=== PATIENT | male | born 1945 | race Caucasian/White ===

== ENCOUNTER → 2020-01-08 08:09 | Outpatient (BNVA) | payer MEDICARE, MEDICAID, SELFPAY | PROVIDERS: PCP Student in an Organized Health Care Education/Training Program; Referring Provider Student in an Organized Health Care Education/Training Program; Visit Provider Student in an Organized Health Care Education/Training Program | DX: M1A.40X0 Other secondary chronic gout, unspecified site, without tophus (tophi) (principal); M17.0 Bilateral primary osteoarthritis of knee; K70.30 Alcoholic cirrhosis of liver without ascites; Z79.899 Other long term (current) drug therapy | CPT/HCPCS: 99213 ==

== ENCOUNTER → 2020-01-24 13:21 | Outpatient (BNVA) | payer MEDICARE, MEDICAID, SELFPAY | PROVIDERS: PCP Student in an Organized Health Care Education/Training Program; Referring Provider Student in an Organized Health Care Education/Training Program; Visit Provider Internal Medicine Gastroenterology | DX: K72.90 Hepatic failure, unspecified without coma (principal); K70.30 Alcoholic cirrhosis of liver without ascites | CPT/HCPCS: 99212; Q3014 ==

== ENCOUNTER → 2020-02-07 10:22 | Outpatient (BNVA) | payer MEDICARE, MEDICAID, SELFPAY | PROVIDERS: PCP Student in an Organized Health Care Education/Training Program; Referring Provider Student in an Organized Health Care Education/Training Program; Visit Provider Internal Medicine Gastroenterology | DX: K70.30 Alcoholic cirrhosis of liver without ascites (principal); K72.90 Hepatic failure, unspecified without coma; I85.00 Esophageal varices without bleeding; Z87.19 Personal history of other diseases of the digestive system; Z79.899 Other long term (current) drug therapy | CPT/HCPCS: 99212; Q3014 ==

== ENCOUNTER 2020-05-06 08:51 | Outpatient (REF) | payer MEDICARE, SELFPAY ==
[2020-05-06 09:25] LABS: Ammonia 85 umol/L (13-55)
== END 2020-05-06 08:52 | disposition home or self-care (01) ==
LOC: HO.LAB 08:51
PROVIDERS: PCP Student in an Organized Health Care Education/Training Program; Visit Provider Student in an Organized Health Care Education/Training Program
DX: K74.60 Unspecified cirrhosis of liver (principal)
CPT/HCPCS: 36415; 82140

== ENCOUNTER 2020-05-15 15:00 | Outpatient (REF) | payer MEDICARE, SELFPAY ==
[2020-05-15 15:29] LABS: Eosinophils Percent Auto 0.3 % (0-4); Hematocrit 31.5 % (42-52); Hemoglobin 10.1 g/dl (14.0-18.0); Lymphocytes Absolute Auto 1.1 X10*3/uL (1.2-4.9); Lymphocytes Percent Auto 34.3 % (20-40); MANUAL DIFF FLAG SCAN; Mean Corpuscular HGB Conc 32.1 g/dl (31.0-36.0); Mean Corpuscular Hemoglobin 27.4 pg (27.0-33.0); Mean Corpuscular Volume 85.6 fL (80-98); Mean Platelet Volume 11.8 fL (9.4-12.4); Monocytes Absolute Auto 0.7 X10*3/uL (0.1-1.2); Monocytes Percent Auto 20.4 % (2-11); Neutrophils Absolute Auto 1.4 X10*3/uL (2.0-8.3); Red Blood Count 3.68 X10*6/uL (4.60-5.80); Red Cell Distribution Width 20.3 % (11.0-16.0); SCAN SMEAR FLAG 1; White Blood Count 3.2 X10*3/uL (4.8-10.8)
[2020-05-15 15:35] LABS: INTERNATIONAL NORM RATIO 1.4 (0.9-1.1); Prothrombin Time 17.1 SEC (10.8-13.0)
[2020-05-15 15:49] LABS: Platelet Count 55 X10*3/uL (160-400)
[2020-05-15 15:50] LABS: SLIDE REVIEW VERIFIED
[2020-05-15 15:52] LABS: Ammonia 96 umol/L (13-55)
[2020-05-15 15:57] LABS: Alanine Aminotransferase 42 U/L (0-40); Albumin Level 3.3 g/dL (3.5-5.0); Alkaline Phosphatase 292 U/L (39-117); Aspartate Amino Transferase 88 U/L (5-37); Bilirubin Direct 0.4 mg/dL (0.0-0.5); Bilirubin Total 0.8 mg/dL (0.0-1.0); Total Protein 6.9 g/dL (6.5-8.0)
[2020-05-15 16:00] LABS: Anion Gap 8 (12-20); Blood Urea Nitrogen 17 mg/dL (9-16); Carbon Dioxide 27 mmol/L (22-29); Chloride 105 mmol/L (96-108); Estimated Glomerular Filt Rate 50; Glucose Random 115 mg/dL (60-115); Potassium 4.7 mmol/L (3.3-5.1); Sodium 135 mmol/L (135-145)
== END 2020-05-15 15:01 | disposition home or self-care (01) ==
LOC: HO.LAB 15:00
PROVIDERS: PCP Student in an Organized Health Care Education/Training Program; Referring Provider Internal Medicine Gastroenterology; Visit Provider Internal Medicine
DX: K70.30 Alcoholic cirrhosis of liver without ascites (principal); K72.90 Hepatic failure, unspecified without coma; N18.9 Chronic kidney disease, unspecified
CPT/HCPCS: 36415; 80048; 80076; 82140; 85025; 85610

== ENCOUNTER → 2020-05-27 13:49 | Outpatient (BNVA) | payer MEDICARE, SELFPAY | PROVIDERS: PCP Student in an Organized Health Care Education/Training Program; Visit Provider Internal Medicine Gastroenterology | DX: Z13.89 Encounter for screening for other disorder (principal) | CPT/HCPCS: Q3014 ==

== ENCOUNTER 2020-05-30 09:42 | Outpatient (REF) | payer MEDICARE, SELFPAY ==
[2020-05-30 10:09] LABS: MANUAL DIFF FLAG SCAN; SCAN SMEAR FLAG 1
[2020-05-30 10:11] LABS: Eosinophils Percent Auto 0.7 % (0-4); Imm Gran Abs Auto 0.01 X10*3/uL (0.00-0.03); Imm Gran Pct Auto 0.2 % (0.0-0.4); Lymphocytes Absolute Auto 1.5 X10*3/uL (1.2-4.9); Lymphocytes Percent Auto 33.5 % (20-40); Mean Corpuscular HGB Conc 32.4 g/dl (31.0-36.0); Mean Corpuscular Hemoglobin 27.8 pg (27.0-33.0); Mean Corpuscular Volume 86.1 fL (80-98); Mean Platelet Volume 11.5 fL (9.4-12.4); Monocytes Absolute Auto 1.2 X10*3/uL (0.1-1.2); Monocytes Percent Auto 26.7 % (2-11); Neutrophils Absolute Auto 1.7 X10*3/uL (2.0-8.3); Neutrophils Percent Auto 38.9 % (45-73); Red Blood Count 3.95 X10*6/uL (4.60-5.80); Red Cell Distribution Width 20.1 % (11.0-16.0); White Blood Count 4.4 X10*3/uL (4.8-10.8)
[2020-05-30 10:12] LABS: Platelet Count 75 X10*3/uL (160-400)
[2020-05-30 10:17] LABS: INTERNATIONAL NORM RATIO 1.5 (0.9-1.1); Prothrombin Time 18.2 SEC (10.8-13.0)
[2020-05-30 10:35] LABS: SLIDE REVIEW VERIFIED
[2020-05-30 10:37] LABS: Ammonia 141 umol/L (13-55)
[2020-05-30 11:10] LABS: Alanine Aminotransferase 32 U/L (0-40); Albumin Level 3.5 g/dL (3.5-5.0); Alkaline Phosphatase 257 U/L (39-117); Anion Gap 10 (12-20); Aspartate Amino Transferase 105 U/L (5-37); Bilirubin Direct 0.4 mg/dL (0.0-0.5); Bilirubin Total 0.7 mg/dL (0.0-1.0); Blood Urea Nitrogen 13 mg/dL (9-16); Carbon Dioxide 25 mmol/L (22-29); Chloride 105 mmol/L (96-108); Estimated Glomerular Filt Rate 44; Potassium 4.4 mmol/L (3.3-5.1); Sodium 136 mmol/L (135-145); Total Protein 7.3 g/dL (6.5-8.0)
[2020-06-04 12:56] LABS: Alpha Fetoprotein 26.1 ng/mL (<6.1)
== END 2020-05-30 09:43 | disposition home or self-care (01) ==
LOC: HO.LAB 09:42
PROVIDERS: PCP Student in an Organized Health Care Education/Training Program; Visit Provider Internal Medicine Gastroenterology
DX: K72.90 Hepatic failure, unspecified without coma (principal); K70.30 Alcoholic cirrhosis of liver without ascites
CPT/HCPCS: 36415; 80051; 80076; 82105; 82140; 82565; 84520; 85025; 85610

== ENCOUNTER 2020-06-11 08:37 | Outpatient (REF) | payer MEDICARE, SELFPAY ==
--- NOTE | ~2020-06-11 | US_ITS ---
EXAMINATION: US ABDOMEN COMPLETE CLINICAL INFORMATION: K70.30 - Alcoholic cirrhosis of liver without ascites. COMPARISON: Ultrasound abdomen 08/28/2019, 07/27/2017 TECHNIQUE: Real-time imaging of the abdominal viscera. FINDINGS: PANCREAS: Obscured by bowel gas and not imaged. ABDOMINAL AORTA: The proximal, mid, and distal segments are normal in caliber. INFERIOR VENA CAVA: Visualized portions are normal. LIVER: The liver measures approximately 15 cm in length. The liver surface is nodular and there is uniform coarsening of the hepatic parenchymal echotexture consistent with the clinical history. There is no focal hepatic parenchymal lesion demonstrated by ultrasound. No intrahepatic ductal dilatation. Color Doppler shows portal flow towards the liver. GALLBLADDER: There are dependent gravel-like calculi in the gallbladder. There is no gallbladder wall thickening. Negative sonographic Mosqueda's sign. No pericholecystic fluid. COMMON BILE DUCT: Normal in caliber measuring 0.6 cm in diameter. RIGHT KIDNEY: Normal. No hydronephrosis. No renal calculi or focal parenchymal lesions. The kidney measures 10.3 cm in maximum dimension. LEFT KIDNEY: Normal. No hydronephrosis. No renal calculi or focal parenchymal lesions. The kidney measures 10.5 cm in maximum dimension. SPLEEN: Normal. The spleen measures 13.1 cm in maximum dimension. FREE FLUID: None. US/US abdomen complete IMPRESSION: 1. Uniform coarsening hepatic parenchymal echotexture and nodular liver surface consistent with the history of cirrhosis. No focal hepatic parenchymal lesion. 2. Fine gravel-like calculi dependent gallbladder. No gallbladder wall thickening or ductal dilatation. 3. Pancreas obscured by bowel gas.
[2020-06-11 09:08] LABS: Basophils Percent Auto 0.2 % (0-2); Eosinophils Percent Auto 0.6 % (0-4); Hematocrit 33.4 % (42-52); Imm Gran Abs Auto 0.01 X10*3/uL (0.00-0.03); Imm Gran Pct Auto 0.2 % (0.0-0.4); Lymphocytes Absolute Auto 1.7 X10*3/uL (1.2-4.9); Lymphocytes Percent Auto 35.8 % (20-40); MANUAL DIFF FLAG SCAN; Mean Corpuscular HGB Conc 32.9 g/dl (31.0-36.0); Mean Platelet Volume 10.7 fL (9.4-12.4); Monocytes Absolute Auto 1.2 X10*3/uL (0.1-1.2); Monocytes Percent Auto 25.3 % (2-11); Neutrophils Absolute Auto 1.8 X10*3/uL (2.0-8.3); Neutrophils Percent Auto 37.9 % (45-73); Red Blood Count 3.93 X10*6/uL (4.60-5.80); Red Cell Distribution Width 19.4 % (11.0-16.0); SCAN SMEAR FLAG 1; White Blood Count 4.9 X10*3/uL (4.8-10.8)
[2020-06-11 09:09] LABS: Platelet Count 75 X10*3/uL (160-400)
[2020-06-11 09:21] LABS: Ammonia 94 umol/L (13-55)
[2020-06-11 09:35] LABS: Estimated Glomerular Filt Rate 55; SLIDE REVIEW VERIFIED
== END 2020-06-11 08:38 | disposition home or self-care (01) ==
LOC: HO.US 08:37
PROVIDERS: PCP Student in an Organized Health Care Education/Training Program; Visit Provider Internal Medicine Gastroenterology
DX: K70.30 Alcoholic cirrhosis of liver without ascites (principal); K72.90 Hepatic failure, unspecified without coma
CPT/HCPCS: 36415; 76700; 82140; 82565; 85025

== ENCOUNTER → 2020-06-17 09:13 | Outpatient (BNVA) | payer MEDICARE, MEDICAID, SELFPAY | PROVIDERS: PCP Student in an Organized Health Care Education/Training Program; Visit Provider Internal Medicine Endocrinology, Diabetes & Metabolism | DX: Z13.89 Encounter for screening for other disorder (principal) | CPT/HCPCS: 99212; Q3014 ==

== ENCOUNTER 2020-06-18 09:01 | Outpatient (REF) | payer MEDICARE, MEDICAID, SELFPAY ==
[2020-06-18 09:48] LABS: Estimated Average Glucose 123 mg/dL; Hemoglobin A1c % 5.9 %
[2020-06-18 11:13] LABS: Vitamin B12 680 pg/mL (200-900)
== END 2020-06-18 09:02 | disposition home or self-care (01) ==
LOC: HO.LAB 09:01
PROVIDERS: Absent Provider Internal Medicine Gastroenterology; PCP Student in an Organized Health Care Education/Training Program; Visit Provider Internal Medicine Endocrinology, Diabetes & Metabolism
DX: E11.22 Type 2 diabetes mellitus with diabetic chronic kidney disease (principal); N18.31 Chronic kidney disease, stage 3a; Z79.4 Long term (current) use of insulin
CPT/HCPCS: 36415; 82607; 83036

== ENCOUNTER 2020-06-19 10:16 | Outpatient (REF) | payer MEDICARE, MEDICAID, SELFPAY ==
[2020-06-19 11:12] LABS: Glucose Urine UA NEG (NEG); Leukocyte Esterase Urine NEG (NEG); Nitrite Urine NEG (NEG); PH 7.5 (5.0-8.0); Specific Gravity - Urine 1.015 (1.005-1.025); Urine Blood NEG (NEG); Urine Ketones NEG (NEG); Urine Protein NEG (NEG-TRACE)
[2020-06-19 11:14] LABS: Appearance Urine CLEAR; Color Urine YELLOW
[2020-06-19 11:36] LABS: Creatinine Urine 74.44 mg/dL; Microalbumin Urine < 5.0 mg/L
== END 2020-06-19 10:17 | disposition home or self-care (01) ==
LOC: HO.LNP 10:16
PROVIDERS: Internal Medicine Gastroenterology; Visit Provider Internal Medicine Endocrinology, Diabetes & Metabolism
DX: E11.22 Type 2 diabetes mellitus with diabetic chronic kidney disease (principal); N18.31 Chronic kidney disease, stage 3a; Z79.4 Long term (current) use of insulin; Z87.440 Personal history of urinary (tract) infections
CPT/HCPCS: 81003; 82043

== ENCOUNTER 2020-06-24 10:00 | Outpatient (REF) | payer MEDICARE, MEDICAID, SELFPAY | END 2020-06-24 10:01 | disposition home or self-care (01) | LOC: HO.LNP 10:00 | PROVIDERS: Visit Provider Internal Medicine Gastroenterology | DX: E11.22 Type 2 diabetes mellitus with diabetic chronic kidney disease (principal); N18.9 Chronic kidney disease, unspecified | CPT/HCPCS: 87086 ==

== ENCOUNTER 2020-07-07 08:36 | Outpatient (REF) | payer MEDICARE, SELFPAY ==
[2020-07-07 09:56] LABS: Eosinophils Percent Auto 0.7 % (0-4); Hematocrit 34.1 % (42-52); Hemoglobin 10.7 g/dl (14.0-18.0); Imm Gran Abs Auto 0.02 X10*3/uL (0.00-0.03); Imm Gran Pct Auto 0.4 % (0.0-0.4); Lymphocytes Absolute Auto 1.6 X10*3/uL (1.2-4.9); Lymphocytes Percent Auto 34.9 % (20-40); MANUAL DIFF FLAG SCAN; Mean Corpuscular HGB Conc 31.4 g/dl (31.0-36.0); Mean Corpuscular Hemoglobin 27.8 pg (27.0-33.0); Mean Corpuscular Volume 88.6 fL (80-98); Mean Platelet Volume 12.1 fL (9.4-12.4); Monocytes Percent Auto 21.5 % (2-11); Neutrophils Absolute Auto 1.9 X10*3/uL (2.0-8.3); Neutrophils Percent Auto 42.5 % (45-73); Red Blood Count 3.85 X10*6/uL (4.60-5.80); Red Cell Distribution Width 19.8 % (11.0-16.0); SCAN SMEAR FLAG 1; White Blood Count 4.6 X10*3/uL (4.8-10.8)
[2020-07-07 09:57] LABS: Platelet Count 74 X10*3/uL (160-400)
[2020-07-07 10:18] LABS: SLIDE REVIEW VERIFIED
[2020-07-07 10:28] LABS: Anion Gap 12 (12-20); Blood Urea Nitrogen 12 mg/dL (9-16); Calcium 9.2 mg/dL (8.4-10.2); Carbon Dioxide 25 mmol/L (22-29); Chloride 105 mmol/L (96-108); Estimated Glomerular Filt Rate 48; Glucose Random 59 mg/dL (60-115); Potassium 4.3 mmol/L (3.3-5.1); Sodium 138 mmol/L (135-145); Uric Acid 5.8 mg/dL (3.4-7.0)
== END 2020-07-07 08:37 | disposition home or self-care (01) ==
LOC: HO.LAB 08:36
PROVIDERS: Internal Medicine Gastroenterology; PCP Student in an Organized Health Care Education/Training Program; Visit Provider Student in an Organized Health Care Education/Training Program
DX: M1A.40X0 Other secondary chronic gout, unspecified site, without tophus (tophi) (principal); K70.30 Alcoholic cirrhosis of liver without ascites
CPT/HCPCS: 36415; 80048; 84550; 85025

== ENCOUNTER → 2020-07-08 09:10 | Outpatient (BNVA) | payer MEDICARE, SELFPAY | PROVIDERS: PCP Student in an Organized Health Care Education/Training Program; Referring Provider Student in an Organized Health Care Education/Training Program; Visit Provider Student in an Organized Health Care Education/Training Program | DX: M1A.40X0 Other secondary chronic gout, unspecified site, without tophus (tophi) (principal); M25.561 Pain in right knee; M25.562 Pain in left knee; G89.29 Other chronic pain | CPT/HCPCS: 99212 ==

== ENCOUNTER 2020-07-17 20:15 | Emergency (ER) | payer MEDICARE, SELFPAY ==
--- NOTE | ~2020-07-17 | XR_ITS ---
EXAMINATION: XR RIBS, RIGHT CLINICAL INFORMATION: Fall onto table. Pain. COMPARISON: 11/19/2018 TECHNIQUE: 3 views of the right ribs were obtained. PA view of the chest. FINDINGS: Left chest wall pacer. The lungs are well expanded. Central vascular prominence without overt edema. There may be small pleural effusions. No pneumothorax. The cardiomediastinal silhouette remains prominent. . Degenerative changes of the right glenohumeral joint with prominent osteophyte formation. A marker overlies the lower right ribs. There is a defect of the posterior right 11th rib.. There is a nondisplaced fracture involving the right lateral eighth rib underlying the marker. XR/XR ribs RT min 3V w CXR1V IMPRESSION: Nondisplaced right lateral eighth rib fracture or underlying the marker. There is also a defect of the right posterior 11th rib which could be chronic. There may be small pleural effusions.
[2020-07-17 20:37] VITALS: BP 136/80; BP 151/72; PULSE 71; PULSE 86; RESP 17; TEMP 36.4; O2SAT 97; BMI 40.1
--- NOTE | 2020-07-17 20:44 | PC.NURSE ---
patient a&ox3, c/o rt sided pain 01/04, vitals stable, pt awaiting on provider, will continue to monitor.
[2020-07-17 22:00] VITALS: BP 149/70; PULSE 73; RESP 18; TEMP 36.7; O2SAT 98
--- NOTE | 2020-07-17 22:05 | PC.NURSE ---
patient to xray
--- NOTE | 2020-07-17 22:13 | ED_ITS ---
HPI - Fall General Chief Complaint: Fall Stated Complaint: FALL RIB PAIN Time Seen by Provider: 07/17/20 22:07 Source: patient Mode of arrival: ambulatory Limitations: no limitations History of Present Illness HPI Narrative: Patient is a 74-year-old male with a past medical history of alcoholic hepatitis, hypertension, hyperlipidemia, type 2 diabetes, renal insufficiency, COPD, pacemaker and gout presents with right-sided rib pain. Patient states at 01:00 o'clock in the morning, this morning, he was going to answer the door and he tripped and fell into the table with his right upper abdomen/ribs. He states he did not fall and hit his head or lose consciousness. He has not tried to take any medications to make his pain better. Patient has an extensive med list including [employer]. Related Data Home Medications Medication Instructions Recorded Confirmed aspirin 81 mg tablet,delayed 81 mg PO DAILY 01/08/20 06/17/20 release carvedilol 6.25 mg tablet 6.25 mg PO BID 01/08/20 06/17/20 cholecalciferol (vitamin D3) 25 25 mcg PO DAILY 01/08/20 06/17/20 mcg (1,000 unit) capsule levothyroxine 100 mcg tablet 100 mcg PO DAILY 01/08/20 06/17/20 loratadine 10 mg tablet 10 mg PO DAILY 01/08/20 06/17/20 omeprazole 20 mg capsule,delayed 20 mg PO DAILY 01/08/20 06/17/20 release sacubitril 24 mg-valsartan 26 mg 1 tab PO BID 01/08/20 06/17/20 tablet simvastatin 20 mg tablet 20 mg PO DAILY 01/08/20 06/17/20 torsemide 20 mg tablet 20 mg PO DAILY 01/08/20 06/17/20 apixaban 5 mg tablet 5 mg PO BID 06/17/20 06/17/20 mexiletine 200 mg capsule 200 mg PO .twice a day cap 06/17/20 06/17/20 quetiapine 100 mg tablet 100 mg PO BID tab 06/17/20 06/17/20 spironolactone 25 mg tablet 25 mg PO DAILY 06/17/20 06/17/20 Previous Rx's Medication Instructions Recorded allopurinol 100 mg tablet 100 mg PO QAM #30 tab 04/10/20 lactulose 20 gram/30 mL oral 20 g PO TID 30 Days #2700 ml 05/26/20 solution diphenhydramine HCl 25 mg capsule 25 mg PO BEDTIME PRN 30 Days #30 06/17/20 cap insulin glargine 100 unit/mL (3 35 unit SUBCUT QPM 90 Days #45 ml 06/17/20 mL) subcutaneous pen insulin lispro 100 unit/mL See Rx Instructions SUBCUT TID 90 06/17/20 subcutaneous pen Days #45 ml pen needle, diabetic 32 gauge x #400 ea 06/17/20 blood sugar diagnostic #360 ea 07/10/20 lancets 33 gauge #360 ea 07/10/20 Allergies Allergy/AdvReac Type Severity Reaction Status Date / Time morphine Allergy Intermediate rash Verified 07/08/20 09:17 Review of Systems Review of Systems: Yes all other systems are reviewed and are negative [facility] Past Medical History Medical History Chronic renal insufficiency COPD (chronic obstructive pulmonary disease) Coronary artery disease History of adenomatous polyp of colon History of pancreatitis Hyperlipidemia 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 Type 2 diabetes mellitus Surgical History H/O colonoscopy (~08/2017) History of esophagogastroduodenoscopy (EGD) History of implantable cardioverter-defibrillator (ICD) placement (08/28/13) Status cardiac pacemaker (~1989) Family History Family History Father Heart problem Blind Mother Diabetes Asthma Paternal Aunt Blind Social History Social History Household Members: None Housing: Apartment Alcohol intake: former Smoking Status: Former smoker Tobacco Type: Cigarette Use of substances other than those prescribed or required for medical reasons: No Advance Directives: No Advance Directives Information Provided: Yes Physical Exam Vital Signs: Vital Signs: Last Vital Signs Temp 98.0 F 07/17/20 22:00 Pulse 73 07/17/20 22:00 Resp 18 07/17/20 22:00 BP 149/70 H 07/17/20 22:00 Pulse Ox 98 07/17/20 22:00 Body Mass Index 40.1 Const: General: cooperative, healthy appearing, comfortable and no acute distress Nutritional Appearance: obese Orientation/consciousness: patient oriented x3 Limitations: 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) HENMT: Head: Yes normal to inspection, Yes No palpable skull fracture present, Yes normocephalic and Yes atraumatic Eyes: General: appearance normal, both eyes and all related structures Neck: Neck: Yes normal visual inspection, Yes full ROM, Yes trachea midline and Yes supple Chest: Chest palpation & inspection: normal inspection of the chest and tenderness rib (Right lower ribs) Resp: Effort & Inspection: normal respiratory effort and able to speak in complete sentences Auscultation: clear to auscultation bilaterally Cardio: Rate: regular rate Rhythm: regular rhythm Skin: General skin exam: no rashes or lesions noted and no ecchymosis (Right chest or abdomen) Neuro: General: patient oriented x3 Course Course Course Narrative: 74-year-old male with extensive medical history and medications. Patient is on Eliquis and has history of liver and kidney issues is also on carbidopa levodopa. Explained to patient and there are no medications I can offer him for his pain due to the medications he is taking. We will get a x-ray of the ribs and reassess. MDM - Fall Imaging Data xray right ribs: Attestation: I personally reviewed and interpreted this imaging study as follows: Radiologist's impression: [address] [id number] ReportSigned Patient: Rito Brock#: [id number]: 7Acct:[id number]/Sex: 74 / MADM Date: 07/17/20Loc: HO.EDAttending Dr: Ordering Physician: Liane Middleton PA-C Date of Service: 07/17/20 Procedure(s): XR ribs RT min 3V w CXR1V Accession Number(s): [id number] cc: Liane Middleton PA-C~ EXAMINATION: XR RIBS, RIGHT CLINICAL INFORMATION: Fall onto table. Pain. COMPARISON: 11/19/2018 TECHNIQUE: 3 views of the right ribs were obtained. PA view of the chest. FINDINGS: Left chest wall pacer. The lungs are well expanded. Central vascular prominence without overt edema. There may be small pleural effusions. No pneumothorax. The cardiomediastinal silhouette remains prominent. . Degenerative changes of the right glenohumeral joint with prominent osteophyte formation. A marker overlies the lower right ribs. There is a defect of the posterior right 11th rib.. There is a nondisplaced fracture involving the right lateral eighth rib underlying the marker. XR/XR ribs RT min 3V w CXR1V IMPRESSION: Nondisplaced right lateral eighth rib fracture or underlying the marker. There is also a defect of the right posterior 11th rib which could be chronic. There may be small pleural effusions. Dictated By:Angel Bran MDSigned By:<Electronically signed by Angel Bran MD in [place]>07/17/202300 DD/ 11TD/TT: Senior Product Designer: DOMENIC Discharge Plan Discharge Clinical Impression: Right rib fracture Patient Disposition: Home, Self-Care Instructions: Rib Fracture (ED) Additional Instructions: As discussed, he did fracture your wound 8th rib on the right side, however because you are on blood thinner, you cannot take any NSAIDs. You can purchase an OTC lidocaine patch to help with the pain. Please be sure to use the incentive spirometer several times daily. Prescriptions: No Action allopurinol 100 mg tablet 100 mg PO QAM Qty: 30 RF: 5 lactulose 20 gram/30 mL solution 20 g PO TID 30 Days Qty: 2700 RF: 3 (DME) lancets [OneTouch Delica Lancets] 33 gauge misc See Rx Instructions miscellaneous .MEDSUPPLY Qty: 360 RF: 1 (DME) OneTouch Ultra Blue Test Strip Strip See Rx Instructions .ROUTE .MEDSUPPLY Qty: 360 RF: 2 Entresto 24-26 mg tablet 1 tab PO BID RF: 0 carvedilol 6.25 mg tablet 6.25 mg PO BID RF: 0 torsemide 20 mg tablet 20 mg PO DAILY RF: 0 cholecalciferol (vitamin D3) [Vitamin D3] 25 mcg (1,000 unit) capsule 25 mcg PO DAILY RF: 0 levothyroxine 100 mcg tablet 100 mcg PO DAILY RF: 0 aspirin 81 mg tablet,delayed release (DR/EC) 81 mg PO DAILY RF: 0 loratadine [Allergy Relief (loratadine)] 10 mg tablet 10 mg PO DAILY RF: 0 omeprazole 20 mg capsule,delayed release(DR/EC) 20 mg PO DAILY RF: 0 simvastatin 20 mg tablet 20 mg PO DAILY RF: 0 quetiapine 100 mg tablet 100 mg PO BID RF: 0 mexiletine 200 mg capsule 200 mg PO .twice a day RF: 0 Eliquis 5 mg tablet 5 mg PO BID RF: 0 spironolactone 25 mg tablet 25 mg PO DAILY RF: 0 Lantus Solostar U-100 Insulin 100 unit/mL (3 mL) insulin pen 35 unit subcut QPM 90 Days Qty: 45 RF: 1 insulin lispro [Humalog KwikPen Insulin] 100 unit/mL insulin pen See Rx Instructions subcut TID 90 Days Qty: 45 RF: 1 (DME) pen needle, diabetic [BD Lavinia 2nd Gen Pen Needle] 32 gauge x 5/32 needle See Rx Instructions .MEDSUPPLY Qty: 400 RF: 4 diphenhydramine HCl [Benadryl] 25 mg capsule 25 mg PO BEDTIME PRN (Reason: sleep) 30 Days Qty: 30 RF: 1
--- NOTE | 2020-07-17 22:40 | PC.NURSE ---
patient a&ox3, pt awaiting results of xray, vitals stable, will continue to monitor.
== END 2020-07-18 00:45 | disposition home or self-care (01) ==
PROVIDERS: Emergency Provider Internal Medicine; PCP Student in an Organized Health Care Education/Training Program
DX: S22.31XA Fracture of one rib, right side, initial encounter for closed fracture (principal); R07.81 Pleurodynia; G44.309 Post-traumatic headache, unspecified, not intractable; I10 Essential (primary) hypertension; E11.9 Type 2 diabetes mellitus without complications; W01.0XXA Fall on same level from slipping, tripping and stumbling without subsequent striking against object, initial encounter; Y93.9 Activity, unspecified; Y92.009 Unspecified place in unspecified non-institutional (private) residence as the place of occurrence of the external cause; Y99.9 Unspecified external cause status; Z79.82 Long term (current) use of aspirin; Z79.4 Long term (current) use of insulin; Z79.899 Other long term (current) drug therapy; Z87.891 Personal history of nicotine dependence
CPT/HCPCS: 71101; 99284

== ENCOUNTER → 2020-07-28 10:05 | Outpatient (BNVA) | payer MEDICARE, SELFPAY | PROVIDERS: PCP Student in an Organized Health Care Education/Training Program; Visit Provider Internal Medicine Gastroenterology | DX: K72.90 Hepatic failure, unspecified without coma (principal); K70.30 Alcoholic cirrhosis of liver without ascites; R39.11 Hesitancy of micturition; Z87.19 Personal history of other diseases of the digestive system | CPT/HCPCS: 99212 ==

== ENCOUNTER 2020-07-30 09:28 | Emergency (ER) | payer MEDICARE, SELFPAY ==
[2020-07-30 09:56] VITALS: BP 126/72; PULSE 84; RESP 19; TEMP 36.6; O2SAT 96; BMI 38.6
--- NOTE | 2020-07-30 10:07 | ED.AMS ---
HPI - Altered Mental Status General Chief Complaint: Altered Mental Status Stated Complaint: Disoriented Time Seen by Provider: 07/30/20 10:07 Source: family Mode of arrival: ambulatory Limitations: language barrier and altered mental status History of Present Illness HPI narrative: patient with a history of cirrhosis with hepatic encephalopathy. According to the patient's son he has had confusion secondary to high ammonia. Son states he is not good with his diet when he goes out with his friends. In addition, the patient has been stating that he has dysuria MD complaint: altered mental status Onset (ago): day(s) Timing confirmed by: family member Severity: mild Consistency of symptoms: waxing and waning Context: history of similar presentation Associated symptoms: weakness Related Data Home Medications Medication Instructions Recorded Confirmed aspirin 81 mg tablet,delayed 81 mg PO DAILY 01/08/20 07/28/20 release carvedilol 6.25 mg tablet 6.25 mg PO BID 01/08/20 07/28/20 cholecalciferol (vitamin D3) 25 25 mcg PO DAILY 01/08/20 07/28/20 mcg (1,000 unit) capsule levothyroxine 100 mcg tablet 100 mcg PO DAILY 01/08/20 07/28/20 loratadine 10 mg tablet 10 mg PO DAILY 01/08/20 07/28/20 omeprazole 20 mg capsule,delayed 20 mg PO DAILY 01/08/20 07/28/20 release sacubitril 24 mg-valsartan 26 mg 1 tab PO BID 01/08/20 07/28/20 tablet simvastatin 20 mg tablet 20 mg PO DAILY 01/08/20 07/28/20 torsemide 20 mg tablet 20 mg PO DAILY 01/08/20 07/28/20 apixaban 5 mg tablet 5 mg PO BID 06/17/20 07/28/20 mexiletine 200 mg capsule 200 mg PO .twice a day cap 06/17/20 07/28/20 quetiapine 100 mg tablet 100 mg PO BID tab 06/17/20 07/28/20 spironolactone 25 mg tablet 25 mg PO DAILY 06/17/20 07/28/20 Previous Rx's Medication Instructions Recorded allopurinol 100 mg tablet 100 mg PO QAM #30 tab 04/10/20 lactulose 20 gram/30 mL oral 20 g PO TID 30 Days #2700 ml 05/26/20 solution diphenhydramine HCl 25 mg capsule 25 mg PO BEDTIME PRN 30 Days #30 06/17/20 cap insulin glargine 100 unit/mL (3 35 unit SUBCUT QPM 90 Days #45 ml 06/17/20 mL) subcutaneous pen insulin lispro 100 unit/mL See Rx Instructions SUBCUT TID 90 06/17/20 subcutaneous pen Days #45 ml pen needle, diabetic 32 gauge x #400 ea 06/17/20 blood sugar diagnostic #360 ea 07/10/20 lancets 33 gauge #360 ea 07/10/20 lidocaine 1 patch TOPICAL DAILY #15 ea 07/17/20 Allergies Allergy/AdvReac Type Severity Reaction Status Date / Time morphine Allergy Intermediate rash Verified 07/28/20 10:09 Review of Systems Constitutional: Constitutional: Reports no additional constitutional complaints Eyes: Eyes: Reports no additional eye complaints ENT: Denies dizziness Cardiovascular: Cardiovascular: Reports no additional cardiovascular complaints Respiratory: Respiratory: Reports as per HPI Gastrointestinal: Gastrointestinal: Reports no additional gastrointestinal complaints Musculoskeletal: Musculoskeletal: Reports no additional musculoskeletal complaints Integumentary/Breasts: Skin/Breast: Denies rash Neurologic: Reports system reviewed and no additional complaints, except as documented, Denies dizziness and Denies Sensory deficit (Neuro) Psychiatric: Psychiatric: Denies anxiety [facility] Past Medical History Medical History Chronic renal insufficiency COPD (chronic obstructive pulmonary disease) Coronary artery disease History of adenomatous polyp of colon History of pancreatitis Hyperlipidemia 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 Type 2 diabetes mellitus Surgical History H/O colonoscopy (~08/2017) History of esophagogastroduodenoscopy (EGD) History of implantable cardioverter-defibrillator (ICD) placement (08/28/13) Status cardiac pacemaker (~1989) Family History Family History Father Heart problem Blind Mother Diabetes Asthma Paternal Aunt Blind Social History Social History Household Members: None Housing: Apartment Alcohol intake: former Smoking Status: Former smoker Tobacco Type: Cigarette Smoked in Last 30 Days: No Use of substances other than those prescribed or required for medical reasons: No Advance Directives: No Advance Directives Information Provided: No Physical Exam Vital Signs: Vital Signs: Last Vital Signs Temp 97.9 F 07/30/20 09:56 Pulse 84 07/30/20 09:56 Resp 19 07/30/20 09:56 BP 126/72 07/30/20 09:56 Pulse Ox 96 07/30/20 09:56 Body Mass Index 38.6 Const: Other: male looking older than stated age, chronically ill Nutritional Appearance: obese Orientation/consciousness: oriented to person Limitations: no limitations HENMT: Head: Yes normal to inspection Ears: external ears normal General nose exam: Normal external nose present Mouth: Normal oral and palatal mucosa present and oropharynx normal Throat: Yes posterior oropharynx normal Eyes: General: appearance normal, both eyes and all related structures Neck: Other: supple Neck: Yes normal visual inspection Chest: Chest palpation & inspection: normal inspection of the chest Resp: Auscultation: clear to auscultation bilaterally Cardio: Jugular venous distension: no JVD Rate: regular rate Rhythm: regular rhythm Heart sounds: S1 normal heart sound present and S2 normal heart sound present GI: Inspection: Yes normal to inspection Palpation (GI): Soft to palpation, nontender and No hepatosplenomegaly present Auscultation: normal bowel sounds : General: Yes no CVA tenderness Back/Spine/Pelvis: Back: no CVA tenderness Skin: General skin exam: no rashes or lesions noted Neuro: General: oriented to person Cranial nerves: Yes CN's II-XII intact bilaterally Motor exam (neuro): 5/5 motor strength present throughout Sensory Exam: No Sensory deficit (Neuro) Extrem: General: Yes normal to inspection Psych: Appearance: grossly normal MDM - Altered Mental Status MDM Narrative Medical decision making narrative: confusion likely secondary to hepatic encephalopathy. Will make sure patient is taking his lactulose. Will dc home Lab Data Result diagrams: 07/30/20 10:32 07/30/20 10:32 Labs: Lab Results 07/30/20 07/30/20 07/30/20 Range/Units 10:32 10:32 10:32 WBC 5.1 (4.8-10.8) X10*3/uL RBC 3.87 L (4.60-5.80) X10*6/uL Hgb 11.0 L (14.0-18.0) g/dl Hct 33.7 L (42-52) % MCV 87.1 (80-98) fL MCH 28.4 (27.0-33.0) pg MCHC 32.6 (31.0-36.0) g/dl RDW 19.1 H (11.0-16.0) % Plt Count 72 L (160-400) X10*3/uL MPV 12.1 (9.4-12.4) fL Immature Gran % (Auto) 0.8 H (0.0-0.4) % Neut % (Auto) 48.4 (45-73) % Lymph % (Auto) 28.9 (20-40) % [place] % (Auto) 21.5 H (2-11) % Eos % (Auto) 0.4 (0-4) % Baso % (Auto) 0.0 (0-2) % Lymph # (Auto) 1.5 (1.2-4.9) X10*3/uL [place] # (Auto) 1.1 (0.1-1.2) X10*3/uL Eos # (Auto) 0.0 (0.0-0.4) X10*3/uL Baso # (Auto) 0.0 (0.0-0.2) X10*3/uL Abs Immat Gran (auto) 0.04 H (0.00-0.03) X10*3/uL Absolute Neuts (auto) 2.5 (2.0-8.3) X10*3/uL Absolute Nucleated RBC 0.000 (0.0-0.012) X10*3/uL Nucleated RBC % (auto) 0.0 (0.0-0.2) /100WBC Smear Tech's Comments VERIFIED Sodium 136 (135-145) mmol/L Potassium 3.6 (3.3-5.1) mmol/L Chloride 106 (96-108) mmol/L Carbon Dioxide 22 (22-29) mmol/L Anion Gap 12 (12-20) BUN 21 H D (9-16) mg/dL Creatinine 1.78 H (0.5-1.4) mg/dL Estim Creat Clear Calc 38.5 Estimated GFR 38 Random Glucose 96 D (60-115) mg/dL Calcium 9.6 (8.4-10.2) mg/dL Total Bilirubin 1.3 H (0.0-1.0) mg/dL Direct Bilirubin 0.6 H (0.0-0.5) mg/dL AST 106 H (5-37) U/L ALT 14 (0-40) U/L Alkaline Phosphatase 272 H (39-117) U/L Ammonia 74 H (13-55) umol/L Total Protein 7.4 (6.5-8.0) g/dL Albumin 3.5 (3.5-5.0) g/dL Urine Color Urine Appearance Urine pH (5.0-8.0) Ur Specific [place] (1.005-1.025) Urine Protein (NEG-TRACE) MG/DL Urine Glucose (UA) (NEG) MG/DL Urine Ketones (NEG) MG/DL Urine Blood (NEG) Urine Nitrite (NEG) Ur Leukocyte Esterase (NEG) 07/30/20 Range/Units 11:25 WBC (4.8-10.8) X10*3/uL RBC (4.60-5.80) X10*6/uL Hgb (14.0-18.0) g/dl Hct (42-52) % MCV (80-98) fL MCH (27.0-33.0) pg MCHC (31.0-36.0) g/dl RDW (11.0-16.0) % Plt Count (160-400) X10*3/uL MPV (9.4-12.4) fL Immature Gran % (Auto) (0.0-0.4) % Neut % (Auto) (45-73) % Lymph % (Auto) (20-40) % [place] % (Auto) (2-11) % Eos % (Auto) (0-4) % Baso % (Auto) (0-2) % Lymph # (Auto) (1.2-4.9) X10*3/uL [place] # (Auto) (0.1-1.2) X10*3/uL Eos # (Auto) (0.0-0.4) X10*3/uL Baso # (Auto) (0.0-0.2) X10*3/uL Abs Immat Gran (auto) (0.00-0.03) X10*3/uL Absolute Neuts (auto) (2.0-8.3) X10*3/uL Absolute Nucleated RBC (0.0-0.012) X10*3/uL Nucleated RBC % (auto) (0.0-0.2) /100WBC Smear Tech's Comments Sodium (135-145) mmol/L Potassium (3.3-5.1) mmol/L Chloride (96-108) mmol/L Carbon Dioxide (22-29) mmol/L Anion Gap (12-20) BUN (9-16) mg/dL Creatinine (0.5-1.4) mg/dL Estim Creat Clear Calc Estimated GFR Random Glucose (60-115) mg/dL Calcium (8.4-10.2) mg/dL Total Bilirubin (0.0-1.0) mg/dL Direct Bilirubin (0.0-0.5) mg/dL AST (5-37) U/L ALT (0-40) U/L Alkaline Phosphatase (39-117) U/L Ammonia (13-55) umol/L Total Protein (6.5-8.0) g/dL Albumin (3.5-5.0) g/dL Urine Color YELLOW Urine Appearance CLEAR Urine pH 6.0 (5.0-8.0) Ur Specific [place] 1.020 (1.005-1.025) Urine Protein NEG (NEG-TRACE) MG/DL Urine Glucose (UA) NEG (NEG) MG/DL Urine Ketones NEG (NEG) MG/DL Urine Blood NEG (NEG) Urine Nitrite NEG (NEG) Ur Leukocyte Esterase NEG (NEG) Discharge Plan Discharge Clinical Impression: Hepatic encephalopathy Patient Disposition: Home, Self-Care Instructions: Encephalopathy (DC) Prescriptions: No Action allopurinol 100 mg tablet 100 mg PO QAM Qty: 30 RF: 5 lactulose 20 gram/30 mL solution 20 g PO TID 30 Days Qty: 2700 RF: 3 (DME) lancets [OneTouch Delica Lancets] 33 gauge misc See Rx Instructions miscellaneous .MEDSUPPLY Qty: 360 RF: 1 (DME) OneTouch Ultra Blue Test Strip Strip See Rx Instructions .ROUTE .MEDSUPPLY Qty: 360 RF: 2 lidocaine 5 % adhesive patch,medicated 1 patch topical DAILY Qty: 15 RF: 0 Entresto 24-26 mg tablet 1 tab PO BID RF: 0 carvedilol 6.25 mg tablet 6.25 mg PO BID RF: 0 torsemide 20 mg tablet 20 mg PO DAILY RF: 0 cholecalciferol (vitamin D3) [Vitamin D3] 25 mcg (1,000 unit) capsule 25 mcg PO DAILY RF: 0 levothyroxine 100 mcg tablet 100 mcg PO DAILY RF: 0 aspirin 81 mg tablet,delayed release (DR/EC) 81 mg PO DAILY RF: 0 loratadine [Allergy Relief (loratadine)] 10 mg tablet 10 mg PO DAILY RF: 0 omeprazole 20 mg capsule,delayed release(DR/EC) 20 mg PO DAILY RF: 0 simvastatin 20 mg tablet 20 mg PO DAILY RF: 0 quetiapine 100 mg tablet 100 mg PO BID RF: 0 mexiletine 200 mg capsule 200 mg PO .twice a day RF: 0 Eliquis 5 mg tablet 5 mg PO BID RF: 0 spironolactone 25 mg tablet 25 mg PO DAILY RF: 0 Lantus Solostar U-100 Insulin 100 unit/mL (3 mL) insulin pen 35 unit subcut QPM 90 Days Qty: 45 RF: 1 insulin lispro [Humalog KwikPen Insulin] 100 unit/mL insulin pen See Rx Instructions subcut TID 90 Days Qty: 45 RF: 1 (DME) pen needle, diabetic [BD Lavinia 2nd Gen Pen Needle] 32 gauge x 5/32 needle See Rx Instructions .MEDSUPPLY Qty: 400 RF: 4 diphenhydramine HCl [Benadryl] 25 mg capsule 25 mg PO BEDTIME PRN (Reason: sleep) 30 Days Qty: 30 RF: 1 Referrals: Marleen Morales MD [Primary Care Provider] - 2 days
[2020-07-30] MEDS: Lactulose 20 GM/30 ML SOLUTION PO (10:28)
[2020-07-30 10:40] LABS: Eosinophils Percent Auto 0.4 % (0-4); MANUAL DIFF FLAG SCAN; PLT CLUMP 1; SCAN SMEAR FLAG 1
[2020-07-30 10:41] LABS: Hematocrit 33.7 % (42-52); Imm Gran Abs Auto 0.04 X10*3/uL (0.00-0.03); Imm Gran Pct Auto 0.8 % (0.0-0.4); Lymphocytes Absolute Auto 1.5 X10*3/uL (1.2-4.9); Lymphocytes Percent Auto 28.9 % (20-40); Mean Corpuscular HGB Conc 32.6 g/dl (31.0-36.0); Mean Corpuscular Hemoglobin 28.4 pg (27.0-33.0); Mean Corpuscular Volume 87.1 fL (80-98); Mean Platelet Volume 12.1 fL (9.4-12.4); Monocytes Absolute Auto 1.1 X10*3/uL (0.1-1.2); Monocytes Percent Auto 21.5 % (2-11); Neutrophils Absolute Auto 2.5 X10*3/uL (2.0-8.3); Neutrophils Percent Auto 48.4 % (45-73); Red Blood Count 3.87 X10*6/uL (4.60-5.80); Red Cell Distribution Width 19.1 % (11.0-16.0); White Blood Count 5.1 X10*3/uL (4.8-10.8)
[2020-07-30 10:44] LABS: Platelet Count 72 X10*3/uL (160-400)
[2020-07-30 10:54] LABS: Ammonia 74 umol/L (13-55)
[2020-07-30 11:16] LABS: SLIDE REVIEW VERIFIED
[2020-07-30 11:17] LABS: Alanine Aminotransferase 14 U/L (0-40); Albumin Level 3.5 g/dL (3.5-5.0); Alkaline Phosphatase 272 U/L (39-117); Anion Gap 12 (12-20); Aspartate Amino Transferase 106 U/L (5-37); Bilirubin Direct 0.6 mg/dL (0.0-0.5); Bilirubin Total 1.3 mg/dL (0.0-1.0); Blood Urea Nitrogen 21 mg/dL (9-16); Calcium 9.6 mg/dL (8.4-10.2); Carbon Dioxide 22 mmol/L (22-29); Chloride 106 mmol/L (96-108); Creatinine Clr Calc Pharmacy 38.5; Estimated Glomerular Filt Rate 38; Glucose Random 96 mg/dL (60-115); Potassium 3.6 mmol/L (3.3-5.1); Sodium 136 mmol/L (135-145); Total Protein 7.4 g/dL (6.5-8.0)
[2020-07-30 11:31] LABS: Glucose Urine UA NEG (NEG); Leukocyte Esterase Urine NEG (NEG); Nitrite Urine NEG (NEG); Urine Blood NEG (NEG); Urine Ketones NEG (NEG); Urine Protein NEG (NEG-TRACE)
[2020-07-30 11:32] LABS: Appearance Urine CLEAR; Color Urine YELLOW
[2020-07-30 12:40] VITALS: BP 121/61
== END 2020-07-30 12:59 | disposition home or self-care (01) ==
PROVIDERS: Emergency Provider Emergency Medicine; PCP Student in an Organized Health Care Education/Training Program
DX: K72.90 Hepatic failure, unspecified without coma (principal); R41.0 Disorientation, unspecified; Z79.899 Other long term (current) drug therapy; Z87.891 Personal history of nicotine dependence
CPT/HCPCS: 36415; 80048; 80076; 81003; 82140; 85025; 99283; 99284

== ENCOUNTER 2020-07-31 08:24 | Outpatient (REF) | payer MEDICARE, SELFPAY ==
--- NOTE | ~2020-07-31 | US_ITS ---
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 COMPARISON: 06/11/2020 and 08/28/2019 TECHNIQUE: Real-time imaging of the abdominal viscera. Noninvasive ultrasound liver fibrosis assessment is performed using Betsey ElastPQ point quantification shear wave elastography (pSWE) with a C5-2 MHz transducer. Multiple elastography samples are obtained. FINDINGS: PANCREAS: The pancreas is obscured by overlying bowel gas. LIVER: The liver is of increased heterogeneous echogenicity with nodular borders consistent with hepatocellular disease with cirrhosis. No focal lesions identified. No intrahepatic bile duct dilatation. The right lobe measures 14.2 cm in length. The left lobe measures 7.8 cm in length. Portal flow is hepatopedal. There appears to be recanalization of the umbilical vein. Shear wave liver elastography median stiffness is 2.75 m/s (reference: normal median stiffness is 1.3 m/s or less). IQR/median stiffness to assess sampling precision is 0.4 suboptimal sampling. (reference: good quality data set is IQR/median stiffness of 0.15 or less). GALLBLADDER: Cholelithiasis is present. No evidence of acute cholecystitis. COMMON BILE DUCT: Normal in caliber measuring 0.6 cm in diameter. RIGHT KIDNEY: Normal. No hydronephrosis. No renal calculi or focal parenchymal lesions. The kidney measures 9.8 cm in maximum dimension. FREE FLUID: None appreciated. US/US abdomen carroll w elastography IMPRESSION: 1. Hepatic cirrhosis with hepatopedal flow within the portal vein. Recanalization of the umbilical vein. 2. Liver elastography: Although measurements appear consistent with compensated advanced chronic liver disease, there is statistical variability of the sampling which decreases accuracy. 3. Cholelithiasis without evidence of acute cholecystitis. REFERENCE: Society of Radiologists in Ultrasound Liver Stiffness Thresholds (2020): LIVER STIFFNESS THRESHOLDS: *Liver Stiffness equal or less than 1.3 m/s: High probability of being normal. *Liver Stiffness less than 1.7 m/s: In the absence of other known clinical signs, rules out compensated advanced chronic liver disease. *Liver Stiffness 1.7-2.1 m/s: Suggestive of compensated advanced chronic liver disease but need further test for confirmation. *Liver Stiffness over 2.1 m/s: Rules in compensated advanced chronic liver disease. *Liver Stiffness over 2.4 m/s: Suggestive of clinically significant portal hypertension. QUALITY OF DATA SET: *IQR/Median value equal or less than 0.15 implies a quality data set. *IQR/Median value over 0.15 implies a poor quality data set. SIGNIFICANT CHANGE FROM PRIOR EXAM: Significant change if liver stiffness measurement is 10% or greater from prior exam. OTHER CONSIDERATIONS: The stage of liver fibrosis may be overestimated in the setting of acute hepatitis, liver inflammation, elevated liver function tests, hepatic vascular congestion, obstructive cholestasis, non-fasting state, and infiltrative diseases such as amyloidosis and lymphoma. In some patients with NAFLD, the liver stiffness thresholds for compensated advanced chronic liver disease may be lower. In causes other than viral hepatitis and NAFLD, liver stiffness thresholds are not well established.
== END 2020-07-31 08:25 | disposition home or self-care (01) ==
LOC: HO.US 08:24
PROVIDERS: PCP Student in an Organized Health Care Education/Training Program; Visit Provider Internal Medicine Gastroenterology
DX: K70.30 Alcoholic cirrhosis of liver without ascites (principal)
CPT/HCPCS: 76705; 76981

== ENCOUNTER → 2020-08-20 10:25 | Outpatient (BNVA) | payer MEDICARE, SELFPAY | PROVIDERS: PCP Student in an Organized Health Care Education/Training Program; Visit Provider Urology | DX: R39.11 Hesitancy of micturition (principal) | CPT/HCPCS: 51798; 99202 ==

== ENCOUNTER → 2020-09-17 09:41 | Outpatient (BNVA) | payer MEDICARE, SELFPAY | PROVIDERS: PCP Student in an Organized Health Care Education/Training Program; Visit Provider Internal Medicine Endocrinology, Diabetes & Metabolism | DX: E11.22 Type 2 diabetes mellitus with diabetic chronic kidney disease (principal); I12.9 Hypertensive chronic kidney disease with stage 1 through stage 4 chronic kidney disease, or unspecified chronic kidney disease; N18.31 Chronic kidney disease, stage 3a; E78.5 Hyperlipidemia, unspecified; M10.9 Gout, unspecified; J44.9 Chronic obstructive pulmonary disease, unspecified; I25.10 Atherosclerotic heart disease of native coronary artery without angina pectoris; E66.9 Obesity, unspecified; Z68.38 Body mass index [BMI] 38.0-38.9, adult; Z87.891 Personal history of nicotine dependence; Z88.5 Allergy status to narcotic agent; Z79.82 Long term (current) use of aspirin; Z79.4 Long term (current) use of insulin; Z79.899 Other long term (current) drug therapy; Z95.810 Presence of automatic (implantable) cardiac defibrillator | CPT/HCPCS: 82947; 99212 ==

== ENCOUNTER → 2021-01-02 09:01 | Outpatient (BNVA) | payer MEDICARE, SELFPAY | PROVIDERS: PCP Student in an Organized Health Care Education/Training Program; Visit Provider Nurse Practitioner Gerontology | DX: E11.22 Type 2 diabetes mellitus with diabetic chronic kidney disease (principal); I12.9 Hypertensive chronic kidney disease with stage 1 through stage 4 chronic kidney disease, or unspecified chronic kidney disease; N18.32 Chronic kidney disease, stage 3b; E78.00 Pure hypercholesterolemia, unspecified; E66.01 Morbid (severe) obesity due to excess calories; Z79.4 Long term (current) use of insulin; Z68.38 Body mass index [BMI] 38.0-38.9, adult | CPT/HCPCS: 82947; 83036; 99212 ==

== ENCOUNTER 2021-01-08 11:23 | Inpatient (IN) | payer MEDICARE, SELFPAY ==
[2021-01-08] VITALS (9 sets, daily range): BP systolic 111–133; BP diastolic 62–76; PULSE 89–109; RESP 20–24; TEMP 36.7–36.9; O2SAT 86–94; BMI 37.5
--- NOTE | 2021-01-08 | ECG_ITS ---
Test Reason : FALL Blood Pressure : / mmHG Vent. Rate : 100 BPM Atrial Rate : 100 BPM P-R Int : 204 ms QRS Dur : 110 ms QT Int : 360 ms P-R-T Axes : 037 005 005 degrees QTc Int : 464 ms Sinus rhythm with occasional Premature ventricular complexes Intra-ventricular conduction delay Left axis deviation Abnormal ECG No previous ECGs available Referred By: Ivonne Aquino Electronically Signed By:MERNA BUTTS MD
--- NOTE | ~2021-01-08 | CT_ITS ---
EXAMINATION: CT CHEST WITHOUT CONTRAST CLINICAL INFORMATION: Trauma COMPARISON: Previous chest and right rib x-rays June 2020 TECHNIQUE: Multidetector volumetric CT imaging of the chest was done. Axial MIP volume rendering provided. Sagittal and coronal reformatted images were obtained. This CT examination was performed using dose optimization techniques as appropriate, variously including the following: *Automated exposure control *Adjustment of mA and/or kV according to patient size (this includes techniques or standardized protocols for targeted exams where dose is matched to indication/reason for exam; i.e. extremities or head) *Use of iterative reconstruction technique DLP: 628 mGy-cm FINDINGS: LUNGS: There are increased peripheral interstitial markings suggestive of interstitial lung disease. The lungs are otherwise clear. There is a small soft tissue nodule seen adjacent left side of the trachea axial image 7 series 5. MEDIASTINUM: The heart is enlarged. There is coronary artery and aortic valve calcification. There is a left subclavian AICD device. There are small mediastinal lymph nodes. There is no pericardial effusion. PLEURA: There is no pleural effusion. No pleural mass or thickening. There is no pneumothorax. AXILLA: No lymphadenopathy. OSSEOUS STRUCTURES: There are right lateral seventh and eighth anterior rib fractures. There is a right posterior 11th rib fracture seen on abdominal pelvic CT. Compared with previous chest and right rib x-rays from June 2020 these may not be acute. There is evidence of an old right posterior sixth rib fracture. There are degenerative changes of the spine and right shoulder. CT/CT chest wo con IMPRESSION: Interstitial lung disease. Enlarged heart. Coronary artery and aortic valve calcification. The right anterior seventh and eighth rib fractures and right posterior 11th rib fracture. When compared with previous chest and right rib films from June 2020 these may not be acute.
--- NOTE | ~2021-01-08 | NM_ITS ---
EXAMINATION: NM LUNG IMAGE PERFUSION CLINICAL INFORMATION: HPI. Chest pain. Acute respiratory failure with hypoxia. COMPARISON: Chest x-ray 01/08/2021 TECHNIQUE: Following intravenous administration of 4 mCi of 90 9M technetium MAA, imaging of both lungs were obtained multiple projections. Ventilation study was not performed. FINDINGS: There is normal perfusion seen to all segments of both lungs without any segmental or subsegmental defects. Chest x-ray revealed 01/08/2021 reveal no acute process NM/NM pul perfusion IMPRESSION: Normal perfusion scan. Ventilation study was not performed.
--- NOTE | ~2021-01-08 | XR_ITS ---
EXAMINATION: BILATERAL KNEES AND AP CHEST CLINICAL INFORMATION: Bilateral knee and chest pain after fall COMPARISON: November 19, 2018 and September 24, 2013. Chest x-ray of November 19, 2018 TECHNIQUE: 4 views of each knee and AP chest FINDINGS: AP portable film of the chest does not demonstrate any evidence of pneumothorax. There is bibasilar disease present consistent with atelectatic change. There are some scattered regions of density bilaterally which may be related to atelectasis, scarring, or pneumonitis. AICD in place. Cardiopericardial silhouette mildly enlarged. No evidence of pulmonary edema. Appearance is similar to previous study of November 19, 2018. There is degenerative change of the right glenohumeral joint. There is no evidence of acute fracture or dislocation of the left knee. There is a left knee effusion. There is mild spurring undersurface of the patella. There is moderate narrowing of the medial joint space compartment with marginal spurring. Appearance is unchanged compared to study of November 19, 2018. There is no evidence of acute fracture or dislocation of the right knee. There is a small right knee effusion. There are some small spurs undersurface of the patella. Joint spaces are maintained. There is stable bony spurring about the medial condyle likely related to previous trauma and medial collateral ligament injury. XR/XR knee LT 3V IMPRESSION: Bilateral knee effusions without evidence of acute fracture moderate narrowing of the medial joint space compartment of the left knee. Spurring/osseous deformity about the right medial condyle likely related to previous trauma. Bibasilar disease which may be chronic.
--- NOTE | ~2021-01-08 | CT_ITS ---
EXAMINATION: CT CHEST WITHOUT CONTRAST CLINICAL INFORMATION: Hypoxia. COMPARISON: CT of the chest done on 01/08/2021. TECHNIQUE: Multidetector volumetric CT imaging of the chest was done. Axial MIP volume rendering provided. Sagittal and coronal reformatted images were obtained. This CT examination was performed using dose optimization techniques as appropriate, variously including the following: *Automated exposure control *Adjustment of mA and/or kV according to patient size (this includes techniques or standardized protocols for targeted exams where dose is matched to indication/reason for exam; i.e. extremities or head) *Use of iterative reconstruction technique DLP: 374.2 mGy-cm FINDINGS: OIL LEASE BROKER: Abnormal showing diffuse groundglass airspace disease. LUNGS: Interval development of diffuse groundglass airspace disease is noted throughout the right lung field and left lower lobe and lingular segment of the left upper lobe with relative sparing of the left lung apex. Previously documented unilocular large cyst/bullous disease involving the anterior medial superior to mid part of the left hemithorax abutting the mediastinum appear unchanged. Previously documented interlobular septal thickening are obscured. Evaluation is slightly limited due to motion related artifacts. Given the rapid change since 01/08/2021, the findings may represent evolving COVID pneumonia. The tracheobronchial tree is patent. MEDIASTINUM: No evidence of any pathologically enlarged mediastinal and/or hilar lymphadenopathy. Atherosclerotic disease including significant coronary artery calcifications are present. PLEURA: There is no pleural effusion. No pleural mass or thickening. AXILLA: No lymphadenopathy. Bilateral gynecomastia is present, unchanged. UPPER ABDOMEN: The liver shows slight surface nodularity, likely represent changes secondary to cirrhosis. No evidence of any adrenal mass. OSSEOUS STRUCTURES: Subtle sub-5 mm osteolysis is present involving the posterior superior part of T8 vertebral body, of indeterminate etiology. CT/CT chest wo con IMPRESSION: 1. Compared to prior study dated 01/08/2021, development of extensive groundglass airspace disease is noted bilaterally. Given the rapidity of onset, the findings may represent interstitial pneumonia especially COVID pneumonia. 2. Solitary subtle sub-5 mm lytic lesion involving T12 vertebral body, of indeterminate etiology.
--- NOTE | ~2021-01-08 | XR_ITS ---
EXAMINATION: XR CHEST CLINICAL INFORMATION: Hypoxia COMPARISON: Chest x-ray January 08, 2021 TECHNIQUE: Frontal view of the chest was obtained. FINDINGS: Cardiac silhouette is stable in size. Unchanged orientation of single lead AICD. The lungs are mildly hypoinflated with mild asymmetric elevation of the right hemidiaphragm. Diffuse patchy bilateral airspace disease demonstrates interval worsening. No large pleural effusion or pneumothorax. XR/XR chest 1V IMPRESSION: Worsening bilateral airspace disease suggesting acute on chronic process, possibly viral infiltrate versus fluid overload. Clinical correlation recommended.
--- NOTE | ~2021-01-08 | CT_ITS ---
EXAMINATION: CT ABDOMEN AND PELVIS WITHOUT CONTRAST CLINICAL INFORMATION: Fall. Trauma. Patient on blood thinning medicine. COMPARISON: Previous CT of the abdomen and pelvis August 2014 and abdominal ultrasound July 2020 TECHNIQUE: Multidetector volumetric imaging was performed from the superior aspect of the liver through the pubic symphysis. Sagittal and coronal reformatted images were obtained on the technologist's workstation. This CT examination was performed using dose optimization techniques as appropriate, variously including the following: *Automated exposure control *Adjustment of mA and/or kV according to patient size (this includes techniques or standardized protocols for targeted exams where dose is matched to indication/reason for exam; i.e. extremities or head) *Use of iterative reconstruction technique DLP: 1443 mGy-cm FINDINGS: LIVER, GALLBLADDER, AND BILIARY TREE: The liver is cirrhotic. There is a small calcification seen in the central liver. No other focal liver lesion is seen. The gallbladder is slightly dilated. There is a small gallstone in the gallbladder. There is no intra or extrahepatic biliary duct dilatation. PANCREAS: There is fat stranding seen surrounding the body and tail of the pancreas, inferior spleen and in the bilateral anterior pararenal fascia and small bowel mesentery. Distribution is questionable for evidence of pancreatitis. There may be small calcifications in the pancreas. SPLEEN: There is stranding of the fat inferior to the spleen. The spleen is otherwise unremarkable. ADRENAL GLANDS: Unremarkable. KIDNEYS AND URETERS: The kidneys are normal in size, shape, and attenuation. No hydronephrosis, hydroureter, or calculi seen. No perinephric stranding. BLADDER: The bladder is very full. Bladder is otherwise unremarkable. GASTROINTESTINAL TRACT: There is diverticulosis of the colon. No evidence of diverticulitis is seen. Small and large bowel is otherwise unremarkable. The appendix is unremarkable. The stomach is not prominent. There is no caliber change to suggest obstruction. There is question of a wall thickening of the proximal stomach versus changes due to underdistention. No free air. No ascites. ABDOMINAL WALL: There is a small hernia upper midline ventral hernia containing varices. LYMPH NODES: Normal. VASCULAR: There are upper abdominal varices. The abdominal aorta is normal in caliber. PELVIC VISCERA: Unremarkable. OSSEOUS STRUCTURES: There are right seventh and eighth anterior rib fractures and posterior 11th rib fracture. There are degenerative changes of the spine. CT/CT abdomen pelvis wo con IMPRESSION: Cirrhosis and varices. Distended gallbladder and gallstones. Very distended bladder. Fat stranding seen surrounding the body and tail of the pancreas, inferior spleen and in the bilateral anterior pararenal fascia and small bowel mesentery. Distribution is questionable for evidence of pancreatitis. There are small calcifications in the pancreas suggestive of chronic pancreatitis. Very distended bladder. Right sided rib fractures.
--- NOTE | ~2021-01-08 | XR_ITS ---
EXAMINATION: BILATERAL KNEES AND AP CHEST CLINICAL INFORMATION: Bilateral knee and chest pain after fall COMPARISON: November 19, 2018 and September 24, 2013. Chest x-ray of November 19, 2018 TECHNIQUE: 4 views of each knee and AP chest FINDINGS: AP portable film of the chest does not demonstrate any evidence of pneumothorax. There is bibasilar disease present consistent with atelectatic change. There are some scattered regions of density bilaterally which may be related to atelectasis, scarring, or pneumonitis. AICD in place. Cardiopericardial silhouette mildly enlarged. No evidence of pulmonary edema. Appearance is similar to previous study of November 19, 2018. There is degenerative change of the right glenohumeral joint. There is no evidence of acute fracture or dislocation of the left knee. There is a left knee effusion. There is mild spurring undersurface of the patella. There is moderate narrowing of the medial joint space compartment with marginal spurring. Appearance is unchanged compared to study of November 19, 2018. There is no evidence of acute fracture or dislocation of the right knee. There is a small right knee effusion. There are some small spurs undersurface of the patella. Joint spaces are maintained. There is stable bony spurring about the medial condyle likely related to previous trauma and medial collateral ligament injury. XR/XR chest 1V IMPRESSION: Bilateral knee effusions without evidence of acute fracture moderate narrowing of the medial joint space compartment of the left knee. Spurring/osseous deformity about the right medial condyle likely related to previous trauma. Bibasilar disease which may be chronic.
--- NOTE | ~2021-01-08 | XR_ITS ---
EXAMINATION: BILATERAL KNEES AND AP CHEST CLINICAL INFORMATION: Bilateral knee and chest pain after fall COMPARISON: November 19, 2018 and September 24, 2013. Chest x-ray of November 19, 2018 TECHNIQUE: 4 views of each knee and AP chest FINDINGS: AP portable film of the chest does not demonstrate any evidence of pneumothorax. There is bibasilar disease present consistent with atelectatic change. There are some scattered regions of density bilaterally which may be related to atelectasis, scarring, or pneumonitis. AICD in place. Cardiopericardial silhouette mildly enlarged. No evidence of pulmonary edema. Appearance is similar to previous study of November 19, 2018. There is degenerative change of the right glenohumeral joint. There is no evidence of acute fracture or dislocation of the left knee. There is a left knee effusion. There is mild spurring undersurface of the patella. There is moderate narrowing of the medial joint space compartment with marginal spurring. Appearance is unchanged compared to study of November 19, 2018. There is no evidence of acute fracture or dislocation of the right knee. There is a small right knee effusion. There are some small spurs undersurface of the patella. Joint spaces are maintained. There is stable bony spurring about the medial condyle likely related to previous trauma and medial collateral ligament injury. XR/XR knee RT 3V IMPRESSION: Bilateral knee effusions without evidence of acute fracture moderate narrowing of the medial joint space compartment of the left knee. Spurring/osseous deformity about the right medial condyle likely related to previous trauma. Bibasilar disease which may be chronic.
--- NOTE | ~2021-01-08 | CT_ITS ---
EXAMINATION: CT CERVICAL SPINE WITHOUT CONTRAST CLINICAL INFORMATION: Trauma COMPARISON: Cervical spine x-ray March 2008. TECHNIQUE: Axial images through the cervical spine without contrast. Sagittal and coronal reconstructions on the technologist's workstation were performed. This CT examination was performed using dose optimization techniques as appropriate, variously including the following: *Automated exposure control *Adjustment of mA and/or kV according to patient size (this includes techniques or standardized protocols for targeted exams where dose is matched to indication/reason for exam; i.e. extremities or head) *Use of iterative reconstruction technique DLP: 703 mGy-cm FINDINGS: Bone alignment is normal. No fracture or dislocation is seen. There is degenerative spondylosis and degenerative disc disease from C3-C4 to C6-C7. There is mild left-sided facet arthritis at C2-C3 and C4-C5. There is heterogeneous attenuation of the bones and multiple lucencies or cystic areas. The largest is in the left C2 facet measuring 1 cm. It is uncertain whether this is related to facet arthritis and severe osteopenia. Lytic bone disease cannot be excluded. Prevertebral soft tissues are normal. Visualized lung apices are clear. CT/CT cervical spine wo con IMPRESSION: Degenerative changes. No fracture or dislocation seen. Multiple lucencies in the bone, largest in the left C2 facet. This may be related to facet arthritis and osteopenia. Lytic bone disease cannot be excluded.
--- NOTE | ~2021-01-08 | XR_ITS ---
EXAMINATION: XR CHEST CLINICAL INFORMATION: Acute hypoxemic respiratory failure/ILD COMPARISON: Prior chest radiographs, most recently 01/14/2021, CT chest 01/10/2021 TECHNIQUE: Frontal view of the chest was obtained. FINDINGS: Left-sided pacemaker/AICD is again noted and unchanged. Lung volumes are slightly diminished and there is crowding of bronchovascular structures. There are extensive bilateral hazy interstitial opacities with some increase in bibasilar alveolar opacity when compared with the prior study. There is relative sparing of the left upper lung zone, similar to prior. Cardiomediastinal contours are unchanged. Structures of the chest wall are unchanged. XR/XR chest 1V IMPRESSION: Persistent bilateral diffuse interstitial and alveolar opacities which overall have moderately increased since the prior study.
--- NOTE | ~2021-01-08 | CT_ITS ---
EXAMINATION: CT HEAD WITHOUT CONTRAST CLINICAL INFORMATION: Trauma. Fall. COMPARISON: Previous CT of the head January 2019 TECHNIQUE: Contiguous axial imaging was performed from the skull base to vertex without intravenous administration of contrast. This CT examination was performed using dose optimization techniques as appropriate, variously including the following: *Automated exposure control *Adjustment of mA and/or kV according to patient size (this includes techniques or standardized protocols for targeted exams where dose is matched to indication/reason for exam; i.e. extremities or head) *Use of iterative reconstruction technique DLP: 790 mGy-cm FINDINGS: There is no evidence of an extra-axial collection. There is no evidence of intra or extra-axial hemorrhage. The ventricles and extra-axial CSF spaces are slightly prominent but appropriate for age. There is nonspecific periventricular white matter disease. No mass, mass effect or infarct is seen. No skull fracture is seen. Paranasal sinuses, mastoid air cells and middle ears are clear. CT/CT head/brain wo con IMPRESSION: No acute findings. Age-appropriate prominence of the ventricles and extra-axial CSF spaces and mild periventricular white matter disease.
--- NOTE | ~2021-01-08 | XR_ITS ---
EXAMINATION: XR CHEST CLINICAL INFORMATION: Acute hypoxemic respiratory failure COMPARISON: 01/08/2021 and 01/10/2021 TECHNIQUE: Frontal view of the chest was obtained. Note that due to the image acquisition an/or post processing technique, there is suboptimal evaluation of the left lung apex. FINDINGS: Lungs are mildly hypoexpanded. Again noted is the implantable cardioverter defibrillator generator with single lead extending to the level of the right ventricle. Cardiomediastinal silhouette has stable size and contour. There is persistent nonspecific groundglass, reticular opacity of both lungs. No pleural effusion. No overt pneumothorax. EKG wires overlie the patient. The visualized bones are intact. XR/XR chest 1V IMPRESSION: The groundglass opacities of both lungs remain similar in appearance compared to 01/10/2021. The pulmonary opacities are nonspecific and could represent infectious or noninfectious pneumonitis and/or pulmonary edema. No new abnormalities compared to 01/10/2021.
--- NOTE | ~2021-01-08 | US_ITS ---
EXAMINATION: US RETROPERITONEAL LIMITED (RENAL ONLY) CLINICAL INFORMATION: Acute kidney injury. COMPARISON: CT abdomen and pelvis without contrast dated 01/08/2021. Ultrasound abdomen complete dated 06/11/2020 and 08/28/2019. X-ray abdomen and upright decubitus dated 05/20/2007. TECHNIQUE: Real-time imaging of the kidneys. Technically difficult study secondary to bowel gas and body habitus. FINDINGS: RIGHT KIDNEY: 10.4 x 4.4 x 4.4 cm (SAG x AP x TRV). The kidney is normal in size, contour, and echogenicity. Renal cortical thickness is normal. No calculi or focal parenchymal lesions. No hydronephrosis. LEFT KIDNEY: 9.8 x 5.5 x 4.7 cm (SAG x AP x TRV). The kidney is normal in size, contour, and echogenicity. Renal cortical thickness is normal. No calculi or focal parenchymal lesions. No hydronephrosis. US/US renal BI IMPRESSION: No significant renal abnormality.
--- NOTE | 2021-01-08 12:10 | ED_ITS ---
HPI - Fall General Chief Complaint: Fall Stated Complaint: FOUND ON FLOOR,TOOK TOO MANY SLEEPING PILLS Time Seen by Provider: 01/08/21 11:45 History of Present Illness HPI Narrative: Patient is 75-year-old male with a history of liver cirrhosis. History of diabetes, hypertension, high cholesterol, previous history of smoking. Previous history of alcohol abuse. Long-term on insulin. Patient also has a history of having a defibrillator. Also has a history of being on Eliquis. He took extra sleeping pill last night. Subsequently found himself on the ground. Difficult to get up this morning. Patient eventually try to get himself up. Now is complaining of pain to the head. Pain to the neck. Pain to the chest. Pain to bilateral knees. Patient claims compliance with his m edication. He is supposed to take lactulose 3 times a day for liver cirrhosis. He denies drinking alcohol today. His chest pain is sharp for few seconds. He is feels short of breath but seems about the same as previous. Patient is a poor historian unable to give all the details. Patient did receive his COVID vaccine. Related Data Home Medications Medication Instructions Recorded Confirmed cholecalciferol (vitamin D3) 25 25 mcg PO DAILY 01/08/20 01/08/21 mcg (1,000 unit) capsule (Vitamin D3) levothyroxine 100 mcg tablet 100 mcg PO DAILY@0630 01/08/20 01/08/21 loratadine 10 mg tablet (Allergy 10 mg PO DAILY 01/08/20 01/08/21 Relief (loratadine)) omeprazole 20 mg capsule,delayed 20 mg PO DAILY@0630 01/08/20 01/08/21 release simvastatin 20 mg tablet 20 mg PO BEDTIME 01/08/20 01/08/21 apixaban 5 mg tablet (Eliquis) 5 mg PO BID 06/17/20 01/08/21 quetiapine 100 mg tablet 100 mg PO BID tab 06/17/20 01/08/21 spironolactone 25 mg tablet 25 mg PO DAILY 06/17/20 01/08/21 allopurinol 100 mg tablet 100 mg PO DAILY 01/08/21 01/08/21 carbidopa 25 mg-levodopa 100 mg 1 tab PO TID 01/08/21 01/08/21 tablet carvedilol 3.125 mg tablet 3.125 mg PO BID 01/08/21 01/08/21 diphenhydramine HCl 25 mg capsule 25 mg PO BEDTIME PRN 01/08/21 01/08/21 (Sleep Aid (diphenhydramine)) finasteride 5 mg tablet 5 mg PO BEDTIME 01/08/21 01/08/21 insulin glargine 100 unit/mL (3 36 unit SUBCUT BEDTIME 01/08/21 01/08/21 mL) subcutaneous pen (Lantus Solostar U-100 Insulin) insulin lispro 100 unit/mL 10 unit SUBCUT TIDAC 01/08/21 01/08/21 subcutaneous pen (Humalog KwikPen (U-100) Insulin) mexiletine 200 mg capsule 1 cap PO TID 01/08/21 01/08/21 multivitamin 1 tab PO QAM 01/08/21 01/08/21 rifaximin 550 mg tablet (Xifaxan) 1 tab PO BID 01/08/21 01/08/21 torsemide 10 mg tablet 10 mg PO DAILY 01/08/21 01/08/21 Previous Rx's Medication Instructions Recorded tamsulosin 0.4 mg capsule 0.4 mg PO BEDTIME 30 Days #30 cap 09/09/20 lactulose 10 gram/15 mL oral 30 ml PO TID #2700 ml 09/11/20 solution blood sugar diagnostic (OneTouch #360 ea 09/17/20 Ultra Blue Test Strip) lancets 33 gauge (OneTouch Delica #360 ea 09/17/20 Lancets) pen needle, diabetic 32 gauge x #400 ea 09/17/20 5/32 (BD Lavinia 2nd Gen Pen Needle) Allergies Allergy/AdvReac Type Severity Reaction Status Date / Time morphine Allergy Intermediate rash Verified 01/08/21 11:39 Review of Systems Review of Systems: No fever no chills no cough no congestion No nausea no vomiting no diaphoresis Patient unable to provide full review systems [facility] Past Medical History Attestation statement: The following information was validated with the patient. 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 Obesity due to excess calories Type 2 diabetes mellitus Surgical History H/O colonoscopy (~08/2017) History of esophagogastroduodenoscopy (EGD) History of implantable cardioverter-defibrillator (ICD) placement (08/28/13) Status cardiac pacemaker (~1989) Family History Family History Father Heart problem Blind Mother Diabetes Asthma Paternal Aunt Blind Social History Social History Household Members: None Housing: Apartment Do you presently have visiting nurse or other home services: Yes Alcohol intake: former Patient Tobacco Use Status: Former Tobacco user Advance Directives: No Advance Directives Information Provided: Yes Physical Exam Vital Signs: Vital Signs: Last Vital Signs Temp 98.4 F 01/08/21 14:00 Pulse 97 01/08/21 15:18 Resp 22 H 01/08/21 14:00 BP 112/76 01/08/21 15:18 Pulse Ox 93 01/08/21 15:18 Body Mass Index 37.5 Appearance: Alert. Oriented X3. No acute distress. Eyes: Pupils equal, round and reactive to light. ENT: Pharynx normal. Neck: Normal inspection. C-spine immobilized there is no gross tenderness on palpation posterior C-spine. Trachea is midline CVS: Normal heart rate and rhythm. Pulses normal. Normal S1 and S2 Respiratory: No respiratory distress. Breath sounds normal. No Wheezing. No rales, no chest wall tenderness elicited on palpation Abdomen: Soft and nontender. No rigidity. No distention. good BS x4 Skin: Skin warm and dry. Normal skin color. Normal skin turgor. Extremities: No lower extremity edema. Neurovascular intact to all extremities. No Lacerations. No Rash Neuro: Oriented X 3. No motor deficit. No sensory deficit. Moving all extermities. No slurred speech MDM - Fall MDM Narrative Medical decision making narrative: CT scan of the head was grossly negative for any acute evidence of bleeding. CT scan C-spine no fracture noted. CT chest abdomen pelvis noted old fractures. Patient is on blood thinner making risk of PE low. CT scan did not review any evidence of pneumonia any evidence of pneumothorax. However patient's O2 sat remained in the 80s on room air. On amb ulation O2 sat dropped to the 80s. Patient was ambulated by physical therapy. Has good strength but found patient to be hypoxic. Question etiology of the hypoxia. Patient's EKG showed a sinus pattern heart rate was 100 [place] QRS QT within normal limits there is PVCs noted. Patient ammonia level was 40 no evidence for hepatic encephalopathy. LFT consistent with patient's baseline liver disease. Alcohol level was negative. Patient claims he was on the ground for question amount of time after ingesting 2 [id number] sleeping pill. Patient's COVID test was negative. He is immunized. Unsure the etiology of patient's hypoxia but will admit for further evaluation and monitoring. Mark varma in stable condition. Patient's case discussed with hospitalist team. Medical Records Attestation: I reviewed the patient's medical records. Lab Data Attestation: I reviewed the patient's lab results. Result diagrams: 01/08/21 12:41 01/08/21 12:41 Labs: Lab Results 01/08/21 01/08/21 01/08/21 Range/Units 12:40 12:40 12:40 WBC (4.8-10.8) X10*3/uL RBC (4.60-5.80) X10*6/uL Hgb (14.0-18.0) g/dl Hct (42-52) % MCV (80-98) fL MCH (27.0-33.0) pg MCHC (31.0-36.0) g/dl RDW (11.0-16.0) % Plt Count (160-400) X10*3/uL MPV (9.4-12.4) fL Immature Gran % (Auto) (0.0-0.4) % Neut % (Auto) (45-73) % Lymph % (Auto) (20-40) % [place] % (Auto) (2-11) % Eos % (Auto) (0-4) % Baso % (Auto) (0-2) % Lymph # (Auto) (1.2-4.9) X10*3/uL [place] # (Auto) (0.1-1.2) X10*3/uL Eos # (Auto) (0.0-0.4) X10*3/uL Baso # (Auto) (0.0-0.2) X10*3/uL Abs Immat Gran (auto) (0.00-0.03) X10*3/uL Absolute Neuts (auto) (2.0-8.3) X10*3/uL Absolute Nucleated RBC (0.0-0.012) X10*3/uL Nucleated RBC % (auto) (0.0-0.2) /100WBC Smear Tech's Comments PT (9.9-13.0) SEC INR (0.9-1.1) O2 Saturation % ABG pH at Pt Temp (7.35-7.45) ABG pH (Temp Correct) (7.35-7.45) ABG pCO2 at Pt Temp (32-45) mmHg ABG pCO2 (Temp Corrct (32-45) mmHg ABG pO2 at Pt Temp (83-108) mmHg ABG pO2 (Temp Correct (83-108) ABG HCO3 (22-26) mmol/L ABG Base Excess (Actual) mmol/L Sodium (135-145) mmol/L Potassium (3.3-5.1) mmol/L Chloride (96-108) mmol/L Carbon Dioxide (22-29) mmol/L Anion Gap (12-20) BUN (9-16) mg/dL Creatinine (0.5-1.4) mg/dL Estim Creat Clear Calc Estimated GFR Random Glucose (60-115) mg/dL Calcium 9.0 D (8.4-10.2) mg/dL Magnesium (1.6-2.6) mg/dL Total Bilirubin (0.0-1.0) mg/dL Direct Bilirubin (0.0-0.5) mg/dL AST (5-37) U/L ALT (0-40) U/L Alkaline Phosphatase (39-117) U/L Ammonia (13-55) umol/L Total Creatine Kinase (38-174) U/L Troponin I High Sens 20.4 (<3.5-35.0) ng/L B-Natriuretic Peptide 246 H (<100) pg/mL Total Protein (6.5-8.0) g/dL Albumin (3.5-5.0) g/dL Amylase (28-100) U/L Lipase (8-78) U/L Ethyl Alcohol < 10 mg/dL COVID-19 (HUMAIRA) (Negative) COVID-19 Clin Com 01/08/21 01/08/21 01/08/21 Range/Units 12:40 12:41 12:41 WBC 7.9 (4.8-10.8) X10*3/uL RBC 3.71 L (4.60-5.80) X10*6/uL Hgb 10.5 L (14.0-18.0) g/dl Hct 32.5 L (42-52) % MCV 87.6 (80-98) fL MCH 28.3 (27.0-33.0) pg MCHC 32.3 (31.0-36.0) g/dl RDW 17.7 H (11.0-16.0) % Plt Count 56 L (160-400) X10*3/uL MPV 12.0 (9.4-12.4) fL Immature Gran % (Auto) 0.5 H (0.0-0.4) % Neut % (Auto) 69.8 (45-73) % Lymph % (Auto) 9.6 L (20-40) % [place] % (Auto) 20.1 H (2-11) % Eos % (Auto) 0.0 (0-4) % Baso % (Auto) 0.0 (0-2) % Lymph # (Auto) 0.8 L (1.2-4.9) X10*3/uL [place] # (Auto) 1.6 H (0.1-1.2) X10*3/uL Eos # (Auto) 0.0 (0.0-0.4) X10*3/uL Baso # (Auto) 0.0 (0.0-0.2) X10*3/uL Abs Immat Gran (auto) 0.04 H (0.00-0.03) X10*3/uL Absolute Neuts (auto) 5.5 (2.0-8.3) X10*3/uL Absolute Nucleated RBC 0.000 (0.0-0.012) X10*3/uL Nucleated RBC % (auto) 0.0 (0.0-0.2) /100WBC Smear Tech's Comments VERIFIED PT (9.9-13.0) SEC INR (0.9-1.1) O2 Saturation 91.0 % ABG pH at Pt Temp 7.46 H (7.35-7.45) ABG pH (Temp Correct) 7.46 H (7.35-7.45) ABG pCO2 at Pt Temp 27 L (32-45) mmHg ABG pCO2 (Temp Corrct 27 L (32-45) mmHg ABG pO2 at Pt Temp 68 L (83-108) mmHg ABG pO2 (Temp Correct 68 L (83-108) ABG HCO3 19 L (22-26) mmol/L ABG Base Excess (Actual) -2.7 mmol/L Sodium 137 (135-145) mmol/L Potassium 4.6 D (3.3-5.1) mmol/L Chloride 105 (96-108) mmol/L Carbon Dioxide 19 L (22-29) mmol/L Anion Gap 18 (12-20) BUN 15 (9-16) mg/dL Creatinine 1.38 (0.5-1.4) mg/dL Estim Creat Clear Calc 48.2 Estimated GFR 50 Random Glucose 147 H D (60-115) mg/dL Calcium 9.1 (8.4-10.2) mg/dL Magnesium 2.0 (1.6-2.6) mg/dL Total Bilirubin 1.5 H (0.0-1.0) mg/dL Direct Bilirubin 0.8 H (0.0-0.5) mg/dL AST 81 H (5-37) U/L ALT 25 (0-40) U/L Alkaline Phosphatase 245 H (39-117) U/L Ammonia (13-55) umol/L Total Creatine Kinase 183 H (38-174) U/L Troponin I High Sens (<3.5-35.0) ng/L B-Natriuretic Peptide (<100) pg/mL Total Protein 7.1 (6.5-8.0) g/dL Albumin 3.2 L (3.5-5.0) g/dL Amylase 86 (28-100) U/L Lipase 29 (8-78) U/L Ethyl Alcohol mg/dL COVID-19 (HUMAIRA) (Negative) COVID-19 Clin Com 1001/08/21 01/08/21 Range/Units 12:41 12:44 12:46 WBC (4.8-10.8) X10*3/uL RBC (4.60-5.80) X10*6/uL Hgb (14.0-18.0) g/dl Hct (42-52) % MCV (80-98) fL MCH (27.0-33.0) pg MCHC (31.0-36.0) g/dl RDW (11.0-16.0) % Plt Count (160-400) X10*3/uL MPV (9.4-12.4) fL Immature Gran % (Auto) (0.0-0.4) % Neut % (Auto) (45-73) % Lymph % (Auto) (20-40) % [place] % (Auto) (2-11) % Eos % (Auto) (0-4) % Baso % (Auto) (0-2) % Lymph # (Auto) (1.2-4.9) X10*3/uL [place] # (Auto) (0.1-1.2) X10*3/uL Eos # (Auto) (0.0-0.4) X10*3/uL Baso # (Auto) (0.0-0.2) X10*3/uL Abs Immat Gran (auto) (0.00-0.03) X10*3/uL Absolute Neuts (auto) (2.0-8.3) X10*3/uL Absolute Nucleated RBC (0.0-0.012) X10*3/uL Nucleated RBC % (auto) (0.0-0.2) /100WBC Smear Tech's Comments PT 18.9 H (9.9-13.0) SEC INR 1.6 H (0.9-1.1) O2 Saturation % ABG pH at Pt Temp (7.35-7.45) ABG pH (Temp Correct) (7.35-7.45) ABG pCO2 at Pt Temp (32-45) mmHg ABG pCO2 (Temp Corrct (32-45) mmHg ABG pO2 at Pt Temp (83-108) mmHg ABG pO2 (Temp Correct (83-108) ABG HCO3 (22-26) mmol/L ABG Base Excess (Actual) mmol/L Sodium (135-145) mmol/L Potassium (3.3-5.1) mmol/L Chloride (96-108) mmol/L Carbon Dioxide (22-29) mmol/L Anion Gap (12-20) BUN (9-16) mg/dL Creatinine (0.5-1.4) mg/dL Estim Creat Clear Calc Estimated GFR Random Glucose (60-115) mg/dL Calcium (8.4-10.2) mg/dL Magnesium (1.6-2.6) mg/dL Total Bilirubin (0.0-1.0) mg/dL Direct Bilirubin (0.0-0.5) mg/dL AST (5-37) U/L ALT (0-40) U/L Alkaline Phosphatase (39-117) U/L Ammonia 40 (13-55) umol/L Total Creatine Kinase (38-174) U/L Troponin I High Sens (<3.5-35.0) ng/L B-Natriuretic Peptide (<100) pg/mL Total Protein (6.5-8.0) g/dL Albumin (3.5-5.0) g/dL Amylase (28-100) U/L Lipase (8-78) U/L Ethyl Alcohol mg/dL COVID-19 (HUMAIRA) Negative (Negative) COVID-19 Clin Com See Note Critical Care Time Critical Care Time Critical Care Time: Yes Total Critical Care Time: 40 Attestation: I have personally provided 40 minutes of critical care time exclusive of time spent on separately billable procedures. Time includes review of lab data, radiology results, discussion with consultants, and monitoring for potential decompensation. Interventions were performed as documented above Discharge Plan Discharge Clinical Impression: Hypoxia Prescriptions: No Action tamsulosin 0.4 mg capsule 0.4 mg PO BEDTIME 30 Days Qty: 30 RF: 6 lactulose 10 gram/15 mL solution 30 ml PO TID Qty: 2700 RF: 3 multivitamin Tablet 1 tab PO QAM RF: 0 torsemide 10 mg tablet 10 mg PO DAILY RF: 0 carvedilol 3.125 mg tablet 3.125 mg PO BID RF: 0 mexiletine 200 mg capsule 1 cap PO TID RF: 0 carbidopa-levodopa 25-100 mg tablet 1 tab PO TID RF: 0 Xifaxan 550 mg tablet 1 tab PO BID RF: 0 allopurinol 100 mg tablet 100 mg PO DAILY RF: 0 finasteride 5 mg tablet 5 mg PO BEDTIME RF: 0 insulin lispro [Humalog KwikPen Insulin] 100 unit/mL insulin pen 10 unit subcut TIDAC RF: 0 Lantus Solostar U-100 Insulin 100 unit/mL (3 mL) insulin pen 36 unit subcut BEDTIME RF: 0 diphenhydramine HCl [Sleep Aid (diphenhydramine)] 25 mg Capsule 25 mg PO BEDTIME PRN (Reason: Sleep) RF: 0 cholecalciferol (vitamin D3) [Vitamin D3] 25 mcg (1,000 unit) capsule 25 mcg PO DAILY RF: 0 levothyroxine 100 mcg tablet 100 mcg PO DAILY@0630 RF: 0 loratadine [Allergy Relief (loratadine)] 10 mg tablet 10 mg PO DAILY RF: 0 omeprazole 20 mg capsule,delayed release(DR/EC) 20 mg PO DAILY@0630 RF: 0 simvastatin 20 mg tablet 20 mg PO BEDTIME RF: 0 quetiapine 100 mg tablet 100 mg PO BID RF: 0 Eliquis 5 mg tablet 5 mg PO BID RF: 0 spironolactone 25 mg tablet 25 mg PO DAILY RF: 0 (DME) OneTouch Ultra Blue Test Strip Strip See Rx Instructions .ROUTE .MEDSUPPLY Qty: 360 RF: 2 (DME) lancets [OneTouch Delica Lancets] 33 gauge misc See Rx Instructions miscellaneous .MEDSUPPLY Qty: 360 RF: 1 (DME) pen needle, diabetic [BD Lavinia 2nd Gen Pen Needle] 32 gauge x 5/32 needle See Rx Instructions .MEDSUPPLY Qty: 400 RF: 4
[2021-01-08 12:44] LABS: ABG Refer to POC result
[2021-01-08 12:45] LABS: ABG Base Excess -2.7 mmol/L; ABG HCO3 19 mmol/L (22-26); ABG pCO2 27 mmHg (32-45); ABG pCO2 TC 27 mmHg (32-45); ABG pH 7.46 (7.35-7.45); ABG pH TC 7.46 (7.35-7.45); ABG pO2 68 mmHg (83-108); ABG pO2 TC 68 (83-108)
[2021-01-08 12:56] LABS: Hematocrit 32.5 % (42-52); Hemoglobin 10.5 g/dl (14.0-18.0); Imm Gran Abs Auto 0.04 X10*3/uL (0.00-0.03); Imm Gran Pct Auto 0.5 % (0.0-0.4); Lymphocytes Absolute Auto 0.8 X10*3/uL (1.2-4.9); Lymphocytes Percent Auto 9.6 % (20-40); MANUAL DIFF FLAG SCAN; Mean Corpuscular HGB Conc 32.3 g/dl (31.0-36.0); Mean Corpuscular Hemoglobin 28.3 pg (27.0-33.0); Mean Corpuscular Volume 87.6 fL (80-98); Monocytes Absolute Auto 1.6 X10*3/uL (0.1-1.2); Monocytes Percent Auto 20.1 % (2-11); Neutrophils Absolute Auto 5.5 X10*3/uL (2.0-8.3); Neutrophils Percent Auto 69.8 % (45-73); Red Blood Count 3.71 X10*6/uL (4.60-5.80); Red Cell Distribution Width 17.7 % (11.0-16.0); SCAN SMEAR FLAG 1; White Blood Count 7.9 X10*3/uL (4.8-10.8)
[2021-01-08 12:58] LABS: Platelet Count 56 X10*3/uL (160-400)
[2021-01-08 12:59] LABS: Ammonia 40 umol/L (13-55)
[2021-01-08 13:05] LABS: Ethanol < 10 mg/dL
[2021-01-08 13:08] LABS: COVID-19 Test Negative (Negative)
[2021-01-08 13:10] LABS: Alanine Aminotransferase 25 U/L (0-40); Albumin Level 3.2 g/dL (3.5-5.0); Alkaline Phosphatase 245 U/L (39-117); Anion Gap 18 (12-20); Aspartate Amino Transferase 81 U/L (5-37); Bilirubin Direct 0.8 mg/dL (0.0-0.5); Bilirubin Total 1.5 mg/dL (0.0-1.0); Blood Urea Nitrogen 15 mg/dL (9-16); Calcium 9.1 mg/dL (8.4-10.2); Carbon Dioxide 19 mmol/L (22-29); Chloride 105 mmol/L (96-108); Creatinine Clr Calc Pharmacy 48.2; Estimated Glomerular Filt Rate 50; Glucose Random 147 mg/dL (60-115); Potassium 4.6 mmol/L (3.3-5.1); Sodium 137 mmol/L (135-145); Total Protein 7.1 g/dL (6.5-8.0)
[2021-01-08 13:12] LABS: SLIDE REVIEW VERIFIED
[2021-01-08 13:15] LABS: INTERNATIONAL NORM RATIO 1.6 (0.9-1.1); Prothrombin Time 18.9 SEC (9.9-13.0)
[2021-01-08 13:16] LABS: B Type Natriuretic Peptide 246 pg/mL (<100); Troponin-I High Sensitivity 20.4 ng/L (<3.5-35.0)
--- NOTE | 2021-01-08 15:58 | PHA.MEDREC ---
Pharmacy Consult ? Medication Reconciliation Pharmacy has completed the medication reconciliation.
[2021-01-08 16:33] LABS: Amylase 86 U/L (28-100); Lipase 29 U/L (8-78)
--- NOTE | 2021-01-08 16:41 | PC.NURSE ---
Pt's sats 86% on RA. On 6 liters sats 90-92%. Pt ambulated to BR with this RN and physical therapist. Sats on 6 liters and with ambulation drop to the mid 80s. With rest sats return to low 90s on the 6 liters. Lungs are CTA. Breathing is even and unlabored while at rest. Very mild LIRA with activity but pt does not appear to be in distress with ambulation.
--- NOTE | 2021-01-08 16:53 | PM.IMHP ---
History of Present Illness Date of Service: 01/08/21 Chief Complaint: fall, dyspnea History obtained from the patient in Martiniquais. Additionally, history obtained form pt's GALLERY OR MUSEUM ATTENDANT Ruben, [phone]. 75yo male who lives alone and has GALLERY OR MUSEUM ATTENDANT services, PCP = Marleen Morales, GI =Dee Dee Gonzalez, Cardiology = Izaiah Arzate, Rheumatology = Dennis Archuleta PMHx significant for cirrhosis related to past EtOH abuse [sober x 7 yr] with hepatic encephalopathy for which he takes lactulose and rifaximin, remote history of alcoholic pancreatitis, asthma/COPD, Parkinsonism, hypothyroidism, previous tobacco abuse, gout, DM2, history of ventricular arrhythmia [details unavailable] s/p ICD placement and on mexiletene, on apixaban for unknown reason. Last night he took an OTC sleeping aid, Unisom. He fell at some point but did not lose consciousness. He has been complaining of worsening dyspnea and cough productive of thin sputum for the last few days. No orthopnea. No fever. Minimal edema. No chest pain. He also notes some abdominal pain but no nausea or vomiting. He is hungry. In the ED, he was tachypneic with RR 26 and hypoxic with SaO2 on room air of 86%; normalized with 6L O2 via NC. CT of the abdomen and pelvis showed cirrhosis and varices, distended gallbladder with gallstones, distended bladder, and fat stranding around the pancreas with calcifications suggestive of chronic pancreatitis. CT of the cervical spine showed multiple bone lucencies possibly due to facet arthritis and osteopenia but could not exclude lytic bone disease. Chest CT showed ILD with cardiomegaly and coronary calcifications, along with likely old rib fractures. CT of the head showed no acute findings. Knee X-rays showed bilateral effusions with no fractures. Admission was requested for workup of hypoxia. 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 Obesity due to excess calories Type 2 diabetes mellitus Family History Father Heart problem Blind Mother Diabetes Asthma Paternal Aunt Blind Pertinent family history: see above Surgical History H/O colonoscopy (~08/2017) History of esophagogastroduodenoscopy (EGD) History of implantable cardioverter-defibrillator (ICD) placement (08/28/13) Status cardiac pacemaker (~1989) Social History Household Members: None Housing: Apartment Do you presently have visiting nurse or other home services: Yes Alcohol intake: former Patient Tobacco Use Status: Former Tobacco user Advance Directives: No Advance Directives Information Provided: Yes Meds Allergies Allergy/AdvReac Type Severity Reaction Status Date / Time morphine Allergy Intermediate rash Verified 01/08/21 11:39 Active Medications: Current Medications Acetaminophen (Acetaminophen 325 Mg Tablet) 650 mg PO Q6H PRN PRN Reason: Pain, Mild (Pain Scale 1-3) Albuterol Sulfate (Albuterol Sulfate (0.083%) 2.5 Mg/3 Ml Vial.Neb) 2.5 mg INHALE Q2H PRN PRN Reason: shortness of breath/wheeze Albuterol/Ipratropium (Albuterol/Iprat 2.5/0.5mg 3 Ml Ampul.Neb) 3 ml INHALE RQ4H WHILE AWAKE AILEEN Allopurinol (Allopurinol 100 Mg Tablet) 100 mg PO DAILY AILEEN Apixaban (Apixaban 5 Mg Tablet) 5 mg PO BID AILEEN Atorvastatin Calcium (Atorvastatin Calcium 10 Mg Tablet) 10 mg PO BEDTIME AILEEN Carbidopa/Levodopa (Carbidopa/Levodopa 25/100 Tablet) 1 tab PO TID AILEEN Carvedilol (Carvedilol 3.125 Mg Tablet) 3.125 mg PO BID AILEEN; Protocol Diphenhydramine HCl (Diphenhydramine Hcl 25 Mg Tablet) 25 mg PO BEDTIME PRN PRN Reason: Sleep Finasteride (Finasteride 5 Mg Tablet) 5 mg PO BEDTIME AILEEN Lactulose (Lactulose 20 Gm/30 Ml Solution) 20 gm PO TID AILEEN Levothyroxine Sodium (Levothyroxine Sodium 100 Mcg Tablet) 100 mcg PO DAILY@0630 IALEEN Loratadine (Loratadine 10 Mg Tablet) 10 mg PO DAILY AILEEN Methylprednisolone Sodium Succinate (Methylprednisolone Sod Succ 40 Mg/Ml Vial) 40 mg IVPUSH Q12H [facility] Multivitamins/Vitamin C (Multivitamin Tablet) 1 tab PO DAILY [facility] Non-Formulary Medication (Mexiletine) 1 cap PO TID [facility] Omeprazole (Omeprazole 20 Mg Capsule.Dr) 20 mg PO DAILY@0630 [facility] Ondansetron HCl (Ondansetron Hcl 4 Mg/2 Ml Vial) 4 mg IVPUSH Q8H PRN PRN Reason: Nausea and Vomiting Pharmacy Consult (Consult Rx Perform Med Rec) 1 each MISCELLANE ONCE PRN PRN Reason: Consult order Quetiapine Fumarate (Quetiapine Fumarate 100 Mg Tablet) 100 mg PO BID [facility] Rifaximin (Rifaximin 550 Mg Tablet) 550 mg PO BID [facility] Sodium Chloride (0.9 % Sodium Chloride Flush 3 Ml Syringe) 3 ml IVFLUSH QSHIFT [facility] Spironolactone (Spironolactone 25 Mg Tablet) 25 mg PO DAILY [facility]; Protocol Tamsulosin HCl (Tamsulosin Hcl 0.4 Mg Capsule) 0.4 mg PO BEDTIME [facility] Torsemide (Torsemide 20 Mg Tablet) 10 mg PO DAILY [facility] Vitamin D (Cholecalciferol (Vitamin D3) 25 Mcg Tablet) 25 mcg PO DAILY [facility] Home Medications Medication Instructions Recorded Confirmed Last Taken Type cholecalciferol (vitamin D3) 25 25 mcg PO DAILY 01/08/20 01/08/21 01/08/21 History mcg (1,000 unit) capsule (Vitamin D3) levothyroxine 100 mcg tablet 100 mcg PO DAILY@0630 01/08/20 01/08/21 01/08/21 History loratadine 10 mg tablet (Allergy 10 mg PO DAILY 01/08/20 01/08/21 01/08/21 History Relief (loratadine)) omeprazole 20 mg capsule,delayed 20 mg PO DAILY@0630 01/08/20 01/08/21 01/08/21 History release simvastatin 20 mg tablet 20 mg PO BEDTIME 01/08/20 01/08/21 01/07/21 History apixaban 5 mg tablet (Eliquis) 5 mg PO BID 06/17/20 01/08/21 01/08/21 History quetiapine 100 mg tablet 100 mg PO BID tab 06/17/20 01/08/21 01/08/21 History spironolactone 25 mg tablet 25 mg PO DAILY 06/17/20 01/08/21 01/08/21 History allopurinol 100 mg tablet 100 mg PO DAILY 01/08/21 01/08/21 01/08/21 History carbidopa 25 mg-levodopa 100 mg 1 tab PO TID 01/08/21 01/08/21 01/08/21 History tablet carvedilol 3.125 mg tablet 3.125 mg PO BID 01/08/21 01/08/21 01/08/21 History diphenhydramine HCl 25 mg capsule 25 mg PO BEDTIME PRN 01/08/21 01/08/21 01/07/21 History (Sleep Aid (diphenhydramine)) finasteride 5 mg tablet 5 mg PO BEDTIME 01/08/21 01/08/21 01/07/21 History insulin glargine 100 unit/mL (3 36 unit SUBCUT BEDTIME 01/08/21 01/08/21 01/07/21 History mL) subcutaneous pen (Lantus Solostar U-100 Insulin) insulin lispro 100 unit/mL 10 unit SUBCUT TIDAC 01/08/21 01/08/21 01/08/21 History subcutaneous pen (Humalog KwikPen (U-100) Insulin) mexiletine 200 mg capsule 1 cap PO TID 01/08/21 01/08/21 01/08/21 History multivitamin 1 tab PO QAM 01/08/21 01/08/21 01/08/21 History rifaximin 550 mg tablet (Xifaxan) 1 tab PO BID 01/08/21 01/08/21 01/08/21 History torsemide 10 mg tablet 10 mg PO DAILY 01/08/21 01/08/21 01/08/21 History Physical Exam Vital Signs and Narrative: Vital Signs: Last Vital Signs Temp 98.4 F 01/08/21 14:00 Pulse 97 01/08/21 15:18 Resp 22 H 01/08/21 14:00 BP 112/76 01/08/21 15:18 Pulse Ox 93 01/08/21 15:18 Body Mass Index 37.5 Gen: mild respiratory distress [tachypnea] on 5L O2 via NC with SaO2 93% HEENT: sclera anicteric, moist mucus membranes Neck: supple Lungs: clear to auscultation bilaterally Heart: regular rate and rhythm, no murmurs Abd: soft, obese, non-tender Ext: 1+ LE edema Skin: warm/well-perfused Neuro: alert and oriented x3, constant tremor present but no sharmila asterixis Psych: appropriate affect Results Labs CBC and Chem 7: 01/08/21 12:41 01/08/21 12:41 Labs: Laboratory Results WBC 7.9 X10*3/uL (4.8-10.8) 01/08/21 12:41 RBC 3.71 X10*6/uL (4.60-5.80) L 01/08/21 12:41 Hgb 10.5 g/dl (14.0-18.0) L 01/08/21 12:41 Hct 32.5 % (42-52) L 01/08/21 12:41 MCV 87.6 fL (80-98) 01/08/21 12:41 MCH 28.3 pg (27.0-33.0) 01/08/21 12:41 MCHC 32.3 g/dl (31.0-36.0) 01/08/21 12:41 RDW 17.7 % (11.0-16.0) H 01/08/21 12:41 Plt Count 56 X10*3/uL (160-400) L 01/08/21 12:41 MPV 12.0 fL (9.4-12.4) 01/08/21 12:41 Immature Gran % (Auto) 0.5 % (0.0-0.4) H 01/08/21 12:41 Neut % (Auto) 69.8 % (45-73) 01/08/21 12:41 Lymph % (Auto) 9.6 % (20-40) L 01/08/21 12:41 [place] % (Auto) 20.1 % (2-11) H 01/08/21 12:41 Eos % (Auto) 0.0 % (0-4) 01/08/21 12:41 Baso % (Auto) 0.0 % (0-2) 01/08/21 12:41 Lymph # (Auto) 0.8 X10*3/uL (1.2-4.9) L 01/08/21 12:41 [place] # (Auto) 1.6 X10*3/uL (0.1-1.2) H 01/08/21 12:41 Eos # (Auto) 0.0 X10*3/uL (0.0-0.4) 01/08/21 12:41 Baso # (Auto) 0.0 X10*3/uL (0.0-0.2) 01/08/21 12:41 Abs Immat Gran (auto) 0.04 X10*3/uL (0.00-0.03) H 01/08/21 12:41 Absolute Neuts (auto) 5.5 X10*3/uL (2.0-8.3) 01/08/21 12:41 Absolute Nucleated RBC 0.000 X10*3/uL (0.0-0.012) 01/08/21 12:41 Nucleated RBC % (auto) 0.0 /100WBC (0.0-0.2) 01/08/21 12:41 Smear Tech's Comments VERIFIED 01/08/21 12:41 PT 18.9 SEC (9.9-13.0) H 01/08/21 12:44 INR 1.6 (0.9-1.1) H 01/08/21 12:44 O2 Saturation 91.0 % 01/08/21 12:40 ABG pH at Pt Temp 7.46 (7.35-7.45) H 01/08/21 12:40 ABG pH (Temp Correct) 7.46 (7.35-7.45) H 01/08/21 12:40 ABG pCO2 at Pt Temp 27 mmHg (32-45) L 01/08/21 12:40 ABG pCO2 (Temp Corrct 27 mmHg (32-45) L 01/08/21 12:40 ABG pO2 at Pt Temp 68 mmHg (83-108) L 01/08/21 12:40 ABG pO2 (Temp Correct 68 (83-108) L 01/08/21 12:40 ABG HCO3 19 mmol/L (22-26) L 01/08/21 12:40 ABG Base Excess (Actual) -2.7 mmol/L 01/08/21 12:40 Sodium 137 mmol/L (135-145) 01/08/21 12:41 Potassium 4.6 mmol/L (3.3-5.1) D 01/08/21 12:41 Chloride 105 mmol/L (96-108) 01/08/21 12:41 Carbon Dioxide 19 mmol/L (22-29) L 01/08/21 12:41 Anion Gap 18 (12-20) 01/08/21 12:41 BUN 15 mg/dL (9-16) 01/08/21 12:41 Creatinine 1.38 mg/dL (0.5-1.4) 01/08/21 12:41 Estim Creat Clear Calc 48.2 01/08/21 12:41 Estimated GFR 50 01/08/21 12:41 Random Glucose 147 mg/dL (60-115) H D 01/08/21 12:41 Calcium 9.1 mg/dL (8.4-10.2) 01/08/21 12:41 Magnesium 2.0 mg/dL (1.6-2.6) 01/08/21 12:41 Total Bilirubin 1.5 mg/dL (0.0-1.0) H 01/08/21 12:41 Direct Bilirubin 0.8 mg/dL (0.0-0.5) H 01/08/21 12:41 AST 81 U/L (5-37) H 01/08/21 12:41 ALT 25 U/L (0-40) 01/08/21 12:41 Alkaline Phosphatase 245 U/L (39-117) H 01/08/21 12:41 Ammonia 40 umol/L (13-55) 01/08/21 12:41 Total Creatine Kinase 183 U/L (38-174) H 01/08/21 12:41 Troponin I High Sens 20.4 ng/L (<3.5-35.0) 01/08/21 12:40 B-Natriuretic Peptide 246 pg/mL (<100) H 01/08/21 12:40 Total Protein 7.1 g/dL (6.5-8.0) 01/08/21 12:41 Albumin 3.2 g/dL (3.5-5.0) L 01/08/21 12:41 Amylase 86 U/L (28-100) 01/08/21 12:41 Lipase 29 U/L (8-78) 01/08/21 12:41 Ethyl Alcohol < 10 mg/dL 01/08/21 12:40 COVID-19 (HUMAIRA) Negative (Negative) 01/08/21 12:46 COVID-19 Clin Com See Note 01/08/21 12:46 Impressions Abdomen/Pelvis CT 01/08/21 12:03 IMPRESSION: Cirrhosis and varices. Distended gallbladder and gallstones. Very distended bladder. Fat stranding seen surrounding the body and tail of the pancreas, inferior spleen and in the bilateral anterior pararenal fascia and small bowel mesentery. Distribution is questionable for evidence of pancreatitis. There are small calcifications in the pancreas suggestive of chronic pancreatitis. Very distended bladder. Right sided rib fractures. Cervical Spine CT 01/08/21 12:03 IMPRESSION: Degenerative changes. No fracture or dislocation seen. Multiple lucencies in the bone, largest in the left C2 facet. This may be related to facet arthritis and osteopenia. Lytic bone disease cannot be excluded. Chest CT 01/08/21 12:03 IMPRESSION: Interstitial lung disease. Enlarged heart. Coronary artery and aortic valve calcification. The right anterior seventh and eighth rib fractures and right posterior 11th rib fracture. When compared with previous chest and right rib films from June 2020 these may not be acute. Chest X-Ray 01/08/21 12:03 IMPRESSION: Bilateral knee effusions without evidence of acute fracture moderate narrowing of the medial joint space compartment of the left knee. Spurring/osseous deformity about the right medial condyle likely related to previous trauma. Bibasilar disease which may be chronic. Head CT 01/08/21 12:03 IMPRESSION: No acute findings. Age-appropriate prominence of the ventricles and extra-axial CSF spaces and mild periventricular white matter disease. Knee X-Ray 01/08/21 12:03 IMPRESSION: Bilateral knee effusions without evidence of acute fracture moderate narrowing of the medial joint space compartment of the left knee. Spurring/osseous deformity about the right medial condyle likely related to previous trauma. Bibasilar disease which may be chronic. Imaging Radiologist's Impressions: Impressions Abdomen/Pelvis CT 01/08/21 12:03 IMPRESSION: Cirrhosis and varices. Distended gallbladder and gallstones. Very distended bladder. Fat stranding seen surrounding the body and tail of the pancreas, inferior spleen and in the bilateral anterior pararenal fascia and small bowel mesentery. Distribution is questionable for evidence of pancreatitis. There are small calcifications in the pancreas suggestive of chronic pancreatitis. Very distended bladder. Right sided rib fractures. Cervical Spine CT 01/08/21 12:03 IMPRESSION: Degenerative changes. No fracture or dislocation seen. Multiple lucencies in the bone, largest in the left C2 facet. This may be related to facet arthritis and osteopenia. Lytic bone disease cannot be excluded. Chest CT 01/08/21 12:03 IMPRESSION: Interstitial lung disease. Enlarged heart. Coronary artery and aortic valve calcification. The right anterior seventh and eighth rib fractures and right posterior 11th rib fracture. When compared with previous chest and right rib films from June 2020 these may not be acute. Chest X-Ray 01/08/21 12:03 IMPRESSION: Bilateral knee effusions without evidence of acute fracture moderate narrowing of the medial joint space compartment of the left knee. Spurring/osseous deformity about the right medial condyle likely related to previous trauma. Bibasilar disease which may be chronic. Head CT 01/08/21 12:03 IMPRESSION: No acute findings. Age-appropriate prominence of the ventricles and extra-axial CSF spaces and mild periventricular white matter disease. Knee X-Ray 01/08/21 12:03 IMPRESSION: Bilateral knee effusions without evidence of acute fracture moderate narrowing of the medial joint space compartment of the left knee. Spurring/osseous deformity about the right medial condyle likely related to previous trauma. Bibasilar disease which may be chronic. Knee X-Ray 01/08/21 12:03 IMPRESSION: Bilateral knee effusions without evidence of acute fracture moderate narrowing of the medial joint space compartment of the left knee. Spurring/osseous deformity about the right medial condyle likely related to previous trauma. Bibasilar disease which may be chronic. Assessment and Plan (1) Acute respiratory failure with hypoxia: Status: Acute 75yo M with cirrhosis related to past EtOH abuse, hepatic encephalopathy, remote history of alcoholic pancreatitis, asthma/COPD, Parkinsonism, hypothyroidism, previous tobacco abuse, gout, DM2, history of ventricular arrhythmia,, on apixaban for unknown reason presenting after fall after taking Unisom and complaining of worsening dyspnea and cough; found to be hypoxic. # acute hypoxic respiratory failure # COPD exacerbation - admit to [facility], treat for COPD/ILD exacerbation with steroids/nebs, consult pulmonology, give supplemental O2 and wean as tolerated. doubt PE given he is on apixaban but will check D-dimer and if high will complete workup with CTA. given significant cirrhosis, hepatopulmonary syndrome is also a consideration. will obtain TTE. # question pancreatitis - lipase and amylase low, doubt acute pancreatitis, will consult GI # cirrhosis - due to EtOH, watch for signs of decompensation # hepatic encephalopathy - continue lactulose + rifaximin # ventricular arrhythmia - continue carvedilol + mexiletine. has ICD. requests [facility] records # anticoagulated with apixaban - pt and his GALLERY OR MUSEUM ATTENDANT unable to tell me why; will request records from his hog killer and continue apixaban for now # ?CHF - on diuretics- spironolactone + torsemide- continue, along with b-matias carvedilol, pending records from [facility] # prostatism - continue tamsulosin + finasteride, bladder scan, straight cath prn PVR >300 mL # gout - continue allopurinol # hypothyroidism - continue LT4 # Parkinsonism - continue Sinemet # DM2 - last A1c only 5.9. correction-dose lispro # VTE ppx - apixaban # code - FULL Quality Stroke Does the patient have a stroke diagnosis?: No VTE Prior VTE?: No VTE Risk Level:: Medical - moderate - high VTE Device Contraindication: N/A - Device Ordered VTE Drug Contraindication: N/A - Med Ordered
[2021-01-08 17:38] LABS: D Dimer 2290 NG/ML
[2021-01-08 17:41] LABS: Glucose, Whole Blood 148 mg/dL (60-115)
[2021-01-08] MEDS: methylPREDNISolone Sod Succ 40 MG/ML VIAL IVPUSH (17:43)
--- NOTE | 2021-01-08 17:57 | PC.NURSE ---
POC in 140s before eating. Pt's home lantus and lispro not yet ordered. Dr. Mojica made aware and plans to order.
[2021-01-08 18:08] LABS: Procalcitonin 0.13 ng/mL
[2021-01-08 18:35] LABS: Adenovirus PCR Not Detected (Not Detect.); Bordetella parapertussis PCR Not Detected (Not Detect.); Bordetella pertussis PCR Not Detected (Not Detect.); Chlamydia pneumoniae PCR Not Detected (Not Detect.); Coronavirus 229E PCR Not Detected (Not Detect.); Coronavirus HKU1 PCR Not Detected (Not Detect.); Coronavirus NL63 PCR Not Detected (Not Detect.); Coronavirus OC43 PCR Not Detected (Not Detect.); Human metapneumovirus PCR Not Detected (Not Detect.); Influenza A PCR Not Detected (Not Detect.); Influenza B PCR Not Detected (Not Detect.); Mycoplasma pneumoniae PCR Not Detected (Not Detect.); Parainfluenza 1 PCR Not Detected (Not Detect.); Parainfluenza 2 PCR Not Detected (Not Detect.); Parainfluenza 3 PCR Not Detected (Not Detect.); Parainfluenza 4 PCR Not Detected (Not Detect.); RSV PCR Not Detected (Not Detect.); Rhino/Enterovirus PCR Not Detected (Not Detect.); SARS-CoV-2 PCR Not Detected (Not Detect.)
--- NOTE | 2021-01-08 20:00 | PC.NURSE ---
Patient a/o x3, in NAD, pt denies sob, chest pain or dizziness. Pt Sats range 90-94% on 6L NC. Lung CTA, no edema noted. Pt medicated per EMAR. No complaints reported, will continue to monitor.
[2021-01-08] MEDS: Carbidopa/Levodopa 25/100 TABLET 1 TAB PO (20:42)
[2021-01-08] MEDS: Atorvastatin Calcium 10 MG TABLET PO (20:42)
[2021-01-08] MEDS: carvediloL 3.125 MG TABLET PO (20:42)
[2021-01-08] MEDS: Lactulose 20 GM/30 ML SOLUTION PO (20:42)
[2021-01-08] MEDS: Tamsulosin HCL 0.4 MG CAPSULE PO (20:42)
[2021-01-08] MEDS: Apixaban 5 MG TABLET PO (20:42)
[2021-01-08] MEDS: QUEtiapine Fumarate 100 MG TABLET PO (21:13)
[2021-01-08] MEDS: rifAXIMin 550 MG TABLET PO (21:13)
[2021-01-08] MEDS: Finasteride 5 MG TABLET PO (21:13)
[2021-01-08] MEDS: Albuterol/Iprat 2.5/0.5MG 3 ML AMPUL.NEB INHALE (21:21)
[2021-01-08 21:58] LABS: Glucose, Whole Blood 222 mg/dL (60-115)
[2021-01-09] VITALS (9 sets, daily range): BP systolic 108–120; BP diastolic 65–70; PULSE 94–104; RESP 18–19; TEMP 36.7–36.8; O2SAT 82–100; BMI 37.5
[2021-01-09] MEDS: 0.9 % Sodium Chloride Flush 3 ML SYRINGE IVFLUSH ×4 (00:23→21:44)
[2021-01-09] MEDS: Levothyroxine Sodium 100 MCG TABLET PO (05:42)
[2021-01-09] MEDS: Omeprazole 20 MG CAPSULE.DR PO (05:42)
[2021-01-09] MEDS: methylPREDNISolone Sod Succ 40 MG/ML VIAL IVPUSH ×2 (05:42→18:34)
--- NOTE | 2021-01-09 06:05 | PC.NURSE ---
Patient ambulated to bathroom, supervised with cane. O2sat dropped to 60-80% with activity. o2 coming back up steadily to low 90. Patient back to bed. Voided in bathroom.
--- NOTE | 2021-01-09 07:17 | PC.NURSE ---
pt resting comfortably in bed. bkfst eaten. o2 level down to 80% on 6l. non rebreather applied. o2 level up to 94%
[2021-01-09 07:29] LABS: Hemoglobin 9.4 g/dl (14.0-18.0); Mean Corpuscular Hemoglobin 27.9 pg (27.0-33.0); Red Blood Count 3.37 X10*6/uL (4.60-5.80)
[2021-01-09 07:31] LABS: Hematocrit 28.9 % (42-52); Mean Corpuscular HGB Conc 32.5 g/dl (31.0-36.0); Mean Corpuscular Volume 85.8 fL (80-98); Mean Platelet Volume 11.6 fL (9.4-12.4); Red Cell Distribution Width 17.5 % (11.0-16.0); White Blood Count 9.3 X10*3/uL (4.8-10.8)
[2021-01-09 07:34] LABS: INTERNATIONAL NORM RATIO 1.8 (0.9-1.1); Prothrombin Time 20.7 SEC (9.9-13.0)
[2021-01-09 07:36] LABS: Glucose, Whole Blood 193 mg/dL (60-115)
[2021-01-09 07:36] LABS: Platelet Count 57 X10*3/uL (160-400)
--- NOTE | 2021-01-09 07:41 | P.CNGI_ITS ---
History of Present Illness Data of Consult Service Date: 01/09/21 Requesting physician: Hallie Mojica Primary Care Provider: Unknown Physician HPI Reason for consult: Hypoxia 75 YM with cirrhosis complicated by HE, remote history of alcoholic pancreatitis, asthma/COPD, Parkinsonism, hypothyroidism, previous tobacco abuse, gout, DM2, history of ventricular arrhythmia [details unavailable] s/p ICD placement and on mexiletene, on apixaban for unknown reason.?seen at [facility] yesterday after taking OTC sleeping aid, Unisom the night before.: HPI Narrative: Patient is 75-year-old male with a history of liver cirrhosis.? History of diabetes, hypertension, high cholesterol, previous history of smoking.? Previous history of alcohol abuse.? Long-term on insulin.? Patient also has a history of having a defibrillator.? Also has a history of being on Eliquis.? He took extra sleeping pill last night.? Subsequently found himself on the ground.? Difficult to get up this morning.? Patient eventually try to get himself up.? Now is complaining of pain to the head.? Pain to the neck.? Pain to the chest.? Pain to bilateral knees.? Patient claims compliance with his medication.? He is supposed to take lactulose 3 times a day for liver cirrhosis.? He denies drinking alcohol today.? His chest pain is sharp for few seconds.? He is feels short of breath but seems about the same as previous.? Tegan imke is a poor historian unable to give all the details.? Patient did receive his COVID vaccine . In the ED, he was tachypneic with RR 26 and hypoxic with SaO2 on room air of 86%; normalized with 6L O2 via NC. ? CT of the abdomen and pelvis showed cirrhosis and varices, distended gallbladder with gallstones, distended bladder, and fat stranding around the pancreas with calcifications suggestive of chronic pancreatitis.? CT of the cervical spine showed multiple bone lucencies possibly due to facet arthritis and osteopenia but could not exclude lytic bone disease.? Chest CT showed ILD with cardiomegaly and coronary calcifications, along with likely old rib fractures.? CT of the head showed no acute findings.? Knee X-rays showed bilateral effusions with no fractures. ? Pt was admitted for further evaluation and management of hypoxia. ? ? Question etiology of the hypoxia.? Patient's EKG showed a sinus pattern heart rate was 100 HI QRS QT within normal limits there is PVCs noted.? Patient ammonia level was 40 no evidence for hepatic encephalopathy.? LFT consistent with patient's baseline liver disease.? Alcohol level was negative.? Patient claims he was on the ground for question amount of time after ingesting 2 [id number] sleeping pill.? Patient's COVID test was negative.? He has been complaining of worsening dyspnea and cough productive of thin sputum for the last few days.? No orthopnea.? No fever.? Minimal edema.? No chest pain.? He also notes some abdominal pain but no nausea or vomiting.? He is hungry. Pt is on Lactulose three times a day for HE - two times on Tuesday since he goes to worship. LABS IN [facility]:?08/09/19 REVIEWED PANCYTOPENIA WITH H&H OF 8.9 IN 28.8, PLATELET 82, INR 1.3 CHEM PANEL SHOWED BUN 16, CREATININE 1.45, A BILIRUBIN 0.6, AST 125, ALT 69, ALKALINE PHOSPHATASE 302, AMMONIA 71, ALBUMIN 3.3 ? IRON STUDIES SHOWED IRON DEFICIENCY ANEMIA WITH FERRITIN OF 25 ? LIVER FIBROSIS SCORE 0.90, LIVER FIBROSIS STAGE F4, NECROINFLAMMATORY SCORE 0.57 ? ANTIMITOCHONDRIAL ANTIBODY AND ANTI SMOOTH MUSCLE ANTIBODY WERE NEGATIVE ? 05/2014 HEPATITIS B AND C SEROLOGIES WERE NEGATIVE ??IMAGING STUDIES: 01/08/[address] SCAN SHOWED: Cirrhosis and varices. Distended gallbladder and gallstones. Very distended bladder. Fat stranding seen surrounding the body and tail of the pancreas, inferior spleen and in the bilateral anterior pararenal fascia and small bowel mesentery. Distribution is questionable for evidence of pancreatitis. There are small calcifications in the pancreas suggestive of chronic pancreatitis. Very distended bladder. Right sided rib fractures. 06/11/20 ABDOMINAL ULTRASOUND SHOWED: ? 1. Uniform coarsening hepatic parenchymal echotexture and nodular liver ? surface consistent with the history of cirrhosis. No focal hepatic ? parenchymal lesion. ? 2. Fine gravel-like calculi dependent gallbladder. No gallbladder wall ? thickening or ductal dilatation. ? 3. Pancreas obscured by bowel gas. ENDOSCOPIC STUDIES: 08/2017 EGD AND COLON WERE PERFORMED BY DR CHAPARRO. ? EGD showed 3 chains of Grade 1 verices without stigmata of recent bleeding and mild portal gastropathy. An 8 mm TVA was removed during colonoscopy. Review of Systems Constitutional: Constitutional: Denies fever(s), Denies headache(s) and Denies weight loss Eyes: Eyes: Denies eye discharge and Denies irritation ENT: Reports Normal hearing present, Denies dysphagia, Denies dizziness and Denies headache(s) Cardiovascular: Cardiovascular: Denies chest pain, Denies leg edema, Reports dyspnea and Denies dyspnea on exertion Respiratory: Respiratory: Denies cough, Reports dyspnea, Denies dyspnea on exertion and Denies wheezing Gastrointestinal: Gastrointestinal: Denies abdominal pain, Denies change in bowel habits, Denies dysphagia and Denies heartburn Genitourinary: Genitourinary: Denies dysuria Musculoskeletal: Musculoskeletal: Denies back pain and Denies arthralgias Integumentary/Breasts: Skin/Breast: Denies pruritus, Denies rash and Denies jaundice Neurologic: Reports Normal hearing present, Denies Abnormal speech present, Denies dizziness, Denies headache(s) and Denies seizure-like activity Psychiatric: Psychiatric: Denies anxiety, Denies depression and Denies panic attacks Endocrine: Endocrine: Denies cold intolerance, Denies flushing and Denies heat intolerance Hematologic/Lymphatic: Hematologic/Lymphatic: Denies easy bleeding and Denies easy bruising Allergic/Immunologic: Allergic/Immunologic: Denies wheezing PMFSH Past Medical History Medical History (Updated 01/16/21 @ 11:15 by Sajan Mi MD) Chronic renal insufficiency COPD (chronic obstructive pulmonary disease) Coronary artery disease History of adenomatous polyp of colon History of pancreatitis Hyperlipidemia Hypertension 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 Obesity due to excess calories Pneumonitis Pneumonitis Type 2 diabetes mellitus Family History Family History Father Heart problem Blind Mother Diabetes Asthma Paternal Aunt Blind Surgical History Surgical History H/O colonoscopy (~08/2017) History of esophagogastroduodenoscopy (EGD) History of implantable cardioverter-defibrillator (ICD) placement (08/28/13) Status cardiac pacemaker (~1989) Social History Social History Household Members: None Caregiver staying overnight: Yes (Lives by himself, single, no children 1 sister in [place]) Housing: Apartment Do you presently have visiting nurse or other home services: Yes Alcohol intake: former Patient Tobacco Use Status: Former Tobacco user service: No Current occupational status: unemployed Meds Allergies Allergy/AdvReac Type Severity Reaction Status Date / Time morphine Allergy Intermediate rash Verified 01/08/21 11:39 Active Medications: Current Medications Acetaminophen (Acetaminophen 325 Mg Tablet) 650 mg PO Q6H PRN PRN Reason: Pain, Mild (Pain Scale 1-3) Albuterol Sulfate (Albuterol Sulfate (0.083%) 2.5 Mg/3 Ml Vial.Neb) 2.5 mg INHALE Q2H PRN PRN Reason: shortness of breath/wheeze Albuterol/Ipratropium (Albuterol/Iprat 2.5/0.5mg 3 Ml Ampul.Neb) 3 ml INHALE RQ4H WHILE AWAKE REPLACED BY [facility] Last Admin: 01/08/21 21:21 Dose: 3 ml Documented by: Allopurinol (Allopurinol 100 Mg Tablet) 100 mg PO DAILY AILEEN Apixaban (Apixaban 5 Mg Tablet) 5 mg PO BID AILEEN Last Admin: 01/08/21 20:42 Dose: 5 mg Documented by: Atorvastatin Calcium (Atorvastatin Calcium 10 Mg Tablet) 10 mg PO BEDTIME AILEEN Last Admin: 01/08/21 20:42 Dose: 10 mg Documented by: Carbidopa/Levodopa (Carbidopa/Levodopa 25/100 Tablet) 1 tab PO TID AILEEN Last Admin: 01/08/21 20:42 Dose: 1 tab Documented by: Carvedilol (Carvedilol 3.125 Mg Tablet) 3.125 mg PO BID AILEEN; Protocol Last Admin: 01/08/21 20:42 Dose: 3.125 mg Documented by: Dextrose (Dextrose 50 % 25 Gm/50 Ml Vial) 25 gm IVPUSH Q15M PRN; Protocol PRN Reason: per Hypoglycemia Standing Ord. Diphenhydramine HCl (Diphenhydramine Hcl 25 Mg Tablet) 25 mg PO BEDTIME PRN PRN Reason: Sleep Finasteride (Finasteride 5 Mg Tablet) 5 mg PO BEDTIME REPLACED BY [facility] Last Admin: 01/08/21 21:13 Dose: 5 mg Documented by: Glucose (Glucose Gel 15 Gm Gel..Gram.) 15 gm PO Q15M PRN; Protocol PRN Reason: per Hypoglycemia Standing Ord. Insulin Human Lispro (Insulin Lispro 100 Unit/Ml 3 Ml Vial) 0 unit SUBCUT QIDACHS REPLACED BY [facility]; Protocol Last Admin: 01/08/21 20:43 Dose: Not Given Documented by: Lactulose (Lactulose 20 Gm/30 Ml Solution) 20 gm PO TID REPLACED BY [facility] Last Admin: 01/08/21 20:42 Dose: 20 gm Documented by: Levothyroxine Sodium (Levothyroxine Sodium 100 Mcg Tablet) 100 mcg PO DAILY@0630 REPLACED BY [facility] Last Admin: 01/09/21 05:42 Dose: 100 mcg Documented by: Loratadine (Loratadine 10 Mg Tablet) 10 mg PO DAILY REPLACED BY [facility] Methylprednisolone Sodium Succinate (Methylprednisolone Sod Succ 40 Mg/Ml Vial) 40 mg IVPUSH Q12H REPLACED BY [facility] Last Admin: 01/09/21 05:42 Dose: 40 mg Documented by: Multivitamins/Vitamin C (Multivitamin Tablet) 1 tab PO DAILY REPLACED BY [facility] Patient Own Med ( Mexiletine 200 Mg Capsule) 1 each PO TID REPLACED BY [facility] Last Admin: 01/08/21 22:11 Dose: 1 each Documented by: Omeprazole (Omeprazole 20 Mg Capsule.Dr) 20 mg PO DAILY@0630 REPLACED BY [facility] Last Admin: 01/09/21 05:42 Dose: 20 mg Documented by: Ondansetron HCl (Ondansetron Hcl 4 Mg/2 Ml Vial) 4 mg IVPUSH Q8H PRN PRN Reason: Nausea and Vomiting Pharmacy Consult (Consult Rx Perform Med Rec) 1 each MISCELLANE ONCE PRN PRN Reason: Consult order Quetiapine Fumarate (Quetiapine Fumarate 100 Mg Tablet) 100 mg PO BID REPLACED BY [facility] Last Admin: 01/08/21 21:13 Dose: 100 mg Documented by: Rifaximin (Rifaximin 550 Mg Tablet) 550 mg PO BID REPLACED BY [facility] Last Admin: 01/08/21 21:13 Dose: 550 mg Documented by: Sodium Chloride (0.9 % Sodium Chloride Flush 3 Ml Syringe) 3 ml IVFLUSH QSHIFT REPLACED BY [facility] Last Admin: 01/09/21 00:23 Dose: 3 ml Documented by: Spironolactone (Spironolactone 25 Mg Tablet) 25 mg PO DAILY AILEEN; Protocol Tamsulosin HCl (Tamsulosin Hcl 0.4 Mg Capsule) 0.4 mg PO BEDTIME AILEEN Last Admin: 01/08/21 20:42 Dose: 0.4 mg Documented by: Torsemide (Torsemide 20 Mg Tablet) 10 mg PO DAILY AILEEN Vitamin D (Cholecalciferol (Vitamin D3) 25 Mcg Tablet) 25 mcg PO DAILY REPLACED BY [facility] Home Medications Medication Instructions Recorded Confirmed Last Taken Type cholecalciferol (vitamin D3) 25 25 mcg PO DAILY 01/08/20 01/08/21 01/08/21 History mcg (1,000 unit) capsule (Vitamin D3) levothyroxine 100 mcg tablet 100 mcg PO DAILY@0630 01/08/20 01/08/21 01/08/21 History loratadine 10 mg tablet (Allergy 10 mg PO DAILY 01/08/20 01/08/21 01/08/21 History Relief (loratadine)) omeprazole 20 mg capsule,delayed 20 mg PO DAILY@0630 01/08/20 01/08/21 01/08/21 History release simvastatin 20 mg tablet 20 mg PO BEDTIME 01/08/20 01/08/21 01/07/21 History apixaban 5 mg tablet (Eliquis) 5 mg PO BID 06/17/20 01/08/21 01/08/21 History quetiapine 100 mg tablet 100 mg PO BID tab 06/17/20 01/08/21 01/08/21 History spironolactone 25 mg tablet 25 mg PO DAILY 06/17/20 01/08/21 01/08/21 History allopurinol 100 mg tablet 100 mg PO DAILY 01/08/21 01/08/21 01/08/21 History carbidopa 25 mg-levodopa 100 mg 1 tab PO TID 01/08/21 01/08/21 01/08/21 History tablet carvedilol 3.125 mg tablet 3.125 mg PO BID 01/08/21 01/08/21 01/08/21 History diphenhydramine HCl 25 mg capsule 25 mg PO BEDTIME PRN 01/08/21 01/08/21 01/07/21 History (Sleep Aid (diphenhydramine)) finasteride 5 mg tablet 5 mg PO BEDTIME 01/08/21 01/08/2101/07/21 History insulin glargine 100 unit/mL (3 36 unit SUBCUT BEDTIME 01/08/21 01/08/21 01/07/21 History mL) subcutaneous pen (Lantus Solostar U-100 Insulin) insulin lispro 100 unit/mL 10 unit SUBCUT TIDAC 01/08/21 01/08/21 01/08/21 History subcutaneous pen (Humalog KwikPen (U-100) Insulin) mexiletine 200 mg capsule 1 cap PO TID 01/08/21 01/08/21 01/08/21 History multivitamin 1 tab PO QAM 01/08/21 01/08/21 01/08/21 History rifaximin 550 mg tablet (Xifaxan) 1 tab PO BID 01/08/21 01/08/21 01/08/21 History torsemide 10 mg tablet 10 mg PO DAILY 01/08/21 01/08/21 01/08/21 History Physical Exam Vital Signs: Vital Signs: Last Vital Signs Temp 98.2 F 01/09/21 01:26 Pulse 104 H 01/09/21 01:26 Resp 19 01/09/21 01:26 BP 108/65 01/09/21 01:26 Pulse Ox 90 L 01/09/21 01:26 Body Mass Index 37.5 Const: General: ill appearing Nutritional Appearance: obese Orientation/consciousness: patient oriented x3 Limitations: language barrier HENMT: Head: Yes normal to inspection Ears: hearing grossly normal bilaterally Mouth: Normal oral and palatal mucosa present Eyes: Sclerae: sclerae normal Pupils: Equal, round and reactive pupils present Neck: Neck: Yes normal visual inspection Chest: Chest palpation & inspection: normal inspection of the chest Resp: Effort & Inspection: normal respiratory effort Auscultation: clear to auscultation bilaterally Cardio: Palpation: normal PMI Rate: regular rate Rhythm: regular rhythm Heart sounds: S1 normal heart sound present, S2 normal heart sound present and no murmurs GI: Inspection: Yes distended Palpation (GI): Soft to palpation, nontender and No hepatosplenomegaly present Auscultation: normal bowel sounds Rectal Exam - Male: Yes deferred Skin: General skin exam: no rashes or lesions noted Neuro: General: patient oriented x3, gait normal and moves all extremities Cranial nerves: Yes Equal, round and reactive pupils present and Yes Normal hearing present Speech: No Abnormal speech present Extrem: General: Yes no pedal edema (Bilateral 1+ pitting edema) Psych: Appearance: grossly normal Mental Status: mental status grossly normal Results Labs CBC & Chem 7: 01/17/21 06:23 01/16/21 05:35 Labs: Short CBC 01/08/21 01/09/21 Range/Units 12:41 07:20 WBC 7.9 9.3 (4.8-10.8) X10*3/uL Hgb 10.5 L 9.4 L (14.0-18.0) g/dl Hct 32.5 L 28.9 L (42-52) % Plt Count 56 L 57 L (160-400) X10*3/uL BMP 01/08/21 01/08/21 12:40 12:41 Sodium 137 Potassium 4.6 D Chloride 105 Carbon Dioxide 19 L BUN 15 Creatinine 1.38 Calcium 9.0 D 9.1 Cardiac Enzymes 01/08/21 Range/Units 12:41 Total Creatine Kinase 183 H (38-174) U/L Liver Function 01/08/21 Range/Units 12:41 Total Bilirubin 1.5 H (0.0-1.0) mg/dL Direct Bilirubin 0.8 H (0.0-0.5) mg/dL AST 81 H (5-37) U/L ALT 25 (0-40) U/L Alkaline Phosphatase 245 H (39-117) U/L Albumin 3.2 L (3.5-5.0) g/dL Assessment and Plan (1) Acute respiratory failure with hypoxia: Status: Acute (2) Hepatic encephalopathy: Status: Acute (3) History of pancreatitis: Status: Acute (4) Alcoholic cirrhosis of liver without ascites: Status: Acute Plan 75 year old Lebanese-speaking male with chronic renal insufficiency DM, COPD, hyperlipidemia, hypertension, H/o alcoholic pancreatitis, coronary artery disease with placement of a pacemaker and defibrillator followed in GI for chronic liver disease. MELD score is 13.? The patient admits to a history of heavy alcohol use and quit drinking 3 years ago. Labs show pancytopenia, coagulopathy and elevated ammonia levels for the past several months. Small varices were detected on EGD 2 years ago. Pt has minimal flapping tremors indicating hepatic encephalopathy has improved. Patient has cirrhosis related to past EtOH use. Chest CT scan showed Interstitial lung disease. Enlarged heart. Coronary artery and aortic valve calcification. Pt admitted with hypoxia of unclear etiology - ? respiratory depression from sleep aid, king-pulmonary syndrome, CHF versus occult pulmonary infection RECOMMENDATIONS: 1. Transthoracic contrast echocardiography to check for intrapulmonary shunt - checking with cardiology 2. Awaiting pulmonary consult 3. Continue Lactulose for hepatic encephalopathy. Procedures Date of Service Date of Service: 01/09/21
[2021-01-09] MEDS: Insulin Lispro 100 UNIT/ML 3 ML VIAL SUBCUT ×4 (07:48→21:44)
--- NOTE | 2021-01-09 07:48 | P.CNGI_ITS ---
History of Present Illness Data of Consult Service Date: 01/09/21 Requesting physician: Hallie Mojica Primary Care Provider: Unknown Physician HPI Reason for consult: abn imaging 75yo male w/ hx of alcohol related cirrhosis, hepatic encephalopathy for which he takes lactulose and rifaximin, pancreatitis, asthma/COPD, Parkinsonism, hypothyroidism, previous tobacco abuse, gout, DM2, history of ventricular arrhythmia s/p ICD placement and on mexiletene, on apixaban who I am seeing for imaging revealing cirrhosis and chronic pancreatitis with question whether patient has hepatopulmonary syndrome Patient actually came with weakness and drowsiness. During assessment noted to be hypoxic and tachypneic with O2 sats 86%. He admits to havign productive cough with yellow sputum and some SOB with chest discomfort around the sternal area. He denies abdominal pain, no nausea or vomiting.Denies fever. He has not drank alcohol for several years. CT imaging chest, abdo and pelvis with cirrhosis and varices, distended gallbladder with gallstones, distended bladder, and fat stranding around the pancreas with calcifications suggestive of chronic pancreatitis. 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 Obesity due to excess calories Type 2 diabetes mellitus Family History Family History Father Heart problem Blind Mother Diabetes Asthma Paternal Aunt Blind Surgical History Surgical History H/O colonoscopy (~08/2017) History of esophagogastroduodenoscopy (EGD) History of implantable cardioverter-defibrillator (ICD) placement (08/28/13) Status cardiac pacemaker (~1989) Social History Social History Household Members: None Housing: Apartment Do you presently have visiting nurse or other home services: Yes Alcohol intake: former Patient Tobacco Use Status: Former Tobacco user Advance Directives: No Advance Directives Information Provided: Yes Meds Allergies Allergy/AdvReac Type Severity Reaction Status Date / Time morphine Allergy Intermediate rash Verified 01/08/21 11:39 Active Medications: Current Medications Acetaminophen (Acetaminophen 325 Mg Tablet) 650 mg PO Q6H PRN PRN Reason: Pain, Mild (Pain Scale 1-3) Albuterol Sulfate (Albuterol Sulfate (0.083%) 2.5 Mg/3 Ml Vial.Neb) 2.5 mg INHALE Q2H PRN PRN Reason: shortness of breath/wheeze Albuterol/Ipratropium (Albuterol/Iprat 2.5/0.5mg 3 Ml Ampul.Neb) 3 ml INHALE RQ4H WHILE AWAKE [facility] Last Admin: 01/08/21 21:21 Dose: 3 ml Documented by: Allopurinol (Allopurinol 100 Mg Tablet) 100 mg PO DAILY AILEEN Apixaban (Apixaban 5 Mg Tablet) 5 mg PO BID [facility] Last Admin: 01/08/21 20:42 Dose: 5 mg Documented by: Atorvastatin Calcium (Atorvastatin Calcium 10 Mg Tablet) 10 mg PO BEDTIME AILEEN Last Admin: 01/08/21 20:42 Dose: 10 mg Documented by: Carbidopa/Levodopa (Carbidopa/Levodopa 25/100 Tablet) 1 tab PO TID [facility] Last Admin: 01/08/21 20:42 Dose: 1 tab Documented by: Carvedilol (Carvedilol 3.125 Mg Tablet) 3.125 mg PO BID [facility]; Protocol Last Admin: 01/08/21 20:42 Dose: 3.125 mg Documented by: Dextrose (Dextrose 50 % 25 Gm/50 Ml Vial) 25 gm IVPUSH Q15M PRN; Protocol PRN Reason: per Hypoglycemia Standing Ord. Diphenhydramine HCl (Diphenhydramine Hcl 25 Mg Tablet) 25 mg PO BEDTIME PRN PRN Reason: Sleep Finasteride (Finasteride 5 Mg Tablet) 5 mg PO BEDTIME [facility] Last Admin: 01/08/21 21:13 Dose: 5 mg Documented by: Glucose (Glucose Gel 15 Gm Gel..Gram.) 15 gm PO Q15M PRN; Protocol PRN Reason: per Hypoglycemia Standing Ord. Insulin Human Lispro (Insulin Lispro 100 Unit/Ml 3 Ml Vial) 0 unit SUBCUT QIDACHS [facility]; Protocol Last Admin: 01/08/21 20:43 Dose: Not Given Documented by: Lactulose (Lactulose 20 Gm/30 Ml Solution) 20 gm PO TID [facility] Last Admin: 01/08/21 20:42 Dose: 20 gm Documented by: Levothyroxine Sodium (Levothyroxine Sodium 100 Mcg Tablet) 100 mcg PO DAILY@0630 [facility] Last Admin: 01/09/21 05:42 Dose: 100 mcg Documented by: Loratadine (Loratadine 10 Mg Tablet) 10 mg PO DAILY [facility] Methylprednisolone Sodium Succinate (Methylprednisolone Sod Succ 40 Mg/Ml Vial) 40 mg IVPUSH Q12H [facility] Last Admin: 01/09/21 05:42 Dose: 40 mg Documented by: Multivitamins/Vitamin C (Multivitamin Tablet) 1 tab PO DAILY [facility] Patient Own Med ( Mexiletine 200 Mg Capsule) 1 each PO TID [facility] Last Admin: 01/08/21 22:11 Dose: 1 each Documented by: Omeprazole (Omeprazole 20 Mg Capsule.Dr) 20 mg PO DAILY@0630 [facility] Last Admin: 01/09/21 05:42 Dose: 20 mg Documented by: Ondansetron HCl (Ondansetron Hcl 4 Mg/2 Ml Vial) 4 mg IVPUSH Q8H PRN PRN Reason: Nausea and Vomiting Pharmacy Consult (Consult Rx Perform Med Rec) 1 each MISCELLANE ONCE PRN PRN Reason: Consult order Quetiapine Fumarate (Quetiapine Fumarate 100 Mg Tablet) 100 mg PO BID [facility] Last Admin: 01/08/21 21:13 Dose: 100 mg Documented by: Rifaximin (Rifaximin 550 Mg Tablet) 550 mg PO BID [facility] Last Admin: 01/08/21 21:13 Dose: 550 mg Documented by: Sodium Chloride (0.9 % Sodium Chloride Flush 3 Ml Syringe) 3 ml IVFLUSH QSHIFT [facility] Last Admin: 01/09/21 00:23 Dose: 3 ml Documented by: Spironolactone (Spironolactone 25 Mg Tablet) 25 mg PO DAILY [facility]; Protocol Tamsulosin HCl (Tamsulosin Hcl 0.4 Mg Capsule) 0.4 mg PO BEDTIME [facility] Last Admin: 01/08/21 20:42 Dose: 0.4 mg Documented by: Torsemide (Torsemide 20 Mg Tablet) 10 mg PO DAILY [facility] Vitamin D (Cholecalciferol (Vitamin D3) 25 Mcg Tablet) 25 mcg PO DAILY [facility] Home Medications Medication Instructions Recorded Confirmed Last Taken Type cholecalciferol (vitamin D3) 25 25 mcg PO DAILY 01/08/20 01/08/21 01/08/21 History mcg (1,000 unit) capsule (Vitamin D3) levothyroxine 100 mcg tablet 100 mcg PO DAILY@0630 01/08/20 01/08/21 01/08/21 History loratadine 10 mg tablet (Allergy 10 mg PO DAILY 01/08/20 01/08/21 01/08/21 History Relief (loratadine)) omeprazole 20 mg capsule,delayed 20 mg PO DAILY@0630 01/08/20 01/08/21 01/08/21 History release simvastatin 20 mg tablet 20 mg PO BEDTIME 01/08/20 01/08/21 01/07/21 History apixaban 5 mg tablet (Eliquis) 5 mg PO BID 06/17/20 01/08/21 01/08/21 History quetiapine 100 mg tablet 100 mg PO BID tab 06/17/20 01/08/21 01/08/21 History spironolactone 25 mg tablet 25 mg PO DAILY 06/17/20 01/08/21 01/08/21 History allopurinol 100 mg tablet 100 mg PO DAILY 01/08/21 01/08/21 01/08/21 History carbidopa 25 mg-levodopa 100 mg 1 tab PO TID 01/08/21 01/08/21 01/08/21 History tablet carvedilol 3.125 mg tablet 3.125 mg PO BID 01/08/21 01/08/21 01/08/21 History diphenhydramine HCl 25 mg capsule 25 mg PO BEDTIME PRN 01/08/21 01/08/21 01/07/21 History (Sleep Aid (diphenhydramine)) finasteride 5 mg tablet 5 mg PO BEDTIME 01/08/21 01/08/21 01/07/21 History insulin glargine 100 unit/mL (3 36 unit SUBCUT BEDTIME 01/08/21 01/08/21 01/07/21 History mL) subcutaneous pen (Lantus Solostar U-100 Insulin) insulin lispro 100 unit/mL 10 unit SUBCUT TIDAC 01/08/21 01/08/21 01/08/21 History subcutaneous pen (Humalog KwikPen (U-100) Insulin) mexiletine 200 mg capsule 1 cap PO TID 01/08/21 01/08/21 01/08/21 History multivitamin 1 tab PO QAM 01/08/21 01/08/21 01/08/21 History rifaximin 550 mg tablet (Xifaxan) 1 tab PO BID 01/08/21 01/08/21 01/08/21 History torsemide 10 mg tablet 10 mg PO DAILY 01/08/21 01/08/21 01/08/21 History Physical Exam Vital Signs: Vital Signs: Last Vital Signs Temp 98.2 F 01/09/21 01:26 Pulse 104 H 01/09/21 01:26 Resp 19 01/09/21 01:26 BP 108/65 01/09/21 01:26 Pulse Ox 90 L 01/09/21 01:26 Body Mass Index 37.5 Results Labs CBC & Chem 7: 01/09/21 07:20 01/09/21 07:20 Labs: Short CBC 01/08/21 01/09/21 Range/Units 12:41 07:20 WBC 7.9 9.3 (4.8-10.8) X10*3/uL Hgb 10.5 L 9.4 L (14.0-18.0) g/dl Hct 32.5 L 28.9 L (42-52) % Plt Count 56 L 57 L (160-400) X10*3/uL BMP 01/08/21 01/08/21 12:40 12:41 Sodium 137 Potassium 4.6 D Chloride 105 Carbon Dioxide 19 L BUN 15 Creatinine 1.38 Calcium 9.0 D 9.1 Cardiac Enzymes 01/08/21 Range/Units 12:41 Total Creatine Kinase 183 H (38-174) U/L Liver Function 01/08/21 Range/Units 12:41 Total Bilirubin 1.5 H (0.0-1.0) mg/dL Direct Bilirubin 0.8 H (0.0-0.5) mg/dL AST 81 H (5-37) U/L ALT 25 (0-40) U/L Alkaline Phosphatase 245 H (39-117) U/L Albumin 3.2 L (3.5-5.0) g/dL
[2021-01-09 07:54] LABS: Alanine Aminotransferase 26 U/L (0-40); Albumin Level 3.1 g/dL (3.5-5.0); Alkaline Phosphatase 220 U/L (39-117); Anion Gap 14 (12-20); Aspartate Amino Transferase 83 U/L (5-37); Bilirubin Total 1.7 mg/dL (0.0-1.0); Blood Urea Nitrogen 19 mg/dL (9-16); Calcium 8.7 mg/dL (8.4-10.2); Carbon Dioxide 21 mmol/L (22-29); Chloride 107 mmol/L (96-108); Creatinine Clr Calc Pharmacy 43.7; Estimated Glomerular Filt Rate 45; Glucose Random 185 mg/dL (60-115); Potassium 4.7 mmol/L (3.3-5.1); Sodium 137 mmol/L (135-145); Total Protein 6.7 g/dL (6.5-8.0)
[2021-01-09] MEDS: Lactulose 20 GM/30 ML SOLUTION PO ×2 (08:44→18:39)
[2021-01-09] MEDS: Apixaban 5 MG TABLET PO ×2 (08:45→21:44)
[2021-01-09] MEDS: Loratadine 10 MG TABLET PO (08:45)
[2021-01-09] MEDS: Torsemide 20 MG TABLET 10 MG PO (08:45)
[2021-01-09] MEDS: rifAXIMin 550 MG TABLET PO ×2 (08:45→21:43)
[2021-01-09] MEDS: Cholecalciferol (Vitamin D3) 25 MCG TABLET PO (08:45)
[2021-01-09] MEDS: Carbidopa/Levodopa 25/100 TABLET 1 TAB PO ×3 (08:46→21:44)
[2021-01-09] MEDS: carvediloL 3.125 MG TABLET PO ×2 (08:46→21:43)
[2021-01-09] MEDS: Multivitamin TABLET 1 TAB PO (08:46)
[2021-01-09] MEDS: Spironolactone 25 MG TABLET PO (08:46)
[2021-01-09] MEDS: allopurinoL 100 MG TABLET PO (08:46)
[2021-01-09] MEDS: Albuterol/Iprat 2.5/0.5MG 3 ML AMPUL.NEB INHALE ×4 (08:51→19:46)
[2021-01-09] MEDS: QUEtiapine Fumarate 100 MG TABLET PO ×2 (09:53→21:44)
--- NOTE | 2021-01-09 10:30 | CA_ITS ---
Transthoracic Echocardiogram Patient (Last, First, Middle): Rito Brock, Gender: Male Date of : 1945 Age: 75 Procedure Date: 01/09/2021 Procedure Type: Transthoracic Echocardiogram Location: ER Height: 160.02 cm Weight: 101.15 kg BSA: 2.03 m2 Heart Rate: bpm BP: 108 / 65 mmHg Anesthetic Assistant: Referring MD: Hallie Mojica MD Garbage Truck Helper: Crescencio Nascimento MD Symptoms: hypoxia ?r/o intrapulmonary shunt Study Quality: Fair ECG Rhythm: Ventriculary paced rhythm Conclusions: - 1. Severely dilated left ventricle with severe LV systolic dysfunction with LVEF of 20-25% 2. Severely dilated left atrium 3. At least eccentric moderate mitral regurgitation 4. Normal RV systolic pressure 5. No pericardial effusion 6. no bubble study was performed to evaluate for shunting Findings Left Ventricle Severely increased left ventricular cavity size. There is normal left ventricular wall thickness. The left ventricular systolic function is severely decreased. The visually estimated ejection fraction is between 20 25%. There is paradoxical septal motion consistent with a left bundle branch block. Spectral Doppler is indicative of an impaired relaxation filling pattern. Right Ventricle Mildly increased right ventricular cavity size. There is normal right ventricular systolic function. There is an ICD wire seen in the right ventricle. Atria The left atrium is severely dilated. Interatrial shunt cannot be excluded. The right atrium is mildly dilated. Aortic Valve There is mild calcification of the aortic valve. There is no aortic valve stenosis. There is no aortic valve regurgitation. Mitral Valve There is mild anterior and posterior mitral leaflet thickening. There is moderate mitral valve regurgitation. The mitral regurgitation jet is directed posteriorly. There is no mitral valve stenosis. Pulmonic Valve The pulmonic valve was not well visualized. Tricuspid Valve Normal tricuspid valve structure. There is mild tricuspid valve regurgitation. The right ventricular systolic pressure is normal. The right ventricular systolic pressure is 36 mmHg. There is no evidence of pulmonary hypertension. Great Vessels All visible segments of the aorta are normal in size. The pulmonary artery was not well visualized. Venous The inferior vena cava is normal in size and collapses greater than 50% with inspiration. Pericardium/Pleural There is no evidence of pericardial effusion. Prior Study Comparison No prior study available for comparison. Measurements 2D Linear Measurements IVSd: 0.96 0.6-0.9/0.6-1.0 cm LVIDd: 7.18 3.9-5.3/4.2-5.9 cm LVIDd Index: 3.54 2.4-3.2/2.2-3.1 cm/m2 LVIDs: 6.05 2.0-3.6 cm LVPWd: 0.97 0.7-1.1 cm Ao Root: 3.00 2.1-3.5 cm LA Diam: 5.40 2.7-3.8/3.0-4.0 cm LAIDs Index: 2.66 1.5-2.3 cm/m2 LV Mass: 402.13 67-162/88-224 g LV Mass Index: 198.09 43-95/49-115 g/m2 LVOT Diam: 2.30 3.0+(-)1.3 cm 2D Systolic Function EF 4C: 24.60 >55% EF 2C: 32.20 >55% Mitral Valve MV Pk E: 1.03 MV Decel Time: 150.00 E'Lateral: 9.36 E'Medial: 3.15 E/E' Med: 32.70 E/E' Lat: 11.00 PHT: 44.00 MVA PHT: 5.00 Decel [place]: 6.90 MR Vol - PW Dopp: 53.73 MR VTI: 1.99 MR ERO: 27.00 MR Alias José: 0.39 MR RAD: 0.80 Aortic Valve AoV Pk José: 2.03 AoV Mn José: 1.30 AoV VTI: 0.44 AoV Pk Grad: 16.00 Aov Mn Grad: 8.00 JOSE Cont.VTI: 2.22 LVOT LVOT Pk José: 1.06 LVOT Mn José: 0.68 LVOT VTI: 0.24 LVOT Pk Grad: 4.00 LVOT Mn Grad: 2.00 LVOT Diam: 2.30 LVOT Area: 4.15 Diastolic Function MV Pk E: 1.03 E'Medial: 3.15 E/E' Med: 32.70 E' Laterial: 9.36 E/E' Lat: 11.00 Tricuspid Valve TR Pk José: 2.88 TR Pk Grad: 33.00 RA Press: 3.00 RVSP: 36.00 Great Vessels Aorta Ao Root-2D: 3.00 2.0-3.7 cm Ao Asc: 3.50 2.1-3.4 cm Pulmonary Valve PV Pk José: 1.09 Peak PV Grad: 5.00 Updated in Other Vendor System with Status of Final Crescencio Nascimento MD electronically signed on 01/09/2021 3:01:48 PM with status of Final
[2021-01-09 12:03] LABS: Glucose, Whole Blood 169 mg/dL (60-115)
--- NOTE | 2021-01-09 15:32 | HO.PM.IMPN ---
Subjective Subjective Date of Service: 01/09/21 Interval History: wet cough still dyspneic room air SaO2 88% Review of Systems Review of Systems: Yes all other systems are reviewed and are negative Physical Exam Vital Signs: Vital Signs: Last Vital Signs Temp 98.2 F 01/09/21 01:26 Pulse 95 01/09/21 12:33 Resp 19 01/09/21 01:26 BP 120/69 01/09/21 08:46 Pulse Ox 88 L 01/09/21 12:33 Body Mass Index 37.5 Gen: NAD HEENT: sclera anicteric, moist mucus membranes Neck: supple Lungs: clear to auscultation bilaterally Heart: regular rate and rhythm, no murmurs Abd: soft, obese, non-tender Ext: 1+ LE edema Skin: warm/well-perfused Neuro: alert and oriented x3, constant tremor present but no sharmila asterixis Psych: appropriate affect Objective Data Active Medications Acetaminophen (Acetaminophen 325 Mg Tablet) 650 mg PO Q6H PRN PRN Reason: Pain, Mild (Pain Scale 1-3) Albuterol Sulfate (Albuterol Sulfate (0.083%) 2.5 Mg/3 Ml Vial.Neb) 2.5 mg INHALE Q2H PRN PRN Reason: shortness of breath/wheeze Albuterol/Ipratropium (Albuterol/Iprat 2.5/0.5mg 3 Ml Ampul.Neb) 3 ml INHALE RQ4H WHILE AWAKE [facility] Last Admin: 01/09/21 12:06 Dose: 3 ml Documented by: MAIA Allopurinol (Allopurinol 100 Mg Tablet) 100 mg PO DAILY [facility] Last Admin: 01/09/21 08:46 Dose: 100 mg Documented by: MYRA Apixaban (Apixaban 5 Mg Tablet) 5 mg PO BID [facility] Last Admin: 01/09/21 08:45 Dose: 5 mg Documented by: MYRA Atorvastatin Calcium (Atorvastatin Calcium 10 Mg Tablet) 10 mg PO BEDTIME [facility] Last Admin: 01/08/21 20:42 Dose: 10 mg Documented by: ISIDRA Carbidopa/Levodopa (Carbidopa/Levodopa 25/100 Tablet) 1 tab PO TID [facility] Last Admin: 01/09/21 08:46 Dose: 1 tab Documented by: MYRA Carvedilol (Carvedilol 3.125 Mg Tablet) 3.125 mg PO BID [facility]; Protocol Last Admin: 01/09/21 08:46 Dose: 3.125 mg Documented by: MYRA Dextrose (Dextrose 50 % 25 Gm/50 Ml Vial) 25 gm IVPUSH Q15M PRN; Protocol PRN Reason: per Hypoglycemia Standing Ord. Diphenhydramine HCl (Diphenhydramine Hcl 25 Mg Tablet) 25 mg PO BEDTIME PRN PRN Reason: Sleep Finasteride (Finasteride 5 Mg Tablet) 5 mg PO BEDTIME [facility] Last Admin: 01/08/21 21:13 Dose: 5 mg Documented by: ISIDRA Glucose (Glucose Gel 15 Gm Gel..Gram.) 15 gm PO Q15M PRN; Protocol PRN Reason: per Hypoglycemia Standing Ord. Insulin Human Lispro (Insulin Lispro 100 Unit/Ml 3 Ml Vial) 0 unit SUBCUT QIDACHS [facility]; Protocol Last Admin: 01/09/21 13:25 Dose: 2 unit Documented by: MYRA Lactulose (Lactulose 20 Gm/30 Ml Solution) 20 gm PO TID [facility] Last Admin: 01/09/21 08:44 Dose: 20 gm Documented by: MYRA Levothyroxine Sodium (Levothyroxine Sodium 100 Mcg Tablet) 100 mcg PO DAILY@0630 [facility] Last Admin: 01/09/21 05:42 Dose: 100 mcg Documented by: NEPTALI Loratadine (Loratadine 10 Mg Tablet) 10 mg PO DAILY [facility] Last Admin: 01/09/21 08:45 Dose: 10 mg Documented by: MYRA Methylprednisolone Sodium Succinate (Methylprednisolone Sod Succ 40 Mg/Ml Vial) 40 mg IVPUSH Q12H [facility] Last Admin: 01/09/21 05:42 Dose: 40 mg Documented by: NEPTALI Multivitamins/Vitamin C (Multivitamin Tablet) 1 tab PO DAILY [facility] Last Admin: 01/09/21 08:46 Dose: 1 tab Documented by: MYRA Patient Own Med ( Mexiletine 200 Mg Capsule) 1 each PO TID [facility] Last Admin: 01/09/21 09:53 Dose: 1 each Documented by: MYRA Omeprazole (Omeprazole 20 Mg Sandoval.) 20 mg PO DAILY@0630 [facility] Last Admin: 01/09/21 05:42 Dose: 20 mg Documented by: NEPTALI Ondansetron HCl (Ondansetron Hcl 4 Mg/2 Ml Vial) 4 mg IVPUSH Q8H PRN PRN Reason: Nausea and Vomiting Pharmacy Consult (Consult Rx Perform Med Rec) 1 each MISCELLANE ONCE PRN PRN Reason: Consult order Quetiapine Fumarate (Quetiapine Fumarate 100 Mg Tablet) 100 mg PO BID [facility] Last Admin: 01/09/21 09:53 Dose: 100 mg Documented by: MYRA Rifaximin (Rifaximin 550 Mg Tablet) 550 mg PO BID [facility] Last Admin: 01/09/21 08:45 Dose: 550 mg Documented by: MYRA Sodium Chloride (0.9 % Sodium Chloride Flush 3 Ml Syringe) 3 ml IVFLUSH QSHIFT [facility] Last Admin: 01/09/21 10:18 Dose: 3 ml Documented by: MYRA Spironolactone (Spironolactone 25 Mg Tablet) 25 mg PO DAILY [facility]; Protocol Last Admin: 01/09/21 08:46 Dose: 25 mg Documented by: MYRA Tamsulosin HCl (Tamsulosin Hcl 0.4 Mg Capsule) 0.4 mg PO BEDTIME [facility] Last Admin: 01/08/21 20:42 Dose: 0.4 mg Documented by: ISIDRA Torsemide (Torsemide 20 Mg Tablet) 10 mg PO DAILY [facility] Last Admin: 01/09/21 08:45 Dose: 10 mg Documented by: MYRA Vitamin D (Cholecalciferol (Vitamin D3) 25 Mcg Tablet) 25 mcg PO DAILY [facility] Last Admin: 01/09/21 08:45 Dose: 25 mcg Documented by: MYRA Labs CBC & Chem 7: 01/09/21 07:20 01/09/21 07:20 Labs: Laboratory Results - last 24 hr 01/08/21 01/08/21 01/08/21 12:41 12:41 12:44 MCV MCH MCHC RDW Plt Count MPV Absolute Nucleated RBC Nucleated RBC % (auto) PT INR D-Dimer 2290 Anion Gap Estim Creat Clear Calc Estimated GFR POC Glucose Random Glucose Calcium Total Bilirubin AST ALT Alkaline Phosphatase Total Protein Albumin Amylase 86 Lipase 29 Procalcitonin 0.13 Respiratory Panel Prather Adenovirus (Rapid PCR) B.pert (TEM-PCR) B.parapertussis DNA PCR C. pneumoniae DNA (PCR) Coronavirus OC43 (PCR) Coronavirus HKU1 (PCR) Coronavirus 229E (PCR) Coronavirus NL63 (PCR) Human Metapneumovir PCR Influenza A (RT-PCR) Influenza B (RT-PCR) M. pneumoniae (PCR) Parainfluenza 1 (PCR) Parainfluenza 2 (PCR) Parainfluenza 3 (PCR) Parainfluenza 4 (PCR) RSV (PCR) Entero/Rhino (PCR) SARS-CoV-2 RNA (RT-PCR) 01/08/21 01/08/21 01/08/21 17:38 18:30 20:34 MCV MCH MCHC RDW Plt Count MPV Absolute Nucleated RBC Nucleated RBC % (auto) PT INR D-Dimer Anion Gap Estim Creat Clear Calc Estimated GFR POC Glucose 148 H 222 H Random Glucose Calcium Total Bilirubin AST ALT Alkaline Phosphatase Total Protein Albumin Amylase Lipase Procalcitonin Respiratory Panel Prather See Note Adenovirus (Rapid PCR) Not Detected B.pert (TEM-PCR) Not Detected B.parapertussis DNA PCR Not Detected C. pneumoniae DNA (PCR) Not Detected Coronavirus OC43 (PCR) Not Detected Coronavirus HKU1 (PCR) Not Detected Coronavirus 229E (PCR) Not Detected Coronavirus NL63 (PCR) Not Detected Human Metapneumovir PCR Not Detected Influenza A (RT-PCR) Not Detected Influenza B (RT-PCR) Not Detected M. pneumoniae (PCR) Not Detected Parainfluenza 1 (PCR) Not Detected Parainfluenza 2 (PCR) Not Detected Parainfluenza 3 (PCR) Not Detected Parainfluenza 4 (PCR) Not Detected RSV (PCR) Not Detected Entero/Rhino (PCR) Not Detected SARS-CoV-2 RNA (RT-PCR) Not Detected 01/09/21 01/09/21 01/09/21 07:20 07:20 07:20 MCV 85.8 MCH 27.9 MCHC 32.5 RDW 17.5 H Plt Count 57 L MPV 11.6 Absolute Nucleated RBC 0.000 Nucleated RBC % (auto) 0.0 PT 20.7 H INR 1.8 H D-Dimer Anion Gap 14 Estim Creat Clear Calc 43.7 Estimated GFR 45 POC Glucose Random Glucose 185 H Calcium 8.7 Total Bilirubin 1.7 H AST 83 H ALT 26 Alkaline Phosphatase 220 H Total Protein 6.7 Albumin 3.1 L Amylase Lipase Procalcitonin Respiratory Panel Prather Adenovirus (Rapid PCR) B.pert (TEM-PCR) B.parapertussis DNA PCR C. pneumoniae DNA (PCR) Coronavirus OC43 (PCR) Coronavirus HKU1 (PCR) Coronavirus 229E (PCR) Coronavirus NL63 (PCR) Human Metapneumovir PCR Influenza A (RT-PCR) Influenza B (RT-PCR) M. pneumoniae (PCR) Parainfluenza 1 (PCR) Parainfluenza 2 (PCR) Parainfluenza 3 (PCR) Parainfluenza 4 (PCR) RSV (PCR) Entero/Rhino (PCR) SARS-CoV-2 RNA (RT-PCR) 01/09/21 01/09/21 07:32 11:59 MCV MCH MCHC RDW Plt Count MPV Absolute Nucleated RBC Nucleated RBC % (auto) PT INR D-Dimer Anion Gap Estim Creat Clear Calc Estimated GFR POC Glucose 193 H 169 H Random Glucose Calcium Total Bilirubin AST ALT Alkaline Phosphatase Total Protein Albumin Amylase Lipase Procalcitonin Respiratory Panel Prather Adenovirus (Rapid PCR) B.pert (TEM-PCR) B.parapertussis DNA PCR C. pneumoniae DNA (PCR) Coronavirus OC43 (PCR) Coronavirus HKU1 (PCR) Coronavirus 229E (PCR) Coronavirus NL63 (PCR) Human Metapneumovir PCR Influenza A (RT-PCR) Influenza B (RT-PCR) M. pneumoniae (PCR) Parainfluenza 1 (PCR) Parainfluenza 2 (PCR) Parainfluenza 3 (PCR) Parainfluenza 4 (PCR) RSV (PCR) Entero/Rhino (PCR) SARS-CoV-2 RNA (RT-PCR) Assessment and Plan (1) Acute respiratory failure with hypoxia: Status: Acute Assessment and Plan: hospital d#2 75yo M with? cirrhosis related to past EtOH abuse, hepatic encephalopathy, remote history of alcoholic pancreatitis, asthma/COPD, Parkinsonism, hypothyroidism, previous tobacco abuse, gout, DM2, history of ventricular arrhythmia,, on apixaban for unknown reason presenting after fall after taking Unisom and complaining of worsening dyspnea and cough; found to be hypoxic. # acute hypoxic respiratory failure # COPD exacerbation - continue steroids d#2 + nebs, Pulm consult pending - start doxycycline d#1 - supplemental O2, wean as tolerated - V/Q scan pending but doubt PE, was on apixaban # chronic pancreatitis - lipase and amylase low, doubt acute pancreatitis, per GI likely chronic pancreatititis # cirrhosis - due to EtOH - watch for signs of decompensation - no ascites to tap # hepatic encephalopathy - continue lactulose + rifaximin # ventricular arrhythmia - continue carvedilol + mexiletine.? has ICD.? 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 correction-dose lispro # VTE ppx - apixaban # dispo - anticipate STR Quality Stroke Does the patient have a stroke diagnosis?: No VTE Prior VTE?: No VTE Risk Level:: Medical - moderate - high VTE Device Contraindication: N/A - Device Ordered VTE Drug Contraindication: N/A - Med Ordered
[2021-01-09 18:27] LABS: Glucose, Whole Blood 210 mg/dL (60-115)
[2021-01-09] MEDS: Doxycycline Hyclate 100 MG in 0.9 % Sodium Chloride 250 ML 166.67 MG IV (18:34)
[2021-01-09] MEDS: Tamsulosin HCL 0.4 MG CAPSULE PO (21:44)
[2021-01-09] MEDS: Atorvastatin Calcium 10 MG TABLET PO (21:44)
[2021-01-09] MEDS: Finasteride 5 MG TABLET PO (21:44)
--- NOTE | 2021-01-09 22:05 | CONS_ITS ---
DATE OF SERVICE: 01/09/2021 HISTORY OF PRESENT ILLNESS: This gentleman is 75 years old male with multiple underlying medical problems including chronic cirrhosis of the liver related to his previous EtOH abuse, has had history of alcoholic pancreatitis in the past, parkinsonism, hypothyroidism, diabetes mellitus, history of ventricular arrhythmias. The patient has past history of smoking, quit a few years ago. He also has history of asthma, COPD overlap syndrome, but not using any specific medication at this time. He presented to the emergency room with increased shortness of breath for a few days with mild cough. No fever or chills. On arrival in the emergency room noted to have O2 saturation of 86, which is corrected with oxygen 6 L/minute. This gentleman does have history of COPD/bronchial asthma, but he has not been seen in the Pulmonary Department and probably follows up just with his primary care physician. Currently, he does not smoke. PHYSICAL EXAMINATION: GENERAL: Reveals a 75-year-old gentleman who is moderately obese. He is fairly comfortable at this time. On oxygen 2 L/minute. NOSE AND THROAT: Clear. There is no evidence of infection. NECK: Somewhat obese. Trachea in midline. No jugular venous distention. No lymphadenopathy. CHEST: Chest wall is somewhat heavy. Percussion note not easily perceptible. Breath sounds are definitely distant. Only a few scattered wheezes over the basilar areas. CARDIAC: Sounds are distant. Rhythm regular. No murmurs or gallops. ABDOMEN: Moderately obese, but soft and nontender. DIAGNOSTIC STUDIES: Imaging; reviewed his chest x-ray. It shows bibasilar densities due to poor expansion, but no definite pneumonia. CT scan of the chest, no definite pneumonia. There is definite chronic interstitial lung disease, especially in the peripheral areas along with changes of emphysema. These changes are kind of similar to what was seen in CT scan in June 2020. CLINICAL IMPRESSION: 1. Chronic obstructive pulmonary disease. 2. Chronic pulmonary fibrosis. 3. Acute exacerbation probably due to acute inflammatory/infectious processes. 4. Respiratory failure with hypoxemia. 5. Multiple comorbidities as noted above. RECOMMENDATIONS: I agree with IV Solu-Medrol for 1 or 2 days, then a short course of prednisone. DuoNeb updrafts q.4-6 hours while awake. Albuterol updraft q.4 hours p.r.n. Oxygen supplementation could be weaned down as tolerated to keep O2 saturation just above 92%. I do not think there is any infectious process at this time, so no need of any antibiotics. Check venous blood gas just to make sure that he is not a CO2 retainer. Thank you very much for asking me to see this patient. I will be glad to follow him along. MD ARIEL Gallegos/ALMITA / [phone]
[2021-01-10] VITALS (16 sets, daily range): BP systolic 107–146; BP diastolic 64–80; PULSE 76–104; RESP 16–22; TEMP 36.2–36.8; O2SAT 87–99
[2021-01-10] MEDS: Doxycycline Hyclate 100 MG in 0.9 % Sodium Chloride 250 ML 166.67 MG IV ×2 (04:35→15:50)
[2021-01-10] MEDS: methylPREDNISolone Sod Succ 40 MG/ML VIAL IVPUSH (04:36)
[2021-01-10 04:47] LABS: Hematocrit 27.4 % (42-52); Hemoglobin 8.9 g/dl (14.0-18.0); Mean Corpuscular HGB Conc 32.5 g/dl (31.0-36.0); Mean Corpuscular Hemoglobin 28.1 pg (27.0-33.0); Mean Corpuscular Volume 86.4 fL (80-98); Mean Platelet Volume 11.6 fL (9.4-12.4); Platelet Count 55 X10*3/uL (160-400); Red Blood Count 3.17 X10*6/uL (4.60-5.80); Red Cell Distribution Width 17.7 % (11.0-16.0); White Blood Count 13.1 X10*3/uL (4.8-10.8)
[2021-01-10 05:16] LABS: Alanine Aminotransferase 11 U/L (0-40); Alkaline Phosphatase 215 U/L (39-117); Anion Gap 13 (12-20); Aspartate Amino Transferase 87 U/L (5-37); Bilirubin Total 1.4 mg/dL (0.0-1.0); Blood Urea Nitrogen 26 mg/dL (9-16); Calcium 8.7 mg/dL (8.4-10.2); Carbon Dioxide 23 mmol/L (22-29); Chloride 108 mmol/L (96-108); Creatinine Clr Calc Pharmacy 51.9; Estimated Glomerular Filt Rate 55; Glucose Random 182 mg/dL (60-115); Magnesium 2.1 mg/dL (1.6-2.6); Sodium 139 mmol/L (135-145); Total Protein 6.4 g/dL (6.5-8.0)
[2021-01-10 06:05] LABS: Procalcitonin 0.14 ng/mL
--- NOTE | 2021-01-10 06:24 | PC.NURSE ---
[id number]; Pt arrived to unit around 1800, on a 100% NRB, admitted for hypoxia. Pt a/o x3, denies sob, chest pain or dizziness, lungs CTA, no edema noted. Pt desats with activity to low 70's, but recovers at rest. Unable to wean pt. Respiratory therapist attempted to wean pt on a Lauren cannula but was unsuccessful. Pt left on NRB, sats range 90-96%, no complaints reported. Pt aware of plan of care.
[2021-01-10] MEDS: Omeprazole 20 MG CAPSULE.DR PO (06:59)
[2021-01-10] MEDS: Levothyroxine Sodium 100 MCG TABLET PO (06:59)
[2021-01-10] MEDS: 0.9 % Sodium Chloride Flush 3 ML SYRINGE IVFLUSH ×3 (07:45→20:37)
[2021-01-10] MEDS: Apixaban 5 MG TABLET PO ×2 (07:46→20:36)
[2021-01-10] MEDS: QUEtiapine Fumarate 100 MG TABLET PO ×2 (07:46→20:36)
[2021-01-10] MEDS: Torsemide 20 MG TABLET 10 MG PO (07:46)
[2021-01-10] MEDS: Carbidopa/Levodopa 25/100 TABLET 1 TAB PO ×3 (07:46→20:37)
[2021-01-10] MEDS: Cholecalciferol (Vitamin D3) 25 MCG TABLET PO (07:46)
[2021-01-10] MEDS: Spironolactone 25 MG TABLET PO (07:47)
[2021-01-10] MEDS: Multivitamin TABLET 1 TAB PO (07:48)
[2021-01-10] MEDS: Loratadine 10 MG TABLET PO (07:48)
[2021-01-10] MEDS: allopurinoL 100 MG TABLET PO (07:48)
[2021-01-10] MEDS: rifAXIMin 550 MG TABLET PO ×2 (07:49→20:36)
[2021-01-10] MEDS: carvediloL 3.125 MG TABLET PO ×2 (07:49→20:36)
[2021-01-10] MEDS: Lactulose 20 GM/30 ML SOLUTION PO ×3 (07:49→20:37)
[2021-01-10 07:53] LABS: Glucose, Whole Blood 172 mg/dL (60-115)
[2021-01-10] MEDS: Albuterol/Iprat 2.5/0.5MG 3 ML AMPUL.NEB INHALE ×4 (07:55→19:50)
[2021-01-10] MEDS: Furosemide 40 MG/4 ML VIAL IVPUSH (09:00)
[2021-01-10 09:04] LABS: ABG Base Excess -1.8 mmol/L; ABG HCO3 21 mmol/L (22-26); ABG pCO2 31 mmHg (32-45); ABG pCO2 TC 31 mmHg (32-45); ABG pH 7.43 (7.35-7.45); ABG pH TC 7.44 (7.35-7.45); ABG pO2 93 mmHg (83-108); ABG pO2 TC 89 (83-108)
[2021-01-10 09:53] LABS: ABG Refer to POC result
--- NOTE | 2021-01-10 10:32 | W.PM.CCCN ---
History of Present Illness Data of Consult Service Date: 01/10/21 Requesting physician: Hallie Mojica Primary Care Provider: Marlene Morales MD HPI Dr. Mojica asked me to see Mr. Pasha Bruner bec of hypoxemia. I reviewed his chart in depth, including his old medical records and all his labs and roetgenograms. Very briefly, the patient is a 75 yo man with obesity; severe biventricular CMOP; cirrhosis w varices and chronic coagulopathy, thrombocytopenia, and hypoalbuminemia (from former alcohol abuse, sober now for some years); CKD (baseline creatinine in about the 1.4 range); and significant chronic lung disease.? His chest CT shows severe bullous disease and he may also have some degree of pulmonary fibrosis.? Notwithstanding, according to the [employer] records, he was here in May, June, and July of this year, and had sats of 96-98% on room air.? His chemistries dating back to April of this year show normal serum bicarb levels, which furthermore suggest that he does not have CO2 retention. The patient was brought to the ED 2 days ago, January 08, after being found on the floor because he took too many sleeping pills.? Incidentally, his sat on room air was found to be in the 80s.? On 6 L nasal cannula he was satting in the low 90s.? An arterial blood gas at that time showed 7.46/27/68/-2, and I believe that was done on 6 L oxygen by nasal cannula.? Labs were notable for a serum bicarb level that was borderline low (not explained by his creatinine) and an elevated BNP.? Chest x-ray showed increased interstitial markings, and probably small bilateral pleural effusions.? Noncontrast Chest CT showed significant interstitial lung disease, significant bullous disease, and probably (in my opinion) increased lung water.? COVID test was negative, both the HUMAIRA and the PCR, along w the full resp pathogen panel. The patient was admitted to Medicine for workup of hypoxemia.? He was given steroids and doxycycline for COPD exacerbation. Transthoracic echo on January 09 showed severely dilated left ventricle with severe LV dysfunction, EF 20-25%, with moderate MR. The right ventricle was mildly dilated and the left atrium was severely dilated.? The IVC was normal sized with good inspiratory collapse.? Calculated RVSP was 36 mm.? A lung perfusion scan was normal. The patient was seen by Dr. Nunes who felt that the patient had COPD and chronic pulmonary fibrosis, with likely an acute exacerbation.? He felt that steroids were indicated but not antibiotics. This morning, the patient was found to be hypoxemic on unclear FiO2.? He was put on a non-rebreather face mask, with sats in the high 90s-100%.? Chest x-ray (my reading) shows worse bilateral interstitial/airspace disease and likely pulmonary edema, and possibly worse bilateral pleural effusions.? The chest x-ray is also compatible with bilateral viral infiltrates. ?An arterial blood gas, presumably drawn on the non-rebreather face mask, showed 7.43/31/93/-1. I was asked to see the patient.? On my exam at about 10:15, the patient was fully alert, if not jovial.? He talked easily.? Respiratory rate was about 24, with minimally increased work of breathing.? He had no JVD at about 40 degrees.? He had no edema. ?Chest showed diminished breath sounds, but they were clear.? I heard no wheezes, rales, or rhonchi.? Heart tones were very soft.? I heard no murmur or gallops.? Abdomen is obese and benign. Labs today show the white count is bumped to 13. BUN/creatinine are 26/1.2.? BNP is 197. IMPRESSION:? 75-year-old male with multi-system disease, most particularly severe biventricular cardiomyopathy, end-stage cirrhosis, and severe chronic lung disease. In my opinion, his workup suggested and an exacerbation of his chronic lung disease or CHF as the cause of his new hypoxemia. The question today is why his hypoxemia is worse.? Certainly his chest x-ray is worse.? Today's chest x-ray and clinical picture suggests congestive heart failure, but the BNP does not correlate with that.? And I do not think the clinical picture is consistent with aspiration or new pneumonia. I would agree with diuresis.? Consider repeating the noncontrast chest CT. Time (including extensive chart rev and mult d/w Dr. Mojica and Dr. Nunes):? 90+ min [facility] Past Medical History Medical History Chronic renal insufficiency COPD (chronic obstructive pulmonary disease) Coronary artery disease History of adenomatous polyp of colon History of pancreatitis Hyperlipidemia Hypertension prison (current) use of insulin Obesity due to excess calories Type 2 diabetes mellitus Family History Family History Father Heart problem Blind Mother Diabetes Asthma Paternal Aunt Blind Surgical History Surgical History H/O colonoscopy (~08/2017) History of esophagogastroduodenoscopy (EGD) History of implantable cardioverter-defibrillator (ICD) placement (08/28/13) Status cardiac pacemaker (~1989) Social History Social History Household Members: None Caregiver staying overnight: Yes (Lives by himself, single, no children 1 sister in [place]) Housing: Apartment Do you presently have visiting nurse or other home services: Yes Alcohol intake: former Patient Tobacco Use Status: Former Tobacco user service: No Current occupational status: unemployed Meds Allergies Allergy/AdvReac Type Severity Reaction Status Date / Time morphine Allergy Intermediate rash Verified 01/08/21 11:39 Active Medications: Current Medications Acetaminophen (Acetaminophen 325 Mg Tablet) 650 mg PO Q6H PRN PRN Reason: Pain, Mild (Pain Scale 1-3) Albuterol Sulfate (Albuterol Sulfate (0.083%) 2.5 Mg/3 Ml Vial.Neb) 2.5 mg INHALE Q2H PRN PRN Reason: shortness of breath/wheeze Albuterol/Ipratropium (Albuterol/Iprat 2.5/0.5mg 3 Ml Ampul.Neb) 3 ml INHALE RQ4H WHILE AWAKE AILEEN Last Admin: 01/10/21 07:55 Dose: 3 ml Documented by: Allopurinol (Allopurinol 100 Mg Tablet) 100 mg PO DAILY [facility]LE[facility] Last Admin: 01/10/21 07:48 Dose: 100 mg Documented by: Apixaban (Apixaban 5 Mg Tablet) 5 mg PO BID [facility]LE[facility] Last Admin: 01/10/21 07:46 Dose: 5 mg Documented by: Atorvastatin Calcium (Atorvastatin Calcium 10 Mg Tablet) 10 mg PO BEDTIME [facility]LE[facility] Last Admin: 01/09/21 21:44 Dose: 10 mg Documented by: Carbidopa/Levodopa (Carbidopa/Levodopa 25/100 Tablet) 1 tab PO TID [facility] Last Admin: 01/10/21 07:46 Dose: 1 tab Documented by: Carvedilol (Carvedilol 3.125 Mg Tablet) 3.125 mg PO BID [facility]; Protocol Last Admin: 01/10/21 07:49 Dose: 3.125 mg Documented by: Dextrose (Dextrose 50 % 25 Gm/50 Ml Vial) 25 gm IVPUSH Q15M PRN; Protocol PRN Reason: per Hypoglycemia Standing Ord. Diphenhydramine HCl (Diphenhydramine Hcl 25 Mg Tablet) 25 mg PO BEDTIME PRN PRN Reason: Sleep Finasteride (Finasteride 5 Mg Tablet) 5 mg PO BEDTIME [facility] Last Admin: 01/09/21 21:44 Dose: 5 mg Documented by: Glucose (Glucose Gel 15 Gm Gel..Gram.) 15 gm PO Q15M PRN; Protocol PRN Reason: per Hypoglycemia Standing Ord. Doxycycline Hyclate 100 mg/ (Sodium Chloride) 250 mls @ 166.67 mls/hr IV Q12H [facility] Last Infusion: 01/10/21 06:18 Dose: Infused Documented by: Insulin Human Lispro (Insulin Lispro 100 Unit/Ml 3 Ml Vial) 0 unit SUBCUT QIDACHS [facility]; Protocol Last Admin: 01/10/21 08:13 Dose: Not Given Documented by: Lactulose (Lactulose 20 Gm/30 Ml Solution) 20 gm PO TID [facility] Last Admin: 01/10/21 07:49 Dose: 20 gm Documented by: Levothyroxine Sodium (Levothyroxine Sodium 100 Mcg Tablet) 100 mcg PO DAILY@0630 [facility] Last Admin: 01/10/21 06:59 Dose: 100 mcg Documented by: Loratadine (Loratadine 10 Mg Tablet) 10 mg PO DAILY [facility] Last Admin: 01/10/21 07:48 Dose: 10 mg Documented by: Methylprednisolone Sodium Succinate (Methylprednisolone Sod Succ 40 Mg/Ml Vial) 40 mg IVPUSH Q12H [facility] Last Admin: 01/10/21 04:36 Dose: 40 mg Documented by: Multivitamins/Vitamin C (Multivitamin Tablet) 1 tab PO DAILY [facility] Last Admin: 01/10/21 07:48 Dose: 1 tab Documented by: Patient Own Med ( Mexiletine 200 Mg Capsule) 1 each PO TID [facility] Last Admin: 01/10/21 07:45 Dose: 1 each Documented by: Omeprazole (Omeprazole 20 Mg Capsule.) 20 mg PO DAILY@0630 [facility] Last Admin: 01/10/21 06:59 Dose: 20 mg Documented by: Ondansetron HCl (Ondansetron Hcl 4 Mg/2 Ml Vial) 4 mg IVPUSH Q8H PRN PRN Reason: Nausea and Vomiting Pharmacy Consult (Consult Rx Perform Med Rec) 1 each MISCELLANE ONCE PRN PRN Reason: Consult order Quetiapine Fumarate (Quetiapine Fumarate 100 Mg Tablet) 100 mg PO BID [facility] Last Admin: 01/10/21 07:46 Dose: 100 mg Documented by: Rifaximin (Rifaximin 550 Mg Tablet) 550 mg PO BID [facility] Last Admin: 01/10/21 07:49 Dose: 550 mg Documented by: Sodium Chloride (0.9 % Sodium Chloride Flush 3 Ml Syringe) 3 ml IVFLUSH QSHIFT [facility] Last Admin: 01/10/21 07:45 Dose: 3 ml Documented by: Spironolactone (Spironolactone 25 Mg Tablet) 25 mg PO DAILY [facility]; Protocol Last Admin: 01/10/21 07:47 Dose: 25 mg Documented by: Tamsulosin HCl (Tamsulosin Hcl 0.4 Mg Capsule) 0.4 mg PO BEDTIME [facility] Last Admin: 01/09/21 21:44 Dose: 0.4 mg Documented by: Vitamin D (Cholecalciferol (Vitamin D3) 25 Mcg Tablet) 25 mcg PO DAILY [facility] Last Admin: 01/10/21 07:46 Dose: 25 mcg Documented by: Home Medications Medication Instructions Recorded Confirmed Last Taken Type cholecalciferol (vitamin D3) 25 25 mcg PO DAILY 01/08/20 01/08/21 01/08/21 History mcg (1,000 unit) capsule (Vitamin D3) levothyroxine 100 mcg tablet 100 mcg PO DAILY@0630 01/08/20 01/08/21 01/08/21 History loratadine 10 mg tablet (Allergy 10 mg PO DAILY 01/08/20 01/08/21 01/08/21 History Relief (loratadine)) omeprazole 20 mg capsule,delayed 20 mg PO DAILY@0630 01/08/20 01/08/21 01/08/21 History release simvastatin 20 mg tablet 20 mg PO BEDTIME 01/08/20 01/08/21 01/07/21 History apixaban 5 mg tablet (Eliquis) 5 mg PO BID 06/17/20 01/08/21 01/08/21 History quetiapine 100 mg tablet 100 mg PO BID tab 06/17/20 01/08/21 01/08/21 History spironolactone 25 mg tablet 25 mg PO DAILY 06/17/20 01/08/21 01/08/21 History allopurinol 100 mg tablet 100 mg PO DAILY 01/08/21 01/08/21 01/08/21 History carbidopa 25 mg-levodopa 100 mg 1 tab PO TID 01/08/21 01/08/21 01/08/21 History tablet carvedilol 3.125 mg tablet 3.125 mg PO BID 01/08/21 01/08/21 01/08/21 History diphenhydramine HCl 25 mg capsule 25 mg PO BEDTIME PRN 01/08/21 01/08/21 01/07/21 History (Sleep Aid (diphenhydramine)) finasteride 5 mg tablet 5 mg PO BEDTIME 01/08/21 01/08/21 01/07/21 History insulin glargine 100 unit/mL (3 36 unit SUBCUT BEDTIME 01/08/21 01/08/21 01/07/21 History mL) subcutaneous pen (Lantus Solostar U-100 Insulin) insulin lispro 100 unit/mL 10 unit SUBCUT TIDAC 01/08/21 01/08/21 01/08/21 History subcutaneous pen (Humalog KwikPen (U-100) Insulin) mexiletine 200 mg capsule 1 cap PO TID 01/08/21 01/08/21 01/08/21 History multivitamin 1 tab PO QAM 01/08/21 01/08/21 01/08/21 History rifaximin 550 mg tablet (Xifaxan) 1 tab PO BID 01/08/21 01/08/21 01/08/21 History torsemide 10 mg tablet 10 mg PO DAILY 01/08/21 01/08/21 01/08/21 History Physical Exam Vital Signs: Vital Signs: Last Vital Signs Temp 97.4 F 01/10/21 08:00 Pulse 96 01/10/21 08:00 Resp 16 01/10/21 08:00 BP 124/66 01/10/21 08:00 Pulse Ox 87 L 01/10/21 08:00 Body Mass Index 37.5 Results Labs CBC & Chem 7: 01/10/21 04:10 01/10/21 04:10 Labs: Short CBC 01/10/21 Range/Units 04:10 WBC 13.1 H (4.8-10.8) X10*3/uL Hgb 8.9 L (14.0-18.0) g/dl Hct 27.4 L (42-52) % Plt Count 55 L (160-400) X10*3/uL BMP 01/10/21 04:10 Sodium 139 Potassium 5.0 Chloride 108 Carbon Dioxide 23 BUN 26 H Creatinine 1.28 Calcium 8.7 Liver Function 01/10/21 Range/Units 04:10 Total Bilirubin 1.4 H (0.0-1.0) mg/dL AST 87 H (5-37) U/L ALT 11 (0-40) U/L Alkaline Phosphatase 215 H (39-117) U/L Albumin 3.0 L (3.5-5.0) g/dL
[2021-01-10 10:37] LABS: B Type Natriuretic Peptide 197 pg/mL (<100)
--- NOTE | 2021-01-10 11:47 | MHC.CM.PN ---
IMM 01/10/2021, EMR REVIEWED, PT ADMITTED /HYPOXIA, CM CONTACTED PTS HCP LEVON DUE TO PT'S BREATHING AND USE OF MASK AT 1105AM [phone], LEVON HANDED PHONE OFF TO HER DOREEN WHO IS PTS EMERGENCY CONTACT/LABORATORY ANIMAL FACILITY SUPERVISOR AND IS CHINESE SPEAKING, DOREEN REPORTED PT HAS A CANE AND WALKER FOR DME, PT DOESN NOT HAVE A NEBULIZER AT HOME, PT HAS 5 LABORATORY ANIMAL FACILITY SUPERVISOR HRS MON-FRI AND W/E'S HAS 1 HR, DOREEN DOES REPORT HE SPENDS MORE TIME W/PT THAN PAID HRS AND DESCRIBES PT FAMILY. PT'S PCP VERIFIED AND HCP ON FILE. D/C PLAN: HOME W/RESUMP OF VNA AND ? NEW VNA, FRIEND FOR TRANSPORT. PCP: RACH OROURKE HCP: LEVON ALEGRE FRIEND [phone]
[2021-01-10 11:55] LABS: Glucose, Whole Blood 305 mg/dL (60-115)
[2021-01-10] MEDS: Insulin Lispro 100 UNIT/ML 3 ML VIAL SUBCUT ×2 (12:10→20:37)
--- NOTE | 2021-01-10 13:17 | P.CONCA_ITS ---
History of Present Illness History of Present Illness Date of Service: 01/10/21 Requesting physician: Hallie Mojica Consult reason: congestive heart failure Chief complaint: hypoxia Narrative: Are was requested to see Rito in cardiology consultation today for sudden onset hypoxic respiratory failure overnight. 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 Patient was referred to the emergency room as per him by his [employer] WORKER. There is no clear further history available. Patient says he does get short of breath and is overly short of breath and then became significantly short of breath last night with hypoxemia and requiring 100% non-rebreather. Was given Lasix, chest x-ray findings consistent with worsening pulmonary infiltrates and was diuresed. Echocardiogram done yesterday shows severe LV systolic dysfunction with LVEF of 20-25% with severely dilated left atrium and at least moderate mitral regurgitation. Cardiology consult was sought for further management plan. Patient with complex past medical history and he is not able to corroborate much of it. He sees Dr. Arzate in [place] for his congestive heart failure cardiomyopathy. He does have ICD for what appears to be primary prevention, however says that this only gets evaluated once a year in his office last evaluated in March. He does not know the type of ICD company. He also has prior history of alcoholism with cirrhosis of the liver with hepatic encephalopathy in the past currently on therapy to prevent that, parkinsonism, COPD, obesity, diabetes. Also on mexiletine therapy which is most likely for prevention of recurrent ventricular arrhythmias in ICD shock. Review of Systems Constitutional: Constitutional: Reports no additional constitutional complaints Cardiovascular: Cardiovascular: Denies chest pain, Denies lightheadedness, Denies Loss of Consciousness, Denies palpitations and Reports dyspnea Respiratory: Respiratory: Reports dyspnea Gastrointestinal: Gastrointestinal: Reports no additional gastrointestinal complaints Genitourinary: Genitourinary: Reports no additional male genitourinary complaints Integumentary/Breasts: Skin/Breast: Reports system reviewed and no additional complaints, except as docu Neurologic: Reports system reviewed and no additional complaints, except as documented Psychiatric: Psychiatric: Reports no additional psychiatric complaints Endocrine: Endocrine: Reports no additional endocrine complaints and Denies palpitations PMFSH Past Medical History Medical History Chronic renal insufficiency COPD (chronic obstructive pulmonary disease) Coronary artery disease History of adenomatous polyp of colon History of pancreatitis Hyperlipidemia Hypertension 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 Obesity due to excess calories Type 2 diabetes mellitus Family History Family History Father Heart problem Blind Mother Diabetes Asthma Paternal Aunt Blind Surgical History Surgical History H/O colonoscopy (~08/2017) History of esophagogastroduodenoscopy (EGD) History of implantable cardioverter-defibrillator (ICD) placement (08/28/13) Status cardiac pacemaker (~1989) Social History Social History Household Members: None Caregiver staying overnight: Yes (Lives by himself, single, no children 1 sister in [place]) Housing: Apartment Do you presently have visiting nurse or other home services: Yes Alcohol intake: former Patient Tobacco Use Status: Former Tobacco user service: No Current occupational status: unemployed Meds Allergies Allergy/AdvReac Type Severity Reaction Status Date / Time morphine Allergy Intermediate rash Verified 01/08/21 11:39 Active Medications: Current Medications Acetaminophen (Acetaminophen 325 Mg Tablet) 650 mg PO Q6H PRN PRN Reason: Pain, Mild (Pain Scale 1-3) Albuterol Sulfate (Albuterol Sulfate (0.083%) 2.5 Mg/3 Ml Vial.Neb) 2.5 mg INHALE Q2H PRN PRN Reason: shortness of breath/wheeze Albuterol/Ipratropium (Albuterol/Iprat 2.5/0.5mg 3 Ml Ampul.Neb) 3 ml INHALE RQ4H WHILE AWAKE [facility] Last Admin: 01/10/21 11:30 Dose: 3 ml Documented by: Allopurinol (Allopurinol 100 Mg Tablet) 100 mg PO DAILY [facility] Last Admin: 01/10/21 07:48 Dose: 100 mg Documented by: Apixaban (Apixaban 5 Mg Tablet) 5 mg PO BID [facility] Last Admin: 01/10/21 07:46 Dose: 5 mg Documented by: Atorvastatin Calcium (Atorvastatin Calcium 10 Mg Tablet) 10 mg PO BEDTIME [facility] Last Admin: 01/09/21 21:44 Dose: 10 mg Documented by: Carbidopa/Levodopa (Carbidopa/Levodopa 25/100 Tablet) 1 tab PO TID [facility] Last Admin: 01/10/21 07:46 Dose: 1 tab Documented by: Carvedilol (Carvedilol 3.125 Mg Tablet) 3.125 mg PO BID [facility]; Protocol Last Admin: 01/10/21 07:49 Dose: 3.125 mg Documented by: Dextrose (Dextrose 50 % 25 Gm/50 Ml Vial) 25 gm IVPUSH Q15M PRN; Protocol PRN Reason: per Hypoglycemia Standing Ord. Diphenhydramine HCl (Diphenhydramine Hcl 25 Mg Tablet) 25 mg PO BEDTIME PRN PRN Reason: Sleep Finasteride (Finasteride 5 Mg Tablet) 5 mg PO BEDTIME [facility] Last Admin: 01/09/21 21:44 Dose: 5 mg Documented by: Glucose (Glucose Gel 15 Gm Gel..Gram.) 15 gm PO Q15M PRN; Protocol PRN Reason: per Hypoglycemia Standing Ord. Doxycycline Hyclate 100 mg/ (Sodium Chloride) 250 mls @ 166.67 mls/hr IV Q12H [facility] Last Infusion: 01/10/21 06:18 Dose: Infused Documented by: Insulin Human Lispro (Insulin Lispro 100 Unit/Ml 3 Ml Vial) 0 unit SUBCUT QIDACHS [facility]; Protocol Last Admin: 01/10/21 12:10 Dose: 8 unit Documented by: Lactulose (Lactulose 20 Gm/30 Ml Solution) 20 gm PO TID [facility] Last Admin: 01/10/21 07:49 Dose: 20 gm Documented by: Levothyroxine Sodium (Levothyroxine Sodium 100 Mcg Tablet) 100 mcg PO DAILY@0630 [facility] Last Admin: 01/10/21 06:59 Dose: 100 mcg Documented by: Loratadine (Loratadine 10 Mg Tablet) 10 mg PO DAILY [facility] Last Admin: 01/10/21 07:48 Dose: 10 mg Documented by: Methylprednisolone Sodium Succinate (Methylprednisolone Sod Succ 40 Mg/Ml Vial) 40 mg IVPUSH Q12H [facility] Last Admin: 01/10/21 04:36 Dose: 40 mg Documented by: Multivitamins/Vitamin C (Multivitamin Tablet) 1 tab PO DAILY [facility] Last Admin: 01/10/21 07:48 Dose: 1 tab Documented by: Patient Own Med ( Mexiletine 200 Mg Capsule) 1 each PO TID [facility] Last Admin: 01/10/21 07:45 Dose: 1 each Documented by: Omeprazole (Omeprazole 20 Mg Capsule.) 20 mg PO DAILY@0630 [facility] Last Admin: 01/10/21 06:59 Dose: 20 mg Documented by: Ondansetron HCl (Ondansetron Hcl 4 Mg/2 Ml Vial) 4 mg IVPUSH Q8H PRN PRN Reason: Nausea and Vomiting Pharmacy Consult (Consult Rx Perform Med Rec) 1 each MISCELLANE ONCE PRN PRN Reason: Consult order Quetiapine Fumarate (Quetiapine Fumarate 100 Mg Tablet) 100 mg PO BID [facility] Last Admin: 01/10/21 07:46 Dose: 100 mg Documented by: Rifaximin (Rifaximin 550 Mg Tablet) 550 mg PO BID [facility] Last Admin: 01/10/21 07:49 Dose: 550 mg Documented by: Sodium Chloride (0.9 % Sodium Chloride Flush 3 Ml Syringe) 3 ml IVFLUSH QSHIFT [facility] Last Admin: 01/10/21 07:45 Dose: 3 ml Documented by: Spironolactone (Spironolactone 25 Mg Tablet) 25 mg PO DAILY [facility]; Protocol Last Admin: 01/10/21 07:47 Dose: 25 mg Documented by: Tamsulosin HCl (Tamsulosin Hcl 0.4 Mg Capsule) 0.4 mg PO BEDTIME [facility] Last Admin: 01/09/21 21:44 Dose: 0.4 mg Documented by: Vitamin D (Cholecalciferol (Vitamin D3) 25 Mcg Tablet) 25 mcg PO DAILY [facility] Last Admin: 01/10/21 07:46 Dose: 25 mcg Documented by: Home Medications Medication Instructions Recorded Confirmed Last Taken Type cholecalciferol (vitamin D3) 25 25 mcg PO DAILY 01/08/20 01/08/21 01/08/21 History mcg (1,000 unit) capsule (Vitamin D3) levothyroxine 100 mcg tablet 100 mcg PO DAILY@0630 01/08/20 01/08/21 01/08/21 History loratadine 10 mg tablet (Allergy 10 mg PO DAILY 01/08/20 01/08/21 01/08/21 History Relief (loratadine)) omeprazole 20 mg capsule,delayed 20 mg PO DAILY@0630 01/08/20 01/08/21 01/08/21 History release simvastatin 20 mg tablet 20 mg PO BEDTIME 01/08/20 01/08/21 01/07/21 History apixaban 5 mg tablet (Eliquis) 5 mg PO BID 06/17/20 01/08/21 01/08/21 History quetiapine 100 mg tablet 100 mg PO BID tab 06/17/20 01/08/21 01/08/21 History spironolactone 25 mg tablet 25 mg PO DAILY 06/17/20 01/08/21 01/08/21 History allopurinol 100 mg tablet 100 mg PO DAILY 01/08/21 01/08/21 01/08/21 History carbidopa 25 mg-levodopa 100 mg 1 tab PO TID 01/08/21 01/08/21 01/08/21 History tablet carvedilol 3.125 mg tablet 3.125 mg PO BID 01/08/21 01/08/21 01/08/21 History diphenhydramine HCl 25 mg capsule 25 mg PO BEDTIME PRN 01/08/21 01/08/21 01/07/21 History (Sleep Aid (diphenhydramine)) finasteride 5 mg tablet 5 mg PO BEDTIME 01/08/21 01/08/21 01/07/21 History insulin glargine 100 unit/mL (3 36 unit SUBCUT BEDTIME 01/08/21 01/08/2101/07 History mL) subcutaneous pen (Lantus Solostar U-100 Insulin) insulin lispro 100 unit/mL 10 unit SUBCUT TIDAC 01/08/21 01/08/21 01/08/21 History subcutaneous pen (Humalog KwikPen (U-100) Insulin) mexiletine 200 mg capsule 1 cap PO TID 01/08/21 01/08/21 01/08/21 History multivitamin 1 tab PO QAM 01/08/21 01/08/21 01/08/21 History rifaximin 550 mg tablet (Xifaxan) 1 tab PO BID 01/08/21 01/08/21 01/08/21 History torsemide 10 mg tablet 10 mg PO DAILY 01/08/21 01/08/21 01/08/21 History Physical Exam Vital Signs: Vital Signs: Last Vital Signs Temp 97.4 F 01/10/21 08:00 Pulse 90 01/10/21 12:00 Resp 19 01/10/21 12:00 BP 120/74 01/10/21 12:00 Pulse Ox 95 01/10/21 12:00 Body Mass Index 37.5 Const: General: cooperative, comfortable, no acute distress, alert, awake and in distress moderate and respiratory Nutritional Appearance: obese Orientation/consciousness: patient oriented x3 HENMT: Head: Yes normocephalic and Yes atraumatic Neck: Neck: Yes trachea midline, Yes supple and Yes JVD Resp: Effort & Inspection: normal respiratory effort Auscultation: crackles Cardio: Jugular venous distension: JVD Palpation: abnormal PMI displaced PMI Rate: regular rate Rhythm: regular rhythm Heart sounds: S1 normal heart sound present, S2 normal heart sound present, no click, no gallops and no murmurs GI: Auscultation: normal bowel sounds Skin: General skin exam: no rashes or lesions noted Neuro: General: patient oriented x3 and no focal motor deficits Extrem: General: Yes no clubbing, cyanosis or edema Results Labs and Meds Result diagrams: 01/10/21 04:10 01/10/21 04:10 Lab results: Laboratory Results - last 24 hr 01/09/21 01/10/21 01/10/21 18:22 04:10 04:10 WBC 13.1 H RBC 3.17 L Hgb 8.9 L Hct 27.4 L MCV 86.4 MCH 28.1 MCHC 32.5 RDW 17.7 H Plt Count 55 L MPV 11.6 Absolute Nucleated RBC 0.000 Nucleated RBC % (auto) 0.0 O2 Saturation ABG pH at Pt Temp ABG pH (Temp Correct) ABG pCO2 at Pt Temp ABG pCO2 (Temp Corrct ABG pO2 at Pt Temp ABG pO2 (Temp Correct ABG HCO3 ABG Base Excess (Actual) Sodium 139 Potassium 5.0 Chloride 108 Carbon Dioxide 23 Anion Gap 13 BUN 26 H Creatinine 1.28 Estim Creat Clear Calc 51.9 Estimated GFR 55 POC Glucose 210 H Random Glucose 182 H Calcium 8.7 Magnesium 2.1 Total Bilirubin 1.4 H AST 87 H ALT 11 Alkaline Phosphatase 215 H B-Natriuretic Peptide Total Protein 6.4 L Albumin 3.0 L Procalcitonin 1001/10/21 01/10/21 04:10 07:45 08:58 WBC RBC Hgb Hct MCV MCH MCHC RDW Plt Count MPV Absolute Nucleated RBC Nucleated RBC % (auto) O2 Saturation 96.0 ABG pH at Pt Temp 7.43 ABG pH (Temp Correct) 7.44 ABG pCO2 at Pt Temp 31 L ABG pCO2 (Temp Corrct 31 L ABG pO2 at Pt Temp 93 ABG pO2 (Temp Correct 89 ABG HCO3 21 L ABG Base Excess (Actual) -1.8 Sodium Potassium Chloride Carbon Dioxide Anion Gap BUN Creatinine Estim Creat Clear Calc Estimated GFR POC Glucose 172 H Random Glucose Calcium Magnesium Total Bilirubin AST ALT Alkaline Phosphatase B-Natriuretic Peptide Total Protein Albumin Procalcitonin 0.14 01/10/21 01/10/21 09:44 11:49 WBC RBC Hgb Hct MCV MCH MCHC RDW Plt Count MPV Absolute Nucleated RBC Nucleated RBC % (auto) O2 Saturation ABG pH at Pt Temp ABG pH (Temp Correct) ABG pCO2 at Pt Temp ABG pCO2 (Temp Corrct ABG pO2 at Pt Temp ABG pO2 (Temp Correct ABG HCO3 ABG Base Excess (Actual) Sodium Potassium Chloride Carbon Dioxide Anion Gap BUN Creatinine Estim Creat Clear Calc Estimated GFR POC Glucose 305 H Random Glucose Calcium Magnesium Total Bilirubin AST ALT Alkaline Phosphatase B-Natriuretic Peptide 197 H Total Protein Albumin Procalcitonin Imaging Radiologist's impression: Impressions Pulmonary Perfusion Imaging 01/09/21 14:25 IMPRESSION: Normal perfusion scan. Ventilation study was not performed. Chest X-Ray 01/10/21 08:55 IMPRESSION: Worsening bilateral airspace disease suggesting acute on chronic process, possibly viral infiltrate versus fluid overload. Clinical correlation recommended. Assessment and Plan (1) Acute respiratory failure with hypoxia: Status: Acute Acute hypoxic respiratory failure which appears to be secondary to decompensated congestive heart failure as well as possibility of COPD exacerbation patient with severe LV systolic dysfunction, suspected nonischemic question alcohol induced in the past. Clinically appears to be fluid overloaded. Continue IV diuresis with Lasix. Strict intake and output chart needs to be pursued. Continue carvedilol and Aldactone therapy for neurohormonal modulation. Add Diovan 40 mg b.i.d. to his regimen as both neurohormonal modulation as well as afterload reduction. Continue antiarrhythmic drug therapy with mexiletine. He is on Eliquis therapy for unclear reasons question has history of prior atrial fibrillation. Continue that for now till will records available from his primary cardiologists is office. Overall prognosis is guarded. Will follow the patient Procedures Date of Service Date of Service: 01/10/21
--- NOTE | 2021-01-10 14:43 | HO.PM.IMPN ---
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 Review of Systems Review of Systems: Yes all other systems are reviewed and are negative Physical Exam Vital Signs: Vital Signs: Last Vital Signs Temp 97.4 F 01/10/21 08:00 Pulse 90 01/10/21 12:00 Resp 22 H 01/10/21 14:22 BP 120/74 01/10/21 12:00 Pulse Ox 95 01/10/21 12:00 Body Mass Index 37.5 Gen: respiratory distress HEENT: sclera anicteric, moist mucus membranes Neck: supple Lungs: coarse inspiratory crackles at bases bilaterally; tachypneic Heart: regular rate and rhythm, no murmurs Abd: soft, obese, non-tender Ext: 1+ LE edema Skin: warm/well-perfused Neuro: alert and oriented x3 Psych: appropriate affect Objective Data Active Medications Acetaminophen (Acetaminophen 325 Mg Tablet) 650 mg PO Q6H PRN PRN Reason: Pain, Mild (Pain Scale 1-3) Albuterol Sulfate (Albuterol Sulfate (0.083%) 2.5 Mg/3 Ml Vial.Neb) 2.5 mg INHALE Q2H PRN PRN Reason: shortness of breath/wheeze Albuterol/Ipratropium (Albuterol/Iprat 2.5/0.5mg 3 Ml Ampul.Neb) 3 ml INHALE RQ4H WHILE AWAKE [facility] Last Admin: 01/10/21 11:30 Dose: 3 ml Documented by: ANGEL Allopurinol (Allopurinol 100 Mg Tablet) 100 mg PO DAILY [facility] Last Admin: 01/10/21 07:48 Dose: 100 mg Documented by: JARVIS Apixaban (Apixaban 5 Mg Tablet) 5 mg PO BID [facility] Last Admin: 01/10/21 07:46 Dose: 5 mg Documented by: JARVIS Atorvastatin Calcium (Atorvastatin Calcium 10 Mg Tablet) 10 mg PO BEDTIME [facility] Last Admin: 01/09/21 21:44 Dose: 10 mg Documented by: ISIDRA Carbidopa/Levodopa (Carbidopa/Levodopa 25/100 Tablet) 1 tab PO TID [facility] Last Admin: 01/10/21 07:46 Dose: 1 tab Documented by: JARVIS Carvedilol (Carvedilol 3.125 Mg Tablet) 3.125 mg PO BID [facility]; Protocol Last Admin: 01/10/21 07:49 Dose: 3.125 mg Documented by: JARVIS Dextrose (Dextrose 50 % 25 Gm/50 Ml Vial) 25 gm IVPUSH Q15M PRN; Protocol PRN Reason: per Hypoglycemia Standing Ord. Diphenhydramine HCl (Diphenhydramine Hcl 25 Mg Tablet) 25 mg PO BEDTIME PRN PRN Reason: Sleep Finasteride (Finasteride 5 Mg Tablet) 5 mg PO BEDTIME [facility] Last Admin: 01/09/21 21:44 Dose: 5 mg Documented by: ISIDRA Glucose (Glucose Gel 15 Gm Gel..Gram.) 15 gm PO Q15M PRN; Protocol PRN Reason: per Hypoglycemia Standing Ord. Doxycycline Hyclate 100 mg/ (Sodium Chloride) 250 mls @ 166.67 mls/hr IV Q12H [facility] Last Infusion: 01/10/21 06:18 Dose: 0 mls/hr Documented by: ISIDRA Insulin Human Lispro (Insulin Lispro 100 Unit/Ml 3 Ml Vial) 0 unit SUBCUT QIDACHS [facility]; Protocol Last Admin: 01/10/21 12:10 Dose: 8 unit Documented by: JARVIS Lactulose (Lactulose 20 Gm/30 Ml Solution) 20 gm PO TID [facility] Last Admin: 01/10/21 07:49 Dose: 20 gm Documented by: JARVIS Levothyroxine Sodium (Levothyroxine Sodium 100 Mcg Tablet) 100 mcg PO DAILY@0630 [facility] Last Admin: 01/10/21 06:59 Dose: 100 mcg Documented by: ISIDRA Loratadine (Loratadine 10 Mg Tablet) 10 mg PO DAILY [facility] Last Admin: 01/10/21 07:48 Dose: 10 mg Documented by: JARVIS Methylprednisolone Sodium Succinate (Methylprednisolone Sod Succ 40 Mg/Ml Vial) 40 mg IVPUSH Q12H [facility] Last Admin: 01/10/21 04:36 Dose: 40 mg Documented by: ISIDRA Multivitamins/Vitamin C (Multivitamin Tablet) 1 tab PO DAILY [facility] Last Admin: 01/10/21 07:48 Dose: 1 tab Documented by: JARVIS Patient Own Med ( Mexiletine 200 Mg Capsule) 1 each PO TID [facility] Last Admin: 01/10/21 07:45 Dose: 1 each Documented by: JARVIS Omeprazole (Omeprazole 20 Mg Capsule.Dr) 20 mg PO DAILY@0630 [facility] Last Admin: 01/10/21 06:59 Dose: 20 mg Documented by: ISIDRA Ondansetron HCl (Ondansetron Hcl 4 Mg/2 Ml Vial) 4 mg IVPUSH Q8H PRN PRN Reason: Nausea and Vomiting Pharmacy Consult (Consult Rx Perform Med Rec) 1 each MISCELLANE ONCE PRN PRN Reason: Consult order Quetiapine Fumarate (Quetiapine Fumarate 100 Mg Tablet) 100 mg PO BID [facility] Last Admin: 01/10/21 07:46 Dose: 100 mg Documented by: JARVIS Rifaximin (Rifaximin 550 Mg Tablet) 550 mg PO BID [facility] Last Admin: 01/10/21 07:49 Dose: 550 mg Documented by: JARVIS Sodium Chloride (0.9 % Sodium Chloride Flush 3 Ml Syringe) 3 ml IVFLUSH QSHIFT [facility] Last Admin: 01/10/21 07:45 Dose: 3 ml Documented by: JARVIS Spironolactone (Spironolactone 25 Mg Tablet) 25 mg PO DAILY [facility]; Protocol Last Admin: 01/10/21 07:47 Dose: 25 mg Documented by: JARVIS Tamsulosin HCl (Tamsulosin Hcl 0.4 Mg Capsule) 0.4 mg PO BEDTIME [facility] Last Admin: 01/09/21 21:44 Dose: 0.4 mg Documented by: ISIDRA Vitamin D (Cholecalciferol (Vitamin D3) 25 Mcg Tablet) 25 mcg PO DAILY [facility] Last Admin: 01/10/21 07:46 Dose: 25 mcg Documented by: JARVIS Labs CBC & Chem 7: 01/10/21 04:10 01/10/21 04:10 Labs: Laboratory Results - last 24 hr 01/09/21 01/10/21 01/10/21 18:22 04:10 04:10 MCV 86.4 MCH 28.1 MCHC 32.5 RDW 17.7 H Plt Count 55 L MPV 11.6 Absolute Nucleated RBC 0.000 Nucleated RBC % (auto) 0.0 O2 Saturation ABG pH at Pt Temp ABG pH (Temp Correct) ABG pCO2 at Pt Temp ABG pCO2 (Temp Corrct ABG pO2 at Pt Temp ABG pO2 (Temp Correct ABG HCO3 ABG Base Excess (Actual) Anion Gap 13 Estim Creat Clear Calc 51.9 Estimated GFR 55 POC Glucose 210 H Random Glucose 182 H Calcium 8.7 Magnesium 2.1 Total Bilirubin 1.4 H AST 87 H ALT 11 Alkaline Phosphatase 215 H B-Natriuretic Peptide Total Protein 6.4 L Albumin 3.0 L Procalcitonin 01/10/21 01/10/21 01/10/21 04:10 07:45 08:58 MCV MCH MCHC RDW Plt Count MPV Absolute Nucleated RBC Nucleated RBC % (auto) O2 Saturation 96.0 ABG pH at Pt Temp 7.43 ABG pH (Temp Correct) 7.44 ABG pCO2 at Pt Temp 31 L ABG pCO2 (Temp Corrct 31 L ABG pO2 at Pt Temp 93 ABG pO2 (Temp Correct 89 ABG HCO3 21 L ABG Base Excess (Actual) -1.8 Anion Gap Estim Creat Clear Calc Estimated GFR POC Glucose 172 H Random Glucose Calcium Magnesium Total Bilirubin AST ALT Alkaline Phosphatase B-Natriuretic Peptide Total Protein Albumin Procalcitonin 0.14 01/10/21 01/10/21 09:44 11:49 MCV MCH MCHC RDW Plt Count MPV Absolute Nucleated RBC Nucleated RBC % (auto) O2 Saturation ABG pH at Pt Temp ABG pH (Temp Correct) ABG pCO2 at Pt Temp ABG pCO2 (Temp Corrct ABG pO2 at Pt Temp ABG pO2 (Temp Correct ABG HCO3 ABG Base Excess (Actual) Anion Gap Estim Creat Clear Calc Estimated GFR POC Glucose 305 H Random Glucose Calcium Magnesium Total Bilirubin AST ALT Alkaline Phosphatase B-Natriuretic Peptide 197 H Total Protein Albumin Procalcitonin Impressions Pulmonary Perfusion Imaging 01/09/21 14:25 IMPRESSION: Normal perfusion scan. Ventilation study was not performed. Chest X-Ray 10/16/21 08:55 IMPRESSION: Worsening bilateral airspace disease suggesting acute on chronic process, possibly viral infiltrate versus fluid overload. Clinical correlation recommended. TTE 01/09/21 1. Severely dilated left ventricle with severe LV systolic ? ? dysfunction with LVEF of 20-25% 2. Severely dilated left atrium? 3. At least eccentric moderate mitral regurgitation? 4. Normal RV systolic pressure ? 5. No pericardial effusion ? 6. no bubble study was performed to evaluate for shunting? Assessment and Plan (1) Acute respiratory failure with hypoxia: Status: Acute Assessment and Plan: hospital d#3 75yo M with? cirrhosis related to past EtOH abuse, hepatic encephalopathy, remote history of alcoholic pancreatitis, asthma/COPD, Parkinsonism, hypothyroidism, previous tobacco abuse, gout, DM2, history of ventricular arrhythmia, AF on apixaban presenting after fall after taking Unisom and complaining of worsening dyspnea and cough; found to be hypoxic # acute hypoxic respiratory failure - doing better on HFNC. discussed with ICU and also with pt and his HCP; he has changed his code status to DNR/DNI and a MOLST was filled out to reflect this fact - treat COPD + CHF as below # acute/chronic HFrEF # dilated cardiomyopathy - IV diuresis with furosemide. trend BNP, monitor I/O + BMP + Mg. continue chronic beta-matias, start ARB valsartan, continue spironolactone - Cardiology consultation # COPD exacerbation - continue steroids d#3 + nebs, Pulm following - doxycycline d#2 # chronic pancreatitis - lipase and amylase low, doubt acute pancreatitis, per GI likely chronic pancreatitis # cirrhosis - due to EtOH - watch for signs of decompensation - no ascites to tap # hepatic encephalopathy - continue lactulose + rifaximin # ventricular arrhythmia - continue carvedilol + mexiletine.? has ICD.? 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 correction-dose lispro # VTE ppx - apixaban # dispo - anticipate STR Quality Stroke Does the patient have a stroke diagnosis?: No VTE Prior VTE?: No VTE Risk Level:: Medical - moderate - high VTE Device Contraindication: N/A - Device Ordered VTE Drug Contraindication: N/A - Med Ordered
[2021-01-10 16:22] LABS: Glucose, Whole Blood 149 mg/dL (60-115)
[2021-01-10] MEDS: methylPREDNISolone Sod Succ 125 MG/2 ML VIAL 250 MG IVPUSH ×2 (16:28→22:29)
[2021-01-10 20:30] LABS: Glucose, Whole Blood 208 mg/dL (60-115)
[2021-01-10] MEDS: Atorvastatin Calcium 10 MG TABLET PO (20:36)
[2021-01-10] MEDS: Finasteride 5 MG TABLET PO (20:36)
[2021-01-10] MEDS: Tamsulosin HCL 0.4 MG CAPSULE PO (20:36)
[2021-01-10] MEDS: diphenhydrAMINE HCL 25 MG TABLET PO (20:36)
[2021-01-10] MEDS: Valsartan 40 MG TABLET PO (20:37)
[2021-01-11] VITALS (18 sets, daily range): BP systolic 90–123; BP diastolic 59–66; PULSE 85–107; RESP 16–28; TEMP 36–36.9; O2SAT 86–99
--- NOTE | 2021-01-11 | ECG_ITS ---
Test Reason : chest pain Blood Pressure : / mmHG Vent. Rate : 095 BPM Atrial Rate : 095 BPM P-R Int : 186 ms QRS Dur : 112 ms QT Int : 382 ms P-R-T Axes : 042 013 031 degrees QTc Int : 480 ms Sinus rhythm with frequent Premature ventricular complexes Nonspecific ST abnormality Intra-ventricular conduction delay Abnormal ECG No significant changes seen Referred By: Chet Médnez Electronically Signed By:MERNA BUTTS MD
[2021-01-11] MEDS: Nitroglycerin 0.4 MG TAB.SUBL SUBLINGUAL (00:29)
[2021-01-11 01:05] LABS: Troponin-I High Sensitivity 34.8 ng/L (<3.5-35.0)
[2021-01-11] MEDS: methylPREDNISolone Sod Succ 125 MG/2 ML VIAL 250 MG IVPUSH ×4 (04:22→21:46)
[2021-01-11] MEDS: Doxycycline Hyclate 100 MG in 0.9 % Sodium Chloride 250 ML 166.67 MG IV ×2 (04:22→14:49)
[2021-01-11 04:24] LABS: Troponin-I High Sensitivity 26.9 ng/L (<3.5-35.0)
[2021-01-11] MEDS: Omeprazole 20 MG CAPSULE.DR PO (06:14)
[2021-01-11] MEDS: Levothyroxine Sodium 100 MCG TABLET PO (06:14)
[2021-01-11 06:17] LABS: Hematocrit 26.1 % (42-52); Hemoglobin 8.6 g/dl (14.0-18.0); Mean Corpuscular Hemoglobin 28.4 pg (27.0-33.0); Mean Corpuscular Volume 86.1 fL (80-98); Mean Platelet Volume 11.9 fL (9.4-12.4); NRBC Pct Auto 0.3 /100WBC (0.0-0.2); Red Blood Count 3.03 X10*6/uL (4.60-5.80); White Blood Count 11.3 X10*3/uL (4.8-10.8)
[2021-01-11 06:22] LABS: PLT ABN DIST 1; Platelet Count 56 X10*3/uL (160-400)
[2021-01-11 06:33] LABS: Anion Gap 12 (12-20); Blood Urea Nitrogen 35 mg/dL (9-16); Calcium 8.9 mg/dL (8.4-10.2); Carbon Dioxide 25 mmol/L (22-29); Chloride 106 mmol/L (96-108); Creatinine Clr Calc Pharmacy 45.5; Estimated Glomerular Filt Rate 47; Glucose Random 223 mg/dL (60-115); Magnesium 2.1 mg/dL (1.6-2.6); Potassium 4.6 mmol/L (3.3-5.1); Sodium 138 mmol/L (135-145)
[2021-01-11 06:39] LABS: B Type Natriuretic Peptide 155 pg/mL (<100)
[2021-01-11 07:47] LABS: Glucose, Whole Blood 246 mg/dL (60-115)
[2021-01-11] MEDS: 0.9 % Sodium Chloride Flush 3 ML SYRINGE IVFLUSH ×3 (08:03→21:51)
[2021-01-11] MEDS: Insulin Lispro 100 UNIT/ML 3 ML VIAL SUBCUT ×4 (08:03→21:45)
[2021-01-11] MEDS: Cholecalciferol (Vitamin D3) 25 MCG TABLET PO (08:04)
[2021-01-11] MEDS: QUEtiapine Fumarate 100 MG TABLET PO ×2 (08:04→21:45)
[2021-01-11] MEDS: Multivitamin TABLET 1 TAB PO (08:04)
[2021-01-11] MEDS: Apixaban 5 MG TABLET PO ×2 (08:04→21:45)
[2021-01-11] MEDS: allopurinoL 100 MG TABLET PO (08:04)
[2021-01-11] MEDS: Loratadine 10 MG TABLET PO (08:04)
[2021-01-11] MEDS: Spironolactone 25 MG TABLET PO (08:04)
[2021-01-11] MEDS: Carbidopa/Levodopa 25/100 TABLET 1 TAB PO ×3 (08:04→21:45)
[2021-01-11] MEDS: Lactulose 20 GM/30 ML SOLUTION PO ×3 (08:05→21:50)
[2021-01-11] MEDS: Valsartan 40 MG TABLET PO ×2 (08:05→21:45)
[2021-01-11] MEDS: carvediloL 3.125 MG TABLET PO ×2 (08:05→21:45)
[2021-01-11] MEDS: rifAXIMin 550 MG TABLET PO ×2 (08:05→21:45)
[2021-01-11 08:11] LABS: Procalcitonin 0.13 ng/mL
[2021-01-11] MEDS: Albuterol/Iprat 2.5/0.5MG 3 ML AMPUL.NEB INHALE ×4 (09:00→20:01)
--- NOTE | 2021-01-11 10:39 | HO.PM.IMPN ---
Subjective Subjective Date of Service: 01/11/21 Interval History: at some point, was off O2 and SaO2 dipped to 53%; now back on HFNC 100% fiO2 @ 55 Lpm with SaO2 90%; states breathing has improved no cough no chest pain no fever Review of Systems Review of Systems: Yes all other systems are reviewed and are negative Physical Exam Vital Signs: Vital Signs: Last Vital Signs Temp 98.3 F 01/11/21 08:00 Pulse 102 H 01/11/21 09:00 Resp 18 01/11/21 09:00 BP 105/62 01/11/21 08:04 Pulse Ox 94 01/11/21 08:00 Body Mass Index 37.5 Gen: NAD, chronically ill-appearing HEENT: sclera anicteric, moist mucus membranes Neck: supple Lungs: coarse inspiratory crackles at bases bilaterally Heart: regular rate and rhythm, no murmurs Abd: soft, obese, non-tender Ext: 1+ LE edema Skin: warm/well-perfused Neuro: alert and oriented x3 Psych: appropriate affect Objective Data Active Medications Acetaminophen (Acetaminophen 325 Mg Tablet) 650 mg PO Q6H PRN PRN Reason: Pain, Mild (Pain Scale 1-3) Albuterol Sulfate (Albuterol Sulfate (0.083%) 2.5 Mg/3 Ml Vial.Neb) 2.5 mg INHALE Q2H PRN PRN Reason: shortness of breath/wheeze Albuterol/Ipratropium (Albuterol/Iprat 2.5/0.5mg 3 Ml Ampul.Neb) 3 ml INHALE RQ4H WHILE AWAKE [facility] Last Admin: 01/11/21 09:00 Dose: 3 ml Documented by: BARBI Allopurinol (Allopurinol 100 Mg Tablet) 100 mg PO DAILY [facility] Last Admin: 01/11/21 08:04 Dose: 100 mg Documented by: JARVIS Apixaban (Apixaban 5 Mg Tablet) 5 mg PO BID [facility] Last Admin: 01/11/21 08:04 Dose: 5 mg Documented by: JARVIS Atorvastatin Calcium (Atorvastatin Calcium 10 Mg Tablet) 10 mg PO BEDTIME [facility] Last Admin: 01/10/21 20:36 Dose: 10 mg Documented by: AMANDA Carbidopa/Levodopa (Carbidopa/Levodopa 25/100 Tablet) 1 tab PO TID [facility] Last Admin: 01/11/21 08:04 Dose: 1 tab Documented by: JARVIS Carvedilol (Carvedilol 3.125 Mg Tablet) 3.125 mg PO BID [facility]; Protocol Last Admin: 01/11/21 08:05 Dose: 3.125 mg Documented by: JARVIS Dextrose (Dextrose 50 % 25 Gm/50 Ml Vial) 25 gm IVPUSH Q15M PRN; Protocol PRN Reason: per Hypoglycemia Standing Ord. Diphenhydramine HCl (Diphenhydramine Hcl 25 Mg Tablet) 25 mg PO BEDTIME PRN PRN Reason: Sleep Last Admin: 01/10/21 20:36 Dose: 25 mg Documented by: AMANDA Finasteride (Finasteride 5 Mg Tablet) 5 mg PO BEDTIME [facility] Last Admin: 01/10/21 20:36 Dose: 5 mg Documented by: AMANDA Glucose (Glucose Gel 15 Gm Gel..Gram.) 15 gm PO Q15M PRN; Protocol PRN Reason: per Hypoglycemia Standing Ord. Doxycycline Hyclate 100 mg/ (Sodium Chloride) 250 mls @ 166.67 mls/hr IV Q12H [facility] Last Infusion: 01/11/21 06:16 Dose: 0 mls/hr Documented by: AMANDA Insulin Human Lispro (Insulin Lispro 100 Unit/Ml 3 Ml Vial) 0 unit SUBCUT QIDACHS [facility]; Protocol Last Admin: 01/11/21 08:03 Dose: 4 unit Documented by: JARVIS Lactulose (Lactulose 20 Gm/30 Ml Solution) 20 gm PO TID [facility] Last Admin: 01/11/21 08:05 Dose: 20 gm Documented by: JARVIS Levothyroxine Sodium (Levothyroxine Sodium 100 Mcg Tablet) 100 mcg PO DAILY@0630 [facility] Last Admin: 01/11/21 06:14 Dose: 100 mcg Documented by: AMANDA Loratadine (Loratadine 10 Mg Tablet) 10 mg PO DAILY [facility] Last Admin: 01/11/21 08:04 Dose: 10 mg Documented by: JARVIS Methylprednisolone Sodium Succinate (Methylprednisolone Sod Succ 125 Mg/2 Ml Vial) 250 mg IVPUSH Q6H [facility] Last Admin: 01/11/21 04:22 Dose: 250 mg Documented by: AMANDA Multivitamins/Vitamin C (Multivitamin Tablet) 1 tab PO DAILY [facility] Last Admin: 01/11/21 08:04 Dose: 1 tab Documented by: JARVIS Nitroglycerin (Nitroglycerin 0.4 Mg Tab.Subl) 0.4 mg SUBLINGUAL Q5MX3 PRN PRN Reason: Chest Pain Last Admin: 01/11/21 00:29 Dose: 0.4 mg Documented by: AMANDA Comments: jam Méndez, give nitro now for chest pain Patient Own Med ( Mexiletine 200 Mg Capsule) 1 each PO TID [facility] Last Admin: 01/11/21 08:05 Dose: 1 each Documented by: JARVIS Omeprazole (Omeprazole 20 Mg Capsule.Dr) 20 mg PO DAILY@0630 [facility] Last Admin: 01/11/21 06:14 Dose: 20 mg Documented by: AMANDA Ondansetron HCl (Ondansetron Hcl 4 Mg/2 Ml Vial) 4 mg IVPUSH Q8H PRN PRN Reason: Nausea and Vomiting Pharmacy Consult (Consult Rx Perform Med Rec) 1 each MISCELLANE ONCE PRN PRN Reason: Consult order Quetiapine Fumarate (Quetiapine Fumarate 100 Mg Tablet) 100 mg PO BID [facility] Last Admin: 01/11/21 08:04 Dose: 100 mg Documented by: JARVIS Rifaximin (Rifaximin 550 Mg Tablet) 550 mg PO BID [facility] Last Admin: 01/11/21 08:05 Dose: 550 mg Documented by: JARVIS Sodium Chloride (0.9 % Sodium Chloride Flush 3 Ml Syringe) 3 ml IVFLUSH [facility] Last Admin: 01/11/21 08:03 Dose: 3 ml Documented by: JARVIS Spironolactone (Spironolactone 25 Mg Tablet) 25 mg PO DAILY [facility]; Protocol Last Admin: 01/11/21 08:04 Dose: 25 mg Documented by: JARVIS Tamsulosin HCl (Tamsulosin Hcl 0.4 Mg Capsule) 0.4 mg PO BEDTIME [facility] Last Admin: 01/10/21 20:36 Dose: 0.4 mg Documented by: AMANDA Valsartan (Valsartan 40 Mg Tablet) 40 mg PO BID [facility]; Protocol Last Admin: 01/11/21 08:05 Dose: 40 mg Documented by: JARVIS Vitamin D (Cholecalciferol (Vitamin D3) 25 Mcg Tablet) 25 mcg PO DAILY [facility] Last Admin: 01/11/21 08:04 Dose: 25 mcg Documented by: JARVIS Labs CBC & Chem 7: 01/11/21 05:56 01/11/21 05:56 Labs: Laboratory Results - last 24 hr 01/10/21 01/10/21 01/10/21 11:49 16:18 20:25 MCV MCH MCHC RDW Plt Count MPV Absolute Nucleated RBC Nucleated RBC % (auto) Anion Gap Estim Creat Clear Calc Estimated GFR POC Glucose 305 H 149 H 208 H Random Glucose Calcium Magnesium Troponin I High Sens B-Natriuretic Peptide Procalcitonin 01/11/21 01/11/21 01/11/21 00:36 03:44 05:56 MCV 86.1 MCH 28.4 MCHC 33.0 RDW 18.0 H Plt Count 56 L MPV 11.9 Absolute Nucleated RBC 0.030 H Nucleated RBC % (auto) 0.3 H Anion Gap Estim Creat Clear Calc Estimated GFR POC Glucose Random Glucose Calcium Magnesium Troponin I High Sens 34.8 D 26.9 B-Natriuretic Peptide Procalcitonin 01/11/21 01/11/21 01/11/21 05:56 05:56 05:56 MCV MCH MCHC RDW Plt Count MPV Absolute Nucleated RBC Nucleated RBC % (auto) Anion Gap 12 Estim Creat Clear Calc 45.5 Estimated GFR 47 POC Glucose Random Glucose 223 H Calcium 8.9 Magnesium 2.1 Troponin I High Sens B-Natriuretic Peptide 155 H Procalcitonin 0.13 01/11/21 07:37 MCV MCH MCHC RDW Plt Count MPV Absolute Nucleated RBC Nucleated RBC % (auto) Anion Gap Estim Creat Clear Calc Estimated GFR POC Glucose 246 H Random Glucose Calcium Magnesium Troponin I High Sens B-Natriuretic Peptide Procalcitonin Impressions Chest CT 01/10/21 13:50 IMPRESSION: 1. Compared to prior study dated 01/08/2021, development of extensive groundglass airspace disease is noted bilaterally. Given the rapidity of onset, the findings may represent interstitial pneumonia especially COVID pneumonia. 2. Solitary subtle sub-5 mm lytic lesion involving T12 vertebral body, of indeterminate etiology. Assessment and Plan (1) Acute respiratory failure with hypoxia: Status: Acute Assessment and Plan: hospital d#4 75yo M with?cirrhosis related to past EtOH abuse, hepatic encephalopathy, remote history of alcoholic pancreatitis with resultant chronic pancreatitis, asthma/COPD, Parkinsonism, hypothyroidism, previous tobacco abuse, gout, DM2, history of ventricular arrhythmia, AF on apixaban presenting after fall after taking Unisom and complaining of worsening dyspnea and cough; found to be hypoxic # acute hypoxic respiratory failure - continue HFNC; pt is DNR/DNI but NIPPV would be an option # exacerbation of COPD vs ILD vs diffuse interstitial pneumonitis - discussed with ICU + Pulm, started high-dose pulse steroids yesterday - doxycycline d#3 - prn nrbs # acute/chronic HFrEF [LVER 20%] # dilated cardiomyopathy - IV diuresis with furosemide though I suspect at this point the primary problem is more pulmonary than cardiac. trend BNP, monitor I/O + BMP + Mg. continue chronic beta-matias, start ARB valsartan, continue spironolactone. Cardiology following # ventricular arrhythmia - continue carvedilol + mexiletine.? has ICD.? 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 correction-dose lispro # VTE ppx - apixaban Quality Stroke Does the patient have a stroke diagnosis?: No VTE Prior VTE?: No VTE Risk Level:: Medical - moderate - high VTE Device Contraindication: N/A - Device Ordered VTE Drug Contraindication: N/A - Med Ordered
[2021-01-11 12:24] LABS: Glucose, Whole Blood 248 mg/dL (60-115)
[2021-01-11] MEDS: Furosemide 40 MG/4 ML VIAL IVPUSH ×2 (14:47→16:53)
--- NOTE | 2021-01-11 14:47 | P.PNCA_ITS ---
Subjective Subjective Date of Service: 01/11/21 Principal diagnosis: Hypoxic respiratory failure Interval history: Patient remains significantly hypoxic requiring high-flow oxygen therapy. Has diuresed somewhat with IV Lasix, creatinine is increased. BNP is down trended mildly. CT scan of chest consistent with possible interstitial pneumonitis. Viral testing has been negative. Echocardiogram consistent with severe LV systolic dysfunction mitral regurgitation and normal RV systolic pressure. He is denying short of breath but going to the commode at bedside he was significantly hypoxic as per nursing. Review of Systems Constitutional: Reports no additional constitutional complaints Cardiovascular: Denies chest pain, Denies lightheadedness, Denies Loss of Consciousness, Denies palpitations and Reports dyspnea Respiratory: Reports dyspnea Gastrointestinal: Reports no additional gastrointestinal complaints Genitourinary: Reports no additional male genitourinary complaints Musculoskeletal: Reports no additional musculoskeletal complaints Reports system reviewed and no additional complaints, except as documented Psychiatric: Reports no additional psychiatric complaints Endocrine: Denies palpitations Physical Exam Vital Signs: Last Vital Signs Temp 96.8 F 01/11/21 12:00 Pulse 96 01/11/21 12:41 Resp 20 01/11/21 12:40 BP 110/66 01/11/21 12:00 Pulse Ox 96 01/11/21 12:00 Body Mass Index 37.5 Const General: cooperative, comfortable, alert, awake and in distress mild and respiratory Nutritional Appearance: obese Orientation/consciousness: patient oriented x3 Neck Neck: Yes trachea midline, Yes supple and Yes no JVD Resp Effort & Inspection: normal respiratory effort Auscultation: no rales, wheezes and diminished lung sounds Cardio Jugular venous distension: no JVD Rate: regular rate Rhythm: regular rhythm Heart sounds: S1 normal heart sound present, S2 normal heart sound present, no click and no gallops GI Inspection: Yes obesity Auscultation: normal bowel sounds Skin General skin exam: no rashes or lesions noted Neuro General: patient oriented x3 Extrem General: Yes no clubbing, cyanosis or edema Results Labs and Meds Result diagrams: 01/11/21 05:56 01/11/21 05:56 Lab results: Laboratory Results - last 24 hr 01/10/21 01/10/21 01/11/21 16:18 20:25 00:36 WBC RBC Hgb Hct MCV MCH MCHC RDW Plt Count MPV Absolute Nucleated RBC Nucleated RBC % (auto) Sodium Potassium Chloride Carbon Dioxide Anion Gap BUN Creatinine Estim Creat Clear Calc Estimated GFR POC Glucose 149 H 208 H Random Glucose Calcium Magnesium Troponin I High Sens 34.8 D B-Natriuretic Peptide Procalcitonin 01/11/21 01/11/21 01/11/21 03:44 05:56 05:56 WBC 11.3 H RBC 3.03 L Hgb 8.6 L Hct 26.1 L MCV 86.1 MCH 28.4 MCHC 33.0 RDW 18.0 H Plt Count 56 L MPV 11.9 Absolute Nucleated RBC 0.030 H Nucleated RBC % (auto) 0.3 H Sodium 138 Potassium 4.6 Chloride 106 Carbon Dioxide 25 Anion Gap 12 BUN 35 H Creatinine 1.46 H Estim Creat Clear Calc 45.5 Estimated GFR 47 POC Glucose Random Glucose 223 H Calcium 8.9 Magnesium 2.1 Troponin I High Sens 26.9 B-Natriuretic Peptide Procalcitonin 01/11/21 01/11/21 01/11/21 05:56 05:56 07:37 WBC RBC Hgb Hct MCV MCH MCHC RDW Plt Count MPV Absolute Nucleated RBC Nucleated RBC % (auto) Sodium Potassium Chloride Carbon Dioxide Anion Gap BUN Creatinine Estim Creat Clear Calc Estimated GFR POC Glucose 246 H Random Glucose Calcium Magnesium Troponin I High Sens B-Natriuretic Peptide 155 H Procalcitonin 0.13 01/11/21 12:04 WBC RBC Hgb Hct MCV MCH MCHC RDW Plt Count MPV Absolute Nucleated RBC Nucleated RBC % (auto) Sodium Potassium Chloride Carbon Dioxide Anion Gap BUN Creatinine Estim Creat Clear Calc Estimated GFR POC Glucose 248 H Random Glucose Calcium Magnesium Troponin I High Sens B-Natriuretic Peptide Procalcitonin Imaging Radiologist's impression: Impressions Chest CT 01/10/21 13:50 IMPRESSION: 1. Compared to prior study dated 01/08/2021, development of extensive groundglass airspace disease is noted bilaterally. Given the rapidity of onset, the findings may represent interstitial pneumonia especially COVID pneumonia. 2. Solitary subtle sub-5 mm lytic lesion involving T12 vertebral body, of indeterminate etiology. Progress Note: A&P Assessment and plan (1) Acute respiratory failure with hypoxia: Status: Acute Assessment and Plan: Persistent significant hypoxemia in patient with acute hypoxic respiratory failure with known prior cardiomyopathy severe LV systolic dysfunction. Sudden- onset hypoxemia raise a concern for congestive heart failure. However remains significantly hypoxemic with diuresis only minimally elevated BNP. Congestive heart failure is still possible. ARDS is also likely given his CT scan finding. However patient seems to be maintained eating and comfortable on high-flow oxygen therapy. Viral testing is negative. Will continue IV diuresis. Continue to monitor intake and output chart. Continue to monitor BMP and BNP. If significant deterioration or non improvement despite diuresis, should consider right heart catheterization. Continue supportive care. Continue carvedilol and valsartan therapy. Being followed by Pulmonary as well. Will continue to follow with the patient Fall Risk Details Current Medications: Current Medications Acetaminophen (Acetaminophen 325 Mg Tablet) 650 mg PO Q6H PRN PRN Reason: Pain, Mild (Pain Scale 1-3) Albuterol Sulfate (Albuterol Sulfate (0.083%) 2.5 Mg/3 Ml Vial.Neb) 2.5 mg INHALE Q2H PRN PRN Reason: shortness of breath/wheeze Albuterol/Ipratropium (Albuterol/Iprat 2.5/0.5mg 3 Ml Ampul.Neb) 3 ml INHALE RQ4H WHILE AWAKE [facility] Last Admin: 01/11/21 12:38 Dose: 3 ml Documented by: Allopurinol (Allopurinol 100 Mg Tablet) 100 mg PO DAILY [facility] Last Admin: 01/11/21 08:04 Dose: 100 mg Documented by: Apixaban (Apixaban 5 Mg Tablet) 5 mg PO BID [facility] Last Admin: 01/11/21 08:04 Dose: 5 mg Documented by: Atorvastatin Calcium (Atorvastatin Calcium 10 Mg Tablet) 10 mg PO BEDTIME [facility] Last Admin: 01/10/21 20:36 Dose: 10 mg Documented by: Carbidopa/Levodopa (Carbidopa/Levodopa 25/100 Tablet) 1 tab PO TID [facility] Last Admin: 01/11/21 08:04 Dose: 1 tab Documented by: Carvedilol (Carvedilol 3.125 Mg Tablet) 3.125 mg PO BID [facility]; Protocol Last Admin: 01/11/21 08:05 Dose: 3.125 mg Documented by: Dextrose (Dextrose 50 % 25 Gm/50 Ml Vial) 25 gm IVPUSH Q15M PRN; Protocol PRN Reason: per Hypoglycemia Standing Ord. Diphenhydramine HCl (Diphenhydramine Hcl 25 Mg Tablet) 25 mg PO BEDTIME PRN PRN Reason: Sleep Last Admin: 01/10/21 20:36 Dose: 25 mg Documented by: Finasteride (Finasteride 5 Mg Tablet) 5 mg PO BEDTIME [facility] Last Admin: 01/10/21 20:36 Dose: 5 mg Documented by: Furosemide (Furosemide 40 Mg/4 Ml Vial) 40 mg IVPUSH BID@0900,1800 [facility]; Protocol Glucose (Glucose Gel 15 Gm Gel..Gram.) 15 gm PO Q15M PRN; Protocol PRN Reason: per Hypoglycemia Standing Ord. Doxycycline Hyclate 100 mg/ (Sodium Chloride) 250 mls @ 166.67 mls/hr IV Q12H [facility] Last Infusion: 01/11/21 06:16 Dose: Infused Documented by: Insulin Human Lispro (Insulin Lispro 100 Unit/Ml 3 Ml Vial) 0 unit SUBCUT QIDACHS [facility]; Protocol Last Admin: 01/11/21 12:56 Dose: 4 unit Documented by: Lactulose (Lactulose 20 Gm/30 Ml Solution) 20 gm PO TID [facility] Last Admin: 01/11/21 08:05 Dose: 20 gm Documented by: Levothyroxine Sodium (Levothyroxine Sodium 100 Mcg Tablet) 100 mcg PO DAILY@0630 [facility] Last Admin: 01/11/21 06:14 Dose: 100 mcg Documented by: Loratadine (Loratadine 10 Mg Tablet) 10 mg PO DAILY [facility] Last Admin: 01/11/21 08:04 Dose: 10 mg Documented by: Methylprednisolone Sodium Succinate (Methylprednisolone Sod Succ 125 Mg/2 Ml Vial) 250 mg IVPUSH Q6H [facility] Last Admin: 01/11/21 10:45 Dose: 250 mg Documented by: Multivitamins/Vitamin C (Multivitamin Tablet) 1 tab PO DAILY [facility] Last Admin: 01/11/21 08:04 Dose: 1 tab Documented by: Nitroglycerin (Nitroglycerin 0.4 Mg Tab.Subl) 0.4 mg SUBLINGUAL Q5MX3 PRN PRN Reason: Chest Pain Last Admin: 01/11/21 00:29 Dose: 0.4 mg Documented by: Patient Own Med ( Mexiletine 200 Mg Capsule) 1 each PO TID [facility] Last Admin: 01/11/21 08:05 Dose: 1 each Documented by: Omeprazole (Omeprazole 20 Mg Capsule.) 20 mg PO DAILY@0630 [facility] Last Admin: 01/11/21 06:14 Dose: 20 mg Documented by: Ondansetron HCl (Ondansetron Hcl 4 Mg/2 Ml Vial) 4 mg IVPUSH Q8H PRN PRN Reason: Nausea and Vomiting Pharmacy Consult (Consult Rx Perform Med Rec) 1 each MISCELLANE ONCE PRN PRN Reason: Consult order Quetiapine Fumarate (Quetiapine Fumarate 100 Mg Tablet) 100 mg PO BID [facility] Last Admin: 01/11/21 08:04 Dose: 100 mg Documented by: Rifaximin (Rifaximin 550 Mg Tablet) 550 mg PO BID [facility] Last Admin: 01/11/21 08:05 Dose: 550 mg Documented by: Sodium Chloride (0.9 % Sodium Chloride Flush 3 Ml Syringe) 3 ml IVFLUSH QSHIFT [facility] Last Admin: 01/11/21 08:03 Dose: 3 ml Documented by: Spironolactone (Spironolactone 25 Mg Tablet) 25 mg PO DAILY [facility]; Protocol Last Admin: 01/11/21 08:04 Dose: 25 mg Documented by: Tamsulosin HCl (Tamsulosin Hcl 0.4 Mg Capsule) 0.4 mg PO BEDTIME [facility] Last Admin: 01/10/21 20:36 Dose: 0.4 mg Documented by: Valsartan (Valsartan 40 Mg Tablet) 40 mg PO BID [facility]; Protocol Last Admin: 01/11/21 08:05 Dose: 40 mg Documented by: Vitamin D (Cholecalciferol (Vitamin D3) 25 Mcg Tablet) 25 mcg PO DAILY [facility] Last Admin: 01/11/21 08:04 Dose: 25 mcg Documented by: Time Spent With Patient Time: Total time spent is greater than 50% in coordination of care (as documented) at patient's floor/unit and/or counseling patient: Time with patient: 25 - 35 minutes Progress Note: Quality Stroke Does the patient have a stroke diagnosis?: No Procedures Date of Service Date of Service: 01/11/21
[2021-01-11 15:10] LABS: Rheumatoid Factor < 15.0 IU/mL (<15.0)
[2021-01-11 16:18] LABS: Glucose, Whole Blood 224 mg/dL (60-115)
[2021-01-11 20:39] LABS: Glucose, Whole Blood 222 mg/dL (60-115)
[2021-01-11] MEDS: Tamsulosin HCL 0.4 MG CAPSULE PO (21:45)
[2021-01-11] MEDS: Atorvastatin Calcium 10 MG TABLET PO (21:45)
[2021-01-11] MEDS: Finasteride 5 MG TABLET PO (21:46)
[2021-01-12] VITALS (16 sets, daily range): BP systolic 105–143; BP diastolic 59–71; PULSE 80–97; RESP 18–24; TEMP 36.2–37.1; O2SAT 92–98
[2021-01-12 04:19] LABS: HIV AB/AG Nonreactive (Nonreactive); HIV Num 1 0.17 S/CO (0.00-0.99)
[2021-01-12] MEDS: Omeprazole 20 MG CAPSULE.DR PO (05:17)
[2021-01-12] MEDS: methylPREDNISolone Sod Succ 125 MG/2 ML VIAL 250 MG IVPUSH ×4 (05:18→20:26)
[2021-01-12] MEDS: Levothyroxine Sodium 100 MCG TABLET PO (05:18)
[2021-01-12] MEDS: Doxycycline Hyclate 100 MG in 0.9 % Sodium Chloride 250 ML 166.67 MG IV ×2 (05:18→15:25)
[2021-01-12 06:05] LABS: Hemoglobin 8.8 g/dl (14.0-18.0)
[2021-01-12 06:06] LABS: Hematocrit 26.2 % (42-52); Mean Corpuscular HGB Conc 33.6 g/dl (31.0-36.0); Mean Corpuscular Hemoglobin 28.9 pg (27.0-33.0); Mean Corpuscular Volume 85.9 fL (80-98); Mean Platelet Volume 11.4 fL (9.4-12.4); NRBC Pct Auto 0.6 /100WBC (0.0-0.2); Red Blood Count 3.05 X10*6/uL (4.60-5.80); Red Cell Distribution Width 17.6 % (11.0-16.0)
[2021-01-12 06:12] LABS: PLT ABN DIST 1; Platelet Count 56 X10*3/uL (160-400)
[2021-01-12 06:21] LABS: Alanine Aminotransferase 10 U/L (0-40); Albumin Level 2.8 g/dL (3.5-5.0); Alkaline Phosphatase 242 U/L (39-117); Anion Gap 14 (12-20); Aspartate Amino Transferase 76 U/L (5-37); Blood Urea Nitrogen 42 mg/dL (9-16); Calcium 8.9 mg/dL (8.4-10.2); Carbon Dioxide 25 mmol/L (22-29); Chloride 105 mmol/L (96-108); Estimated Glomerular Filt Rate 42; Glucose Random 190 mg/dL (60-115); Magnesium 2.1 mg/dL (1.6-2.6); Potassium 4.8 mmol/L (3.3-5.1); Sodium 139 mmol/L (135-145); Total Protein 6.2 g/dL (6.5-8.0)
[2021-01-12 06:38] LABS: Procalcitonin 0.13 ng/mL
[2021-01-12 08:07] LABS: B Type Natriuretic Peptide 95 pg/mL (<100)
[2021-01-12 08:12] LABS: Glucose, Whole Blood 230 mg/dL (60-115)
[2021-01-12] MEDS: Albuterol/Iprat 2.5/0.5MG 3 ML AMPUL.NEB INHALE ×4 (08:30→20:14)
[2021-01-12] MEDS: Insulin Lispro 100 UNIT/ML 3 ML VIAL SUBCUT ×4 (08:33→20:27)
[2021-01-12] MEDS: Lactulose 20 GM/30 ML SOLUTION PO ×3 (08:34→20:32)
[2021-01-12] MEDS: Loratadine 10 MG TABLET PO (08:34)
[2021-01-12] MEDS: Furosemide 40 MG/4 ML VIAL IVPUSH (08:34)
[2021-01-12] MEDS: Valsartan 40 MG TABLET PO (08:34)
[2021-01-12] MEDS: rifAXIMin 550 MG TABLET PO ×2 (08:34→20:27)
[2021-01-12] MEDS: Multivitamin TABLET 1 TAB PO (08:35)
[2021-01-12] MEDS: Cholecalciferol (Vitamin D3) 25 MCG TABLET PO (08:35)
[2021-01-12] MEDS: carvediloL 3.125 MG TABLET PO ×2 (08:35→20:27)
[2021-01-12] MEDS: QUEtiapine Fumarate 100 MG TABLET PO ×2 (08:35→20:27)
[2021-01-12] MEDS: Carbidopa/Levodopa 25/100 TABLET 1 TAB PO ×3 (08:35→20:27)
[2021-01-12] MEDS: Spironolactone 25 MG TABLET PO (08:36)
[2021-01-12] MEDS: 0.9 % Sodium Chloride Flush 3 ML SYRINGE IVFLUSH ×2 (08:36→15:26)
[2021-01-12] MEDS: Apixaban 5 MG TABLET PO ×2 (08:36→20:27)
[2021-01-12] MEDS: allopurinoL 100 MG TABLET PO (08:36)
--- NOTE | 2021-01-12 10:14 | P.PNCA_ITS ---
Subjective Subjective Date of Service: 01/12/21 Principal diagnosis: Hypoxic respiratory failure Interval history: Still short of breath. Review of Systems Review of Systems Yes all other systems are reviewed and are negative Cardiovascular: Reports as per HPI, Reports no additional cardiovascular complaints, Denies acrocyanosis, Denies cool extremities, Denies painful finger tips, Denies chest pain, Denies chest pain at rest, Denies diaphoresis, Denies syncope, Denies irregular heart rhythm, Denies claudication, Denies leg edema, Denies lightheadedness, Denies palpitations and Reports dyspnea Respiratory: Reports dyspnea Denies syncope Endocrine: Denies palpitations Physical Exam Vital Signs: Last Vital Signs Temp 98.7 F 01/12/21 08:00 Pulse 92 01/12/21 08:36 Resp 20 01/12/21 08:30 BP 105/59 L 01/12/21 08:36 Pulse Ox 94 01/12/21 08:00 Body Mass Index 37.5 Const General: cooperative and no acute distress HENMT Other: Unremarkable Neck Neck: Yes normal visual inspection Chest Chest palpation & inspection: normal inspection of the chest Resp Auscultation: crackles and diminished lung sounds Cardio Jugular venous distension: no JVD Palpation: normal PMI Heart sounds: S1 normal heart sound present, S2 normal heart sound present, no gallops, no murmurs and no rubs GI Palpation (GI): Soft to palpation Back/Spine/Pelvis Other: unremarkable Skin General skin exam: no rashes or lesions noted Neuro Cranial nerves: Yes Other cranial nerve findings present Extrem General: Yes no clubbing, cyanosis or edema Psych Mental Status: other Results Labs and Meds Result diagrams: 01/12/21 05:49 01/12/21 05:49 Lab results: Laboratory Results - last 24 hr 01/11/21 01/11/21 01/11/21 05:56 12:04 14:41 WBC RBC Hgb Hct MCV MCH MCHC RDW Plt Count MPV Absolute Nucleated RBC Nucleated RBC % (auto) Sodium Potassium Chloride Carbon Dioxide Anion Gap BUN Creatinine Estim Creat Clear Calc Estimated GFR POC Glucose 248 H Random Glucose Calcium Magnesium Total Bilirubin AST ALT Alkaline Phosphatase Total Creatine Kinase 114 D B-Natriuretic Peptide Total Protein Albumin Procalcitonin Rheumatoid Factor < 15.0 HIV 1&2 Ab/P24 Ag 4thGn Nonreactive 01/11/21 01/11/21 01/12/21 16:12 20:28 05:49 WBC 10.0 RBC 3.05 L Hgb 8.8 L Hct 26.2 L MCV 85.9 MCH 28.9 MCHC 33.6 RDW 17.6 H Plt Count 56 L MPV 11.4 Absolute Nucleated RBC 0.060 H Nucleated RBC % (auto) 0.6 H Sodium Potassium Chloride Carbon Dioxide Anion Gap BUN Creatinine Estim Creat Clear Calc Estimated GFR POC Glucose 224 H 222 H Random Glucose Calcium Magnesium Total Bilirubin AST ALT Alkaline Phosphatase Total Creatine Kinase B-Natriuretic Peptide Total Protein Albumin Procalcitonin Rheumatoid Factor HIV 1&2 Ab/P24 Ag 4thGn 01/12/21 01/12/21 01/12/21 05:49 05:49 05:49 WBC RBC Hgb Hct MCV MCH MCHC RDW Plt Count MPV Absolute Nucleated RBC Nucleated RBC % (auto) Sodium 139 Potassium 4.8 Chloride 105 Carbon Dioxide 25 Anion Gap 14 BUN 42 H Creatinine 1.62 H Estim Creat Clear Calc 41.0 Estimated GFR 42 POC Glucose Random Glucose 190 H Calcium 8.9 Magnesium 2.1 Total Bilirubin 2.0 H AST 76 H ALT 10 Alkaline Phosphatase 242 H Total Creatine Kinase B-Natriuretic Peptide 95 Total Protein 6.2 L Albumin 2.8 L Procalcitonin 0.13 Rheumatoid Factor HIV 1&2 Ab/P24 Ag 4thGn 01/12/21 08:04 WBC RBC Hgb Hct MCV MCH MCHC RDW Plt Count MPV Absolute Nucleated RBC Nucleated RBC % (auto) Sodium Potassium Chloride Carbon Dioxide Anion Gap BUN Creatinine Estim Creat Clear Calc Estimated GFR POC Glucose 230 H Random Glucose Calcium Magnesium Total Bilirubin AST ALT Alkaline Phosphatase Total Creatine Kinase B-Natriuretic Peptide Total Protein Albumin Procalcitonin Rheumatoid Factor HIV 1&2 Ab/P24 Ag 4thGn Progress Note: A&P Assessment and plan (1) Acute on chronic systolic (congestive) heart failure: Status: Acute (2) Acute respiratory failure with hypoxia: Status: Acute Assessment and Plan: Echocardiogram with severe LV dysfunction. However CT is rather suggestive of possible ARDS but cannot exclude congestive heart failure completely. cBNP only slightly elevated. At this time, empiric diuretics seem reasonable. He is -ve 3.6L. Supplemental O2 as needed. Prognosis guarded. Fall Risk Details Current Medications: Current Medications Acetaminophen (Acetaminophen 325 Mg Tablet) 650 mg PO Q6H PRN PRN Reason: Pain, Mild (Pain Scale 1-3) Albuterol Sulfate (Albuterol Sulfate (0.083%) 2.5 Mg/3 Ml Vial.Neb) 2.5 mg INHALE Q2H PRN PRN Reason: shortness of breath/wheeze Albuterol/Ipratropium (Albuterol/Iprat 2.5/0.5mg 3 Ml Ampul.Neb) 3 ml INHALE RQ4H WHILE AWAKE AILE[facility] Last Admin: 01/12/21 08:30 Dose: 3 ml Documented by: Allopurinol (Allopurinol 100 Mg Tablet) 100 mg PO DAILY [facility] Last Admin: 01/12/21 08:36 Dose: 100 mg Documented by: Apixaban (Apixaban 5 Mg Tablet) 5 mg PO BID [facility] Last Admin: 01/12/21 08:36 Dose: 5 mg Documented by: Atorvastatin Calcium (Atorvastatin Calcium 10 Mg Tablet) 10 mg PO BEDTIME [facility] Last Admin: 01/11/21 21:45 Dose: 10 mg Documented by: Carbidopa/Levodopa (Carbidopa/Levodopa 25/100 Tablet) 1 tab PO TID [facility] Last Admin: 01/12/21 08:35 Dose: 1 tab Documented by: Carvedilol (Carvedilol 3.125 Mg Tablet) 3.125 mg PO BID [facility]; Protocol Last Admin: 01/12/21 08:35 Dose: 3.125 mg Documented by: Dextrose (Dextrose 50 % 25 Gm/50 Ml Vial) 25 gm IVPUSH Q15M PRN; Protocol PRN Reason: per Hypoglycemia Standing Ord. Diphenhydramine HCl (Diphenhydramine Hcl 25 Mg Tablet) 25 mg PO BEDTIME PRN PRN Reason: Sleep Last Admin: 01/10/21 20:36 Dose: 25 mg Documented by: Finasteride (Finasteride 5 Mg Tablet) 5 mg PO BEDTIME [facility] Last Admin: 01/11/21 21:46 Dose: 5 mg Documented by: Furosemide (Furosemide 40 Mg/4 Ml Vial) 40 mg IVPUSH DAILY [facility]; Protocol Glucose (Glucose Gel 15 Gm Gel..Gram.) 15 gm PO Q15M PRN; Protocol PRN Reason: per Hypoglycemia Standing Ord. Doxycycline Hyclate 100 mg/ (Sodium Chloride) 250 mls @ 166.67 mls/hr IV Q12H [facility] Last Infusion: 01/12/21 07:25 Dose: Infused Documented by: Insulin Human Lispro (Insulin Lispro 100 Unit/Ml 3 Ml Vial) 0 unit SUBCUT QIDACHS [facility]; Protocol Last Admin: 01/12/21 08:33 Dose: 4 unit Documented by: Lactulose (Lactulose 20 Gm/30 Ml Solution) 20 gm PO TID [facility] Last Admin: 01/12/21 08:34 Dose: 20 gm Documented by: Levothyroxine Sodium (Levothyroxine Sodium 100 Mcg Tablet) 100 mcg PO DAILY@0630 [facility] Last Admin: 01/12/21 05:18 Dose: 100 mcg Documented by: Loratadine (Loratadine 10 Mg Tablet) 10 mg PO DAILY [facility] Last Admin: 01/12/21 08:34 Dose: 10 mg Documented by: Methylprednisolone Sodium Succinate (Methylprednisolone Sod Succ 125 Mg/2 Ml Vial) 250 mg IVPUSH Q6H [facility] Last Admin: 01/12/21 08:34 Dose: 250 mg Documented by: Multivitamins/Vitamin C (Multivitamin Tablet) 1 tab PO DAILY [facility] Last Admin: 01/12/21 08:35 Dose: 1 tab Documented by: Nitroglycerin (Nitroglycerin 0.4 Mg Tab.Subl) 0.4 mg SUBLINGUAL Q5MX3 PRN PRN Reason: Chest Pain Last Admin: 01/11/21 00:29 Dose: 0.4 mg Documented by: Patient Own Med ( Mexiletine 200 Mg Capsule) 1 each PO TID [facility] Last Admin: 01/12/21 08:37 Dose: 1 each Documented by: Omeprazole (Omeprazole 20 Mg Capsule.Dr) 20 mg PO DAILY@0630 [facility] Last Admin: 01/12/21 05:17 Dose: 20 mg Documented by: Ondansetron HCl (Ondansetron Hcl 4 Mg/2 Ml Vial) 4 mg IVPUSH Q8H PRN PRN Reason: Nausea and Vomiting Pharmacy Consult (Consult Rx Perform Med Rec) 1 each MISCELLANE ONCE PRN PRN Reason: Consult order Quetiapine Fumarate (Quetiapine Fumarate 100 Mg Tablet) 100 mg PO BID [facility] Last Admin: 01/12/21 08:35 Dose: 100 mg Documented by: Rifaximin (Rifaximin 550 Mg Tablet) 550 mg PO BID [facility] Last Admin: 01/12/21 08:34 Dose: 550 mg Documented by: Sodium Chloride (0.9 % Sodium Chloride Flush 3 Ml Syringe) 3 ml IVFLUSH QSHIFT [facility] Last Admin: 01/12/21 08:36 Dose: 3 ml Documented by: Spironolactone (Spironolactone 25 Mg Tablet) 25 mg PO DAILY [facility]; Protocol Last Admin: 01/12/21 08:36 Dose: 25 mg Documented by: Tamsulosin HCl (Tamsulosin Hcl 0.4 Mg Capsule) 0.4 mg PO BEDTIME [facility] Last Admin: 01/11/21 21:45 Dose: 0.4 mg Documented by: Valsartan (Valsartan 40 Mg Tablet) 40 mg PO BID [facility]; Protocol Last Admin: 01/12/21 08:34 Dose: 40 mg Documented by: Vitamin D (Cholecalciferol (Vitamin D3) 25 Mcg Tablet) 25 mcg PO DAILY [facility] Last Admin: 01/12/21 08:35 Dose: 25 mcg Documented by: Time Spent With Patient Time: Total time spent is greater than 50% in coordination of care (as documented) at patient's floor/unit and/or counseling patient: Time with patient: less than 15 minutes Progress Note: Quality Stroke Does the patient have a stroke diagnosis?: No Procedures Date of Service Date of Service: 01/12/21
[2021-01-12 10:56] LABS: Appearance Urine CLEAR; Color Urine YELLOW; Glucose Urine UA NEG (NEG); Leukocyte Esterase Urine NEG (NEG); Nitrite Urine NEG (NEG); Specific Gravity - Urine 1.015 (1.005-1.025); Urine Blood NEG (NEG); Urine Ketones NEG (NEG); Urine Protein NEG (NEG-TRACE)
[2021-01-12 11:27] LABS: RBC Urine 0 /HPF (0); Squamous Epithelial Cell Urine TRACE /LPF; WBC Urine 0 /HPF (0-4)
[2021-01-12 11:36] LABS: Glucose, Whole Blood 253 mg/dL (60-115)
--- NOTE | 2021-01-12 12:39 | P.PNIM_ITS ---
Subjective Subjective Date of Service: 01/12/21 Interval History: History in Mozambican from patient Short of breath but otherwise comfortable No pain Review of Systems Review of Systems: Yes all other systems are reviewed and are negative Physical Exam Vital Signs: Vital Signs: Last Vital Signs Temp 98.4 F 01/12/21 11:20 Pulse 95 01/12/21 11:21 Resp 20 01/12/21 11:21 BP 124/66 01/12/21 11:20 Pulse Ox 95 01/12/21 11:20 Body Mass Index 37.5 Gen: NAD, chronically ill-appearing HEENT: sclera anicteric, moist mucus membranes Neck: supple Lungs: coarse inspiratory crackles at bases bilaterally Heart: regular rate and rhythm, no murmurs Abd: soft, obese, non-tender Ext: 1+ LE edema Skin: warm/well-perfused Neuro: alert and oriented x3 Psych: appropriate affect Objective Data Active Medications Acetaminophen (Acetaminophen 325 Mg Tablet) 650 mg PO Q6H PRN PRN Reason: Pain, Mild (Pain Scale 1-3) Albuterol Sulfate (Albuterol Sulfate (0.083%) 2.5 Mg/3 Ml Vial.Neb) 2.5 mg INHALE Q2H PRN PRN Reason: shortness of breath/wheeze Albuterol/Ipratropium (Albuterol/Iprat 2.5/0.5mg 3 Ml Ampul.Neb) 3 ml INHALE RQ4H WHILE AWAKE [facility] Last Admin: 01/12/21 11:20 Dose: 3 ml Documented by: JEOVANY Allopurinol (Allopurinol 100 Mg Tablet) 100 mg PO DAILY [facility] Last Admin: 01/12/21 08:36 Dose: 100 mg Documented by: DUYEN Apixaban (Apixaban 5 Mg Tablet) 5 mg PO BID [facility] Last Admin: 01/12/21 08:36 Dose: 5 mg Documented by: DUYEN Atorvastatin Calcium (Atorvastatin Calcium 10 Mg Tablet) 10 mg PO BEDTIME [facility] Last Admin: 01/11/21 21:45 Dose: 10 mg Documented by: WILLIAM Carbidopa/Levodopa (Carbidopa/Levodopa 25/100 Tablet) 1 tab PO TID [facility] Last Admin: 01/12/21 08:35 Dose: 1 tab Documented by: DUYEN Carvedilol (Carvedilol 3.125 Mg Tablet) 3.125 mg PO BID [facility]; Protocol Last Admin: 01/12/21 08:35 Dose: 3.125 mg Documented by: DUYEN Dextrose (Dextrose 50 % 25 Gm/50 Ml Vial) 25 gm IVPUSH Q15M PRN; Protocol PRN Reason: per Hypoglycemia Standing Ord. Diphenhydramine HCl (Diphenhydramine Hcl 25 Mg Tablet) 25 mg PO BEDTIME PRN PRN Reason: Sleep Last Admin: 01/10/21 20:36 Dose: 25 mg Documented by: AMANDA Finasteride (Finasteride 5 Mg Tablet) 5 mg PO BEDTIME [facility] Last Admin: 01/11/21 21:46 Dose: 5 mg Documented by: WILLIAM Furosemide (Furosemide 40 Mg/4 Ml Vial) 40 mg IVPUSH DAILY [facility]; Protocol Glucose (Glucose Gel 15 Gm Gel..Gram.) 15 gm PO Q15M PRN; Protocol PRN Reason: per Hypoglycemia Standing Ord. Doxycycline Hyclate 100 mg/ (Sodium Chloride) 250 mls @ 166.67 mls/hr IV Q12H [facility] Last Infusion: 01/12/21 07:25 Dose: 0 mls/hr Documented by: GILLES Insulin Human Lispro (Insulin Lispro 100 Unit/Ml 3 Ml Vial) 0 unit SUBCUT QIDACHS [facility]; Protocol Last Admin: 01/12/21 11:45 Dose: 6 unit Documented by: DUYEN Lactulose (Lactulose 20 Gm/30 Ml Solution) 20 gm PO TID [facility] Last Admin: 01/12/21 08:34 Dose: 20 gm Documented by: DUYEN Levothyroxine Sodium (Levothyroxine Sodium 100 Mcg Tablet) 100 mcg PO DAILY@0630 [facility] Last Admin: 01/12/21 05:18 Dose: 100 mcg Documented by: WILLIAM Loratadine (Loratadine 10 Mg Tablet) 10 mg PO DAILY [facility] Last Admin: 01/12/21 08:34 Dose: 10 mg Documented by: DUYEN Methylprednisolone Sodium Succinate (Methylprednisolone Sod Succ 125 Mg/2 Ml Vial) 250 mg IVPUSH Q6H [facility] Last Admin: 01/12/21 08:34 Dose: 250 mg Documented by: DUYEN Multivitamins/Vitamin C (Multivitamin Tablet) 1 tab PO DAILY [facility] Last Admin: 01/12/21 08:35 Dose: 1 tab Documented by: DUYEN Nitroglycerin (Nitroglycerin 0.4 Mg Tab.Subl) 0.4 mg SUBLINGUAL Q5MX3 PRN PRN Reason: Chest Pain Last Admin: 01/11/21 00:29 Dose: 0.4 mg Documented by: AMANDA Comments: jam Méndez, give nitro now for chest pain Patient Own Med ( Mexiletine 200 Mg Capsule) 1 each PO TID [facility] Last Admin: 01/12/21 08:37 Dose: 1 each Documented by: DUYEN Omeprazole (Omeprazole 20 Mg Capsule.Dr) 20 mg PO DAILY@0630 [facility] Last Admin: 01/12/21 05:17 Dose: 20 mg Documented by: WILLIAM Ondansetron HCl (Ondansetron Hcl 4 Mg/2 Ml Vial) 4 mg IVPUSH Q8H PRN PRN Reason: Nausea and Vomiting Pharmacy Consult (Consult Rx Perform Med Rec) 1 each MISCELLANE ONCE PRN PRN Reason: Consult order Quetiapine Fumarate (Quetiapine Fumarate 100 Mg Tablet) 100 mg PO BID [facility] Last Admin: 01/12/21 08:35 Dose: 100 mg Documented by: DUYEN Rifaximin (Rifaximin 550 Mg Tablet) 550 mg PO BID [facility] Last Admin: 01/12/21 08:34 Dose: 550 mg Documented by: DUYEN Sodium Chloride (0.9 % Sodium Chloride Flush 3 Ml Syringe) 3 ml IVFLUSH QSHIFT [facility] Last Admin: 01/12/21 08:36 Dose: 3 ml Documented by: DUYEN Spironolactone (Spironolactone 25 Mg Tablet) 25 mg PO DAILY [facility]; Protocol Last Admin: 01/12/21 08:36 Dose: 25 mg Documented by: DUYEN Tamsulosin HCl (Tamsulosin Hcl 0.4 Mg Capsule) 0.4 mg PO BEDTIME [facility] Last Admin: 01/11/21 21:45 Dose: 0.4 mg Documented by: WILLIAM Valsartan (Valsartan 40 Mg Tablet) 40 mg PO BID [facility]; Protocol Last Admin: 01/12/21 08:34 Dose: 40 mg Documented by: DUYEN Vitamin D (Cholecalciferol (Vitamin D3) 25 Mcg Tablet) 25 mcg PO DAILY [facility] Last Admin: 01/12/21 08:35 Dose: 25 mcg Documented by: DUYEN Labs CBC & Chem 7: 01/12/21 05:49 01/12/21 05:49 Labs: Laboratory Results - last 24 hr 01/11/21 01/11/21 01/11/21 05:56 14:41 16:12 MCV MCH MCHC RDW Plt Count MPV Absolute Nucleated RBC Nucleated RBC % (auto) Anion Gap Estim Creat Clear Calc Estimated GFR POC Glucose 224 H Random Glucose Calcium Magnesium Total Bilirubin AST ALT Alkaline Phosphatase Total Creatine Kinase 114 D B-Natriuretic Peptide Total Protein Albumin Procalcitonin Urine Color Urine Appearance Urine pH Ur Specific [place] Urine Protein Urine Glucose (UA) Urine Ketones Urine Blood Urine Nitrite Ur Leukocyte Esterase Urine RBC Urine WBC Ur Squamous Epith Cells Urine Bacteria Rheumatoid Factor < 15.0 HIV 1&2 Ab/P24 Ag 4thGn Nonreactive 01/11/21 01/12/21 01/12/21 20:28 05:49 05:49 MCV 85.9 MCH 28.9 MCHC 33.6 RDW 17.6 H Plt Count 56 L MPV 11.4 Absolute Nucleated RBC 0.060 H Nucleated RBC % (auto) 0.6 H Anion Gap 14 Estim Creat Clear Calc 41.0 Estimated GFR 42 POC Glucose 222 H Random Glucose 190 H Calcium 8.9 Magnesium 2.1 Total Bilirubin 2.0 H AST 76 H ALT 10 Alkaline Phosphatase 242 H Total Creatine Kinase B-Natriuretic Peptide Total Protein 6.2 L Albumin 2.8 L Procalcitonin Urine Color Urine Appearance Urine pH Ur Specific [place] Urine Protein Urine Glucose (UA) Urine Ketones Urine Blood Urine Nitrite Ur Leukocyte Esterase Urine RBC Urine WBC Ur Squamous Epith Cells Urine Bacteria Rheumatoid Factor HIV 1&2 Ab/P24 Ag 4thGn 01/12/21 01/12/21 01/12/21 05:49 05:49 08:04 MCV MCH MCHC RDW Plt Count MPV Absolute Nucleated RBC Nucleated RBC % (auto) Anion Gap Estim Creat Clear Calc Estimated GFR POC Glucose 230 H Random Glucose Calcium Magnesium Total Bilirubin AST ALT Alkaline Phosphatase Total Creatine Kinase B-Natriuretic Peptide 95 Total Protein Albumin Procalcitonin 0.13 Urine Color Urine Appearance Urine pH Ur Specific [place] Urine Protein Urine Glucose (UA) Urine Ketones Urine Blood Urine Nitrite Ur Leukocyte Esterase Urine RBC Urine WBC Ur Squamous Epith Cells Urine Bacteria Rheumatoid Factor HIV 1&2 Ab/P24 Ag 4thGn 01/12/21 01/12/21 09:42 11:18 MCV MCH MCHC RDW Plt Count MPV Absolute Nucleated RBC Nucleated RBC % (auto) Anion Gap Estim Creat Clear Calc Estimated GFR POC Glucose 253 H Random Glucose Calcium Magnesium Total Bilirubin AST ALT Alkaline Phosphatase Total Creatine Kinase B-Natriuretic Peptide Total Protein Albumin Procalcitonin Urine Color YELLOW Urine Appearance CLEAR Urine pH 6.0 Ur Specific [place] 1.015 Urine Protein NEG Urine Glucose (UA) NEG Urine Ketones NEG Urine Blood NEG Urine Nitrite NEG Ur Leukocyte Esterase NEG Urine RBC 0 Urine WBC 0 Ur Squamous Epith Cells TRACE Urine Bacteria NONE Rheumatoid Factor HIV 1&2 Ab/P24 Ag 4thGn Assessment and Plan (1) Acute respiratory failure with hypoxia: Status: Acute Assessment and Plan: hospital d#5 75yo M with?cirrhosis related to past EtOH abuse, hepatic encephalopathy, remote history of alcoholic pancreatitis with resultant chronic pancreatitis, asthma/COPD, Parkinsonism, hypothyroidism, previous tobacco abuse, gout, DM2, history of ventricular arrhythmia, AF on apixaban presenting after fall after taking Unisom and complaining of worsening dyspnea and cough; found to be severely hypoxic # acute hypoxic respiratory failure - continue HFNC + NRB; pt is DNR/DNI but NIPPV would be an option # exacerbation of COPD vs ILD vs diffuse interstitial pneumonitis - discussed with ICU + Pulm, started high-dose pulse sterois on 01/10/21; start tapering tomorrow - doxycycline d#5 - prn nebs - COVID-19 negative by HUMAIRA and PCR; rest of RVP PCR negative; check SARS-CoV2 IgG - HIV negative, RF negative; CCP, JOSE, ANCA pending # acute/chronic HFrEF [LVER 20%] # dilated cardiomyopathy - IV diuresis with furosemide though I suspect at this point the primary problem is more pulmonary than cardiac- will decrease to 40 mg daily trend BNP, monitor I/O + BMP + Mg. continue chronic beta-matias; ARB valsartan started but will d/c due to FLYNN; continue spironolactone. Cardiology following # FLYNN - decrease diuresis, d/c valsartan, avoid nephrotoxins, recheck SCr in am, check renal US # ventricular arrhythmia - continue carvedilol + mexiletine.? has ICD.? 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 correction-dose lispro # VTE ppx - apixaban # dispo - likely to have a prolonged hospital course and if he survives, would need STR Quality Stroke Does the patient have a stroke diagnosis?: No VTE Prior VTE?: No VTE Risk Level:: Medical - moderate - high VTE Device Contraindication: N/A - Device Ordered VTE Drug Contraindication: N/A - Med Ordered
[2021-01-12 13:04] LABS: C Reactive Protein 2.67 mg/dL (< or = 0.50)
--- NOTE | 2021-01-12 13:31 | CONS_ITS ---
DATE OF SERVICE: 01/12/2021 REASON FOR CONSULTATION: I was called to see this patient to assist in the management of acute kidney injury. HISTORY OF PRESENT ILLNESS: To summarize, Rito is a 75-year-old man with a history of long-standing diabetes mellitus, hypertension, COPD, obesity, hyperlipidemia, and history of pancreatitis who comes into the hospital because of fall and had dyspnea. At the time of admission, the chest x-ray showed diffuse ground-glass appearance. He has been started on steroids and he is being diuresed with Lasix 40 mg twice a day. He is responding well to IV diuretics. At the time of admission, the serum creatinine was 1.38 mg/dL. His baseline is around 1.4 mg/dL. Over the last 2 to 3 days, there has been a mild bump in his serum creatinine up to 1.62 and hence this consultation. PAST MEDICAL HISTORY: Ongoing medical problems include CKD 3, COPD, coronary artery disease, adenomatous polyp of colon, history of pancreatitis, hyperlipidemia, hypertension, obesity, and diabetes mellitus. FAMILY HISTORY: Noncontributory for this admission. PAST SURGICAL HISTORY: History of pacemaker placement, colonoscopy, and EGD. SOCIAL HISTORY: No history of any alcohol abuse or drug abuse. He used to smoke long time ago. ALLERGIES: HE IS ALLERGIC TO MORPHINE. MEDICATIONS: All the current medications were reviewed. Home medications were reviewed as well. At home, he was on vitamin D3, levothyroxine, loratadine, omeprazole, simvastatin, , quetiapine, spironolactone 25 mg, allopurinol, carbidopa/levodopa, carvedilol 3.125, insulin, rifaximin, torsemide 10 mg, multivitamin, and mexiletine. REVIEW OF SYSTEMS: Positive for shortness of breath. No chest pain, nausea, or vomiting. No abdominal pain, diarrhea, or constipation. No dysuria, urgency, increased frequency, or hematuria. PHYSICAL EXAMINATION: GENERAL: Today, the patient appears comfortable at rest, but dyspneic on exertion. He has a non-rebreather on. NECK: Supple. No JVD. LUNGS: Bilateral scattered rhonchi. HEART: S1 and S2 heard. No gallop. ABDOMEN: Soft and nontender. Bowel sounds heard. NEURO: He is awake, able to answer simple questions. No asterixis. EXTREMITIES: No significant edema. No rash. No clubbing. VITAL SIGNS: Blood pressure today was 105/59 and pulse 92. LABORATORY DATA: Sodium 139, potassium 4.8, CO2 of 25, BUN 42, creatinine 1.62, calcium 8.9, bilirubin 2.0, alkaline phosphatase 242, serum albumin 2.8. ABG on admission showed pH of 7.46, pCO2 of 27, PO2 of 68, bicarb of 19. Hemoglobin 8.8, WBC 10.0, and platelet count 56,000. IMPRESSION: 1. Acute kidney injury superimposed on chronic kidney disease. Acute kidney injury is most likely due to hypoperfusion from diuretics. However, it could have progressed to ischemic nephropathy. He has a history of bladder outlet obstruction, therefore, obstructive uropathy should be considered. No reason to believe he has any active glomerular interstitial disease at this time. 2. Chronic kidney disease stage 3, most likely due to hypertensive diabetic kidney disease. Baseline creatinine has been around 1.3 to 1.4 mg/dL. 3. Respiratory alkalosis. 4. Anemia with thrombocytopenia. 5. Cirrhosis of the liver. 6. Diabetes mellitus. RECOMMENDATIONS: My recommendation would be to obtain a spot urine for sodium, creatinine, and protein. Obtain urinalysis. I would certainly avoid hypotension and continue to avoid nephrotoxic agents. Decrease Lasix to 40 mg once a day. Monitor intake and output. If the output is inadequate, I will obtain renal ultrasonogram. Further workup will be based on the outcome of the baseline investigations. We will continue to follow him closely with the team. MD RAMY Blandon/MODL / [id number]
--- NOTE | 2021-01-12 14:38 | MHC.CLN ---
NUTRITION CONSULT CONSULT DUE TO PATIENT IS BEDBOUND DUE TO INCREASED OXYGEN REQUIREMENTS. MEDS INCLUDE LASIX AND HUMALOG. CHANGED DIET TO DIABETIC 1800 KCAL (31.9 KCAL/KG IBW), CARDIAC.
--- NOTE | 2021-01-12 14:52 | MHC.CM.PN ---
EMR REVIEWED, PT REMAINS ON [place] MASK AT 15L O2, NO D/C PLANNED AT THIS TIME, CM WILL CONT TO FOLLOW D/C NEEDS.
[2021-01-12 15:11] LABS: Myeloperoxidase Antibody <1.0 AI; Proteinase 3 PR3 Antibodies <1.0 AI
[2021-01-12 16:07] LABS: Glucose, Whole Blood 224 mg/dL (60-115)
[2021-01-12 16:41] LABS: Anti Nuclear Antibody Screen NEGATIVE (NEGATIVE)
[2021-01-12] MEDS: guaiFENesin DM 100/10/5 ML 5 ML SYRUP PO (18:02)
[2021-01-12 20:09] LABS: Glucose, Whole Blood 268 mg/dL (60-115)
[2021-01-12] MEDS: Tamsulosin HCL 0.4 MG CAPSULE PO (20:27)
[2021-01-12] MEDS: Finasteride 5 MG TABLET PO (20:27)
[2021-01-12] MEDS: Atorvastatin Calcium 10 MG TABLET PO (20:27)
[2021-01-13] VITALS (15 sets, daily range): BP systolic 104–155; BP diastolic 52–80; PULSE 60–112; RESP 16–24; TEMP 36.1–36.7; O2SAT 79–97
[2021-01-13 04:25] LABS: SARS COV2 IgG Negative (Negative)
[2021-01-13] MEDS: Omeprazole 20 MG CAPSULE.DR PO (04:55)
[2021-01-13] MEDS: methylPREDNISolone Sod Succ 125 MG/2 ML VIAL 250 MG IVPUSH ×2 (04:55→09:37)
[2021-01-13] MEDS: Doxycycline Hyclate 100 MG in 0.9 % Sodium Chloride 250 ML 166.67 MG IV ×2 (04:55→15:43)
[2021-01-13] MEDS: Levothyroxine Sodium 100 MCG TABLET PO (05:01)
[2021-01-13 05:37] LABS: Hematocrit 26.4 % (42-52); Hemoglobin 8.7 g/dl (14.0-18.0); Mean Corpuscular Hemoglobin 28.5 pg (27.0-33.0); Mean Corpuscular Volume 86.6 fL (80-98); Mean Platelet Volume 12.1 fL (9.4-12.4); NRBC Pct Auto 0.8 /100WBC (0.0-0.2); Red Blood Count 3.05 X10*6/uL (4.60-5.80); Red Cell Distribution Width 17.9 % (11.0-16.0); White Blood Count 7.5 X10*3/uL (4.8-10.8)
[2021-01-13 05:38] LABS: PLT ABN DIST 1; Platelet Count 52 X10*3/uL (160-400)
[2021-01-13 05:39] LABS: VBG Base Excess 0.5 mmol/L; VBG HCO3 24 mmol/L (22-26); VBG pCO2 36 mmHg; VBG pH 7.43 (7.32-7.43); VBG pO2 62 mmHg
[2021-01-13 05:40] LABS: Venous Blood Gas Refer to POC result
[2021-01-13 05:51] LABS: Alanine Aminotransferase 14 U/L (0-40); Albumin Level 2.8 g/dL (3.5-5.0); Alkaline Phosphatase 241 U/L (39-117); Anion Gap 13 (12-20); Aspartate Amino Transferase 71 U/L (5-37); Bilirubin Total 2.1 mg/dL (0.0-1.0); Blood Urea Nitrogen 45 mg/dL (9-16); Calcium 8.9 mg/dL (8.4-10.2); Carbon Dioxide 25 mmol/L (22-29); Chloride 104 mmol/L (96-108); Creatinine Clr Calc Pharmacy 43.4; Estimated Glomerular Filt Rate 45; Glucose Random 204 mg/dL (60-115); Magnesium 2.3 mg/dL (1.6-2.6); Potassium 5.2 mmol/L (3.3-5.1); Sodium 137 mmol/L (135-145); Total Protein 5.9 g/dL (6.5-8.0)
[2021-01-13 05:56] LABS: B Type Natriuretic Peptide 135 pg/mL (<100)
[2021-01-13 07:25] LABS: INTERNATIONAL NORM RATIO 3.6 (0.9-1.1)
[2021-01-13 07:29] LABS: Prothrombin Time 42.1 SEC (9.9-13.0)
[2021-01-13 07:39] LABS: Glucose, Whole Blood 196 mg/dL (60-115)
[2021-01-13] MEDS: 0.9 % Sodium Chloride Flush 3 ML SYRINGE IVFLUSH ×2 (07:44→15:44)
[2021-01-13] MEDS: Insulin Lispro 100 UNIT/ML 3 ML VIAL SUBCUT ×4 (07:44→20:10)
[2021-01-13] MEDS: Albuterol/Iprat 2.5/0.5MG 3 ML AMPUL.NEB INHALE ×3 (07:46→19:52)
[2021-01-13] MEDS: Lactulose 20 GM/30 ML SOLUTION PO (09:37)
[2021-01-13] MEDS: QUEtiapine Fumarate 100 MG TABLET PO ×2 (09:39→20:08)
[2021-01-13] MEDS: Cholecalciferol (Vitamin D3) 25 MCG TABLET PO (09:39)
[2021-01-13] MEDS: Multivitamin TABLET 1 TAB PO (09:39)
[2021-01-13] MEDS: rifAXIMin 550 MG TABLET PO ×2 (09:39→20:07)
[2021-01-13] MEDS: allopurinoL 100 MG TABLET PO (09:39)
[2021-01-13] MEDS: Apixaban 5 MG TABLET PO ×2 (09:39→20:08)
[2021-01-13] MEDS: Loratadine 10 MG TABLET PO (09:39)
[2021-01-13] MEDS: carvediloL 3.125 MG TABLET PO ×2 (09:39→20:07)
[2021-01-13] MEDS: Acetaminophen 325 MG TABLET 650 MG PO (09:43)
--- NOTE | 2021-01-13 10:14 | PM.PNNEP ---
Subjective Subjective Date of Service: 01/13/21 Principal diagnosis: Hypoxic respiratory failure Interval history: Events noted Still with dyspnea Physical Exam Vital Signs: Vital Signs: Last Vital Signs Temp 98.1 F 01/13/21 07:31 Pulse 96 01/13/21 07:47 Resp 24 H 01/13/21 07:47 BP 112/59 L 01/13/21 07:31 Pulse Ox 95 01/13/21 07:31 Body Mass Index 37.5 Const: General: alert, awake and ill appearing Neck: Neck: Yes supple Resp: Auscultation: rhonchi Cardio: Palpation: no palpable S3 Heart sounds: no gallops and no rubs GI: Palpation (GI): Soft to palpation Auscultation: normal bowel sounds Neuro: General: tone normal Motor exam (neuro): no asterixis Extrem: General: Yes no pedal edema Objective Data Labs CBC & Chem 7: 01/13/21 05:25 01/13/21 05:25 Labs: Laboratory Results - last 24 hr 01/11/21 01/11/21 01/12/21 14:41 14:41 05:49 WBC RBC Hgb Hct MCV MCH MCHC RDW Plt Count MPV Absolute Nucleated RBC Nucleated RBC % (auto) PT INR VBG pH VBG pCO2 VBG pO2 VBG HCO3 VBG O2 Saturation VBG Base Excess Sodium Potassium Chloride Carbon Dioxide Anion Gap BUN Creatinine Estim Creat Clear Calc Estimated GFR POC Glucose Random Glucose Calcium Magnesium Total Bilirubin AST ALT Alkaline Phosphatase C-Reactive Protein 2.67 H B-Natriuretic Peptide Total Protein Albumin Urine Color Urine Appearance Urine pH Ur Specific [place] Urine Protein Urine Glucose (UA) Urine Ketones Urine Blood Urine Nitrite Ur Leukocyte Esterase Urine RBC Urine WBC Ur Squamous Epith Cells Urine Bacteria JOSE Screen NEGATIVE Proteinase 3 (PR3) Ab <1.0 Myeloperoxidase Ab <1.0 SARS-CoV-2 IgG Ab 01/12/21 01/12/21 01/12/21 09:42 09:57 11:18 WBC RBC Hgb Hct MCV MCH MCHC RDW Plt Count MPV Absolute Nucleated RBC Nucleated RBC % (auto) PT INR VBG pH VBG pCO2 VBG pO2 VBG HCO3 VBG O2 Saturation VBG Base Excess Sodium Potassium Chloride Carbon Dioxide Anion Gap BUN Creatinine Estim Creat Clear Calc Estimated GFR POC Glucose 253 H Random Glucose Calcium Magnesium Total Bilirubin AST ALT Alkaline Phosphatase C-Reactive Protein B-Natriuretic Peptide Total Protein Albumin Urine Color YELLOW Urine Appearance CLEAR Urine pH 6.0 Ur Specific [place] 1.015 Urine Protein NEG Urine Glucose (UA) NEG Urine Ketones NEG Urine Blood NEG Urine Nitrite NEG Ur Leukocyte Esterase NEG Urine RBC 0 Urine WBC 0 Ur Squamous Epith Cells TRACE Urine Bacteria NONE JOSE Screen Proteinase 3 (PR3) Ab Myeloperoxidase Ab SARS-CoV-2 IgG Ab Negative 01/12/21 01/12/21 01/13/21 15:55 19:52 05:25 WBC 7.5 RBC 3.05 L Hgb 8.7 L Hct 26.4 L MCV 86.6 MCH 28.5 MCHC 33.0 RDW 17.9 H Plt Count 52 L MPV 12.1 Absolute Nucleated RBC 0.060 H Nucleated RBC % (auto) 0.8 H PT INR VBG pH VBG pCO2 VBG pO2 VBG HCO3 VBG O2 Saturation VBG Base Excess Sodium Potassium Chloride Carbon Dioxide Anion Gap BUN Creatinine Estim Creat Clear Calc Estimated GFR POC Glucose 224 H 268 H Random Glucose Calcium Magnesium Total Bilirubin AST ALT Alkaline Phosphatase C-Reactive Protein B-Natriuretic Peptide Total Protein Albumin Urine Color Urine Appearance Urine pH Ur Specific [place] Urine Protein Urine Glucose (UA) Urine Ketones Urine Blood Urine Nitrite Ur Leukocyte Esterase Urine RBC Urine WBC Ur Squamous Epith Cells Urine Bacteria JOSE Screen Proteinase 3 (PR3) Ab Myeloperoxidase Ab SARS-CoV-2 IgG Ab 01/13/21 01/13/21 01/13/21 05:25 05:25 05:33 WBC RBC Hgb Hct MCV MCH MCHC RDW Plt Count MPV Absolute Nucleated RBC Nucleated RBC % (auto) PT INR VBG pH 7.43 VBG pCO2 36 VBG pO2 62 VBG HCO3 24 VBG O2 Saturation 84.0 VBG Base Excess 0.5 Sodium 137 Potassium 5.2 H Chloride 104 Carbon Dioxide 25 Anion Gap 13 BUN 45 H Creatinine 1.53 H Estim Creat Clear Calc 43.4 Estimated GFR 45 POC Glucose Random Glucose 204 H Calcium 8.9 Magnesium 2.3 Total Bilirubin 2.1 H AST 71 H ALT 14 Alkaline Phosphatase 241 H C-Reactive Protein B-Natriuretic Peptide 135 H Total Protein 5.9 L Albumin 2.8 L Urine Color Urine Appearance Urine pH Ur Specific [place] Urine Protein Urine Glucose (UA) Urine Ketones Urine Blood Urine Nitrite Ur Leukocyte Esterase Urine RBC Urine WBC Ur Squamous Epith Cells Urine Bacteria JOSE Screen Proteinase 3 (PR3) Ab Myeloperoxidase Ab SARS-CoV-2 IgG Ab 01/13/21 01/13/21 06:55 07:30 WBC RBC Hgb Hct MCV MCH MCHC RDW Plt Count MPV Absolute Nucleated RBC Nucleated RBC % (auto) PT 42.1 H D INR 3.6 H VBG pH VBG pCO2 VBG pO2 VBG HCO3 VBG O2 Saturation VBG Base Excess Sodium Potassium Chloride Carbon Dioxide Anion Gap BUN Creatinine Estim Creat Clear Calc Estimated GFR POC Glucose 196 H Random Glucose Calcium Magnesium Total Bilirubin AST ALT Alkaline Phosphatase C-Reactive Protein B-Natriuretic Peptide Total Protein Albumin Urine Color Urine Appearance Urine pH Ur Specific [place] Urine Protein Urine Glucose (UA) Urine Ketones Urine Blood Urine Nitrite Ur Leukocyte Esterase Urine RBC Urine WBC Ur Squamous Epith Cells Urine Bacteria JOSE Screen Proteinase 3 (PR3) Ab Myeloperoxidase Ab SARS-CoV-2 IgG Ab Procedures Date of Service Date of Service: 01/13/21 Assessment & Plan Assessment and plan (1) Acute respiratory failure with hypoxia: Status: Acute (2) COPD (chronic obstructive pulmonary disease): Status: Acute (3) CKD (chronic kidney disease) stage 3, GFR 30-59 ml/min: Status: Acute Assessment and Plan: Renal function is close to baseline Given his respiratory status, agree with diuresing in spite of curent creatinine. Would accept a bump in creatinine Hold Spironolactone due to mild elevation in potassium; If K > 5.5 , would administer 1 dose of Kayexalate Time Spent With Patient Time: Total time spent is greater than 50% in coordination of care (as documented) at patient's floor/unit and/or counseling patient: Time with patient: 15 - 24 minutes Progress Note: Quality Stroke Does the patient have a stroke diagnosis?: No
[2021-01-13 10:29] LABS: Creatinine Clr Calc Pharmacy 44.6; Estimated Glomerular Filt Rate 46
[2021-01-13 11:16] LABS: Glucose, Whole Blood 235 mg/dL (60-115)
--- NOTE | 2021-01-13 11:25 | P.PNCA_ITS ---
Subjective Subjective Date of Service: 01/13/21 Principal diagnosis: Hypoxic respiratory failure Interval history: Still short of breath and requires significant supplemental oxygen. Review of Systems Review of Systems Yes all other systems are reviewed and are negative Cardiovascular: Reports as per HPI, Reports no additional cardiovascular complaints, Denies acrocyanosis, Denies cool extremities, Denies painful fingertips, Denies chest pain, Denies chest pain at rest, Denies diaphoresis, Denies syncope, Denies irregular heart rhythm, Denies claudication, Denies leg edema, Denies lightheadedness, Denies palpitations and Reports dyspnea Respiratory: Reports dyspnea Denies syncope Endocrine: Denies palpitations Physical Exam Vital Signs: Last Vital Signs Temp 97.6 F 01/13/21 11:05 Pulse 89 01/13/21 11:05 Resp 21 H 01/13/21 11:05 BP 115/55 L 01/13/21 11:05 Pulse Ox 96 01/13/21 11:05 Body Mass Index 37.5 Const General: cooperative and no acute distress HENDE Other: Unremarkable Neck Neck: Yes normal visual inspection Chest Chest palpation & inspection: normal inspection of the chest Resp Auscultation: crackles and diminished lung sounds Cardio Jugular venous distension: no JVD Palpation: normal PMI Heart sounds: S1 normal heart sound present, S2 normal heart sound present, no gallops, no murmurs and no rubs GI Palpation (GI): Soft to palpation Back/Spine/Pelvis Other: unremarkable Skin General skin exam: no rashes or lesions noted Neuro Cranial nerves: Yes Other cranial nerve findings present Extrem General: Yes no clubbing, cyanosis or edema Psych Mental Status: other Results Labs and Meds Result diagrams: 01/13/21 05:25 01/13/21 10:06 Lab results: Laboratory Results - last 24 hr 01/11/21 01/11/21 01/12/21 14:41 14:41 05:49 WBC RBC Hgb Hct MCV MCH MCHC RDW Plt Count MPV Absolute Nucleated RBC Nucleated RBC % (auto) PT INR VBG pH VBG pCO2 VBG pO2 VBG HCO3 VBG O2 Saturation VBG Base Excess Sodium Potassium Chloride Carbon Dioxide Anion Gap BUN Creatinine Estim Creat Clear Calc Estimated GFR POC Glucose Random Glucose Calcium Magnesium Total Bilirubin AST ALT Alkaline Phosphatase C-Reactive Protein 2.67 H B-Natriuretic Peptide Total Protein Albumin Urine RBC Urine WBC Ur Squamous Epith Cells Urine Bacteria JOSE Screen NEGATIVE Proteinase 3 (PR3) Ab <1.0 Myeloperoxidase Ab <1.0 SARS-CoV-2 IgG Ab 01/12/21 01/12/21 01/12/21 09:42 09:57 11:18 WBC RBC Hgb Hct MCV MCH MCHC RDW Plt Count MPV Absolute Nucleated RBC Nucleated RBC % (auto) PT INR VBG pH VBG pCO2 VBG pO2 VBG HCO3 VBG O2 Saturation VBG Base Excess Sodium Potassium Chloride Carbon Dioxide Anion Gap BUN Creatinine Estim Creat Clear Calc Estimated GFR POC Glucose 253 H Random Glucose Calcium Magnesium Total Bilirubin AST ALT Alkaline Phosphatase C-Reactive Protein B-Natriuretic Peptide Total Protein Albumin Urine RBC 0 Urine WBC 0 Ur Squamous Epith Cells TRACE Urine Bacteria NONE JOSE Screen Proteinase 3 (PR3) Ab Myeloperoxidase Ab SARS-CoV-2 IgG Ab Negative 01/12/21 01/12/21 01/13/21 15:55 19:52 05:25 WBC 7.5 RBC 3.05 L Hgb 8.7 L Hct 26.4 L MCV 86.6 MCH 28.5 MCHC 33.0 RDW 17.9 H Plt Count 52 L MPV 12.1 Absolute Nucleated RBC 0.060 H Nucleated RBC % (auto) 0.8 H PT INR VBG pH VBG pCO2 VBG pO2 VBG HCO3 VBG O2 Saturation VBG Base Excess Sodium Potassium Chloride Carbon Dioxide Anion Gap BUN Creatinine Estim Creat Clear Calc Estimated GFR POC Glucose 224 H 268 H Random Glucose Calcium Magnesium Total Bilirubin AST ALT Alkaline Phosphatase C-Reactive Protein B-Natriuretic Peptide Total Protein Albumin Urine RBC Urine WBC Ur Squamous Epith Cells Urine Bacteria JOSE Screen Proteinase 3 (PR3) Ab Myeloperoxidase Ab SARS-CoV-2 IgG Ab 01/13/21 01/13/21 01/13/21 05:25 05:25 05:33 WBC RBC Hgb Hct MCV MCH MCHC RDW Plt Count MPV Absolute Nucleated RBC Nucleated RBC % (auto) PT INR VBG pH 7.43 VBG pCO2 36 VBG pO2 62 VBG HCO3 24 VBG O2 Saturation 84.0 VBG Base Excess 0.5 Sodium 137 Potassium 5.2 H Chloride 104 Carbon Dioxide 25 Anion Gap 13 BUN 45 H Creatinine 1.53 H Estim Creat Clear Calc 43.4 Estimated GFR 45 POC Glucose Random Glucose 204 H Calcium 8.9 Magnesium 2.3 Total Bilirubin 2.1 H AST 71 H ALT 14 Alkaline Phosphatase 241 H C-Reactive Protein B-Natriuretic Peptide 135 H Total Protein 5.9 L Albumin 2.8 L Urine RBC Urine WBC Ur Squamous Epith Cells Urine Bacteria JOSE Screen Proteinase 3 (PR3) Ab Myeloperoxidase Ab SARS-CoV-2 IgG Ab 01/13/21 01/13/21 01/13/21 06:55 07:30 10:06 WBC RBC Hgb Hct MCV MCH MCHC RDW Plt Count MPV Absolute Nucleated RBC Nucleated RBC % (auto) PT 42.1 H D INR 3.6 H VBG pH VBG pCO2 VBG pO2 VBG HCO3 VBG O2 Saturation VBG Base Excess Sodium Potassium Chloride Carbon Dioxide Anion Gap BUN Creatinine 1.49 H Estim Creat Clear Calc 44.6 Estimated GFR 46 POC Glucose 196 H Random Glucose Calcium Magnesium Total Bilirubin AST ALT Alkaline Phosphatase C-Reactive Protein B-Natriuretic Peptide Total Protein Albumin Urine RBC Urine WBC Ur Squamous Epith Cells Urine Bacteria JOSE Screen Proteinase 3 (PR3) Ab Myeloperoxidase Ab SARS-CoV-2 IgG Ab 01/13/21 11:04 WBC RBC Hgb Hct MCV MCH MCHC RDW Plt Count MPV Absolute Nucleated RBC Nucleated RBC % (auto) PT INR VBG pH VBG pCO2 VBG pO2 VBG HCO3 VBG O2 Saturation VBG Base Excess Sodium Potassium Chloride Carbon Dioxide Anion Gap BUN Creatinine Estim Creat Clear Calc Estimated GFR POC Glucose 235 H Random Glucose Calcium Magnesium Total Bilirubin AST ALT Alkaline Phosphatase C-Reactive Protein B-Natriuretic Peptide Total Protein Albumin Urine RBC Urine WBC Ur Squamous Epith Cells Urine Bacteria JOSE Screen Proteinase 3 (PR3) Ab Myeloperoxidase Ab SARS-CoV-2 IgG Ab Imaging Radiologist's impression: Impressions Renal Ultrasound 01/12/21 09:26 IMPRESSION: No significant renal abnormality. Progress Note: A&P Assessment and plan (1) Acute on chronic systolic (congestive) heart failure: Status: Acute (2) Acute respiratory failure with hypoxia: Status: Acute Assessment and Plan: Echocardiogram with severe LV dysfunction. However CT is rather suggestive of possible interstitial pneumonia/?ARDS, but cannot exclude congestive heart failure completely. cBNP only slightly elevated. These data are discordant and hence suspect primary pulmonary issue to be more likely in this acute hypox ia/respiratory failure. At this time, empiric diuretics seem reasonable for any cardiac components of pulmonary edema. OK to try Lasix drip today. Discussed with . Fall Risk Details Current Medications: Current Medications Acetaminophen (Acetaminophen 325 Mg Tablet) 650 mg PO Q6H PRN PRN Reason: Pain, Mild (Pain Scale 1-3) Last Admin: 01/13/21 09:43 Dose: 650 mg Documented by: Albuterol Sulfate (Albuterol Sulfate (0.083%) 2.5 Mg/3 Ml Vial.Neb) 2.5 mg INHALE Q2H PRN PRN Reason: shortness of breath/wheeze Albuterol/Ipratropium (Albuterol/Iprat 2.5/0.5mg 3 Ml Ampul.Neb) 3 ml INHALE RQ4H WHILE AWAKE AILEEN Last Admin: 01/13/21 07:46 Dose: 3 ml Documented by: Allopurinol (Allopurinol 100 Mg Tablet) 100 mg PO DAILY [facility] Last Admin: 01/13/21 09:39 Dose: 100 mg Documented by: Apixaban (Apixaban 5 Mg Tablet) 5 mg PO BID [facility] Last Admin: 01/13/21 09:39 Dose: 5 mg Documented by: Atorvastatin Calcium (Atorvastatin Calcium 10 Mg Tablet) 10 mg PO BEDTIME AILEEN Last Admin: 01/12/21 20:27 Dose: 10 mg Documented by: Carbidopa/Levodopa (Carbidopa/Levodopa 25/100 Tablet) 1 tab PO TID AILEEN Last Admin: 01/12/21 20:27 Dose: 1 tab Documented by: Carvedilol (Carvedilol 3.125 Mg Tablet) 3.125 mg PO BID [facility]; Protocol Last Admin: 01/13/21 09:39 Dose: 3.125 mg Documented by: Dextrose (Dextrose 50 % 25 Gm/50 Ml Vial) 25 gm IVPUSH Q15M PRN; Protocol PRN Reason: per Hypoglycemia Standing Ord. Diphenhydramine HCl (Diphenhydramine Hcl 25 Mg Tablet) 25 mg PO BEDTIME PRN PRN Reason: Sleep Last Admin: 01/10/21 20:36 Dose: 25 mg Documented by: Finasteride (Finasteride 5 Mg Tablet) 5 mg PO BEDTIME AILEEN Last Admin: 01/12/21 20:27 Dose: 5 mg Documented by: Glucose (Glucose Gel 15 Gm Gel..Gram.) 15 gm PO Q15M PRN; Protocol PRN Reason: per Hypoglycemia Standing Ord. Guaifenesin/Dextromethorphan (Guaifenesin Dm 100/10/5 Ml 5 Ml Syrup) 5 ml PO Q4H PRN PRN Reason: Cough Last Admin: 01/12/21 18:02 Dose: 5 ml Documented by: Doxycycline Hyclate 100 mg/ (Sodium Chloride) 250 mls @ 166.67 mls/hr IV Q12H [facility] Last Infusion: 01/13/21 07:47 Dose: Infused Documented by: Furosemide 200 mg/ Sodium (Chloride) 100 mls @ 2 mls/hr IVCONT .Q24H [facility] Insulin Human Lispro (Insulin Lispro 100 Unit/Ml 3 Ml Vial) 0 unit SUBCUT QIDACHS [facility]; Protocol Last Admin: 01/13/21 07:44 Dose: 2 unit Documented by: Lactulose (Lactulose 20 Gm/30 Ml Solution) 20 gm PO TID [facility] Last Admin: 01/13/21 09:37 Dose: 20 gm Documented by: Levothyroxine Sodium (Levothyroxine Sodium 100 Mcg Tablet) 100 mcg PO DAILY@0630 [facility] Last Admin: 01/13/21 05:01 Dose: 100 mcg Documented by: Loratadine (Loratadine 10 Mg Tablet) 10 mg PO DAILY [facility] Last Admin: 01/13/21 09:39 Dose: 10 mg Documented by: Multivitamins/Vitamin C (Multivitamin Tablet) 1 tab PO DAILY [facility] Last Admin: 01/13/21 09:39 Dose: 1 tab Documented by: Nitroglycerin (Nitroglycerin 0.4 Mg Tab.Subl) 0.4 mg SUBLINGUAL Q5MX3 PRN PRN Reason: Chest Pain Last Admin: 01/11/21 00:29 Dose: 0.4 mg Documented by: Patient Own Med ( Mexiletine 200 Mg Capsule) 1 each PO TID [facility] Last Admin: 01/12/21 22:15 Dose: 1 each Documented by: Omeprazole (Omeprazole 20 Mg Capsule.Dr) 20 mg PO DAILY@0630 [facility] Last Admin: 01/13/21 04:55 Dose: 20 mg Documented by: Ondansetron HCl (Ondansetron Hcl 4 Mg/2 Ml Vial) 4 mg IVPUSH Q8H PRN PRN Reason: Nausea and Vomiting Pharmacy Consult (Consult Rx Perform Med Rec) 1 each MISCELLANE ONCE PRN PRN Reason: Consult order Prednisone (Prednisone 20 Mg Tablet) 40 mg PO DAILY [facility] Quetiapine Fumarate (Quetiapine Fumarate 100 Mg Tablet) 100 mg PO BID [facility] Last Admin: 01/13/21 09:39 Dose: 100 mg Documented by: Rifaximin (Rifaximin 550 Mg Tablet) 550 mg PO BID [facility] Last Admin: 01/13/21 09:39 Dose: 550 mg Documented by: Sodium Chloride (0.9 % Sodium Chloride Flush 3 Ml Syringe) 3 ml IVFLUSH QSHIFT [facility] Last Admin: 01/13/21 07:44 Dose: 3 ml Documented by: Spironolactone (Spironolactone 25 Mg Tablet) 25 mg PO DAILY [facility]; Protocol Last Admin: 01/12/21 08:36 Dose: 25 mg Documented by: Tamsulosin HCl (Tamsulosin Hcl 0.4 Mg Capsule) 0.4 mg PO BEDTIME [facility] Last Admin: 01/12/21 20:27 Dose: 0.4 mg Documented by: Vitamin D (Cholecalciferol (Vitamin D3) 25 Mcg Tablet) 25 mcg PO DAILY [facility] Last Admin: 01/13/21 09:39 Dose: 25 mcg Documented by: Time Spent With Patient Time: Total time spent is greater than 50% in coordination of care (as documented) at patient's floor/unit and/or counseling patient: Time with patient: less than 15 minutes Progress Note: Quality Stroke Does the patient have a stroke diagnosis?: No Procedures Date of Service Date of Service: 01/13/21
[2021-01-13] MEDS: Furosemide 200 MG in 0.9 % Sodium Chloride 80 ML IVCONT (12:12)
--- NOTE | 2021-01-13 12:37 | P.PNPL_ITS ---
Subjective Subjective Date of Service: 01/13/21 Principal diagnosis: Hypoxic respiratory failure Interval history: The patient was seen and examined. Still on high-flow 100% on a non-rebreather. He has completed 3 days of the pulse dose steroids. No significant improvement in his respiratory status. His blood work came back with a negative ANCA, negative JOSE, negative SARs antibodies negative respiratory viral panel among others. No clear indication of why he has developed significant pneumonitis. The patient is too sick for biopsy. Objective Data Labs CBC & Chem 7: 01/13/21 05:25 01/13/21 10:06 Labs: Laboratory Results - last 24 hr 01/11/21 01/11/21 01/12/21 14:41 14:41 05:49 WBC RBC Hgb Hct MCV MCH MCHC RDW Plt Count MPV Absolute Nucleated RBC Nucleated RBC % (auto) PT INR VBG pH VBG pCO2 VBG pO2 VBG HCO3 VBG O2 Saturation VBG Base Excess Sodium Potassium Chloride Carbon Dioxide Anion Gap BUN Creatinine Estim Creat Clear Calc Estimated GFR POC Glucose Random Glucose Calcium Magnesium Total Bilirubin AST ALT Alkaline Phosphatase C-Reactive Protein 2.67 H B-Natriuretic Peptide Total Protein Albumin JOSE Screen NEGATIVE Proteinase 3 (PR3) Ab <1.0 Myeloperoxidase Ab <1.0 SARS-CoV-2 IgG Ab 01/12/21 01/12/21 01/12/21 09:57 15:55 19:52 WBC RBC Hgb Hct MCV MCH MCHC RDW Plt Count MPV Absolute Nucleated RBC Nucleated RBC % (auto) PT INR VBG pH VBG pCO2 VBG pO2 VBG HCO3 VBG O2 Saturation VBG Base Excess Sodium Potassium Chloride Carbon Dioxide Anion Gap BUN Creatinine Estim Creat Clear Calc Estimated GFR POC Glucose 224 H 268 H Random Glucose Calcium Magnesium Total Bilirubin AST ALT Alkaline Phosphatase C-Reactive Protein B-Natriuretic Peptide Total Protein Albumin JOSE Screen Proteinase 3 (PR3) Ab Myeloperoxidase Ab SARS-CoV-2 IgG Ab Negative 01/13/21 01/13/21 01/13/21 05:25 05:25 05:25 WBC 7.5 RBC 3.05 L Hgb 8.7 L Hct 26.4 L MCV 86.6 MCH 28.5 MCHC 33.0 RDW 17.9 H Plt Count 52 L MPV 12.1 Absolute Nucleated RBC 0.060 H Nucleated RBC % (auto) 0.8 H PT INR VBG pH VBG pCO2 VBG pO2 VBG HCO3 VBG O2 Saturation VBG Base Excess Sodium 137 Potassium 5.2 H Chloride 104 Carbon Dioxide 25 Anion Gap 13 BUN 45 H Creatinine 1.53 H Estim Creat Clear Calc 43.4 Estimated GFR 45 POC Glucose Random Glucose 204 H Calcium 8.9 Magnesium 2.3 Total Bilirubin 2.1 H AST 71 H ALT 14 Alkaline Phosphatase 241 H C-Reactive Protein B-Natriuretic Peptide 135 H Total Protein 5.9 L Albumin 2.8 L JOSE Screen Proteinase 3 (PR3) Ab Myeloperoxidase Ab SARS-CoV-2 IgG Ab 01/13/21 01/13/21 01/13/21 05:33 06:55 07:30 WBC RBC Hgb Hct MCV MCH MCHC RDW Plt Count MPV Absolute Nucleated RBC Nucleated RBC % (auto) PT 42.1 H D INR 3.6 H VBG pH 7.43 VBG pCO2 36 VBG pO2 62 VBG HCO3 24 VBG O2 Saturation 84.0 VBG Base Excess 0.5 Sodium Potassium Chloride Carbon Dioxide Anion Gap BUN Creatinine Estim Creat Clear Calc Estimated GFR POC Glucose 196 H Random Glucose Calcium Magnesium Total Bilirubin AST ALT Alkaline Phosphatase C-Reactive Protein B-Natriuretic Peptide Total Protein Albumin JOSE Screen Proteinase 3 (PR3) Ab Myeloperoxidase Ab SARS-CoV-2 IgG Ab 01/13/21 01/13/21 10:06 11:04 WBC RBC Hgb Hct MCV MCH MCHC RDW Plt Count MPV Absolute Nucleated RBC Nucleated RBC % (auto) PT INR VBG pH VBG pCO2 VBG pO2 VBG HCO3 VBG O2 Saturation VBG Base Excess Sodium Potassium Chloride Carbon Dioxide Anion Gap BUN Creatinine 1.49 H Estim Creat Clear Calc 44.6 Estimated GFR 46 POC Glucose 235 H Random Glucose Calcium Magnesium Total Bilirubin AST ALT Alkaline Phosphatase C-Reactive Protein B-Natriuretic Peptide Total Protein Albumin JOSE Screen Proteinase 3 (PR3) Ab Myeloperoxidase Ab SARS-CoV-2 IgG Ab Review of Systems Constitutional: Denies night sweats Denies change in voice, Denies lip swelling, Denies mouth pain and Denies tongue swelling Cardiovascular: Denies chest pain and Reports dyspnea Respiratory: Reports cough, Denies hemoptysis, Reports dyspnea and Denies stridor Gastrointestinal: Denies abdominal pain Hematologic/Lymphatic: Denies easy bleeding and Denies lymphadenopathy Allergic/Immunologic: Denies lip swelling and Denies tongue swelling Physical Exam Vital Signs: Vital Signs: Last Vital Signs Temp 97.6 F 01/13/21 11:05 Pulse 95 01/13/21 11:53 Resp 24 H 01/13/21 11:53 BP 115/55 L 01/13/21 11:05 Pulse Ox 96 01/13/21 11:05 Body Mass Index 37.5 Const: General: alert Neck: Neck: Yes normal visual inspection, Yes full ROM and Yes no lymphadenopathy Chest: Chest palpation & inspection: normal inspection of the chest Resp: Auscultation: diminished lung sounds Cardio: Rate: regular rate Rhythm: regular rhythm Heart sounds: S1 eliecer l heart sound present and S2 normal heart sound present GI: Palpation (GI): Soft to palpation and nontender Auscultation: normal bowel sounds Skin: General skin exam: rashes and/or lesions noted Procedures Date of Service Date of Service: 01/13/21 Assessment and Plan Assessment and plan (1) Acute on chronic systolic (congestive) heart failure: Status: Acute (2) Acute respiratory failure with hypoxia: Status: Acute (3) Pneumonitis: Status: Acute Assessment and Plan: D/c pulse dose solumedrol Start Prednisone 40mg Start Lasix drip Time Spent With Patient Time: Total time spent is greater than 50% in coordination of care (as documented) at patient's floor/unit and/or counseling patient: Time with patient: 25 - 35 minutes Progress Note: Quality Stroke Does the patient have a stroke diagnosis?: No
--- NOTE | 2021-01-13 12:49 | HO.PM.IMPN ---
Subjective Subjective Date of Service: 01/13/21 Interval History: chf vs ild Review of Systems still sob -says somewhat improving Denies any chest pain or abdominal pain or nausea or vomiting Physical Exam Vital Signs: Vital Signs: Last Vital Signs Temp 97.6 F 01/13/21 11:05 Pulse 95 01/13/21 11:53 Resp 24 H 01/13/21 11:53 BP 115/55 L 01/13/21 11:05 Pulse Ox 96 01/13/21 11:05 Body Mass Index 37.5 Gen: NAD, chronically ill-appearing HEENT: sclera anicteric, moist mucus membranes Neck: supple Lungs:air entry seems slightly improving , still coarse carcles present Heart: regular rate and rhythm, no murmurs Abd: soft, obese, non-tender Ext: 1+ LE edema Skin: warm/well-perfused Neuro: alert and oriented x3 Psych: appropriate affect Objective Data Active Medications Acetaminophen (Acetaminophen 325 Mg Tablet) 650 mg PO Q6H PRN PRN Reason: Pain, Mild (Pain Scale 1-3) Last Admin: 01/13/21 09:43 Dose: 650 mg Documented by: LAUREN Albuterol Sulfate (Albuterol Sulfate (0.083%) 2.5 Mg/3 Ml Vial.Neb) 2.5 mg INHALE Q2H PRN PRN Reason: shortness of breath/wheeze Albuterol/Ipratropium (Albuterol/Iprat 2.5/0.5mg 3 Ml Ampul.Neb) 3 ml INHALE RQ4H WHILE AWAKE [facility] Last Admin: 01/13/21 11:51 Dose: 3 ml Documented by: JEOVANY Allopurinol (Allopurinol 100 Mg Tablet) 100 mg PO DAILY [facility] Last Admin: 01/13/21 09:39 Dose: 100 mg Documented by: LAUREN Apixaban (Apixaban 5 Mg Tablet) 5 mg PO BID [facility] Last Admin: 01/13/21 09:39 Dose: 5 mg Documented by: LAUREN Atorvastatin Calcium (Atorvastatin Calcium 10 Mg Tablet) 10 mg PO BEDTIME [facility] Last Admin: 01/12/21 20:27 Dose: 10 mg Documented by: WILLIAM Carbidopa/Levodopa (Carbidopa/Levodopa 25/100 Tablet) 1 tab PO TID [facility] Last Admin: 01/13/21 12:07 Dose: Not Given Documented by: LAUREN Non-Admin Reason: Patient Refused Carvedilol (Carvedilol 3.125 Mg Tablet) 3.125 mg PO BID AILEEN; Protocol Last Admin: 01/13/21 09:39 Dose: 3.125 mg Documented by: LAUREN Dextrose (Dextrose 50 % 25 Gm/50 Ml Vial) 25 gm IVPUSH Q15M PRN; Protocol PRN Reason: per Hypoglycemia Standing Ord. Diphenhydramine HCl (Diphenhydramine Hcl 25 Mg Tablet) 25 mg PO BEDTIME PRN PRN Reason: Sleep Last Admin: 01/10/21 20:36 Dose: 25 mg Documented by: AMANDA Finasteride (Finasteride 5 Mg Tablet) 5 mg PO BEDTIME AILEEN Last Admin: 01/12/21 20:27 Dose: 5 mg Documented by: WILLIAM Glucose (Glucose Gel 15 Gm Gel..Gram.) 15 gm PO Q15M PRN; Protocol PRN Reason: per Hypoglycemia Standing Ord. Guaifenesin/Dextromethorphan (Guaifenesin Dm 100/10/5 Ml 5 Ml Syrup) 5 ml PO Q4H PRN PRN Reason: Cough Last Admin: 01/12/21 18:02 Dose: 5 ml Documented by: DUYEN Doxycycline Hyclate 100 mg/ (Sodium Chloride) 250 mls @ 166.67 mls/hr IV Q12H [facility] Last Infusion: 01/13/21 07:47 Dose: 0 mls/hr Documented by: LAUREN Furosemide 200 mg/ Sodium (Chloride) 100 mls @ 2 mls/hr IVCONT .Q24H [facility] Last Admin: 01/13/21 12:12 Dose: 4 mg/hr, 2 mls/hr Documented by: LAUREN Insulin Human Lispro (Insulin Lispro 100 Unit/Ml 3 Ml Vial) 0 unit SUBCUT QIDACHS [facility]; Protocol Last Admin: 01/13/21 12:12 Dose: 4 unit Documented by: LAUREN Lactulose (Lactulose 20 Gm/30 Ml Solution) 20 gm PO TID [facility] Last Admin: 01/13/21 09:37 Dose: 20 gm Documented by: LAUREN Levothyroxine Sodium (Levothyroxine Sodium 100 Mcg Tablet) 100 mcg PO DAILY@0630 [facility] Last Admin: 01/13/21 05:01 Dose: 100 mcg Documented by: WILLIAM Loratadine (Loratadine 10 Mg Tablet) 10 mg PO DAILY [facility] Last Admin: 01/13/21 09:39 Dose: 10 mg Documented by: LAUREN Multivitamins/Vitamin C (Multivitamin Tablet) 1 tab PO DAILY [facility] Last Admin: 01/13/21 09:39 Dose: 1 tab Documented by: LAUREN Nitroglycerin (Nitroglycerin 0.4 Mg Tab.Subl) 0.4 mg SUBLINGUAL Q5MX3 PRN PRN Reason: Chest Pain Last Admin: 01/11/21 00:29 Dose: 0.4 mg Documented by: AMANDA Comments: jam Méndez, give nitro now for chest pain Patient Own Med ( Mexiletine 200 Mg Capsule) 1 each PO TID [facility] Last Admin: 01/13/21 12:38 Dose: Not Given Documented by: LAUREN Non-Admin Reason: med unavailable Non-Formulary Med ( Mexiletine 150mg Cap ) 1 each PO BID@1230,1600 [facility] Stop: 01/13/21 16:01 Omeprazole (Omeprazole 20 Mg Capsule.Dr) 20 mg PO DAILY@0630 [facility] Last Admin: 01/13/21 04:55 Dose: 20 mg Documented by: WILLIAM Ondansetron HCl (Ondansetron Hcl 4 Mg/2 Ml Vial) 4 mg IVPUSH Q8H PRN PRN Reason: Nausea and Vomiting Pharmacy Consult (Consult Rx Perform Med Rec) 1 each MISCELLANE ONCE PRN PRN Reason: Consult order Prednisone (Prednisone 20 Mg Tablet) 40 mg PO DAILY [facility] Quetiapine Fumarate (Quetiapine Fumarate 100 Mg Tablet) 100 mg PO BID [facility] Last Admin: 01/13/21 09:39 Dose: 100 mg Documented by: LAUREN Rifaximin (Rifaximin 550 Mg Tablet) 550 mg PO BID [facility] Last Admin: 01/13/21 09:39 Dose: 550 mg Documented by: LAUREN Sodium Chloride (0.9 % Sodium Chloride Flush 3 Ml Syringe) 3 ml IVFLUSH QSHIFT [facility] Last Admin: 01/13/21 07:44 Dose: 3 ml Documented by: LAUREN Spironolactone (Spironolactone 25 Mg Tablet) 25 mg PO DAILY AILEEN; Protocol Last Admin: 01/12/21 08:36 Dose: 25 mg Documented by: DUYEN Tamsulosin HCl (Tamsulosin Hcl 0.4 Mg Capsule) 0.4 mg PO BEDTIME AILEEN Last Admin: 01/12/21 20:27 Dose: 0.4 mg Documented by: WILLIAM Vitamin D (Cholecalciferol (Vitamin D3) 25 Mcg Tablet) 25 mcg PO DAILY AILEEN Last Admin: 01/13/21 09:39 Dose: 25 mcg Documented by: LAUREN Labs CBC & Chem 7: 01/13/21 05:25 01/13/21 10:06 Labs: Laboratory Results - last 24 hr 01/11/21 01/11/21 01/12/21 14:41 14:41 05:49 MCV MCH MCHC RDW Plt Count MPV Absolute Nucleated RBC Nucleated RBC % (auto) PT INR VBG pH VBG pCO2 VBG pO2 VBG HCO3 VBG O2 Saturation VBG Base Excess Anion Gap Estim Creat Clear Calc Estimated GFR POC Glucose Random Glucose Calcium Magnesium Total Bilirubin AST ALT Alkaline Phosphatase C-Reactive Protein 2.67 H B-Natriuretic Peptide Total Protein Albumin JOSE Screen NEGATIVE Proteinase 3 (PR3) Ab <1.0 Myeloperoxidase Ab <1.0 SARS-CoV-2 IgG Ab 01/12/21 01/12/21 01/12/21 09:57 15:55 19:52 MCV MCH MCHC RDW Plt Count MPV Absolute Nucleated RBC Nucleated RBC % (auto) PT INR VBG pH VBG pCO2 VBG pO2 VBG HCO3 VBG O2 Saturation VBG Base Excess Anion Gap Estim Creat Clear Calc Estimated GFR POC Glucose 224 H 268 H Random Glucose Calcium Magnesium Total Bilirubin AST ALT Alkaline Phosphatase C-Reactive Protein B-Natriuretic Peptide Total Protein Albumin JOSE Screen Proteinase 3 (PR3) Ab Myeloperoxidase Ab SARS-CoV-2 IgG Ab Negative 01/13/21 01/13/21 01/13/21 05:25 05:25 05:25 MCV 86.6 MCH 28.5 MCHC 33.0 RDW 17.9 H Plt Count 52 L MPV 12.1 Absolute Nucleated RBC 0.060 H Nucleated RBC % (auto) 0.8 H PT INR VBG pH VBG pCO2 VBG pO2 VBG HCO3 VBG O2 Saturation VBG Base Excess Anion Gap 13 Estim Creat Clear Calc 43.4 Estimated GFR 45 POC Glucose Random Glucose 204 H Calcium 8.9 Magnesium 2.3 Total Bilirubin 2.1 H AST 71 H ALT 14 Alkaline Phosphatase 241 H C-Reactive Protein B-Natriuretic Peptide 135 H Total Protein 5.9 L Albumin 2.8 L JOSE Screen Proteinase 3 (PR3) Ab Myeloperoxidase Ab SARS-CoV-2 IgG Ab 01/13/21 01/13/21 01/13/21 05:33 06:55 07:30 MCV MCH MCHC RDW Plt Count MPV Absolute Nucleated RBC Nucleated RBC % (auto) PT 42.1 H D INR 3.6 H VBG pH 7.43 VBG pCO2 36 VBG pO2 62 VBG HCO3 24 VBG O2 Saturation 84.0 VBG Base Excess 0.5 Anion Gap Estim Creat Clear Calc Estimated GFR POC Glucose 196 H Random Glucose Calcium Magnesium Total Bilirubin AST ALT Alkaline Phosphatase C-Reactive Protein B-Natriuretic Peptide Total Protein Albumin JOSE Screen Proteinase 3 (PR3) Ab Myeloperoxidase Ab SARS-CoV-2 IgG Ab 01/13/21 01/13/21 10:06 11:04 MCV MCH MCHC RDW Plt Count MPV Absolute Nucleated RBC Nucleated RBC % (auto) PT INR VBG pH VBG pCO2 VBG pO2 VBG HCO3 VBG O2 Saturation VBG Base Excess Anion Gap Estim Creat Clear Calc 44.6 Estimated GFR 46 POC Glucose 235 H Random Glucose Calcium Magnesium Total Bilirubin AST ALT Alkaline Phosphatase C-Reactive Protein B-Natriuretic Peptide Total Protein Albumin JOSE Screen Proteinase 3 (PR3) Ab Myeloperoxidase Ab SARS-CoV-2 IgG Ab Assessment and Plan (1) Pneumonitis: Status: Acute (2) CKD (chronic kidney disease) stage 3, GFR 30-59 ml/min: Status: Acute (3) Acute respiratory failure with hypoxia: Status: Acute Assessment and Plan: 75yo M with?cirrhosis related to past EtOH abuse, hepatic encephalopathy, remote history of alcoholic pancreatitis with resultant chronic pancreatitis, asthma/COPD, Parkinsonism, hypothyroidism, previous tobacco abuse, gout, DM2, history of ventricular arrhythmia, AF on apixaban presenting after fall after taking Unisom and complaining of worsening dyspnea and cough; found to be severely hypoxic 1.acute hypoxic respiratory failure continue HFNC + NRB; pt is DNR/DNI but NIPPV would be an option 2. exacerbation of COPD vs ILD vs diffuse interstitial pneumonitis discussed with ICU + Pulm, started high-dose pulse sterois on 01/10/21; start prednisone taper 40 mg today,doxycycline d#6,prn nebs,COVID-19 negative by HUMAIRA and PCR; rest of RVP PCR negative; SARS-CoV2 IgG neg HIV negative, RF negative; CCP, JOSE, ANCA pending pulmonary following 3. acute/chronic HFrEF [LVER 20%]- dilated cardiomyopathy - IV diuresis with furosemide though I suspect at this point the primary problem is more pulmonary than cardiac- will decrease to 40 mg daily? trend BNP, monitor I/O + BMP + Mg.? continue coreg,noted - ARB valsartan started but will d/c due to FLYNN hold spironolactone due to hyperkalemia .? bnp -eleavted 150's d/w nephro/cardio/pulm -added trial of lasix drip i/o monitering 4. AKIvs ckd -, d/c valsartan, avoid nephrotoxins, recheck SCr in am, check renal US noetd urine cr and protein d/w nephro/cardio/pulm -added trial of lasix drip 5.ventricular arrhythmia- continue carvedilol + mexiletine.? has ICD.? 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 AF- continue apixaban 7. chronic pancreatitis- no pain currently 8. cirrhosis - due to past EtOH - watch for signs of decompensation - no ascites to tap 10. hepatic encephalopathy - continue lactulose + rifaximin 11. bone lucencies in C-spine - could be facet arthritis/osteopenia but will obtain NM bone scan once more stable 12. prostatism- continue tamsulosin + finasteride 13. gout- continue allopurinol. 14. hypothyroidism- continue LT4 15. Parkinsonism- continue Sinemet 16. DM2- last A1c only 5.9.? correction-dose lispro 17. VTE ppx- continue apixaban inr elevated-probable related to liver dis , but does not need to be followed with apixiban no gross bleeding dispo- likely to have a prolonged hospital course and if he survives, would need STR Quality Stroke Does the patient have a stroke diagnosis?: No VTE Prior VTE?: No VTE Risk Level:: Medical - moderate - high VTE Device Contraindication: N/A - Device Ordered VTE Drug Contraindication: N/A - Med Ordered
[2021-01-13] MEDS: Carbidopa/Levodopa 25/100 TABLET 1 TAB PO ×2 (14:35→20:08)
[2021-01-13] MEDS: Lactulose 20 GM/30 ML SOLUTION 30 GM PO ×2 (14:42→20:10)
[2021-01-13 14:55] LABS: Creatinine Urine 80.35 mg/dL
[2021-01-13 16:08] LABS: Glucose, Whole Blood 230 mg/dL (60-115)
[2021-01-13 17:20] LABS: Glucose, Whole Blood 241 mg/dL (60-115)
[2021-01-13 17:50] LABS: Venous Blood Gas Refer to POC result
[2021-01-13 17:51] LABS: VBG Base Excess 0.4 mmol/L; VBG HCO3 24 mmol/L (22-26); VBG pCO2 37 mmHg; VBG pH 7.41 (7.32-7.43); VBG pO2 48 mmHg
--- NOTE | 2021-01-13 18:12 | PC.NURSE ---
This RN arrived into room to find patient lying in opposite direction in bed, nonrebreather and high flow off, bleeding from iv site in right hand. Patient unresponsive. 02 sat 72% High flow and nonrebreather mask applied back on patient. Rapid response called. 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 at 1720 bp:153/80 HR113 02 79%. Sinus tach on tele. After Repositioned in bed repeat 02 sat 86-90%. At 1727 BP: 140/66, HR 91, 02 91% on 75% 55L highflow and 100% nonrebreather. Patient arousable, alert and oriented. Vague on situation, patient confused as to why he removed his oxygen. MD order for repeat VBGS. Camera placed in room for safety. Educated patient on importance of keeping oxygen in place.
[2021-01-13] MEDS: predniSONE 20 MG TABLET 40 MG PO (18:31)
[2021-01-13 19:55] LABS: Glucose, Whole Blood 260 mg/dL (60-115)
[2021-01-13] MEDS: Atorvastatin Calcium 10 MG TABLET PO (20:08)
[2021-01-13] MEDS: Finasteride 5 MG TABLET PO (20:09)
[2021-01-13] MEDS: Tamsulosin HCL 0.4 MG CAPSULE PO (20:09)
[2021-01-13 21:42] LABS: Cyclic Citrullinated Peptide <16 UNITS
--- NOTE | 2021-01-13 23:59 | MHC.PIE ---
p; 3 beats v tach noted i; Dr barajas notified e; will cont to monitor
[2021-01-14] VITALS (18 sets, daily range): BP systolic 118–134; BP diastolic 56–70; PULSE 84–100; RESP 18–28; TEMP 35.7–36.6; O2SAT 86–96
[2021-01-14 01:19] LABS: Magnesium 2.4 mg/dL (1.6-2.6); Potassium 4.9 mmol/L (3.3-5.1)
[2021-01-14] MEDS: Doxycycline Hyclate 100 MG in 0.9 % Sodium Chloride 250 ML 166.67 MG IV ×2 (04:12→16:12)
[2021-01-14] MEDS: Omeprazole 20 MG CAPSULE.DR PO (05:47)
[2021-01-14] MEDS: Levothyroxine Sodium 100 MCG TABLET PO (05:47)
[2021-01-14 06:07] LABS: Hematocrit 27.1 % (42-52); Hemoglobin 8.9 g/dl (14.0-18.0)
[2021-01-14 06:12] LABS: INTERNATIONAL NORM RATIO 3.2 (0.9-1.1); Prothrombin Time 37.5 SEC (9.9-13.0)
[2021-01-14 06:27] LABS: Anion Gap 15 (12-20); Blood Urea Nitrogen 53 mg/dL (9-16); Calcium 8.8 mg/dL (8.4-10.2); Carbon Dioxide 24 mmol/L (22-29); Chloride 102 mmol/L (96-108); Creatinine Clr Calc Pharmacy 40.3; Estimated Glomerular Filt Rate 41; Glucose Random 260 mg/dL (60-115); Sodium 136 mmol/L (135-145)
[2021-01-14 07:31] LABS: Glucose, Whole Blood 256 mg/dL (60-115)
[2021-01-14] MEDS: Albuterol/Iprat 2.5/0.5MG 3 ML AMPUL.NEB INHALE ×4 (07:53→19:47)
[2021-01-14] MEDS: allopurinoL 100 MG TABLET PO (08:13)
[2021-01-14] MEDS: QUEtiapine Fumarate 100 MG TABLET PO ×2 (08:14→21:31)
[2021-01-14] MEDS: predniSONE 20 MG TABLET 40 MG PO (08:14)
[2021-01-14] MEDS: Cholecalciferol (Vitamin D3) 25 MCG TABLET PO (08:14)
[2021-01-14] MEDS: Loratadine 10 MG TABLET PO (08:14)
[2021-01-14] MEDS: Apixaban 5 MG TABLET PO ×2 (08:15→21:31)
[2021-01-14] MEDS: rifAXIMin 550 MG TABLET PO ×2 (08:15→21:30)
[2021-01-14] MEDS: Carbidopa/Levodopa 25/100 TABLET 1 TAB PO ×3 (08:15→21:30)
[2021-01-14] MEDS: carvediloL 3.125 MG TABLET PO ×2 (08:16→21:31)
[2021-01-14] MEDS: Multivitamin TABLET 1 TAB PO (08:17)
[2021-01-14] MEDS: Lactulose 20 GM/30 ML SOLUTION 30 GM PO ×3 (08:19→21:29)
[2021-01-14] MEDS: Insulin Lispro 100 UNIT/ML 3 ML VIAL SUBCUT ×4 (08:21→21:30)
[2021-01-14] MEDS: 0.9 % Sodium Chloride Flush 3 ML SYRINGE IVFLUSH ×2 (08:37→21:31)
--- NOTE | 2021-01-14 10:23 | P.PNNP_ITS ---
Subjective Subjective Date of Service: 01/14/21 Principal diagnosis: Hypoxic respiratory failure Interval history: Events noted In negative fluid balance with IV Lasix Physical Exam Vital Signs: Vital Signs: Last Vital Signs Temp 97.9 F 01/14/21 07:20 Pulse 87 01/14/21 08:16 Resp 22 H 01/14/21 07:56 BP 123/56 L 01/14/21 08:16 Pulse Ox 92 01/14/21 07:20 Body Mass Index 37.5 Const: General: alert, awake and ill appearing Neck: Neck: Yes supple Resp: Auscultation: rhonchi Cardio: Palpation: no palpable S3 Heart sounds: no gallops and no rubs GI: Palpation (GI): Soft to palpation Auscultation: normal bowel sounds Neuro: General: tone normal Motor exam (neuro): no asterixis Extrem: General: Yes no pedal edema Objective Data Labs CBC & Chem 7: 01/14/21 05:29 01/14/21 05:29 Labs: Laboratory Results - last 24 hr 01/11/21 01/11/21 01/13/21 14:41 14:41 10:06 Hgb Hct PT INR VBG pH VBG pCO2 VBG pO2 VBG HCO3 VBG O2 Saturation VBG Base Excess Sodium Potassium Chloride Carbon Dioxide Anion Gap BUN Creatinine 1.49 H Estim Creat Clear Calc 44.6 Estimated GFR 46 POC Glucose Random Glucose Calcium Magnesium Urine Creatinine Urine Microalbumin Microalb/Creat Ratio Cycl Citrul Peptide IgG <16 JOSE Titer TNP JOSE Titer 2 TNP JOSE Titer 3 TNP JOSE Pattern TNP JOSE Pattern 2 TNP JOSE Pattern 3 TNP 01/13/21 01/13/21 01/13/21 11:04 14:15 16:02 Hgb Hct PT INR VBG pH VBG pCO2 VBG pO2 VBG HCO3 VBG O2 Saturation VBG Base Excess Sodium Potassium Chloride Carbon Dioxide Anion Gap BUN Creatinine Estim Creat Clear Calc Estimated GFR POC Glucose 235 H 230 H Random Glucose Calcium Magnesium Urine Creatinine 80.35 Urine Microalbumin 41.0 Microalb/Creat Ratio 51.0 Cycl Citrul Peptide IgG JOSE Titer JOSE Titer 2 JOSE Titer 3 JOSE Pattern JOSE Pattern 2 JOSE Pattern 3 01/13/21 01/13/21 01/13/21 17:16 17:45 19:47 Hgb Hct PT INR VBG pH 7.41 VBG pCO2 37 VBG pO2 48 VBG HCO3 24 VBG O2 Saturation 67.0 VBG Base Excess 0.4 Sodium Potassium Chloride Carbon Dioxide Anion Gap BUN Creatinine Estim Creat Clear Calc Estimated GFR POC Glucose 241 H 260 H Random Glucose Calcium Magnesium Urine Creatinine Urine Microalbumin Microalb/Creat Ratio Cycl Citrul Peptide IgG JOSE Titer JOSE Titer 2 JOSE Titer 3 JOSE Pattern JOSE Pattern 2 JOSE Pattern 3 01/14/21 01/14/21 01/14/21 00:36 05:29 05:29 Hgb 8.9 L Hct 27.1 L PT INR VBG pH VBG pCO2 VBG pO2 VBG HCO3 VBG O2 Saturation VBG Base Excess Sodium 136 Potassium 4.9 5.0 Chloride 102 Carbon Dioxide 24 Anion Gap 15 BUN 53 H Creatinine 1.65 H Estim Creat Clear Calc 40.3 Estimated GFR 41 POC Glucose Random Glucose 260 H Calcium 8.8 Magnesium 2.4 Urine Creatinine Urine Microalbumin Microalb/Creat Ratio Cycl Citrul Peptide IgG JOSE Titer JOSE Titer 2 JOSE Titer 3 JOSE Pattern JOSE Pattern 2 JOSE Pattern 3 01/14/21 01/14/21 05:29 07:19 Hgb Hct PT 37.5 H INR 3.2 H VBG pH VBG pCO2 VBG pO2 VBG HCO3 VBG O2 Saturation VBG Base Excess Sodium Potassium Chloride Carbon Dioxide Anion Gap BUN Creatinine Estim Creat Clear Calc Estimated GFR POC Glucose 256 H Random Glucose Calcium Magnesium Urine Creatinine Urine Microalbumin Microalb/Creat Ratio Cycl Citrul Peptide IgG JOSE Titer JOSE Titer 2 JOSE Titer 3 JOSE Pattern JOSE Pattern 2 JOSE Pattern 3 Procedures Date of Service Date of Service: 01/14/21 Assessment & Plan Assessment and plan (1) Acute respiratory failure with hypoxia: Status: Acute (2) COPD (chronic obstructive pulmonary disease): Status: Acute (3) CKD (chronic kidney disease) stage 3, GFR 30-59 ml/min: Status: Acute Assessment and Plan: FLYNN superimposed on CKD ILD / Hypoxia Anemia Dilated Cardiomyopathy Assessment and Plan: BUN and creatinine have bumped up with Lasix as expected. ILD > CHF Hold Spironolactone due to mild elevation in potassium; If K > 5.5 , would administer 1 dose of Kayexalate Time Spent With Patient Time: Total time spent is greater than 50% in coordination of care (as documen nettie) at patient's floor/unit and/or counseling patient: Time with patient: 15 - 24 minutes Progress Note: Quality Stroke Does the patient have a stroke diagnosis?: No
[2021-01-14 11:22] LABS: Glucose, Whole Blood 203 mg/dL (60-115)
--- NOTE | 2021-01-14 11:28 | HE.PHANOTE ---
RE: Patient owned medication: Mexiletine 200mg Patient takes Mexiletine 200mg by mouth three times a day as part of his outpatient medication regimen. Upon admission, his DYE COLORIST FORMULATOR Alistair [phone]) brought in his home medication. The patient's own medication supply ended on 01/13. The DYE COLORIST FORMULATOR was contacted to bring more medication in (pharmacy was contacted and medication was to be ready around 3-4pm). In the interim, there was authorization from Dr Mojica to use Mexelitine 150mg QID in its place until the home medication was brought in. The order was entered for a 12:00 and 16:00 dose, and physically handed off to the nurse on shift for 01/13. It was discovered the following morning (01/14/21@0650) that the DYE COLORIST FORMULATOR never brought the medication in and the patient missed their 21:00 dose. Upon further review, it was also discovered the patient did not receive the 16:00 dose of the 150mg strength either. DYE COLORIST FORMULATOR was contacted and medication could not be brought in until 11:00 due to supply issues from the pharmacy. Dr. Mi was consulted about changing the dose in the interim to 300mg PO BID (TDD: 600mg/day) for 01/14/21. The new order for 01/14 was entered. Starting 01/15, the patient will resume their home dose and frequency (200mg PO TID). DYE COLORIST FORMULATOR brought in new supply of home medication on 01/14 @ 10:30 and the mexiletine will be repackaged and available for patient to resume their home dose and frequency starting 01/15/21 Thanks Emre Salazar Pharm. D
--- NOTE | 2021-01-14 11:30 | PM.PNCARD ---
Subjective Subjective Date of Service: 01/14/21 Principal diagnosis: Hypoxic respiratory failure Interval history: Still short of breath, requiring supplemental oxygen. Review of Systems Review of Systems Yes all other systems are reviewed and are negative Cardiovascular: Reports as per HPI, Reports no additional cardiovascular complaints, Denies acrocyanosis, Denies cool extremities, Denies painful fingertips, Denies chest pain, Denies chest pain at rest, Denies diaphoresis, Denies syncope, Denies irregular heart rhythm, Denies claudication, Denies leg edema, Denies lightheadedness, Denies palpitations and Reports dyspnea Respiratory: Reports dyspnea Denies syncope Endocrine: Denies palpitations Physical Exam Vital Signs: Last Vital Signs Temp 97.4 F 01/14/21 11:13 Pulse 87 01/14/21 11:13 Resp 18 01/14/21 11:13 BP 128/69 01/14/21 11:13 Pulse Ox 91 L 01/14/21 11:13 Body Mass Index 37.5 Const General: cooperative and no acute distress HENMN Other: Unremarkable Neck Neck: Yes normal visual inspection Chest Chest palpation & inspection: normal inspection of the chest Resp Auscultation: crackles and diminished lung sounds Cardio Jugular venous distension: no JVD Palpation: normal PMI Heart sounds: S1 normal heart sound present, S2 normal heart sound present, no gallops, no murmurs and no rubs GI Palpation (GI): Soft to palpation Back/Spine/Pelvis Other: unremarkable Skin General skin exam: no rashes or lesions noted Neuro Cranial nerves: Yes Other cranial nerve findings present Extrem General: Yes no clubbing, cyanosis or edema Psych Mental Status: other Results Labs and Meds Result diagrams: 01/14/21 05:29 01/14/21 05:29 Lab results: Laboratory Results - last 24 hr 01/11/21 01/11/21 01/13/21 14:41 14:41 14:15 Hgb Hct PT INR VBG pH VBG pCO2 VBG pO2 VBG HCO3 VBG O2 Saturation VBG Base Excess Sodium Potassium Chloride Carbon Dioxide Anion Gap BUN Creatinine Estim Creat Clear Calc Estimated GFR POC Glucose Random Glucose Calcium Magnesium Urine Creatinine 80.35 Urine Microalbumin 41.0 Microalb/Creat Ratio 51.0 Cycl Citrul Peptide IgG <16 JOSE Titer TNP JOSE Titer 2 TNP JOSE Titer 3 TNP JOSE Pattern TNP JOSE Pattern 2 TNP JOSE Pattern 3 TNP 10/19/21 10/19/21 10/19/21 16:02 17:16 17:45 Hgb Hct PT INR VBG pH 7.41 VBG pCO2 37 VBG pO2 48 VBG HCO3 24 VBG O2 Saturation 67.0 VBG Base Excess 0.4 Sodium Potassium Chloride Carbon Dioxide Anion Gap BUN Creatinine Estim Creat Clear Calc Estimated GFR POC Glucose 230 H 241 H Random Glucose Calcium Magnesium Urine Creatinine Urine Microalbumin Microalb/Creat Ratio Cycl Citrul Peptide IgG JOSE Titer JOSE Titer 2 JOSE Titer 3 JOSE Pattern JOSE Pattern 2 JOSE Pattern 3 01/13/21 01/14/21 01/14/21 19:47 00:36 05:29 Hgb Hct PT INR VBG pH VBG pCO2 VBG pO2 VBG HCO3 VBG O2 Saturation VBG Base Excess Sodium 136 Potassium 4.9 5.0 Chloride 102 Carbon Dioxide 24 Anion Gap 15 BUN 53 H Creatinine 1.65 H Estim Creat Clear Calc 40.3 Estimated GFR 41 POC Glucose 260 H Random Glucose 260 H Calcium 8.8 Magnesium 2.4 Urine Creatinine Urine Microalbumin Microalb/Creat Ratio Cycl Citrul Peptide IgG JOSE Titer JOSE Titer 2 JOSE Titer 3 JOSE Pattern JOSE Pattern 2 JOSE Pattern 3 01/14/21 01/14/21 01/14/21 05:29 05:29 07:19 Hgb 8.9 L Hct 27.1 L PT 37.5 H INR 3.2 H VBG pH VBG pCO2 VBG pO2 VBG HCO3 VBG O2 Saturation VBG Base Excess Sodium Potassium Chloride Carbon Dioxide Anion Gap BUN Creatinine Estim Creat Clear Calc Estimated GFR POC Glucose 256 H Random Glucose Calcium Magnesium Urine Creatinine Urine Microalbumin Microalb/Creat Ratio Cycl Citrul Peptide IgG JOSE Titer JOSE Titer 2 JOSE Titer 3 JOSE Pattern JOSE Pattern 2 JOSE Pattern 3 01/14/21 11:14 Hgb Hct PT INR VBG pH VBG pCO2 VBG pO2 VBG HCO3 VBG O2 Saturation VBG Base Excess Sodium Potassium Chloride Carbon Dioxide Anion Gap BUN Creatinine Estim Creat Clear Calc Estimated GFR POC Glucose 203 H Random Glucose Calcium Magnesium Urine Creatinine Urine Microalbumin Microalb/Creat Ratio Cycl Citrul Peptide IgG JOSE Titer JOSE Titer 2 JOSE Titer 3 JOSE Pattern JOSE Pattern 2 JOSE Pattern 3 Progress Note: A&P Assessment and plan (1) Acute on chronic systolic (congestive) heart failure: Status: Acute (2) Acute respiratory failure with hypoxia: Status: Acute Assessment and Plan: Echocardiogram with severe LV dysfunction. However CT is rather suggestive of possible interstitial pneumonia/?ARDS, but cannot exclude congestive heart failure completely. cBNP only slightly elevated. These data are discordant and hence suspect primary pulmonary issue to be more likely in this acute hypoxia/respiratory failure. At this time, empiric diuretics seem reasonable for any cardiac components of pulmonary edema. Discussed with , . Guarded prognosis. Fall Risk Details Current Medications: Current Medications Acetaminophen (Acetaminophen 325 Mg Tablet) 650 mg PO Q6H PRN PRN Reason: Pain, Mild (Pain Scale 1-3) Last Admin: 01/13/21 09:43 Dose: 650 mg Documented by: Albuterol Sulfate (Albuterol Sulfate (0.083%) 2.5 Mg/3 Ml Vial.Neb) 2.5 mg INHALE Q2H PRN PRN Reason: shortness of breath/wheeze Albuterol/Ipratropium (Albuterol/Iprat 2.5/0.5mg 3 Ml Ampul.Neb) 3 ml INHALE RQ4H WHILE AWAKE AILEEN Last Admin: 01/14/21 11:02 Dose: 3 ml Documented by: Allopurinol (Allopurinol 100 Mg Tablet) 100 mg PO DAILY AILEEN Last Admin: 01/14/21 08:13 Dose: 100 mg Documented by: Apixaban (Apixaban 5 Mg Tablet) 5 mg PO BID AILEEN Last Admin: 01/14/21 08:15 Dose: 5 mg Documented by: Atorvastatin Calcium (Atorvastatin Calcium 10 Mg Tablet) 10 mg PO BEDTIME AILEEN Last Admin: 01/13/21 20:08 Dose: 10 mg Documented by: Carbidopa/Levodopa (Carbidopa/Levodopa 25/100 Tablet) 1 tab PO TID AILEEN Last Admin: 01/14/21 08:15 Dose: 1 tab Documented by: Carvedilol (Carvedilol 3.125 Mg Tablet) 3.125 mg PO BID AILEEN; Protocol Last Admin: 01/14/21 08:16 Dose: 3.125 mg Documented by: Dextrose (Dextrose 50 % 25 Gm/50 Ml Vial) 25 gm IVPUSH Q15M PRN; Protocol PRN Reason: per Hypoglycemia Standing Ord. Diphenhydramine HCl (Diphenhydramine Hcl 25 Mg Tablet) 25 mg PO BEDTIME PRN PRN Reason: Sleep Last Admin: 01/10/21 20:36 Dose: 25 mg Documented by: Finasteride (Finasteride 5 Mg Tablet) 5 mg PO BEDTIME [facility] Last Admin: 01/13/21 20:09 Dose: 5 mg Documented by: Furosemide (Furosemide 40 Mg Tablet) 40 mg PO BID@0900,1800 [facility]; Protocol Glucose (Glucose Gel 15 Gm Gel..Gram.) 15 gm PO Q15M PRN; Protocol PRN Reason: per Hypoglycemia Standing Ord. Guaifenesin/Dextromethorphan (Guaifenesin Dm 100/10/5 Ml 5 Ml Syrup) 5 ml PO Q4H PRN PRN Reason: Cough Last Admin: 01/12/21 18:02 Dose: 5 ml Documented by: Doxycycline Hyclate 100 mg/ (Sodium Chloride) 250 mls @ 166.67 mls/hr IV Q12H [facility] Last Infusion: 01/14/21 05:48 Dose: Infused Documented by: Insulin Human Lispro (Insulin Lispro 100 Unit/Ml 3 Ml Vial) 0 unit SUBCUT QIDACHS [facility]; Protocol Last Admin: 01/14/21 08:21 Dose: 6 unit Documented by: Lactulose (Lactulose 20 Gm/30 Ml Solution) 30 gm PO TID [facility] Last Admin: 01/14/21 08:19 Dose: 30 gm Documented by: Levothyroxine Sodium (Levothyroxine Sodium 100 Mcg Tablet) 100 mcg PO DAILY@0630 [facility] Last Admin: 01/14/21 05:47 Dose: 100 mcg Documented by: Loratadine (Loratadine 10 Mg Tablet) 10 mg PO DAILY [facility] Last Admin: 01/14/21 08:14 Dose: 10 mg Documented by: Multivitamins/Vitamin C (Multivitamin Tablet) 1 tab PO DAILY [facility] Last Admin: 01/14/21 08:17 Dose: 1 tab Documented by: Nitroglycerin (Nitroglycerin 0.4 Mg Tab.Subl) 0.4 mg SUBLINGUAL Q5MX3 PRN PRN Reason: Chest Pain Last Admin: 01/11/21 00:29 Dose: 0.4 mg Documented by: Patient Own Med ( Mexiletine 200 Mg Capsule) 1 each PO TID [facility] Last Admin: 01/14/21 10:20 Dose: Not Given Documented by: Non-Formulary Med ( Mexiletine 150mg Capsule) 2 each PO BID@0900,2100 [facility] Stop: 01/14/21 21:01 Last Admin: 01/14/21 08:18 Dose: 2 each Documented by: Omeprazole (Omeprazole 20 Mg Capsule.) 20 mg PO DAILY@0630 [facility] Last Admin: 01/14/21 05:47 Dose: 20 mg Documented by: Ondansetron HCl (Ondansetron Hcl 4 Mg/2 Ml Vial) 4 mg IVPUSH Q8H PRN PRN Reason: Nausea and Vomiting Pharmacy Consult (Consult Rx Perform Med Rec) 1 each MISCELLANE ONCE PRN PRN Reason: Consult order Prednisone (Prednisone 20 Mg Tablet) 40 mg PO DAILY [facility] Last Admin: 01/14/21 08:14 Dose: 40 mg Documented by: Quetiapine Fumarate (Quetiapine Fumarate 100 Mg Tablet) 100 mg PO BID [facility] Last Admin: 01/14/21 08:14 Dose: 100 mg Documented by: Rifaximin (Rifaximin 550 Mg Tablet) 550 mg PO BID [facility] Last Admin: 01/14/21 08:15 Dose: 550 mg Documented by: Sodium Chloride (0.9 % Sodium Chloride Flush 3 Ml Syringe) 3 ml IVFLUSH QSHIFT [facility] Last Admin: 01/14/21 08:37 Dose: 3 ml Documented by: Spironolactone (Spironolactone 25 Mg Tablet) 25 mg PO DAILY [facility]; Protocol Last Admin: 01/12/21 08:36 Dose: 25 mg Documented by: Tamsulosin HCl (Tamsulosin Hcl 0.4 Mg Capsule) 0.4 mg PO BEDTIME [facility] Last Admin: 01/13/21 20:09 Dose: 0.4 mg Documented by: Vitamin D (Cholecalciferol (Vitamin D3) 25 Mcg Tablet) 25 mcg PO DAILY [facility] Last Admin: 01/14/21 08:14 Dose: 25 mcg Documented by: Time Spent With Patient Time: Total time spent is greater than 50% in coordination of care (as documented) at patient's floor/unit and/or counseling patient: Time with patient: less than 15 minutes Progress Note: Quality Stroke Does the patient have a stroke diagnosis?: No Procedures Date of Service Date of Service: 01/14/21
--- NOTE | 2021-01-14 12:01 | PM.PNPUL ---
Subjective Subjective Date of Service: 01/14/21 Principal diagnosis: Hypoxic respiratory failure Interval history: The patient was seen on exam. His oxygen requirements are still high. He was placed on a Lasix drip without any significant improvement as of yet. He is to have a repeat chest x-ray. He continues on the high-flow and also non-rebreather. The patient is a DNR. He is too sick to undergo any invasive diagnostic intervention such as bronchoscopy. The patient does have a cardiomyopathy with an EF of 20%. In addition to that he has chronic kidney disease. Therefore will continue diuresis and get a chest x-ray. Other etiologies to consider her smoldering infectious processes. The patient did not respond to high-dose pulse dose steroids unfortunately. Objective Data Labs CBC & Chem 7: 01/14/21 05:29 01/14/21 05:29 Labs: Laboratory Results - last 24 hr 01/11/21 01/11/21 01/13/21 14:41 14:41 14:15 Hgb Hct PT INR VBG pH VBG pCO2 VBG pO2 VBG HCO3 VBG O2 Saturation VBG Base Excess Sodium Potassium Chloride Carbon Dioxide Anion Gap BUN Creatinine Estim Creat Clear Calc Estimated GFR POC Glucose Random Glucose Calcium Magnesium Urine Creatinine 80.35 Urine Microalbumin 41.0 Microalb/Creat Ratio 51.0 Cycl Citrul Peptide IgG <16 JOSE Titer TNP JOSE Titer 2 TNP JOSE Titer 3 TNP JOSE Pattern TNP JOSE Pattern 2 TNP JOSE Pattern 3 TNP 01/13/21 01/13/21 01/13/21 16:02 17:16 17:45 Hgb Hct PT INR VBG pH 7.41 VBG pCO2 37 VBG pO2 48 VBG HCO3 24 VBG O2 Saturation 67.0 VBG Base Excess 0.4 Sodium Potassium Chloride Carbon Dioxide Anion Gap BUN Creatinine Estim Creat Clear Calc Estimated GFR POC Glucose 230 H 241 H Random Glucose Calcium Magnesium Urine Creatinine Urine Microalbumin Microalb/Creat Ratio Cycl Citrul Peptide IgG JOSE Titer JOSE Titer 2 JOSE Titer 3 JOSE Pattern JOSE Pattern 2 JOSE Pattern 3 01/13/21 01/14/21 01/14/21 19:47 00:36 05:29 Hgb Hct PT INR VBG pH VBG pCO2 VBG pO2 VBG HCO3 VBG O2 Saturation VBG Base Excess Sodium 136 Potassium 4.9 5.0 Chloride 102 Carbon Dioxide 24 Anion Gap 15 BUN 53 H Creatinine 1.65 H Estim Creat Clear Calc 40.3 Estimated GFR 41 POC Glucose 260 H Random Glucose 260 H Calcium 8.8 Magnesium 2.4 Urine Creatinine Urine Microalbumin Microalb/Creat Ratio Cycl Citrul Peptide IgG JOSE Titer JOSE Titer 2 JOSE Titer 3 JOSE Pattern JOSE Pattern 2 JOSE Pattern 3 01/14/21 01/14/21 01/14/21 05:29 05:29 07:19 Hgb 8.9 L Hct 27.1 L PT 37.5 H INR 3.2 H VBG pH VBG pCO2 VBG pO2 VBG HCO3 VBG O2 Saturation VBG Base Excess Sodium Potassium Chloride Carbon Dioxide Anion Gap BUN Creatinine Estim Creat Clear Calc Estimated GFR POC Glucose 256 H Random Glucose Calcium Magnesium Urine Creatinine Urine Microalbumin Microalb/Creat Ratio Cycl Citrul Peptide IgG JOSE Titer JOSE Titer 2 JOSE Titer 3 JOSE Pattern JOSE Pattern 2 JOSE Pattern 3 01/14/21 11:14 Hgb Hct PT INR VBG pH VBG pCO2 VBG pO2 VBG HCO3 VBG O2 Saturation VBG Base Excess Sodium Potassium Chloride Carbon Dioxide Anion Gap BUN Creatinine Estim Creat Clear Calc Estimated GFR POC Glucose 203 H Random Glucose Calcium Magnesium Urine Creatinine Urine Microalbumin Microalb/Creat Ratio Cycl Citrul Peptide IgG JOSE Titer JOSE Titer 2 JOSE Titer 3 JOSE Pattern JOSE Pattern 2 JOSE Pattern 3 Review of Systems Constitutional: Denies night sweats Denies change in voice, Denies lip swelling, Denies mouth pain and Denies tongue swelling Cardiovascular: Denies chest pain and Reports dyspnea Respiratory: Reports cough, Denies hemoptysis, Reports dyspnea and Denies stridor Gastrointestinal: Denies abdominal pain Hematologic/Lymphatic: Denies easy bleeding and Denies lymphadenopathy Allergic/Immunologic: Denies lip swelling and Denies tongue swelling Physical Exam Vital Signs: Vital Signs: Last Vital Signs Temp 97.4 F 01/14/21 11:13 Pulse 87 01/14/21 11:13 Resp 18 01/14/21 11:13 BP 128/69 01/14/21 11:13 Pulse Ox 91 L 01/14/21 11:13 Body Mass Index 37.5 Const: General: diaphoretic and ill appearing Neck: Neck: Yes normal visual inspection, Yes full ROM and Yes no lymphadenopathy Chest: Chest palpation & inspection: normal inspection of the chest Resp: Auscultation: diminished lung sounds Cardio: Rate: regular rate Rhythm: regular rhythm Heart sounds: S1 normal heart sound present and S2 normal heart sound present GI: Palpation (GI): Soft to palpation and nontender Auscultation: normal bowel sounds Skin: General skin exam: rashes and/or lesions noted Procedures Date of Service Date of Service: 01/14/21 Assessment and Plan Assessment and plan (1) Acute on chronic systolic (congestive) heart failure: Status: Acute (2) Acute respiratory failure with hypoxia: Status: Acute (3) Pneumonitis: Status: Acute Assessment and Plan: The patient continues to be in a guarded condition. Not responding to medical therapy. Likely has a component of acute interstitial pneumonia (AIP) versus ARDS. Have not ruled out all potential infectious etiologies. Does not appear to be immunocompromised however, does have underlying diabetes. Need to consider possibility of Pneumocystis. This to be less likely. Vasculitis that she has a pulmonary renal syndrome will also be less likely with a negative ANCA. Cardiogenic pulmonary edema is in the differential and will continue to try to diurese him, but, does not appear to be making a significant difference in his respiratory status or imaging. Diffuse alveolar hemorrage, bland, is also in the differential but not coughing up any blood. He carries a very poor prognosis. Recommendations: -continue Lasix drip for lung compliance -Po prednisone -CXR -consider treating emperically for PCP -Poor prognosis, guarded condition Time Spent With Patient Time: Total time spent is greater than 50% in coordination of care (as documented) at patient's floor/unit and/or counseling patient: Time with patient: 25 - 35 minutes Progress Note: Quality Stroke Does the patient have a stroke diagnosis?: No
--- NOTE | 2021-01-14 12:49 | P.PNIM_ITS ---
Subjective Subjective Date of Service: 01/14/21 Interval History: Acute hypoxemic respiratory failure. Review of Systems Shortness of breath seems similar to yesterday, but patient is saying he feels more comfortable today than yesterday Denies any chest pain or abdominal pain or nausea or vomiting or diarrhea Physical Exam Vital Signs: Vital Signs: Last Vital Signs Temp 97.4 F 01/14/21 11:13 Pulse 87 01/14/21 11:13 Resp 18 01/14/21 11:13 BP 128/69 01/14/21 11:13 Pulse Ox 91 L 01/14/21 11:13 Body Mass Index 37.5 Gen: NAD, chronically ill-appearing HEENT: sclera anicteric, moist mucus membranes Neck: supple Lungs:air entry seems slightly improving , still coarse carcles present Heart: regular rate and rhythm, no murmurs Abd: soft, obese, non-tender Ext: trace edema Skin: warm/well-perfused Neuro: alert and oriented x3 Psych: appropriate affect Objective Data Active Medications Acetaminophen (Acetaminophen 325 Mg Tablet) 650 mg PO Q6H PRN PRN Reason: Pain, Mild (Pain Scale 1-3) Last Admin: 01/13/21 09:43 Dose: 650 mg Documented by: LAUREN Albuterol Sulfate (Albuterol Sulfate (0.083%) 2.5 Mg/3 Ml Vial.Neb) 2.5 mg INHALE Q2H PRN PRN Reason: shortness of breath/wheeze Albuterol/Ipratropium (Albuterol/Iprat 2.5/0.5mg 3 Ml Ampul.Neb) 3 ml INHALE RQ4H WHILE AWAKE [facility] Last Admin: 01/14/21 11:02 Dose: 3 ml Documented by: ANGEL Allopurinol (Allopurinol 100 Mg Tablet) 100 mg PO DAILY [facility] Last Admin: 01/14/21 08:13 Dose: 100 mg Documented by: LYN Apixaban (Apixaban 5 Mg Tablet) 5 mg PO BID [facility] Last Admin: 01/14/21 08:15 Dose: 5 mg Documented by: LYN Atorvastatin Calcium (Atorvastatin Calcium 10 Mg Tablet) 10 mg PO BEDTIME [facility] Last Admin: 01/13/21 20:08 Dose: 10 mg Documented by: LYNNE Carbidopa/Levodopa (Carbidopa/Levodopa 25/100 Tablet) 1 tab PO TID [facility] Last Admin: 01/14/21 08:15 Dose: 1 tab Documented by: LYN Carvedilol (Carvedilol 3.125 Mg Tablet) 3.125 mg PO BID [facility]; Protocol Last Admin: 01/14/21 08:16 Dose: 3.125 mg Documented by: LYN Dextrose (Dextrose 50 % 25 Gm/50 Ml Vial) 25 gm IVPUSH Q15M PRN; Protocol PRN Reason: per Hypoglycemia Standing Ord. Diphenhydramine HCl (Diphenhydramine Hcl 25 Mg Tablet) 25 mg PO BEDTIME PRN PRN Reason: Sleep Last Admin: 01/10/21 20:36 Dose: 25 mg Documented by: AMANDA Finasteride (Finasteride 5 Mg Tablet) 5 mg PO BEDTIME [facility] Last Admin: 01/13/21 20:09 Dose: 5 mg Documented by: LYNNE Furosemide (Furosemide 40 Mg Tablet) 40 mg PO BID@0900,1800 [facility]; Protocol Glucose (Glucose Gel 15 Gm Gel..Gram.) 15 gm PO Q15M PRN; Protocol PRN Reason: per Hypoglycemia Standing Ord. Guaifenesin/Dextromethorphan (Guaifenesin Dm 100/10/5 Ml 5 Ml Syrup) 5 ml PO Q4H PRN PRN Reason: Cough Last Admin: 01/12/21 18:02 Dose: 5 ml Documented by: DUYEN Doxycycline Hyclate 100 mg/ (Sodium Chloride) 250 mls @ 166.67 mls/hr IV Q12H [facility] Last Infusion: 01/14/21 05:48 Dose: 0 mls/hr Documented by: SIENA Insulin Human Lispro (Insulin Lispro 100 Unit/Ml 3 Ml Vial) 0 unit SUBCUT Q IDACHS [facility]; Protocol Last Admin: 01/14/21 11:44 Dose: 4 unit Documented by: YONI Lactulose (Lactulose 20 Gm/30 Ml Solution) 30 gm PO TID [facility] Last Admin: 01/14/21 08:19 Dose: 30 gm Documented by: LYN Levothyroxine Sodium (Levothyroxine Sodium 100 Mcg Tablet) 100 mcg PO DAILY@0630 [facility] Last Admin: 01/14/21 05:47 Dose: 100 mcg Documented by: SIENA Loratadine (Loratadine 10 Mg Tablet) 10 mg PO DAILY [facility] Last Admin: 01/14/21 08:14 Dose: 10 mg Documented by: LYN Multivitamins/Vitamin C (Multivitamin Tablet) 1 tab PO DAILY [facility] Last Admin: 01/14/21 08:17 Dose: 1 tab Documented by: LYN Nitroglycerin (Nitroglycerin 0.4 Mg Tab.Subl) 0.4 mg SUBLINGUAL Q5MX3 PRN PRN Reason: Chest Pain Last Admin: 01/11/21 00:29 Dose: 0.4 mg Documented by: AMANDA Comments: jam Méndez, give nitro now for chest pain Non-Formulary Med ( Mexiletine 150mg Capsule) 2 each PO BID@0900,2100 [facility] Stop: 01/14/21 21:01 Last Admin: 01/14/21 08:18 Dose: 2 each Documented by: LYN Patient Own Med ( Mexiletine 200 Mg Capsule) 1 each PO TID [facility] Omeprazole (Omeprazole 20 Mg Capsule.Dr) 20 mg PO DAILY@0630 [facility] Last Admin: 01/14/21 05:47 Dose: 20 mg Documented by: SIENA Ondansetron HCl (Ondansetron Hcl 4 Mg/2 Ml Vial) 4 mg IVPUSH Q8H PRN PRN Reason: Nausea and Vomiting Pharmacy Consult (Consult Rx Perform Med Rec) 1 each MISCELLANE ONCE PRN PRN Reason: Consult order Prednisone (Prednisone 20 Mg Tablet) 40 mg PO DAILY [facility] Last Admin: 01/14/21 08:14 Dose: 40 mg Documented by: LYN Quetiapine Fumarate (Quetiapine Fumarate 100 Mg Tablet) 100 mg PO BID [facility] Last Admin: 01/14/21 08:14 Dose: 100 mg Documented by: LYN Rifaximin (Rifaximin 550 Mg Tablet) 550 mg PO BID [facility] Last Admin: 01/14/21 08:15 Dose: 550 mg Documented by: LYN Sodium Chloride (0.9 % Sodium Chloride Flush 3 Ml Syringe) 3 ml IVFLUSH QSHIFT [facility] Last Admin: 01/14/21 08:37 Dose: 3 ml Documented by: LYN Spironolactone (Spironolactone 25 Mg Tablet) 25 mg PO DAILY [facility]; Protocol Last Admin: 01/12/21 08:36 Dose: 25 mg Documented by: DUYEN Tamsulosin HCl (Tamsulosin Hcl 0.4 Mg Capsule) 0.4 mg PO BEDTIME [facility] Last Admin: 01/13/21 20:09 Dose: 0.4 mg Documented by: LYNNE Vitamin D (Cholecalciferol (Vitamin D3) 25 Mcg Tablet) 25 mcg PO DAILY [facility] Last Admin: 01/14/21 08:14 Dose: 25 mcg Documented by: LYN Labs CBC & Chem 7: 01/14/21 05:29 01/14/21 05:29 Labs: Laboratory Results - last 24 hr 01/11/21 01/11/21 01/13/21 14:41 14:41 14:15 PT INR VBG pH VBG pCO2 VBG pO2 VBG HCO3 VBG O2 Saturation VBG Base Excess Anion Gap Estim Creat Clear Calc Estimated GFR POC Glucose Random Glucose Calcium Magnesium Urine Creatinine 80.35 Urine Microalbumin 41.0 Microalb/Creat Ratio 51.0 Cycl Citrul Peptide IgG <16 JOSE Titer TNP JOSE Titer 2 TNP JOSE Titer 3 TNP JOSE Pattern TNP JOSE Pattern 2 TNP JOSE Pattern 3 TNP 01/13/21 01/13/21 01/13/21 16:02 17:16 17:45 PT INR VBG pH 7.41 VBG pCO2 37 VBG pO2 48 VBG HCO3 24 VBG O2 Saturation 67.0 VBG Base Excess 0.4 Anion Gap Estim Creat Clear Calc Estimated GFR POC Glucose 230 H 241 H Random Glucose Calcium Magnesium Urine Creatinine Urine Microalbumin Microalb/Creat Ratio Cycl Citrul Peptide IgG JOSE Titer JOSE Titer 2 JOSE Titer 3 JOSE Pattern JOSE Pattern 2 JOSE Pattern 3 01/13/21 01/14/21 01/14/21 19:47 00:36 05:29 PT INR VBG pH VBG pCO2 VBG pO2 VBG HCO3 VBG O2 Saturation VBG Base Excess Anion Gap 15 Estim Creat Clear Calc 40.3 Estimated GFR 41 POC Glucose 260 H Random Glucose 260 H Calcium 8.8 Magnesium 2.4 Urine Creatinine Urine Microalbumin Microalb/Creat Ratio Cycl Citrul Peptide IgG JOSE Titer JOSE Titer 2 JOSE Titer 3 JOSE Pattern JOSE Pattern 2 JOSE Pattern 3 01/14/21 01/14/21 01/14/21 05:29 07:19 11:14 PT 37.5 H INR 3.2 H VBG pH VBG pCO2 VBG pO2 VBG HCO3 VBG O2 Saturation VBG Base Excess Anion Gap Estim Creat Clear Calc Estimated GFR POC Glucose 256 H 203 H Random Glucose Calcium Magnesium Urine Creatinine Urine Microalbumin Microalb/Creat Ratio Cycl Citrul Peptide IgG JOSE Titer JOSE Titer 2 JOSE Titer 3 JOSE Pattern JOSE Pattern 2 JOSE Pattern 3 Assessment and Plan (1) Pneumonitis: Status: Acute (2) CKD (chronic kidney disease) stage 3, GFR 30-59 ml/min: Status: Acute Assessment and Plan: 75yo M with?cirrhosis related to past EtOH abuse, hepatic encephalopathy, remote history of alcoholic pancreatitis with resultant chronic pancreatitis, asthma/COPD, Parkinsonism, hypothyroidism, previous tobacco abuse, gout, DM2, history of ventricular arrhythmia, AF on apixaban presenting after fall after taking Unisom and complaining of worsening dyspnea and cough; found to be severely hypoxic 1.acute hypoxic respiratory failure ?continue HFNC + NRB; pt is DNR/DNI but NIPPV would be an option 2. exacerbation of COPD vs ILD vs diffuse interstitial pneumonitis discussed with ICU + Pulm, started high-dose pulse sterois on 01/10/21; start prednisone taper 40 mg today,doxycycline d#7,prn nebs,COVID-19 negative by HUMAIRA and PCR; rest of RVP PCR negative; SARS-CoV2 IgG neg HIV negative, RF negative; CCP, JOSE, ANCA -neg pulmonary following-cxr added , added atovaquone.moniter lft's 3. acute/chronic HFrEF [LVER 20%]- dilated cardiomyopathy - IV diuresis with furosemide given -discussed with cardio/pulm- suspect at this point the primary problem is more pulmonary than cardiac. bnp -eleavted 150's ? trend BNP, monitor I/O + BMP + Mg.? continue coreg,noted - ARB valsartan started but will d/c due to FLYNN hold? spironolactone due to hyperkalemia d/w nephro/cardio/pulm -switched to po lasix i/o monitering 4. AKIvs ckd -, d/c valsartan, avoid nephrotoxins, recheck SCr in am, check renal US noetd urine cr and protein d/w nephro/cardio/pulm -added trial of lasix drip 5.ventricular arrhythmia- continue carvedilol + mexiletine.? has ICD.? 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 AF- continue apixaban 7. chronic pancreatitis- no pain currently 8. cirrhosis - due to past EtOH - watch for signs of decompensation - no ascites to tap 10. hepatic encephalopathy - continue lactulose + rifaximin 11. bone lucencies in C-spine - could be facet arthritis/osteopenia but will obtain NM bone scan once more stable 12. prostatism- continue tamsulosin + finasteride 13. gout- continue allopurinol. 14. hypothyroidism- continue LT4 15. Parkinsonism- continue Sinemet 16. DM2- last A1c only 5.9.? correction-dose lispro 17. VTE ppx- continue apixaban inr elevated, improving-probable related to liver dis ,d/w cardio but does not need to be followed with apixiban no gross bleeding ?dispo- likely to have a prolonged hospital course and if he survives, would need STR Quality Stroke Does the patient have a stroke diagnosis?: No VTE Prior VTE?: No VTE Risk Level:: Medical - moderate - high VTE Device Contraindication: N/A - Device Ordered VTE Drug Contraindication: N/A - Med Ordered
[2021-01-14 13:23] LABS: Alanine Aminotransferase 39 U/L (0-40); Albumin Level 2.8 g/dL (3.5-5.0); Alkaline Phosphatase 290 U/L (39-117); Aspartate Amino Transferase 93 U/L (5-37); Bilirubin Direct 1.2 mg/dL (0.0-0.5); Bilirubin Total 2.5 mg/dL (0.0-1.0); Total Protein 6.2 g/dL (6.5-8.0)
--- NOTE | 2021-01-14 13:54 | HE.PHANOTE ---
RE: Mexiletine Medication in pharmacy for order starting 01/15. RN to call pharmacy for each dose (TID) and we will bring it up. I have updated the order to include that information.
--- NOTE | 2021-01-14 14:10 | MHC.CM.PN ---
PER ROUNDS PT IS NOT READY FOR DC REMANINS ON A Pikimal DRIP
[2021-01-14 16:36] LABS: Glucose, Whole Blood 258 mg/dL (60-115)
[2021-01-14] MEDS: Furosemide 40 MG TABLET PO (17:31)
[2021-01-14] MEDS: Atovaquone 750 MG/5 ML ORAL.SUSP PO (17:32)
--- NOTE | 2021-01-14 18:12 | PC.NURSE ---
Patient's POC at 1630 was 258. Protocol called for 6 units of humalog, however patient ate very little dinner so 4 units were administered instead.
[2021-01-14 20:34] LABS: Glucose, Whole Blood 290 mg/dL (60-115)
[2021-01-14] MEDS: Finasteride 5 MG TABLET PO (21:30)
[2021-01-14] MEDS: Atorvastatin Calcium 10 MG TABLET PO (21:31)
[2021-01-14] MEDS: Tamsulosin HCL 0.4 MG CAPSULE PO (21:31)
[2021-01-15] VITALS (15 sets, daily range): BP systolic 132–143; BP diastolic 69–88; PULSE 82–110; RESP 18–24; TEMP 36.2–36.7; O2SAT 88–98
[2021-01-15] MEDS: Doxycycline Hyclate 100 MG in 0.9 % Sodium Chloride 250 ML 166.67 MG IV ×2 (05:01→15:48)
[2021-01-15] MEDS: Levothyroxine Sodium 100 MCG TABLET PO (05:03)
[2021-01-15] MEDS: Omeprazole 20 MG CAPSULE.DR PO (05:03)
[2021-01-15 06:51] LABS: INTERNATIONAL NORM RATIO 2.9 (0.9-1.1); Prothrombin Time 33.6 SEC (9.9-13.0)
[2021-01-15 07:03] LABS: Anion Gap 12 (12-20); Blood Urea Nitrogen 44 mg/dL (9-16); Calcium 9.1 mg/dL (8.4-10.2); Carbon Dioxide 28 mmol/L (22-29); Chloride 102 mmol/L (96-108); Creatinine Clr Calc Pharmacy 48.2; Estimated Glomerular Filt Rate 50; Glucose Random 223 mg/dL (60-115); Potassium 4.7 mmol/L (3.3-5.1); Sodium 137 mmol/L (135-145)
[2021-01-15] MEDS: Albuterol/Iprat 2.5/0.5MG 3 ML AMPUL.NEB INHALE ×3 (07:24→16:08)
[2021-01-15 07:37] LABS: Glucose, Whole Blood 223 mg/dL (60-115)
[2021-01-15] MEDS: Insulin Lispro 100 UNIT/ML 3 ML VIAL SUBCUT ×4 (08:29→20:59)
[2021-01-15] MEDS: Lactulose 20 GM/30 ML SOLUTION 30 GM PO ×2 (08:31→15:46)
[2021-01-15] MEDS: predniSONE 20 MG TABLET 40 MG PO (08:32)
[2021-01-15] MEDS: Atovaquone 750 MG/5 ML ORAL.SUSP PO ×2 (08:34→18:05)
[2021-01-15] MEDS: Carbidopa/Levodopa 25/100 TABLET 1 TAB PO ×3 (08:36→20:58)
[2021-01-15] MEDS: Loratadine 10 MG TABLET PO (08:37)
[2021-01-15] MEDS: allopurinoL 100 MG TABLET PO (08:37)
[2021-01-15] MEDS: rifAXIMin 550 MG TABLET PO ×2 (08:37→20:58)
[2021-01-15] MEDS: Furosemide 40 MG TABLET PO ×2 (08:38→18:04)
[2021-01-15] MEDS: Multivitamin TABLET 1 TAB PO (08:39)
[2021-01-15] MEDS: carvediloL 3.125 MG TABLET PO ×2 (08:40→20:58)
[2021-01-15] MEDS: Cholecalciferol (Vitamin D3) 25 MCG TABLET PO (08:41)
[2021-01-15] MEDS: QUEtiapine Fumarate 100 MG TABLET PO ×2 (08:41→20:58)
[2021-01-15] MEDS: 0.9 % Sodium Chloride Flush 3 ML SYRINGE IVFLUSH ×2 (08:43→20:59)
--- NOTE | 2021-01-15 09:17 | PM.PNPUL ---
Subjective Subjective Date of Service: 01/15/21 Principal diagnosis: Hypoxic respiratory failure Interval history: The patient was seen on exam. History feeling a little better today. Still on the high-flow. Not requiring the non-rebreather. His appetite is good. Denies any congestion in the chest. Objective Data Labs CBC & Chem 7: 01/14/21 05:29 01/15/21 05:54 Labs: Laboratory Results - last 24 hr 01/11/21 01/11/21 01/14/21 14:41 14:41 05:29 PT INR Sodium Potassium Chloride Carbon Dioxide Anion Gap BUN Creatinine Estim Creat Clear Calc Estimated GFR POC Glucose Random Glucose Calcium Total Bilirubin 2.5 H Direct Bilirubin 1.2 H AST 93 H ALT 39 Alkaline Phosphatase 290 H D Total Protein 6.2 L Albumin 2.8 L Aldolase 15.0 H JOSE Titer TNP JOSE Titer 2 TNP JOSE Titer 3 TNP JOSE Pattern TNP JOSE Pattern 2 TNP JOSE Pattern 3 TNP 01/14/21 01/14/21 01/14/21 11:14 16:31 20:08 PT INR Sodium Potassium Chloride Carbon Dioxide Anion Gap BUN Creatinine Estim Creat Clear Calc Estimated GFR POC Glucose 203 H 258 H 290 H Random Glucose Calcium Total Bilirubin Direct Bilirubin AST ALT Alkaline Phosphatase Total Protein Albumin Aldolase JOSE Titer JOSE Titer 2 JOSE Titer 3 JOSE Pattern JOSE Pattern 2 JOSE Pattern 3 01/15/21 01/15/21 01/15/21 05:54 05:54 07:05 PT 33.6 H INR 2.9 H Sodium 137 Potassium 4.7 Chloride 102 Carbon Dioxide 28 Anion Gap 12 BUN 44 H Creatinine 1.38 Estim Creat Clear Calc 48.2 Estimated GFR 50 POC Glucose 223 H Random Glucose 223 H Calcium 9.1 Total Bilirubin Direct Bilirubin AST ALT Alkaline Phosphatase Total Protein Albumin Aldolase JOSE Titer JOSE Titer 2 JOSE Titer 3 JOSE Pattern JOSE Pattern 2 JOSE Pattern 3 Review of Systems Constitutional: Denies night sweats Denies change in voice, Denies lip swelling, Denies mouth pain and Denies tongue swelling Cardiovascular: Denies chest pain and Reports dyspnea Respiratory: Reports cough, Denies hemoptysis, Reports dyspnea and Denies stridor Gastrointestinal: Denies abdominal pain Hematologic/Lymphatic: Denies easy bleeding and Denies lymphadenopathy Allergic/Immunologic: Denies lip swelling and Denies tongue swelling Physical Exam Vital Signs: Vital Signs: Last Vital Signs Temp 98.1 F 01/15/21 07:03 Pulse 89 01/15/21 08:40 Resp 20 01/15/21 07:25 BP 143/69 H 01/15/21 08:40 Pulse Ox 92 01/15/21 07:03 Body Mass Index 37.5 Const: General: alert Neck: Neck: Yes normal visual inspection, Yes full ROM and Yes no lymphadenopathy Chest: Chest palpation & inspection: normal inspection of the chest Resp: Auscultation: rales and diminished lung sounds Cardio: Rate: regular rate Rhythm: regular rhythm Heart sounds: S1 normal heart sound present and S2 normal heart sound present GI: Palpation (GI): Soft to palpation and nontender Auscultation: normal bowel sounds Skin: General skin exam: rashes and/or lesions noted Procedures Date of Service Date of Service: 01/15/21 Assessment and Plan Assessment and plan (1) Pneumonitis: Status: Acute (2) Acute on chronic systolic (congestive) heart failure: Status: Acute (3) Acute respiratory failure with hypoxia: Status: Acute (4) COPD (chronic obstructive pulmonary disease): Status: Acute Assessment and Plan: Continue diuresis as tolerated Doxy x 14 days Continue Mepron, monitor liver fuction studies Titrate oxygen to keep pox >88% Prednisone 40mg daily Time Spent With Patient Time: Total time spent is greater than 50% in coordination of care (as documented) at patient's floor/unit and/or counseling patient: Time with patient: 15 - 24 minutes Progress Note: Quality Stroke Does the patient have a stroke diagnosis?: No
--- NOTE | 2021-01-15 09:57 | PM.PNNEP ---
Subjective Subjective Date of Service: 01/15/21 Principal diagnosis: Hypoxic respiratory failure Interval history: Acute hypoxemic respiratory failure. Physical Exam Vital Signs: Vital Signs: Last Vital Signs Temp 98.1 F 01/15/21 07:03 Pulse 89 01/15/21 08:40 Resp 20 01/15/21 07:25 BP 143/69 H 01/15/21 08:40 Pulse Ox 92 01/15/21 07:03 Body Mass Index 37.5 Const: General: alert, awake and ill appearing Neck: Neck: Yes supple Resp: Auscultation: rhonchi Cardio: Palpation: no palpable S3 Heart sounds: no gallops and no rubs GI: Palpation (GI): Soft to palpation Auscultation: normal bowel sounds Neuro: General: tone normal Motor exam (neuro): no asterixis Extrem: General: Yes no pedal edema Objective Data Labs CBC & Chem 7: 01/14/21 05:29 01/15/21 05:54 Labs: Laboratory Results - last 24 hr 01/11/21 01/14/21 01/14/21 14:41 05:29 11:14 PT INR Sodium Potassium Chloride Carbon Dioxide Anion Gap BUN Creatinine Estim Creat Clear Calc Estimated GFR POC Glucose 203 H Random Glucose Calcium Total Bilirubin 2.5 H Direct Bilirubin 1.2 H AST 93 H ALT 39 Alkaline Phosphatase 290 H D Total Protein 6.2 L Albumin 2.8 L Aldolase 15.0 H 01/14/21 01/14/21 01/15/21 16:31 20:08 05:54 PT 33.6 H INR 2.9 H Sodium Potassium Chloride Carbon Dioxide Anion Gap BUN Creatinine Estim Creat Clear Calc Estimated GFR POC Glucose 258 H 290 H Random Glucose Calcium Total Bilirubin Direct Bilirubin AST ALT Alkaline Phosphatase Total Protein Albumin Aldolase 01/15/21 01/15/21 05:54 07:05 PT INR Sodium 137 Potassium 4.7 Chloride 102 Carbon Dioxide 28 Anion Gap 12 BUN 44 H Creatinine 1.38 Estim Creat Clear Calc 48.2 Estimated GFR 50 POC Glucose 223 H Random Glucose 223 H Calcium 9.1 Total Bilirubin Direct Bilirubin AST ALT Alkaline Phosphatase Total Protein Albumin Aldolase Procedures Date of Service Date of Service: 01/15/21 Assessment & Plan Assessment and plan (1) Acute respiratory failure with hypoxia: Status: Acute (2) COPD (chronic obstructive pulmonary disease): Status: Acute (3) CKD (chronic kidney disease) stage 3, GFR 30-59 ml/min: Status: Acute Assessment and Plan: FLYNN superimposed on CKD ILD / Hypoxia Anemia Dilated Cardiomyopathy Assessment and Plan: BUN and creatinine have bumped up with Lasix as expected. ILD > CHF Hold Spironolactone due to mild elevation in potassium; If K > 5.5 , would administer 1 dose of Kayexalate Sgree with switching to PO Lasix Shall follow with team Time Spent With Patient Time: Total time spent is greater than 50% in coordination of care (as documented) at patient's floor/unit and/or counseling patient: Progress Note: Quality Stroke Does the patient have a stroke diagnosis?: No
--- NOTE | 2021-01-15 10:10 | PM.PNCARD ---
Subjective Subjective Date of Service: 01/15/21 Principal diagnosis: Hypoxic respiratory failure Interval history: States that he feels better. Review of Systems Review of Systems Yes all other systems are reviewed and are negative Cardiovascular: Reports as per HPI, Reports no additional cardiovascular complaints, Denies acrocyanosis, Denies cool extremities, Denies painful fingertips, Denies chest pain, Denies chest pain at rest, Denies diaphoresis, Denies syncope, Denies irregular heart rhythm, Denies claudication, Denies leg edema, Denies lightheadedness, Denies palpitations and Reports dyspnea Respiratory: Reports dyspnea Denies syncope Endocrine: Denies palpitations Physical Exam Vital Signs: Last Vital Signs Temp 98.1 F 01/15/21 07:03 Pulse 89 01/15/21 08:40 Resp 20 01/15/21 07:25 BP 143/69 H 01/15/21 08:40 Pulse Ox 92 01/15/21 07:03 Body Mass Index 37.5 Const General: cooperative and no acute distress HENMT Other: Unremarkable Neck Neck: Yes normal visual inspection Chest Chest palpation & inspection: normal inspection of the chest Resp Auscultation: crackles and diminished lung sounds Cardio Jugular venous distension: no JVD Palpation: normal PMI Heart sounds: S1 normal heart sound present, S2 normal heart sound present, no gallops, no murmurs and no rubs GI Palpation (GI): Soft to palpation Back/Spine/Pelvis Other: unremarkable Skin General skin exam: no rashes or lesions noted Neuro Cranial nerves: Yes Other cranial nerve findings present Extrem General: Yes no clubbing, cyanosis or edema Psych Mental Status: other Results Labs and Meds Result diagrams: 01/14/21 05:29 01/15/21 05:54 Lab results: Laboratory Results - last 24 hr 01/11/21 01/14/21 01/14/21 14:41 05:29 11:14 PT INR Sodium Potassium Chloride Carbon Dioxide Anion Gap BUN Creatinine Estim Creat Clear Calc Estimated GFR POC Glucose 203 H Random Glucose Calcium Total Bilirubin 2.5 H Direct Bilirubin 1.2 H AST 93 H ALT 39 Alkaline Phosphatase 290 H D Total Protein 6.2 L Albumin 2.8 L Aldolase 15.0 H 01/14/21 01/14/21 01/15/21 16:31 20:08 05:54 PT 33.6 H INR 2.9 H Sodium Potassium Chloride Carbon Dioxide Anion Gap BUN Creatinine Estim Creat Clear Calc Estimated GFR POC Glucose 258 H 290 H Random Glucose Calcium Total Bilirubin Direct Bilirubin AST ALT Alkaline Phosphatase Total Protein Albumin Aldolase 01/15/21 01/15/21 05:54 07:05 PT INR Sodium 137 Potassium 4.7 Chloride 102 Carbon Dioxide 28 Anion Gap 12 BUN 44 H Creatinine 1.38 Estim Creat Clear Calc 48.2 Estimated GFR 50 POC Glucose 223 H Random Glucose 223 H Calcium 9.1 Total Bilirubin Direct Bilirubin AST ALT Alkaline Phosphatase Total Protein Albumin Aldolase Imaging Radiologist's impression: Impressions Chest X-Ray 01/14/21 14:42 IMPRESSION: The groundglass opacities of both lungs remain similar in appearance compared to 01/10/2021. The pulmonary opacities are nonspecific and could represent infectious or noninfectious pneumonitis and/or pulmonary edema. No new abnormalities compared to 01/10/2021. Progress Note: A&P Assessment and plan (1) Acute on chronic systolic (congestive) heart failure: Status: Acute (2) Acute respiratory failure with hypoxia: Status: Acute Assessment and Plan: Echocardiogram with severe LV dysfunction. However CT is rather suggestive of possible interstitial pneumonia/?ARDS, but cannot exclude congestive heart failure completely. cBNP only slightly elevated. These data are discordant and hence suspect primary pulmonary issue to be more likely in this acute hypoxia/respiratory failure. At this time, empiric diuretics seem reasonable for any cardiac components of pulmonary edema. Guarded prognosis. Fall Risk Details Current Medications: Current Medications Acetaminophen (Acetaminophen 325 Mg Tablet) 650 mg PO Q6H PRN PRN Reason: Pain, Mild (Pain Scale 1-3) Last Admin: 01/13/21 09:43 Dose: 650 mg Documented by: Albuterol Sulfate (Albuterol Sulfate (0.083%) 2.5 Mg/3 Ml Vial.Neb) 2.5 mg INHALE Q2H PRN PRN Reason: shortness of breath/wheeze Albuterol/Ipratropium (Albuterol/Iprat 2.5/0.5mg 3 Ml Ampul.Neb) 3 ml INHALE RQ4H WHILE AWAKE [facility] Last Admin: 01/15/21 07:24 Dose: 3 ml Documented by: Allopurinol (Allopurinol 100 Mg Tablet) 100 mg PO DAILY [facility] Last Admin: 01/15/21 08:37 Dose: 100 mg Documented by: Apixaban (Apixaban 5 Mg Tablet) 5 mg PO BID [facility] Last Admin: 01/14/21 21:31 Dose: 5 mg Documented by: Atorvastatin Calcium (Atorvastatin Calcium 10 Mg Tablet) 10 mg PO BEDTIME [facility] Last Admin: 01/14/21 21:31 Dose: 10 mg Documented by: Atovaquone (Atovaquone 750 Mg/5 Ml Oral.Susp) 750 mg PO BIDWM [facility] Stop: 02/04/21 08:01 Last Admin: 01/15/21 08:34 Dose: 750 mg Documented by: Carbidopa/Levodopa (Carbidopa/Levodopa 25/100 Tablet) 1 tab PO TID [facility] Last Admin: 01/15/21 08:36 Dose: 1 tab Documented by: Carvedilol (Carvedilol 3.125 Mg Tablet) 3.125 mg PO BID [facility]; Protocol Last Admin: 01/15/21 08:40 Dose: 3.125 mg Documented by: Dextrose (Dextrose 50 % 25 Gm/50 Ml Vial) 25 gm IVPUSH Q15M PRN; Protocol PRN Reason: per Hypoglycemia Standing Ord. Diphenhydramine HCl (Diphenhydramine Hcl 25 Mg Tablet) 25 mg PO BEDTIME PRN PRN Reason: Sleep Last Admin: 01/10/21 20:36 Dose: 25 mg Documented by: Finasteride (Finasteride 5 Mg Tablet) 5 mg PO BEDTIME [facility] Last Admin: 01/14/21 21:30 Dose: 5 mg Documented by: Furosemide (Furosemide 40 Mg Tablet) 40 mg PO BID@0900,1800 [facility]; Protocol Last Admin: 01/15/21 08:38 Dose: 40 mg Documented by: Glucose (Glucose Gel 15 Gm Gel..Gram.) 15 gm PO Q15M PRN; Protocol PRN Reason: per Hypoglycemia Standing Ord. Guaifenesin/Dextromethorphan (Guaifenesin Dm 100/10/5 Ml 5 Ml Syrup) 5 ml PO Q4H PRN PRN Reason: Cough Last Admin: 01/12/21 18:02 Dose: 5 ml Documented by: Doxycycline Hyclate 100 mg/ (Sodium Chloride) 250 mls @ 166.67 mls/hr IV Q12H [facility] Last Infusion: 01/15/21 08:42 Dose: Infused Documented by: Insulin Human Lispro (Insulin Lispro 100 Unit/Ml 3 Ml Vial) 0 unit SUBCUT QIDACHS [facility]; Protocol Last Admin: 01/15/21 08:29 Dose: 4 unit Documented by: Lactulose (Lactulose 20 Gm/30 Ml Solution) 30 gm PO TID [facility] Last Admin: 01/15/21 08:31 Dose: 30 gm Documented by: Levothyroxine Sodium (Levothyroxine Sodium 100 Mcg Tablet) 100 mcg PO DAILY@0630 [facility] Last Admin: 01/15/21 05:03 Dose: 100 mcg Documented by: Loratadine (Loratadine 10 Mg Tablet) 10 mg PO DAILY [facility] Last Admin: 01/15/21 08:37 Dose: 10 mg Documented by: Multivitamins/Vitamin C (Multivitamin Tablet) 1 tab PO DAILY [facility] Last Admin: 01/15/21 08:39 Dose: 1 tab Documented by: Nitroglycerin (Nitroglycerin 0.4 Mg Tab.Subl) 0.4 mg SUBLINGUAL Q5MX3 PRN PRN Reason: Chest Pain Last Admin: 01/11/21 00:29 Dose: 0.4 mg Documented by: Patient Own Med ( Mexiletine 200 Mg Capsule) 1 each PO TID [facility] Last Admin: 01/15/21 08:42 Dose: 1 each Documented by: Omeprazole (Omeprazole 20 Mg Capsule.Dr) 20 mg PO DAILY@629 [facility] Last Admin: 01/15/21 05:03 Dose: 20 mg Documented by: Ondansetron HCl (Ondansetron Hcl 4 Mg/2 Ml Vial) 4 mg IVPUSH Q8H PRN PRN Reason: Nausea and Vomiting Pharmacy Consult (Consult Rx Perform Med Rec) 1 each MISCELLANE ONCE PRN PRN Reason: Consult order Prednisone (Prednisone 20 Mg Tablet) 40 mg PO DAILY [facility] Last Admin: 01/15/21 08:32 Dose: 40 mg Documented by: Quetiapine Fumarate (Quetiapine Fumarate 100 Mg Tablet) 100 mg PO BID [facility] Last Admin: 01/15/21 08:41 Dose: 100 mg Documented by: Rifaximin (Rifaximin 550 Mg Tablet) 550 mg PO BID [facility] Last Admin: 01/15/21 08:37 Dose: 550 mg Documented by: Sodium Chloride (0.9 % Sodium Chloride Flush 3 Ml Syringe) [facility] Last Admin: 01/15/21 08:43 Dose: 3 ml Documented by: Spironolactone (Spironolactone 25 Mg Tablet) 25 mg PO DAILY [facility]; Protocol Last Admin: 01/12/21 08:36 Dose: 25 mg Documented by: Tamsulosin HCl (Tamsulosin Hcl 0.4 Mg Capsule) 0.4 mg PO BEDTIME [facility] Last Admin: 01/14/21 21:31 Dose: 0.4 mg Documented by: Vitamin D (Cholecalciferol (Vitamin D3) 25 Mcg Tablet) 25 mcg PO DAILY [facility] Last Admin: 01/15/21 08:41 Dose: 25 mcg Documented by: Time Spent With Patient Time: Total time spent is greater than 50% in coordination of care (as documented) at patient's floor/unit and/or counseling patient: Time with patient: less than 15 minutes Progress Note: Quality Stroke Does the patient have a stroke diagnosis?: No Procedures Date of Service Date of Service: 01/15/21
[2021-01-15 11:19] LABS: Glucose, Whole Blood 233 mg/dL (60-115)
[2021-01-15] MEDS: Apixaban 5 MG TABLET PO ×2 (12:05→20:58)
--- NOTE | 2021-01-15 14:42 | P.PNIM_ITS ---
Subjective Subjective Date of Service: 01/15/21 Interval History: Acute hypoxemic respiratory failure. Review of Systems Shortness of breath seems slowly imrpoving Denies any chest pain or abdominal pain or nausea or vomiting or diarrhea Physical Exam Vital Signs: Vital Signs: Last Vital Signs Temp 97.6 F 01/15/21 10:59 Pulse 97 01/15/21 11:10 Resp 24 H 01/15/21 11:09 BP 137/77 01/15/21 10:59 Pulse Ox 96 01/15/21 10:59 Body Mass Index 37.5 Gen: NAD, chronically ill-appearing HEENT: sclera anicteric, moist mucus membranes Neck: supple Lungs:air entry improving,few rhonchii Heart: regular rate and rhythm, no murmurs Abd: soft, obese, non-tender Ext: trace edema Skin: warm/well-perfused Neuro: alert and oriented x3 Psych: appropriate affect Objective Data Active Medications Acetaminophen (Acetaminophen 325 Mg Tablet) 650 mg PO Q6H PRN PRN Reason: Pain, Mild (Pain Scale 1-3) Last Admin: 01/13/21 09:43 Dose: 650 mg Documented by: LAUREN Albuterol Sulfate (Albuterol Sulfate (0.083%) 2.5 Mg/3 Ml Vial.Neb) 2.5 mg INHALE Q2H PRN PRN Reason: shortness of breath/wheeze Albuterol/Ipratropium (Albuterol/Iprat 2.5/0.5mg 3 Ml Ampul.Neb) 3 ml INHALE RQ4H WHILE AWAKE [facility] Last Admin: 01/15/21 11:07 Dose: 3 ml Documented by: ANGEL Allopurinol (Allopurinol 100 Mg Tablet) 100 mg PO DAILY [facility] Last Admin: 01/15/21 08:37 Dose: 100 mg Documented by: YONI Apixaban (Apixaban 5 Mg Tablet) 5 mg PO BID [facility] Last Admin: 01/15/21 12:05 Dose: 5 mg Documented by: YONI Atorvastatin Calcium (Atorvastatin Calcium 10 Mg Tablet) 10 mg PO BEDTIME [facility] Last Admin: 01/14/21 21:31 Dose: 10 mg Documented by: NEPTALI Atovaquone (Atovaquone 750 Mg/5 Ml Oral.Susp) 750 mg PO BIDWM [facility] Stop: 02/04/21 08:01 Last Admin: 01/15/21 08:34 Dose: 750 mg Documented by: YONI Carbidopa/Levodopa (Carbidopa/Levodopa 25/100 Tablet) 1 tab PO TID [facility] Last Admin: 01/15/21 08:36 Dose: 1 tab Documented by: YONI Carvedilol (Carvedilol 3.125 Mg Tablet) 3.125 mg PO BID [facility]; Protocol Last Admin: 01/15/21 08:40 Dose: 3.125 mg Documented by: YONI Dextrose (Dextrose 50 % 25 Gm/50 Ml Vial) 25 gm IVPUSH Q15M PRN; Protocol PRN Reason: per Hypoglycemia Standing Ord. Diphenhydramine HCl (Diphenhydramine Hcl 25 Mg Tablet) 25 mg PO BEDTIME PRN PRN Reason: Sleep Last Admin: 01/10/21 20:36 Dose: 25 mg Documented by: AMANDA Finasteride (Finasteride 5 Mg Tablet) 5 mg PO BEDTIME [facility] Last Admin: 01/14/21 21:30 Dose: 5 mg Documented by: NEPTALI Furosemide (Furosemide 40 Mg Tablet) 40 mg PO BID@0900,1800 [facility]; Protocol Last Admin: 01/15/21 08:38 Dose: 40 mg Documented by: YONI Glucose (Glucose Gel 15 Gm Gel..Gram.) 15 gm PO Q15M PRN; Protocol PRN Reason: per Hypoglycemia Standing Ord. Guaifenesin/Dextromethorphan (Guaifenesin Dm 100/10/5 Ml 5 Ml Syrup) 5 ml PO Q4H PRN PRN Reason: Cough Last Admin: 01/12/21 18:02 Dose: 5 ml Documented by: DUYEN Doxycycline Hyclate 100 mg/ (Sodium Chloride) 250 mls @ 166.67 mls/hr IV Q12H [facility] Last Infusion: 01/15/21 08:42 Dose: 0 mls/hr Documented by: YONI Insulin Human Lispro (Insulin Lispro 100 Unit/Ml 3 Ml Vial) 0 unit SUBCUT QIDACHS [facility]; Protocol Last Admin: 01/15/21 12:02 Dose: 4 unit Documented by: YONI Lactulose (Lactulose 20 Gm/30 Ml Solution) 30 gm PO TID [facility] Last Admin: 01/15/21 08:31 Dose: 30 gm Documented by: YONI Levothyroxine Sodium (Levothyroxine Sodium 100 Mcg Tablet) 100 mcg PO DAILY@0630 [facility] Last Admin: 01/15/21 05:03 Dose: 100 mcg Documented by: NEPTALI Loratadine (Loratadine 10 Mg Tablet) 10 mg PO DAILY [facility] Last Admin: 01/15/21 08:37 Dose: 10 mg Documented by: YONI Multivitamins/Vitamin C (Multivitamin Tablet) 1 tab PO DAILY [facility] Last Admin: 01/15/21 08:39 Dose: 1 tab Documented by: YONI Nitroglycerin (Nitroglycerin 0.4 Mg Tab.Subl) 0.4 mg SUBLINGUAL Q5MX3 PRN PRN Reason: Chest Pain Last Admin: 01/11/21 00:29 Dose: 0.4 mg Documented by: AMANDA Comments: jam Méndez, give nitro now for chest pain Patient Own Med ( Mexiletine 200 Mg Capsule) 1 each PO TID [facility] Last Admin: 01/15/21 08:42 Dose: 1 each Documented by: YONI Omeprazole (Omeprazole 20 Mg Capsule.Dr) 20 mg PO DAILY@629 [facility] Last Admin: 01/15/21 05:03 Dose: 20 mg Documented by: NEPTALI Ondansetron HCl (Ondansetron Hcl 4 Mg/2 Ml Vial) 4 mg IVPUSH Q8H PRN PRN Reason: Nausea and Vomiting Pharmacy Consult (Consult Rx Perform Med Rec) 1 each MISCELLANE ONCE PRN PRN Reason: Consult order Prednisone (Prednisone 20 Mg Tablet) 40 mg PO DAILY [facility] Last Admin: 01/15/21 08:32 Dose: 40 mg Documented by: YONI Quetiapine Fumarate (Quetiapine Fumarate 100 Mg Tablet) 100 mg PO BID [facility] Last Admin: 01/15/21 08:41 Dose: 100 mg Documented by: YONI Rifaximin (Rifaximin 550 Mg Tablet) 550 mg PO BID [facility] Last Admin: 01/15/21 08:37 Dose: 550 mg Documented by: YONI Sodium Chloride (0.9 % Sodium Chloride Flush 3 Ml Syringe) 3 ml IVFLUSH QSHIFT [facility] Last Admin: 01/15/21 08:43 Dose: 3 ml Documented by: YONI Spironolactone (Spironolactone 25 Mg Tablet) 25 mg PO DAILY [facility]; Protocol Last Admin: 01/12/21 08:36 Dose: 25 mg Documented by: DUYEN Tamsulosin HCl (Tamsulosin Hcl 0.4 Mg Capsule) 0.4 mg PO BEDTIME [facility] Last Admin: 01/14/21 21:31 Dose: 0.4 mg Documented by: NEPTALI Vitamin D (Cholecalciferol (Vitamin D3) 25 Mcg Tablet) 25 mcg PO DAILY [facility] Last Admin: 01/15/21 08:41 Dose: 25 mcg Documented by: YONI Labs CBC & Chem 7: 01/14/21 05:29 01/15/21 05:54 Labs: Laboratory Results - last 24 hr 01/14/21 01/14/21 01/15/21 16:31 20:08 05:54 PT 33.6 H INR 2.9 H Anion Gap Estim Creat Clear Calc Estimated GFR POC Glucose 258 H 290 H Random Glucose Calcium 01/15/21 01/15/21 01/15/21 05:54 07:05 10:54 PT INR Anion Gap 12 Estim Creat Clear Calc 48.2 Estimated GFR 50 POC Glucose 223 H 233 H Random Glucose 223 H Calcium 9.1 Assessment and Plan (1) Pneumonitis: Status: Acute (2) CKD (chronic kidney disease) stage 3, GFR 30-59 ml/min: Status: Acute (3) Acute on chronic systolic (congestive) heart failure: Status: Acute (4) Acute respiratory failure with hypoxia: Status: Acute Assessment and Plan: 75yo M with?cirrhosis related to past EtOH abuse, hepatic encephalopathy, remote history of alcoholic pancreatitis with resultant chronic pancreatitis, asthma/COPD, Parkinsonism, hypothyroidism, previous tobacco abuse, gout, DM2, history of ventricular arrhythmia, AF on apixaban presenting after fall after taking Unisom and complaining of worsening dyspnea and cough; found to be severely hypoxic 1.acute hypoxic respiratory failure:continue HFNC + NRB; pt is DNR/DNI but NIPPV would be an option 2. exacerbation of COPD vs ILD vs diffuse interstitial pneumonitis:discussed with ICU + Pulm, started high-dose pulse sterois on 01/10/21; start prednisone taper 40 mg today,doxycycline d#7,prn nebs,COVID-19 negative by HUMAIRA and PCR; rest of RVP PCR negative; SARS-CoV2 IgG neg HIV negative, RF negative; CCP, JOSE, ANCA -neg pulmonary following-cxr -seems similar , added atovaquone.moniter lft's-added on for today. 3. acute/chronic HFrEF [LVER 20%]- dilated cardiomyopathy - IV diuresis with furosemide given -discussed with cardio/pulm- suspect at this point the primary problem is more pulmonary than cardiac. bnp -eleavted 150's ? trend BNP, monitor I/O + BMP + Mg. ?d/w nephro/cardio/pulm -switched to po lasix continue coreg,noted - ARB valsartan started but will d/c due to FLYNN hold? spironolactone due to hyperkalemia i/o monitering 4. AKIvs ckd -, d/c valsartan, avoid nephrotoxins, recheck SCr in am, check renal US noetd urine cr and protein cr seems improving 5.ventricular arrhythmia- continue carvedilol + mexiletine.? has ICD.? 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 AF- continue apixaban 7. chronic pancreatitis- no pain currently 8. cirrhosis - due to past EtOH - watch for signs of decompensation - no ascites to tap 10. hepatic encephalopathy - continue lactulose + rifaximin 11. bone lucencies in C-spine - could be facet arthritis/osteopenia but will obtain NM bone scan once more stable 12. prostatism- continue tamsulosin + finasteride 13. gout- continue allopurinol. 14. hypothyroidism- continue LT4 15. Parkinsonism- continue Sinemet 16. DM2- last A1c only 5.9.? correction-dose lispro 17. VTE ppx- continue apixaban inr elevated, improving-probable related to liver dis ,d/w cardio but does not need to be followed with apixiban no gross bleeding ?dispo- likely to have a prolonged hospital course and if he survives, would need STR Quality Stroke Does the patient have a stroke diagnosis?: No VTE Prior VTE?: No VTE Risk Level:: Medical - moderate - high VTE Device Contraindication: N/A - Device Ordered VTE Drug Contraindication: N/A - Med Ordered
[2021-01-15 15:05] LABS: Alanine Aminotransferase 34 U/L (0-40); Alkaline Phosphatase 336 U/L (39-117); Aspartate Amino Transferase 95 U/L (5-37); Bilirubin Direct 1.3 mg/dL (0.0-0.5); Bilirubin Total 2.6 mg/dL (0.0-1.0); Total Protein 6.4 g/dL (6.5-8.0)
[2021-01-15 16:09] LABS: Glucose, Whole Blood 238 mg/dL (60-115)
[2021-01-15 20:27] LABS: Glucose, Whole Blood 211 mg/dL (60-115)
[2021-01-15] MEDS: Atorvastatin Calcium 10 MG TABLET PO (20:58)
[2021-01-15] MEDS: Tamsulosin HCL 0.4 MG CAPSULE PO (20:58)
[2021-01-15] MEDS: Finasteride 5 MG TABLET PO (20:59)
[2021-01-16] VITALS (15 sets, daily range): BP systolic 71–136; BP diastolic 47–84; PULSE 105–133; RESP 20–38; TEMP 36.3–37.1; O2SAT 78–94
[2021-01-16] MEDS: Doxycycline Hyclate 100 MG in 0.9 % Sodium Chloride 250 ML 166.67 MG IV (04:17)
[2021-01-16 06:32] LABS: Alanine Aminotransferase 32 U/L (0-40); Albumin Level 2.8 g/dL (3.5-5.0); Alkaline Phosphatase 368 U/L (39-117); Anion Gap 13 (12-20); Aspartate Amino Transferase 95 U/L (5-37); Bilirubin Direct 1.6 mg/dL (0.0-0.5); Bilirubin Total 2.9 mg/dL (0.0-1.0); Blood Urea Nitrogen 36 mg/dL (9-16); Calcium 9.2 mg/dL (8.4-10.2); Carbon Dioxide 28 mmol/L (22-29); Chloride 101 mmol/L (96-108); Creatinine Clr Calc Pharmacy 54.1; Estimated Glomerular Filt Rate 58; Glucose Random 209 mg/dL (60-115); Potassium 4.8 mmol/L (3.3-5.1); Sodium 137 mmol/L (135-145); Total Protein 6.2 g/dL (6.5-8.0)
[2021-01-16 07:49] LABS: Glucose, Whole Blood 235 mg/dL (60-115)
--- NOTE | 2021-01-16 09:30 | PM.PNPUL ---
Subjective Subjective Date of Service: 01/16/21 Principal diagnosis: Hypoxic respiratory failure Interval history: The patient was seen on exam. Trying to titrate down the high-flow oxygen. Continues to tolerate diuresis and also the antimicrobial therapy. Currently with AFib with RVR. Please avoid amiodarone this time. Objective Data Labs CBC & Chem 7: 01/14/21 05:29 01/16/21 05:35 Labs: Laboratory Results - last 24 hr 01/15/21 01/15/21 01/15/21 05:54 10:54 16:03 Sodium Potassium Chloride Carbon Dioxide Anion Gap BUN Creatinine Estim Creat Clear Calc Estimated GFR POC Glucose 233 H 238 H Random Glucose Calcium Total Bilirubin 2.6 H Direct Bilirubin 1.3 H AST 95 H ALT 34 Alkaline Phosphatase 336 H Total Protein 6.4 L Albumin 3.0 L 01/15/21 01/16/21 01/16/21 20:23 05:35 07:31 Sodium 137 Potassium 4.8 Chloride 101 Carbon Dioxide 28 Anion Gap 13 BUN 36 H Creatinine 1.23 Estim Creat Clear Calc 54.1 Estimated GFR 58 POC Glucose 211 H 235 H Random Glucose 209 H Calcium 9.2 Total Bilirubin 2.9 H Direct Bilirubin 1.6 H AST 95 H ALT 32 Alkaline Phosphatase 368 H Total Protein 6.2 L Albumin 2.8 L Review of Systems Constitutional: Denies night sweats Denies change in voice, Denies lip swelling, Denies mouth pain and Denies tongue swelling Cardiovascular: Denies chest pain and Reports dyspnea Respiratory: Reports cough, Denies hemoptysis, Reports dyspnea and Denies stridor Gastrointestinal: Denies abdominal pain Hematologic/Lymphatic: Denies easy bleeding and Denies lymphadenopathy Allergic/Immunologic: Denies lip swelling and Denies tongue swelling Physical Exam Vital Signs: Vital Signs: Last Vital Signs Temp 98.0 F 01/16/21 08:00 Pulse 114 H 01/16/21 08:00 Resp 26 H 01/16/21 07:36 BP 135/84 01/16/21 08:00 Pulse Ox 91 L 01/16/21 08:00 Body Mass Index 37.5 Const: General: alert Neck: Neck: Yes normal visual inspection, Yes full ROM and Yes no lymphadenopathy Chest: Chest palpation & inspection: normal inspection of the chest Resp: Auscultation: diminished lung sounds Cardio: Rate: tachycardic Rhythm: abnormal rhythm Heart sounds: S1 normal heart sound present and S2 normal heart sound present GI: Palpation (GI): Soft to palpation and nontender Auscultation: normal bowel sounds Skin: General skin exam: rashes and/or lesions noted Procedures Date of Service Date of Service: 01/16/21 Assessment and Plan Assessment and plan (1) Pneumonitis: Status: Acute (2) Acute on chronic systolic (congestive) heart failure: Status: Acute (3) Acute respiratory failure with hypoxia: Status: Acute (4) COPD (chronic obstructive pulmonary disease): Status: Acute Assessment and Plan: Continue Mepron, monitor LFTS Prednisone PO diuresis, monitor kidney fuction Titrating oxygen down to keep pox>88% Time Spent With Patient Time: Total time spent is greater than 50% in coordination of care (as documented) at patient's floor/unit and/or counseling patient: Time with patient: 15 - 24 minutes Progress Note: Quality Stroke Does the patient have a stroke diagnosis?: No
[2021-01-16] MEDS: dilTIAZem HCL 50 MG/10 ML VIAL IVPUSH (09:38)
[2021-01-16] MEDS: Insulin Lispro 100 UNIT/ML 3 ML VIAL SUBCUT ×4 (09:39→20:38)
[2021-01-16] MEDS: Lactulose 20 GM/30 ML SOLUTION 30 GM PO ×2 (09:39→15:57)
[2021-01-16] MEDS: predniSONE 20 MG TABLET 40 MG PO (09:40)
[2021-01-16] MEDS: Carbidopa/Levodopa 25/100 TABLET 1 TAB PO ×3 (09:41→20:38)
[2021-01-16] MEDS: Apixaban 5 MG TABLET PO ×2 (09:41→20:38)
[2021-01-16] MEDS: 0.9 % Sodium Chloride Flush 3 ML SYRINGE IVFLUSH ×3 (09:41→20:38)
[2021-01-16] MEDS: QUEtiapine Fumarate 100 MG TABLET PO ×2 (09:41→20:37)
[2021-01-16] MEDS: allopurinoL 100 MG TABLET PO ×2 (09:41→09:48)
[2021-01-16] MEDS: Cholecalciferol (Vitamin D3) 25 MCG TABLET PO (09:44)
[2021-01-16] MEDS: Multivitamin TABLET 1 TAB PO (09:44)
[2021-01-16] MEDS: Loratadine 10 MG TABLET PO (09:44)
[2021-01-16] MEDS: Atovaquone 750 MG/5 ML ORAL.SUSP PO ×2 (09:45→15:57)
--- NOTE | 2021-01-16 09:49 | P.PNNP_ITS ---
Subjective Subjective Date of Service: 01/16/21 Principal diagnosis: Hypoxic respiratory failure Interval history: Events noted Tachycardia Physical Exam Vital Signs: Vital Signs: Last Vital Signs Temp 98.0 F 01/16/21 08:00 Pulse 114 H 01/16/21 08:00 Resp 26 H 01/16/21 07:36 BP 135/84 01/16/21 08:00 Pulse Ox 91 L 01/16/21 08:00 Body Mass Index 37.5 Const: General: alert, awake and ill appearing Neck: Neck: Yes supple Resp: Auscultation: rhonchi Cardio: Palpation: no palpable S3 Heart sounds: no gallops and no rubs GI: Palpation (GI): Soft to palpation Auscultation: normal bowel sounds Neuro: General: tone normal Motor exam (neuro): no asterixis Extrem: General: Yes no pedal edema Objective Data Labs CBC & Chem 7: 01/14/21 05:29 01/16/21 05:35 Labs: Laboratory Results - last 24 hr 01/15/21 01/15/21 01/15/21 05:54 10:54 16:03 Sodium Potassium Chloride Carbon Dioxide Anion Gap BUN Creatinine Estim Creat Clear Calc Estimated GFR POC Glucose 233 H 238 H Random Glucose Calcium Total Bilirubin 2.6 H Direct Bilirubin 1.3 H AST 95 H ALT 34 Alkaline Phosphatase 336 H Total Protein 6.4 L Albumin 3.0 L 01/15/21 01/16/21 01/16/21 20:23 05:35 07:31 Sodium 137 Potassium 4.8 Chloride 101 Carbon Dioxide 28 Anion Gap 13 BUN 36 H Creatinine 1.23 Estim Creat Clear Calc 54.1 Estimated GFR 58 POC Glucose 211 H 235 H Random Glucose 209 H Calcium 9.2 Total Bilirubin 2.9 H Direct Bilirubin 1.6 H AST 95 H ALT 32 Alkaline Phosphatase 368 H Total Protein 6.2 L Albumin 2.8 L Procedures Date of Service Date of Service: 01/16/21 Assessment & Plan Assessment and plan (1) Acute respiratory failure with hypoxia: Status: Acute (2) COPD (chronic obstructive pulmonary disease): Status: Acute (3) CKD (chronic kidney disease) stage 3, GFR 30-59 ml/min: Status: Acute Assessment and Plan: FLYNN superimposed on CKD ILD / Hypoxia Anemia Dilated Cardiomyopathy Assessment and Plan: BUN and creatinine have bumped up with Lasix as expected. ILD > CHF Hold Spironolactone due to mild elevation in potassium; If K > 5.5 , would administer 1 dose of Kayexalate Agree PO Lasix Shall follow with team Time Spent With Patient Time: Total time spent is greater than 50% in coordination of care (as documente d) at patient's floor/unit and/or counseling patient: Time with patient: 15 - 24 minutes Progress Note: Quality Stroke Does the patient have a stroke diagnosis?: No
[2021-01-16 09:50] LABS: Magnesium 2.3 mg/dL (1.6-2.6)
--- NOTE | 2021-01-16 10:10 | PC.NURSE ---
Patient in A fib with RVR 130s-150s on tele. MD notified. 2.5mg IV cardizem administered at 0950. MD and store shopper at bedside to evaluate patient with aerial photograph interpreter. Patient denies any chest pain, or discomfort at this time. Patient continuously removing NRB and high flow, de sating to 70%. Patient re-educated with aerial photograph interpreter on importance of keeping oxygen in place. Camera at bedside for safety. At this time, 1013 HR 120s-130s a fib on monitor. Patient repositioned and resting comfortably in place.
--- NOTE | 2021-01-16 11:12 | P.PNCA_ITS ---
Subjective Subjective Date of Service: 01/16/21 Principal diagnosis: Hypoxic respiratory failure Interval history: He still feels about the same. No new symptoms. Continues to be on high-flow oxygen. Review of Systems Review of Systems Yes all other systems are reviewed and are negative Cardiovascular: Reports as per HPI, Reports no additional cardiovascular complaints, Denies acrocyanosis, Denies cool extremities, Denies painful fingertips, Denies chest pain, Denies chest pain at rest, Denies diaphoresis, Denies syncope, Denies irregular heart rhythm, Denies claudication, Denies leg edema, Denies lightheadedness, Denies palpitations and Reports dyspnea Respiratory: Reports dyspnea Denies syncope Endocrine: Denies palpitations Physical Exam Vital Signs: Last Vital Signs Temp 98.0 F 01/16/21 08:00 Pulse 114 H 01/16/21 08:00 Resp 32 H 01/16/21 11:02 BP 135/84 01/16/21 08:00 Pulse Ox 91 L 01/16/21 08:00 Body Mass Index 37.5 Const General: cooperative and no acute distress [facility] Other: Unremarkable Neck Neck: Yes normal visual inspection Chest Chest palpation & inspection: normal inspection of the chest Resp Auscultation: crackles and diminished lung sounds Cardio Jugular venous distension: no JVD Palpation: normal PMI Heart sounds: S1 normal heart sound present, S2 normal heart sound present, no gallops, no murmurs and no rubs GI Palpation (GI): Soft to palpation Back/Spine/Pelvis Other: unremarkable Skin General skin exam: no rashes or lesions noted Neuro Cranial nerves: Yes Other cranial nerve findings present Extrem General: Yes no clubbing, cyanosis or edema Psych Mental Status: other Results Labs and Meds Result diagrams: 01/14/21 05:29 01/16/21 05:35 Lab results: Laboratory Results - last 24 hr 01/15/21 01/15/21 01/15/21 05:54 10:54 16:03 Sodium Potassium Chloride Carbon Dioxide Anion Gap BUN Creatinine Estim Creat Clear Calc Estimated GFR POC Glucose 233 H 238 H Random Glucose Calcium Magnesium Total Bilirubin 2.6 H Direct Bilirubin 1.3 H AST 95 H ALT 34 Alkaline Phosphatase 336 H Total Protein 6.4 L Albumin 3.0 L 01/15/21 01/16/21 01/16/21 20:23 05:35 07:31 Sodium 137 Potassium 4.8 Chloride 101 Carbon Dioxide 28 Anion Gap 13 BUN 36 H Creatinine 1.23 Estim Creat Clear Calc 54.1 Estimated GFR 58 POC Glucose 211 H 235 H Random Glucose 209 H Calcium 9.2 Magnesium 2.3 Total Bilirubin 2.9 H Direct Bilirubin 1.6 H AST 95 H ALT 32 Alkaline Phosphatase 368 H Total Protein 6.2 L Albumin 2.8 L Progress Note: A&P Assessment and plan (1) Acute on chronic systolic (congestive) heart failure: Status: Acute (2) Acute respiratory failure with hypoxia: Status: Acute (3) Atrial fibrillation with rapid ventricular response: Status: Acute Assessment and Plan: Echocardiogram with severe LV dysfunction. However CT is rather suggestive of possible interstitial pneumonia/?ARDS, but cannot exclude congestive heart failure completely. cBNP only slightly elevated. These data are discordant and hence suspect primary pulmonary issue to be more likely in this acute hypoxia/respiratory failure. From cardiac standpoint, he is in atrial fibrillation with rapid rate, likely precipitated by his respiratory compromise. May use IV beta-blockers as needed. Overall, poor prognosis. Need to discuss goals of care. He has not made much of progress in the last several days. Fall Risk Details Current Medications: Current Medications Acetaminophen (Acetaminophen 325 Mg Tablet) 650 mg PO Q6H PRN PRN Reason: Pain, Mild (Pain Scale 1-3) Last Admin: 01/13/21 09:43 Dose: 650 mg Documented by: Allopurinol (Allopurinol 100 Mg Tablet) 100 mg PO DAILY [facility] Last Admin: 01/16/21 09:48 Dose: 100 mg Documented by: Apixaban (Apixaban 5 Mg Tablet) 5 mg PO BID [facility] Last Admin: 01/16/21 09:41 Dose: 5 mg Documented by: Atorvastatin Calcium (Atorvastatin Calcium 10 Mg Tablet) 10 mg PO BEDTIME [facility] Last Admin: 01/15/21 20:58 Dose: 10 mg Documented by: Atovaquone (Atovaquone 750 Mg/5 Ml Oral.Susp) 750 mg PO BIDWM [facility] Stop: 02/04/21 08:01 Last Admin: 01/16/21 09:45 Dose: 750 mg Documented by: Carbidopa/Levodopa (Carbidopa/Levodopa 25/100 Tablet) 1 tab PO TID [facility] Last Admin: 01/16/21 09:41 Dose: 1 tab Documented by: Carvedilol (Carvedilol 3.125 Mg Tablet) 3.125 mg PO BID [facility]; Protocol Last Admin: 01/16/21 09:40 Dose: Not Given Documented by: Dextrose (Dextrose 50 % 25 Gm/50 Ml Vial) 25 gm IVPUSH Q15M PRN; Protocol PRN Reason: per Hypoglycemia Standing Ord. Diphenhydramine HCl (Diphenhydramine Hcl 25 Mg Tablet) 25 mg PO BEDTIME PRN PRN Reason: Sleep Last Admin: 01/10/21 20:36 Dose: 25 mg Documented by: Finasteride (Finasteride 5 Mg Tablet) 5 mg PO BEDTIME [facility] Last Admin: 01/15/21 20:59 Dose: 5 mg Documented by: Furosemide (Furosemide 40 Mg Tablet) 40 mg PO BID@0900,1800 [facility]; Protocol Last Admin: 01/16/21 09:41 Dose: Not Given Documented by: Glucose (Glucose Gel 15 Gm Gel..Gram.) 15 gm PO Q15M PRN; Protocol PRN Reason: per Hypoglycemia Standing Ord. Guaifenesin/Dextromethorphan (Guaifenesin Dm 100/10/5 Ml 5 Ml Syrup) 5 ml PO Q4H PRN PRN Reason: Cough Last Admin: 01/12/21 18:02 Dose: 5 ml Documented by: Doxycycline Hyclate 100 mg/ (Sodium Chloride) 250 mls @ 166.67 mls/hr IV Q12H S Last Infusion: 01/16/21 05:51 Dose: Infused Documented by: Insulin Human Lispro (Insulin Lispro 100 Unit/Ml 3 Ml Vial) 0 unit SUBCUT QIDACHS [facility]; Protocol Last Admin: 01/16/21 09:39 Dose: 4 unit Documented by: Lactulose (Lactulose 20 Gm/30 Ml Solution) 30 gm PO TID [facility] Last Admin: 01/16/21 09:39 Dose: 30 gm Documented by: Levothyroxine Sodium (Levothyroxine Sodium 100 Mcg Tablet) 100 mcg PO DAILY@0630 [facility] Last Admin: 01/16/21 05:51 Dose: Not Given Documented by: Loratadine (Loratadine 10 Mg Tablet) 10 mg PO DAILY [facility] Last Admin: 01/16/21 09:44 Dose: 10 mg Documented by: Multivitamins/Vitamin C (Multivitamin Tablet) 1 tab PO DAILY [facility] Last Admin: 01/16/21 09:44 Dose: 1 tab Documented by: Nitroglycerin (Nitroglycerin 0.4 Mg Tab.Subl) 0.4 mg SUBLINGUAL Q5MX3 PRN PRN Reason: Chest Pain Last Admin: 01/11/21 00:29 Dose: 0.4 mg Documented by: Patient Own Med ( Mexiletine 200 Mg Capsule) 1 each PO TID [facility] Last Admin: 01/15/21 21:01 Dose: 1 each Documented by: Omeprazole (Omeprazole 20 Mg Capsule.Dr) 20 mg PO DAILY@0630 [facility] Last Admin: 01/16/21 05:51 Dose: Not Given Documented by: Ondansetron HCl (Ondansetron Hcl 4 Mg/2 Ml Vial) 4 mg IVPUSH Q8H PRN PRN Reason: Nausea and Vomiting Pharmacy Consult (Consult Rx Perform Med Rec) 1 each MISCELLANE ONCE PRN PRN Reason: Consult order Prednisone (Prednisone 20 Mg Tablet) 40 mg PO DAILY [facility] Last Admin: 01/16/21 09:40 Dose: 40 mg Documented by: Quetiapine Fumarate (Quetiapine Fumarate 100 Mg Tablet) 100 mg PO BID [facility] Last Admin: 01/16/21 09:41 Dose: 100 mg Documented by: Sodium Chloride (0.9 % Sodium Chloride Flush 3 Ml Syringe) 3 ml IVFLUSH QSHIFT [facility] Last Admin: 01/16/21 09:41 Dose: 3 ml Documented by: Spironolactone (Spironolactone 25 Mg Tablet) 25 mg PO DAILY [facility]; Protocol Last Admin: 01/12/21 08:36 Dose: 25 mg Documented by: Tamsulosin HCl (Tamsulosin Hcl 0.4 Mg Capsule) 0.4 mg PO BEDTIME [facility] Last Admin: 01/15/21 20:58 Dose: 0.4 mg Documented by: Vitamin D (Cholecalciferol (Vitamin D3) 25 Mcg Tablet) 25 mcg PO DAILY [facility] Last Admin: 01/16/21 09:44 Dose: 25 mcg Documented by: Time Spent With Patient Time: Total time spent is greater than 50% in coordination of care (as documented) at patient's floor/unit and/or counseling patient: Time with patient: less than 15 minutes Progress Note: Quality Stroke Does the patient have a stroke diagnosis?: No Procedures Date of Service Date of Service: 01/16/21
[2021-01-16 12:01] LABS: Glucose, Whole Blood 214 mg/dL (60-115)
--- NOTE | 2021-01-16 12:22 | HO.PM.IMPN ---
Subjective Subjective Date of Service: 01/16/21 Interval History: Acute hypoxemic respiratory failure. Review of Systems Patient still is short of breath but feel comfortable, but non cooperative keep removing his oxygen and also keep refusing on and off lactulose Denies any chest pain or abdominal pain or fever or chills or cough Physical Exam Vital Signs: Vital Signs: Last Vital Signs Temp 98.6 F 01/16/21 11:44 Pulse 129 H 01/16/21 11:44 Resp 32 H 01/16/21 11:44 BP 135/84 01/16/21 08:00 Pulse Ox 94 01/16/21 11:44 Body Mass Index 37.5 Gen: NAD, chronically ill-appearing HEENT: sclera anicteric, moist mucus membranes Neck: supple Lungs:air entry seems similar to yesterday , less rhonchii Heart: regular rate and rhythm, no murmurs Abd: soft, obese, non-tender Ext: trace edema Skin: warm/well-perfused Neuro: alert and oriented x3 Psych: appropriate affect Objective Data Active Medications Acetaminophen (Acetaminophen 325 Mg Tablet) 650 mg PO Q6H PRN PRN Reason: Pain, Mild (Pain Scale 1-3) Last Admin: 01/13/21 09:43 Dose: 650 mg Documented by: LAUREN Allopurinol (Allopurinol 100 Mg Tablet) 100 mg PO DAILY [facility] Last Admin: 01/16/21 09:41 Dose: 100 mg Documented by: MARCIAL Apixaban (Apixaban 5 Mg Tablet) 5 mg PO BID [facility] Last Admin: 01/16/21 09:41 Dose: 5 mg Documented by: MARCIAL Atorvastatin Calcium (Atorvastatin Calcium 10 Mg Tablet) 10 mg PO BEDTIME [facility] Last Admin: 01/15/21 20:58 Dose: 10 mg Documented by: ANTOIC Atovaquone (Atovaquone 750 Mg/5 Ml Oral.Susp) 750 mg PO BIDWM [facility] Stop: 02/04/21 08:01 Last Admin: 01/16/21 09:45 Dose: 750 mg Documented by: MARCIAL Carbidopa/Levodopa (Carbidopa/Levodopa 25/100 Tablet) 1 tab PO TID [facility] Last Admin: 01/16/21 09:41 Dose: 1 tab Documented by: MARCIAL Carvedilol (Carvedilol 3.125 Mg Tablet) 3.125 mg PO BID [facility]; Protocol Last Admin: 01/16/21 09:40 Dose: Not Given Documented by: MARCIAL Non-Admin Reason: hold per Dextrose (Dextrose 50 % 25 Gm/50 Ml Vial) 25 gm IVPUSH Q15M PRN; Protocol PRN Reason: per Hypoglycemia Standing Ord. Diphenhydramine HCl (Diphenhydramine Hcl 25 Mg Tablet) 25 mg PO BEDTIME PRN PRN Reason: Sleep Last Admin: 01/10/21 20:36 Dose: 25 mg Documented by: AMANDA Finasteride (Finasteride 5 Mg Tablet) 5 mg PO BEDTIME [facility] Last Admin: 01/15/21 20:59 Dose: 5 mg Documented by: CAM Furosemide (Furosemide 40 Mg Tablet) 40 mg PO BID@0900,1800 [facility]; Protocol Last Admin: 01/16/21 09:41 Dose: Not Given Documented by: MARCIAL Non-Admin Reason: hold per Glucose (Glucose Gel 15 Gm Gel..Gram.) 15 gm PO Q15M PRN; Protocol PRN Reason: per Hypoglycemia Standing Ord. Guaifenesin/Dextromethorphan (Guaifenesin Dm 100/10/5 Ml 5 Ml Syrup) 5 ml PO Q4H PRN PRN Reason: Cough Last Admin: 01/12/21 18:02 Dose: 5 ml Documented by: DUYEN Doxycycline Hyclate 100 mg/ (Sodium Chloride) 250 mls @ 166.67 mls/hr IV Q12H [facility] Last Infusion: 01/16/21 05:51 Dose: 0 mls/hr Documented by: CAM Metoprolol Tartrate 5 mg/ (Sodium Chloride) 55 mls @ 220 mls/hr IV Q6H [facility] Insulin Human Lispro (Insulin Lispro 100 Unit/Ml 3 Ml Vial) 0 unit SUBCUT QIDACHS [facility]; Protocol Last Admin: 01/16/21 09:39 Dose: 4 unit Documented by: MARCIAL Lactulose (Lactulose 20 Gm/30 Ml Solution) 30 gm PO TID [facility] Last Admin: 01/16/21 09:39 Dose: 30 gm Documented by: MARCIAL Levothyroxine Sodium (Levothyroxine Sodium 100 Mcg Tablet) 100 mcg PO DAILY@0630 [facility] Last Admin: 01/16/21 05:51 Dose: Not Given Documented by: ANTOIC Non-Admin Reason: Patient Condition Contraindication Loratadine (Loratadine 10 Mg Tablet) 10 mg PO DAILY [facility] Last Admin: 01/16/21 09:44 Dose: 10 mg Documented by: MARCIAL Multivitamins/Vitamin C (Multivitamin Tablet) 1 tab PO DAILY [facility] Last Admin: 01/16/21 09:44 Dose: 1 tab Documented by: MARCIAL Nitroglycerin (Nitroglycerin 0.4 Mg Tab.Subl) 0.4 mg SUBLINGUAL Q5MX3 PRN PRN Reason: Chest Pain Last Admin: 01/11/21 00:29 Dose: 0.4 mg Documented by: AMANDA Comments: jam Méndez, give nitro now for chest pain Patient Own Med ( Mexiletine 200 Mg Capsule) 1 each PO TID [facility] Last Admin: 01/15/21 21:01 Dose: 1 each Documented by: ANTNESTOR Omeprazole (Omeprazole 20 Mg Capsule.Dr) 20 mg PO DAILY@0630 [facility] Last Admin: 01/16/21 05:51 Dose: Not Given Documented by: ANTNESTOR Non-Admin Reason: Patient Condition Contraindication Ondansetron HCl (Ondansetron Hcl 4 Mg/2 Ml Vial) 4 mg IVPUSH Q8H PRN PRN Reason: Nausea and Vomiting Pharmacy Consult (Consult Rx Perform Med Rec) 1 each MISCELLANE ONCE PRN PRN Reason: Consult order Prednisone (Prednisone 20 Mg Tablet) 40 mg PO DAILY [facility] Last Admin: 01/16/21 09:40 Dose: 40 mg Documented by: MARCIAL Quetiapine Fumarate (Quetiapine Fumarate 100 Mg Tablet) 100 mg PO BID [facility] Last Admin: 01/16/21 09:41 Dose: 100 mg Documented by: MARCIAL Sodium Chloride (0.9 % Sodium Chloride Flush 3 Ml Syringe) 3 ml IVFLUSH QSHIFT [facility] Last Admin: 01/16/21 09:41 Dose: 3 ml Documented by: MARCIAL Spironolactone (Spironolactone 25 Mg Tablet) 25 mg PO DAILY [facility]; Protocol Last Admin: 01/12/21 08:36 Dose: 25 mg Documented by: DUYEN Tamsulosin HCl (Tamsulosin Hcl 0.4 Mg Capsule) 0.4 mg PO BEDTIME [facility] Last Admin: 01/15/21 20:58 Dose: 0.4 mg Documented by: ANTOIC Vitamin D (Cholecalciferol (Vitamin D3) 25 Mcg Tablet) 25 mcg PO DAILY [facility] Last Admin: 01/16/21 09:44 Dose: 25 mcg Documented by: MARCIAL Labs CBC & Chem 7: 01/14/21 05:29 01/16/21 05:35 Labs: Laboratory Results - last 24 hr 01/15/21 01/15/21 01/15/21 05:54 16:03 20:23 Anion Gap Estim Creat Clear Calc Estimated GFR POC Glucose 238 H 211 H Random Glucose Calcium Magnesium Total Bilirubin 2.6 H Direct Bilirubin 1.3 H AST 95 H ALT 34 Alkaline Phosphatase 336 H Total Protein 6.4 L Albumin 3.0 L 01/16/21 01/16/21 01/16/21 05:35 07:31 11:50 Anion Gap 13 Estim Creat Clear Calc 54.1 Estimated GFR 58 POC Glucose 235 H 214 H Random Glucose 209 H Calcium 9.2 Magnesium 2.3 Total Bilirubin 2.9 H Direct Bilirubin 1.6 H AST 95 H ALT 32 Alkaline Phosphatase 368 H Total Protein 6.2 L Albumin 2.8 L Assessment and Plan (1) Pneumonitis: Status: Acute (2) Atrial fibrillation with rapid ventricular response: Status: Acute Assessment and Plan: 75yo M with?cirrhosis related to past EtOH abuse, hepatic encephalopathy, remote history of alcoholic pancreatitis with resultant chronic pancreatitis, asthma/COPD, Parkinsonism, hypothyroidism, previous tobacco abuse, gout, DM2, history of ventricular arrhythmia, AF on apixaban presenting after fall after taking Unisom and complaining of worsening dyspnea and cough; found to be severely hypoxic 1.acute hypoxic respiratory failure:continue HFNC + NRB; pt is DNR/DNI but NIPPV would be an option 2. exacerbation of COPD vs ILD vs diffuse interstitial pneumonitis:,COVID-19 negative by NAAand PCR; rest of RVP PCR negative; SARS-CoV2 IgG neg HIV negative, RF negative; CCP, JOSE, ANCA -neg started high-dose pulse sterois on 01/10/21intially-switched to prednisone taper 40 mg today,doxycyclin,prn nebs pulmonary following-cxr yesterday -seems similar ,on atovaquone for imperic pcp treatment.moniter lft's 3. acute/chronic HFrEF [LVER 20%]- dilated cardiomyopathy - IV diuresis with furosemide given -discussed with cardio/pulm- suspect at this point the primary problem is more pulmonary than cardiac. bnp -eleavted 150's ? trend BNP, monitor I/O + BMP + Mg. ?d/w nephro/cardio/pulm -switched to po lasix continue coreg,noted - ARB valsartan started but will d/c due to FLYNN hold? spironolactone due to hyperkalemia i/o monitering 4. AKIvs ckd -, d/c valsartan, avoid nephrotoxins, recheck SCr in am, check renal US noetd urine cr and protein cr seems improving 5.ventricular arrhythmia- hold carvedilol since started on iv metoprolol + mexiletine.? has ICD.? 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 AF- hr in 130;s -possible repsiratory failure also contributing-will add iv metoprolol, continue apixaban 7. chronic pancreatitis- no pain currently 8. cirrhosis - due to past EtOH - watch for signs of decompensation - no ascites to tap inr elevated but improving, improving-probable related to liver dis ,d/w cardio but does not need to be followed with apixiban no gross bleeding 10. hepatic encephalopathy - continue lactulose + rifaximin 11. bone lucencies in C-spine - could be facet arthritis/osteopenia but will obtain NM bone scan once more stable 12. prostatism- continue tamsulosin + finasteride 13. gout- continue allopurinol. 14. hypothyroidism- continue LT4 15. Parkinsonism- continue Sinemet 16. DM2- last A1c only 5.9.? correction-dose lispro 17. VTE ppx- continue apixaban ?dispo- likely to have a prolonged hospital course and if he survives, would need STR Quality Stroke Does the patient have a stroke diagnosis?: No VTE Prior VTE?: No VTE Risk Level:: Medical - moderate - high VTE Device Contraindication: N/A - Device Ordered VTE Drug Contraindication: N/A - Med Ordered
[2021-01-16] MEDS: Metoprolol Tartrate 5 MG in 0.9 % Sodium Chloride 50 ML 220 MG IV ×2 (12:24→18:22)
[2021-01-16] MEDS: Morphine Sulfate 2 MG/ML CARTRIDGE 1 MG IVPUSH (12:25)
--- NOTE | 2021-01-16 12:55 | MHC.CM.PN ---
per rounds pt not ready for dc om 100% rebreather no dc date at thsi time
[2021-01-16 13:33] LABS: Hematocrit 31.5 % (42-52); Hemoglobin 10.3 g/dl (14.0-18.0)
[2021-01-16 16:10] LABS: Glucose, Whole Blood 224 mg/dL (60-115)
[2021-01-16 20:09] LABS: Glucose, Whole Blood 223 mg/dL (60-115)
[2021-01-16] MEDS: Omeprazole 20 MG CAPSULE.DR PO (20:37)
[2021-01-16] MEDS: Tamsulosin HCL 0.4 MG CAPSULE PO (20:37)
[2021-01-16] MEDS: Finasteride 5 MG TABLET PO (20:38)
[2021-01-16] MEDS: Atorvastatin Calcium 10 MG TABLET PO (20:38)
[2021-01-16] MEDS: Morphine Sulfate 4 MG/ML CARTRIDGE IVPUSH (22:21)
[2021-01-16] MEDS: 0.9 % Sodium Chloride 1,000 ML 999 ML IV (23:50)
[2021-01-17] VITALS (11 sets, daily range): BP systolic 86–127; BP diastolic 46–81; PULSE 108–133; RESP 18–28; TEMP 36.1–37.4; O2SAT 83–90
[2021-01-17] MEDS: 0.9 % Sodium Chloride 1,000 ML 999 ML IV (00:03)
--- NOTE | 2021-01-17 06:56 | PM.EVENT ---
Event Note Date of Service: 01/17/21 Event Note: High rapid response was called on patient is patient was removing his O2 mask in becoming very hypoxic, patient's blood pressure also dropped to 60 over 40s. Patient resuscitated with 2 L of fluid, oxygen came up to 88% after was placed on non-rebreather and high-flow Blood pressure improved . Family notified
[2021-01-17 07:26] LABS: Glucose, Whole Blood 218 mg/dL (60-115)
[2021-01-17 07:33] LABS: Hematocrit 31.7 % (42-52)
[2021-01-17 07:47] LABS: Alanine Aminotransferase 24 U/L (0-40); Albumin Level 2.6 g/dL (3.5-5.0); Alkaline Phosphatase 372 U/L (39-117); Aspartate Amino Transferase 81 U/L (5-37); Bilirubin Direct 1.7 mg/dL (0.0-0.5); Bilirubin Total 3.3 mg/dL (0.0-1.0); Total Protein 5.8 g/dL (6.5-8.0)
--- NOTE | 2021-01-17 10:19 | HO.PM.IMPN ---
Subjective Subjective Date of Service: 01/17/21 Interval History: Acute hypoxemic respiratory failure Review of Systems Patient is slowly progressively worsening shortness of breath allen. Sats are in high 85-86range ovenight hypotension , worsening metal status allen and non cooperative with taking meds seems sleepy Physical Exam Vital Signs: Vital Signs: Last Vital Signs Temp 97.0 F 01/17/21 07:31 Pulse 120 H 01/17/21 07:31 Resp 20 01/17/21 07:54 BP 127/64 01/17/21 07:31 Pulse Ox 83 L 01/17/21 07:31 Oxygen Flow Rate 60 01/16/21 22:13 Body Mass Index 37.5 Gen: chronically ill-appearing, sob HEENT: sclera anicteric, moist mucus membranes. Lungs:air entry seems similar , some rhonchii present. Heart: regular rate and rhythm, no murmurs Abd: soft, obese, non-tender Ext: trace edema Skin: no cyanosis or erythema Neuro: moves all ext , knows his name , want to sleep. Psych: appropriate affect Objective Data Active Medications Acetaminophen (Acetaminophen 325 Mg Tablet) 650 mg PO Q6H PRN PRN Reason: Pain, Mild (Pain Scale 1-3) Last Admin: 01/13/21 09:43 Dose: 650 mg Documented by: LAUREN Allopurinol (Allopurinol 100 Mg Tablet) 100 mg PO DAILY [facility] Last Admin: 01/16/21 09:41 Dose: 100 mg Documented by: MARCIAL Apixaban (Apixaban 5 Mg Tablet) 5 mg PO BID [facility] Last Admin: 01/16/21 20:38 Dose: 5 mg Documented by: CAM Atorvastatin Calcium (Atorvastatin Calcium 10 Mg Tablet) 10 mg PO BEDTIME [facility] Last Admin: 01/16/21 20:38 Dose: 10 mg Documented by: CAM Atovaquone (Atovaquone 750 Mg/5 Ml Oral.Susp) 750 mg PO BIDWM [facility] Stop: 02/04/21 08:01 Last Admin: 01/16/21 15:57 Dose: 750 mg Documented by: MARCIAL Carbidopa/Levodopa (Carbidopa/Levodopa 25/100 Tablet) 1 tab PO TID [facility] Last Admin: 01/16/21 20:38 Dose: 1 tab Documented by: CAM Carvedilol (Carvedilol 3.125 Mg Tablet) 3.125 mg PO BID [facility]; Protocol Last Admin: 01/16/21 20:19 Dose: Not Given Documented by: CAM Non-Admin Reason: Physician Held Med Dextrose (Dextrose 50 % 25 Gm/50 Ml Vial) 25 gm IVPUSH Q15M PRN; Protocol PRN Reason: per Hypoglycemia Standing Ord. Diphenhydramine HCl (Diphenhydramine Hcl 25 Mg Tablet) 25 mg PO BEDTIME PRN PRN Reason: Sleep Last Admin: 01/10/21 20:36 Dose: 25 mg Documented by: NAUMOC Finasteride (Finasteride 5 Mg Tablet) 5 mg PO BEDTIME [facility] Last Admin: 01/16/21 20:38 Dose: 5 mg Documented by: CAM Furosemide (Furosemide 40 Mg Tablet) 40 mg PO BID@0900,1800 [facility]; Protocol Last Admin: 01/16/21 18:08 Dose: Not Given Documented by: MARCIAL Non-Admin Reason: hold per Glucose (Glucose Gel 15 Gm Gel..Gram.) 15 gm PO Q15M PRN; Protocol PRN Reason: per Hypoglycemia Standing Ord. Guaifenesin/Dextromethorphan (Guaifenesin Dm 100/10/5 Ml 5 Ml Syrup) 5 ml PO Q4H PRN PRN Reason: Cough Last Admin: 01/12/21 18:02 Dose: 5 ml Documented by: DUYEN Metoprolol Tartrate 5 mg/ (Sodium Chloride) 55 mls @ 220 mls/hr IV Q6H [facility] Last Admin: 01/17/21 05:12 Dose: Not Given Documented by: CAM Non-Admin Reason: Physician Held Med Insulin Human Lispro (Insulin Lispro 100 Unit/Ml 3 Ml Vial) 0 unit SUBCUT QIDACHS [facility]; Protocol Last Admin: 01/17/21 10:03 Dose: Not Given Documented by: CORRINA Non-Dick Reason: Poor PO intake Lactulose (Lactulose 20 Gm/30 Ml Solution) 45 gm PO RQID [facility] Levothyroxine Sodium (Levothyroxine Sodium 100 Mcg Tablet) 100 mcg PO DAILY@0630 [facility] Last Admin: 01/17/21 05:13 Dose: Not Given Documented by: CAM Non-Admin Reason: pt lethargic Loratadine (Loratadine 10 Mg Tablet) 10 mg PO DAILY [facility] Last Admin: 01/16/21 09:44 Dose: 10 mg Documented by: MARCIAL Multivitamins/Vitamin C (Multivitamin Tablet) 1 tab PO DAILY [facility] Last Admin: 01/16/21 09:44 Dose: 1 tab Documented by: MARCIAL Nitroglycerin (Nitroglycerin 0.4 Mg Tab.Subl) 0.4 mg SUBLINGUAL Q5MX3 PRN PRN Reason: Chest Pain Last Admin: 01/11/21 00:29 Dose: 0.4 mg Documented by: AMANDA Comments: jam Méndez, give nitro now for chest pain Patient Own Med ( Mexiletine 200 Mg Capsule) 1 each PO TID [facility] Last Admin: 01/16/21 20:38 Dose: 1 each Documented by: CAM Omeprazole (Omeprazole 20 Mg Capsule.Dr) 20 mg PO BID [facility] Last Admin: 01/16/21 20:37 Dose: 20 mg Documented by: CAM Ondansetron HCl (Ondansetron Hcl 4 Mg/2 Ml Vial) 4 mg IVPUSH Q8H PRN PRN Reason: Nausea and Vomiting Pharmacy Consult (Consult Rx Perform Med Rec) 1 each MISCELLANE ONCE PRN PRN Reason: Consult order Prednisone (Prednisone 20 Mg Tablet) 40 mg PO DAILY [facility] Last Admin: 01/16/21 09:40 Dose: 40 mg Documented by: MARCIAL Quetiapine Fumarate (Quetiapine Fumarate 100 Mg Tablet) 100 mg PO BID [facility] Last Admin: 01/16/21 20:37 Dose: 100 mg Documented by: CAM Sodium Chloride (0.9 % Sodium Chloride Flush 3 Ml Syringe) 3 ml IVFLUSH QSHIFT [facility] Last Admin: 01/16/21 20:38 Dose: 3 ml Documented by: CAM Spironolactone (Spironolactone 25 Mg Tablet) 25 mg PO DAILY [facility]; Protocol Last Admin: 01/12/21 08:36 Dose: 25 mg Documented by: DUYEN Tamsulosin HCl (Tamsulosin Hcl 0.4 Mg Capsule) 0.4 mg PO BEDTIME [facility] Last Admin: 01/16/21 20:37 Dose: 0.4 mg Documented by: HO.ANTOIC Vitamin D (Cholecalciferol (Vitamin D3) 25 Mcg Tablet) 25 mcg PO DAILY [facility] Last Admin: 01/16/21 09:44 Dose: 25 mcg Documented by: MARCIAL Labs CBC & Chem 7: 01/17/21 06:23 01/16/21 05:35 Labs: Laboratory Results - last 24 hr 01/16/21 01/16/21 01/16/21 11:50 16:07 20:06 POC Glucose 214 H 224 H 223 H Total Bilirubin Direct Bilirubin AST ALT Alkaline Phosphatase Total Protein Albumin 01/17/21 01/17/21 06:23 07:18 POC Glucose 218 H Total Bilirubin 3.3 H Direct Bilirubin 1.7 H AST 81 H ALT 24 Alkaline Phosphatase 372 H Total Protein 5.8 L Albumin 2.6 L Assessment and Plan (1) Pneumonitis: Status: Acute (2) Acute on chronic systolic (congestive) heart failure: Status: Acute (3) Acute respiratory failure with hypoxia: Status: Acute Assessment and Plan: 75yo M with?cirrhosis related to past EtOH abuse, hepatic encephalopathy, remote history of alcoholic pancreatitis with resultant chronic pancreatitis, asthma/COPD, Parkinsonism, hypothyroidism, previous tobacco abuse, gout, DM2, history of ventricular arrhythmia, AF on apixaban presenting after fall after taking Unisom and complaining of worsening dyspnea and cough; found to be severely hypoxic 1.acute hypoxic respiratory failure:,acute/chronic HFrEF [LVER 20%]- dilated cardiomyopathy,exacerbation of COPD vs ILD vs diffuse interstitial pneumonitis, afib with rvr , hepatic cirrosis /encpehalopthy, [place], ventricular arrthymias: Patient was treated withcontinue HFNC + NRB, IV diuresis, IV steroids, rate control, lactulose, also received antibiotics in addition for pneumonitis. Seen by Pulmonary, Nephro, Cardiology, also discussed the case with ICU his prognosis seems to or since patient is not improving, discussed with the family in detail-family does not want to pursue further interventions -labs or blood draws, want him to be him comfort. Quality Stroke Does the patient have a stroke diagnosis?: No VTE Prior VTE?: No VTE Risk Level:: Medical - moderate - high VTE Device Contraindication: N/A - Device Ordered VTE Drug Contraindication: N/A - Med Ordered
[2021-01-17 11:15] LABS: Glucose, Whole Blood 240 mg/dL (60-115)
--- NOTE | 2021-01-17 14:02 | P.PNNP_ITS ---
Subjective Subjective Date of Service: 01/17/21 Principal diagnosis: Hypoxic respiratory failure Interval history: Events noted. All recent data reviewed Physical Exam Vital Signs: Vital Signs: Last Vital Signs Temp 97.5 F 01/17/21 11:49 Pulse 123 H 01/17/21 11:49 Resp 24 H 01/17/21 12:17 BP 127/81 01/17/21 11:49 Pulse Ox 88 L 01/17/21 11:49 Oxygen Flow Rate 60 01/16/21 22:13 Body Mass Index 37.5 Const: General: cooperative Eyes: EOM: EOMs intact bilaterally Neck: Neck: Yes supple Resp: Auscultation: diminished lung sounds Cardio: Rate: regular rate GI: Palpation (GI): Soft to palpation Neuro: General: moves all extremities Objective Data Labs CBC & Chem 7: 01/17/21 06:23 01/16/21 05:35 Labs: Laboratory Results - last 24 hr 01/16/21 01/16/21 01/17/21 16:07 20:06 06:23 Hgb 10.0 L Hct 31.7 L POC Glucose 224 H 223 H Total Bilirubin Direct Bilirubin AST ALT Alkaline Phosphatase Total Protein Albumin 01/17/21 01/17/21 01/17/21 06:23 07:18 11:07 Hgb Hct POC Glucose 218 H 240 H Total Bilirubin 3.3 H Direct Bilirubin 1.7 H AST 81 H ALT 24 Alkaline Phosphatase 372 H Total Protein 5.8 L Albumin 2.6 L Procedures Date of Service Date of Service: 01/17/21 Assessment & Plan Assessment and plan (1) CKD (chronic kidney disease) stage 3, GFR 30-59 ml/min: Status: Acute Assessment and Plan: FLYNN superimposed on CKD ILD / Hypoxia Dilated Cardiomyopathy Renal functions back to baseline Continue rest of current supportive care Labs AM. Shall follow with team Time Spent With Patient Time: Total time spent is greater than 50% in coordination of care (as do cumented) at patient's floor/unit and/or counseling patient: Progress Note: Quality Stroke Does the patient have a stroke diagnosis?: No
[2021-01-17 14:22] LABS: VBG Base Excess -1.1 mmol/L; VBG HCO3 22 mmol/L (22-26); VBG pCO2 31 mmHg; VBG pH 7.45 (7.32-7.43); VBG pO2 114 mmHg
--- NOTE | 2021-01-17 15:15 | MHC.CM.PN ---
CM INFORMED PT WOULD NEED A HOSPICE CONSULT. REFERRAL PLACED TO [facility] AT APPROX 1420 HOWEVER, OF YESTERDAY, CM WAS INFORMED THEY WERE UNABLE TO TAKE NEW CLIENTS DUE TO STAFFING. REFERRAL THEN PLACED TO [facility]
[2021-01-17 16:03] LABS: Glucose, Whole Blood 227 mg/dL (60-115)
[2021-01-17] MEDS: LORazepam 0.5 MG TABLET SUBLINGUAL (16:13)
[2021-01-17] MEDS: Morphine Sulfate 2 MG/ML CARTRIDGE 1 MG IVPUSH (16:14)
[2021-01-17] MEDS: Scopolamine 1.5 MG PATCH.TD.3 TRANSDERMA (16:15)
[2021-01-17] MEDS: Morphine Sulfate 2 MG/ML CARTRIDGE IVPUSH (17:26)
[2021-01-17] MEDS: LORazepam 2 MG/ML VIAL 1 MG IVPUSH (17:39)
[2021-01-17] MEDS: Morphine Sulfate 4 MG/ML CARTRIDGE IVPUSH (18:05)
[2021-01-17] MEDS: Morphine Sulfate/NS 100 MG/100 ML PLAST..BAG IVCONT (18:19)
--- NOTE | 2021-01-17 19:02 | PM.EVENT ---
Event Note Date of Service: 01/17/21 Event Note: Called to see patient approximately 1800 for increased respiratory distress and agitation. Given pulse dose of 2 mg of morphine with no effect. Additional 4 mg of morphine given along with 1 mg of Ativan IV and a morphine drip started. After patient comfortable high-flow O2 removed. Recalled again at 18:45 secondary to no pulse and no respirations. Exam: Pupils fixed dilated no corneal response Absent respiration No audible heart sounds Patient pronounced at 18:40
--- NOTE | 2021-01-17 19:46 | PC.NURSE ---
Addendum entered by Dominga Wong RN 01/17/21 22:06: this rn recieved call back from [facility] at 2200. 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 Patient was ordered end of life care and TECHNICIAN INVENTORY SPECIALIST status by Dr. Arora. Patient had agonal and rapid respirations, was unable to verbalize needs, and was is physical distress- body was tense, stiff, and diaphoretic. PRN 1mg morphine and PRN sublingual ativan were given with minimal effect. Hospitalist was contact to address this issue. Dr. Martinez arrived to floor to assess patient. PRN 2mg morphine was ordered and administered with no effect. Additional 4mg IVP morphine administered with some effect- patient's respirations slowed and patient became less tense. Morphine drip was started per MD order. At this time, high flow was removed. Shortly afterwards, patient was found to have no respirations and no heart beat at approximately 1640. Dr. Martinez was notified and arrived to floor to pronounce patient's . Organ bank was called shortly after- awaiting call back from organ bank. HCP, Ana Tavares, was notified of patient's . HCP is deciding home and will call nursing lasting room supervisor tomorrow regarding this decision.
--- NOTE | 2021-01-18 09:22 | PM.DS ---
DS: Providers Provider Date of Service: 01/17/21 Date of admission: 01/08/21 16:52 Date of discharge: 01/17/21 Primary care physician: Marleen Morales MD Admitting clinician: Je Arora Attending physician on admission: Hallie Mojica Consults: 01/08/21 16:21 Consult to Pulmonology Routine Consulting Provider: [facility] Reason for consultation: hypoxia 01/08/21 16:29 Consult to Gastroenterology Routine Consulting Provider: [facility] G[facility]ology [facility] Reason for consultation: cirrhotic ?pancreatitis ?hepatopulmonary 01/10/21 08:27 Consult to Cardiology Routine Consulting Provider: Crescencio Nascimento Reason for consultation: sevre hfRef 01/12/21 07:35 Consult to Nephrology Routine Consulting Provider: [facility] 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 Last night he took an OTC sleeping aid, Unisom.? He fell at some point but did not lose consciousness.? He has been complaining of worsening dyspnea and cough productive of thin sputum for the last few days.? No orthopnea.? No fever.? Minimal edema.? No chest pain.? He also notes some abdominal pain but no nausea or vomiting.? He is hungry. In the ED, he was tachypneic with RR 26 and hypoxic with SaO2 on room air of 86%; normalized with 6L O2 via NC. ? CT of the abdomen and pelvis showed cirrhosis and varices, distended gallbladder with gallstones, distended bladder, and fat stranding around the pancreas with calcifications suggestive of chronic pancreatitis.? CT of the cervical spine showed multiple bone lucencies possibly due to facet arthritis and osteopenia but could not exclude lytic bone disease.? Chest CT showed ILD with cardiomegaly and coronary calcifications, along with likely old rib fractures.? CT of the head showed no acute findings.? Knee X-rays showed bilateral effusions with no fractures. Admission was requested for workup of hypoxia. Hospital course: 75yo M with?cirrhosis related to past EtOH abuse, hepatic encephalopathy, remote history of alcoholic pancreatitis with resultant chronic pancreatitis, asthma/COPD, Parkinsonism, hypothyroidism, previous tobacco abuse, gout, DM2, history of ventricular arrhythmia, AF on apixaban-presenting after fall after taking Unisom and complaining of worsening dyspnea and cough; found to be severely hypoxic acute hypoxic respiratory failure:miltifactorial- got treatments for -exacerbation of COPD vs ILD vs diffuse interstitial pneumonitis acute/chronic HFrEF [LVER 20%]- dilated cardiomyopathy. Also had afib with rvr , hepatic cirrosis /encpehalopthy, flynn, ventricular arrthymias: Patient was treated withcontinue HFNC + NRB, IV diuresis, IV steroids, rate control, lactulose,rate control with metoprolol, also received antibiotics in addition for pneumonitis, but patient condition did not improve much, During this admission Seen by Pulmonary, Nephro, Cardiology, also discussed the case with ICU his prognosis seems to or since patient is not improving and also due to multiple comorbidities -patient prognosis seems poor,discussed with the hcp mIss martinez and her in detail-they does not want to pursue further interventions -patient was made comfort measures, subsequently patient passed comfortably . time of 18:40 pm 02/17/21 Time Spent with Patient Time attestation: Total time spent providing and/or coordinating discharge services: Discharge coordination time: Greater than 30 minutes Quality: Stroke Does the patient have a stroke diagnosis?: No Physical Exam Vital Signs: Vital Signs: Last Vital Signs Temp 99 F 01/17/21 15:08 Pulse 133 H 01/17/21 15:08 Resp 22 H 01/17/21 15:32 BP 103/63 01/17/21 15:08 Pulse Ox 86 L 01/17/21 15:08 Oxygen Flow Rate 60 01/16/21 22:13 Body Mass Index 37.5 Patient , not applicable. DS: Data Data Completed and Pending Labs on day of discharge: Laboratory Results - last 24 hr 01/17/21 01/17/21 01/17/21 11:07 14:12 15:54 VBG pH 7.45 H VBG pCO2 31 VBG pO2 114 VBG HCO3 22 VBG O2 Saturation 98.0 VBG Base Excess -1.1 POC Glucose 240 H 227 H Discharge Plan Discharge Date/Time: 01/17/21 18:45 Patient Disposition: Discharge Diagnosis: Acute hypoxemic respiratory failure secondary to ILD. Referrals: Marleen Morales MD [Primary Care Provider] - 1 Week Discharge Medications: Discontinued tamsulosin 0.4 mg capsule 0.4 mg PO BEDTIME 30 Days Qty: 30 RF: 6 lactulose 10 gram/15 mL solution 30 ml PO TID Qty: 2700 RF: 3 multivitamin Tablet 1 tab PO QAM RF: 0 torsemide 10 mg tablet 10 mg PO DAILY RF: 0 carvedilol 3.125 mg tablet 3.125 mg PO BID RF: 0 mexiletine 200 mg capsule 1 cap PO TID RF: 0 carbidopa-levodopa 25-100 mg tablet 1 tab PO TID RF: 0 Xifaxan 550 mg tablet 1 tab PO BID RF: 0 allopurinol 100 mg tablet 100 mg PO DAILY RF: 0 finasteride 5 mg tablet 5 mg PO BEDTIME RF: 0 insulin lispro [Humalog KwikPen Insulin] 100 unit/mL insulin pen 10 unit subcut TIDAC RF: 0 Lantus Solostar U-100 Insulin 100 unit/mL (3 mL) insulin pen 36 unit subcut BEDTIME RF: 0 diphenhydramine HCl [Sleep Aid (diphenhydramine)] 25 mg Capsule 25 mg PO BEDTIME PRN (Reason: Sleep) RF: 0 cholecalciferol (vitamin D3) [Vitamin D3] 25 mcg (1,000 unit) capsule 25 mcg PO DAILY RF: 0 levothyroxine 100 mcg tablet 100 mcg PO DAILY@629 RF: 0 loratadine [Allergy Relief (loratadine)] 10 mg tablet 10 mg PO DAILY RF: 0 omeprazole 20 mg capsule,delayed release(DR/EC) 20 mg PO DAILY@06 RF: 0 simvastatin 20 mg tablet 20 mg PO BEDTIME RF: 0 quetiapine 100 mg tablet 100 mg PO BID RF: 0 Eliquis 5 mg tablet 5 mg PO BID RF: 0 spironolactone 25 mg tablet 25 mg PO DAILY RF: 0 (DME) OneTouch Ultra Blue Test Strip Strip See Rx Instructions .ROUTE .MEDSUPPLY Qty: 360 RF: 2 (DME) lancets [OneTouch Delica Lancets] 33 gauge misc See Rx Instructions miscellaneous .MEDSUPPLY Qty: 360 RF: 1 (DME) pen needle, diabetic [BD Lavinia 2nd Gen Pen Needle] 32 gauge x 5/32 needle See Rx Instructions .MEDSUPPLY Qty: 400 RF: 4 Discharge Date/Time: 01/17/21 19:59
--- NOTE | 2021-02-26 13:55 | P.CDIR_ITS ---
Documented by User: Meghna Baltazar RN 02/26/21 14:01 Retrospective Query PHYSICIAN'S DOCUMENTATION REQUEST Date of Query: 02/26/21 [id number] Patient Name: Rito Bruner Admit Date: 01/08/21 Dear Doctor, A review of the medical record indicates additional documentation may be needed. Please review below and update the documentation accordingly. Clinical Indicators: Risk Factors/Clinical Indicators/Treatments Admitted for Acute respiratory failure with hypoxia, COPD Exacerbation, Hepatic Encephalopathy Per MD Progress Note 01/17/21: rapid response Patient removing oxygen mask, becoming very hypoxic. BP dropped to 60 over 40s. Given 2 liters fluid and placed on non-rebreather. Increased respiratory distress and agitation Treated with Morphine and Ativan and morphine drip Based on the above, please further specify, in the Progress Notes, the known or suspected type of the documented encephalopathy: * Metabolic * Septic * Toxic * Toxic metabolic * Hypertensive * Anoxic * Alcoholic * Hepatic (reported as hepatic failure and needs further specificity as to acute, subacute, or chronic) * Due to a specified condition (such as UTI, hyponatremia, CVA, etc.) * Other (please specify) * Unable to determine Use of terms such as suspected, likely, concern for, or probable (associated with a specific diagnosis that is being evaluated, monitored, or treated as if it exists) are acceptable and can be coded in the inpatient setting, when documented at the time of discharge. Thank you, Meghna Baltazar RN Extension: [phone] Please use your independent medical judgment in providing your response. THIS QUERY IS PART OF THE PERMANENT MEDICAL RECORD Documented by User: Je Arora MD 02/27/21 09:44 Retrospective Query Provider Response: Other (toxic metabolic encephalopathy sec to LiVER failure .)
== END 2021-01-17 19:59 | disposition expired | DRG 196 ==
LOC: HO.ED 11:53 → HO.EDOVER 17:05 → HO.S3 01-09 17:05 → HO.IMC 01-13 15:18
PROVIDERS: Hospitalist; Internal Medicine; Nurse Practitioner Acute Care; Admitting Provider Family Medicine; Emergency Provider Emergency Medicine Emergency Medical Services; PCP Student in an Organized Health Care Education/Training Program; Visit Provider Internal Medicine
DX: J84.89 Other specified interstitial pulmonary diseases (principal); J96.01 Acute respiratory failure with hypoxia; I50.23 Acute on chronic systolic (congestive) heart failure; G92.8 Other toxic encephalopathy; I13.0 Hypertensive heart and chronic kidney disease with heart failure and stage 1 through stage 4 chronic kidney disease, or unspecified chronic kidney disease; K86.1 Other chronic pancreatitis; J44.1 Chronic obstructive pulmonary disease with (acute) exacerbation; N17.9 Acute kidney failure, unspecified; I42.0 Dilated cardiomyopathy; K70.30 Alcoholic cirrhosis of liver without ascites; E11.22 Type 2 diabetes mellitus with diabetic chronic kidney disease; N18.30 Chronic kidney disease, stage 3 unspecified; Z20.822 Contact with and (suspected) exposure to COVID-19; Z95.810 Presence of automatic (implantable) cardiac defibrillator; M10.9 Gout, unspecified; N40.0 Benign prostatic hyperplasia without lower urinary tract symptoms; E03.9 Hypothyroidism, unspecified; D69.6 Thrombocytopenia, unspecified; K72.90 Hepatic failure, unspecified without coma; G20 Parkinson's disease; Z87.891 Personal history of nicotine dependence; E66.9 Obesity, unspecified; D63.1 Anemia in chronic kidney disease; Z68.37 Body mass index [BMI] 37.0-37.9, adult; I49.8 Other specified cardiac arrhythmias; Z79.01 Long term (current) use of anticoagulants; Z79.4 Long term (current) use of insulin; Z79.890 Hormone replacement therapy; Z79.899 Other long term (current) drug therapy; Z66 Do not resuscitate
CPT/HCPCS: 36415; 36600; 70450; 71045; 71250; 72125; 73562; 74176; 76775; 78580; 80048; 80053; 80076; 81001; 82043; 82077; 82085; 82140; 82150; 82310; 82550; 82565; 82803; 82947; 83690; 83735; 83880; 84132; 84145; 84484; 85014; 85018; 85025; 85027; 85379; 85610; 86021; 86038; 86039; 86140; 86200; 86431; 86769; 87389; 87633; 87635; 93005; 93306; 94640; 97110; 97162; 99284; 99291; A9540; C1758; J1940; J2060; J2270; J2920; J2930; Q0163